=== PATIENT | male | born 1940 | race Caucasian/White ===

== ENCOUNTER 2016-08-07 13:09 | Inpatient (IN) | payer MEDICARE, OTHER ==
[~2016-08-07] VITALS: Ht 182.9 cm; Wt 72.0 kg
[2016-08-07] MEDS ORDERED: SOD CHLORIDE 0.9% 500 ML IV STA (14:53)
[2016-08-07] MEDS ORDERED: morphine 4 MG/ML VIAL IV STA ×2 (14:53→20:18)
[2016-08-07] MEDS ORDERED: ONDANSETRON 4 MG INJ IV STA (14:53)
[2016-08-07 15:10] LABS: ADD SCAN DIFF NO
[2016-08-07 15:28] LABS: INR 1.19; PROTIME 15.2 Sec (12.2-14.2); PT RATIO 1.2
[2016-08-07 15:29] LABS: PARTIAL THROMBOPLASTIN TIME 30.7 Sec (25.0-35.0)
--- NOTE | 2016-08-07 15:32 | RADRPT ---
PROCEDURE: XR Chest. CLINICAL INDICATION: Abdominal pain. TECHNIQUE: Single frontal view. COMPARISON: None. FINDINGS: The lungs are clear. The heart size is normal. There is no pleural effusion. There is no pneumothorax. IMPRESSION: 1. Normal chest radiograph. RPTAT: QQ .Juan Jose Soler MD, Date Time Electronically viewed and signed by .Juan Jose Soler MD, on 08/07/2016 15:32 .R/
[2016-08-07 15:35] LABS: ALANINE AMINOTRANSFERASE 34 IU/L (13-69); ALBUMIN 4.3 g/dl (3.3-4.9); ALBUMIN/GLOBULIN RATIO 1.26; ALKALINE PHOSPHATASE 290 IU/L (42-121); ANION GAP 19 (8-16); ASPARTATE AMINO TRANSFERASE 22 IU/L (15-46); BILIRUBIN,INDIRECT 0.4 mg/dl (0-1.1); BILIRUBIN,TOTAL 0.4 mg/dl (0.2-1.3); BLOOD UREA NITROGEN 28 mg/dl (7-20); CALCIUM 9.7 mg/dl (8.4-10.2); CARBON DIOXIDE 19 mmol/L (21-31); CHLORIDE 105 mmol/L (97-110); CREATININE 0.85 mg/dl (0.61-1.24); GLUCOSE 383 mg/dl (70-220); SODIUM 138 mmol/L (135-144); TOTAL PROTEIN 7.7 g/dl (6.1-8.1)
[2016-08-07 15:38] LABS: POTASSIUM 5.1 mmol/L (3.5-5.1)
[2016-08-07 15:45] LABS: ABNORMAL IP MESSAGE 1; HEMATOCRIT 28.1 % (42.0-52.0); HEMOGLOBIN 9.2 g/dl (14.0-18.0); MEAN CORPUSCULAR HEMOGLOBIN 24.8 pg (29.0-33.0); MEAN CORPUSCULAR HGB CONC 32.7 g/dl (32.0-37.0); MEAN CORPUSCULAR VOLUME 75.7 fl (82.0-101.0); PLATELET COUNT 307 10^3/UL (140-415); RED BLOOD COUNT 3.71 10^6/ul (4.70-6.10); RED CELL DISTRIBUTION WIDTH 25.9 % (11.5-14.5)
[2016-08-07 15:58] LABS: TROPONIN-I < 0.012 ng/ml (0.00-0.12)
[2016-08-07] MEDS ORDERED: OMEP20CA16 PO (16:29)
[2016-08-07] MEDS ORDERED: ONDANSETRON 4 MG INJ IV PRN (16:30)
[2016-08-07] MEDS ORDERED: ACYC400T2 PO (16:30)
[2016-08-07] MEDS ORDERED: ACETAMINOPHEN 325 MG TAB PO PRN (16:30)
[2016-08-07] MEDS ORDERED: GABA300C16 PO (16:31)
[2016-08-07] MEDS ORDERED: REPA1TAB5 PO (16:31)
[2016-08-07] MEDS ORDERED: LOSA50TA6 PO (16:33)
[2016-08-07] MEDS ORDERED: METF500T4 PO (16:33)
[2016-08-07] MEDS ORDERED: CHOL500010 PO (16:34)
[2016-08-07] MEDS ORDERED: CANA300T PO (16:35)
[2016-08-07] MEDS ORDERED: LORA1TAB PO (16:35)
[2016-08-07] MEDS ORDERED: VITA400C15 PO (16:36)
[2016-08-07] MEDS ORDERED: SITA100T8 PO (16:36)
[2016-08-07] MEDS ORDERED: FER325 PO (16:39)
[2016-08-07] MEDS ORDERED: SOD CHLORIDE 0.9% 100 ML ONE (16:42)
[2016-08-07] MEDS ORDERED: IODIXANOL LOCM 100 ML BTL ONE (16:42)
[2016-08-07 17:15] LABS: EOSINOPHILS # 0.1 10^3/ul (0.0-0.5); LYMPHOCYTES # 1.6 10^3/ul (0.8-2.9); MONOCYTE # 1.1 10^3/ul (0.3-0.9); NEUTROPHIL # 6.7 10^3/ul (1.6-7.5)
[2016-08-07 17:17] LABS: ACANTHOCYTES 1+; OVALOCYTES FEW; TEAR DROP CELLS FEW
--- NOTE | 2016-08-07 18:32 | RADRPT ---
PROCEDURE: CT angiogram of the abdomen and pelvis with bilateral lower extremity runoff and with 3 -D reconstructions CLINICAL INDICATION: abd thrombus with leg pain and swelling TECHNIQUE: CT angiogram of the abdomen and pelvis with lower extremity runoff was performed on a Pre[employer]ac[employer]lice CT scanner . The patient was scanned after administration of intravenous contrast. Sagit nick and coronal reformatted images were obtained from the axial source images. 3D MIP reformatted im ages were also created from the axial source images. DLP 832.66 mGycm CTDI vol 32.86, 6.21 mGy One or more of the following dose reduction techniques were used: - Automated exposure control. - Adjustment of the mA and/or kV according to patient size. - Use of iterative reconstruction technique. COMPARISON: None FINDINGS: ANGIOGRAM: There is no acute dissection or aneurysm of the abdominal aorta. The celiac, SMA, and NORMA are widely patent. The right hepatic artery is replaced off the SMA. There are single renal arteries bilaterally which are widely patent. Common, internal and external iliac arteries are patent bilaterally. RIGHT LOWER EXTREMITY: The MARKETING EDITOR, SFA, and profunda arteries are widely patent. There is limited visualization of the mid right popliteal artery due to prominent streak artifact fr om the adjacent right knee prosthesis. The visualized right popliteal artery is widely patent. There is severe short segment narrowing due to atherosclerotic calcifications of the tibioperoneal t runk on series 3, image 505. Infrapopliteal vessels are widely patent and there is good three-vessel runoff to the level of the a nkle. LEFT LOWER EXTREMITY: The MARKETING EDITOR, SFA, and profunda arteries are widely patent. The popliteal artery is widely patent. Infrapopliteal vessels are widely patent and there is good three-vessel runoff to the level of the a nkle. ANCILLARY: Internal fixation hardware is noted at the right iliac and superior pubic ramus. Deformity of bilat eral inferior pubic rami is likely from remote fractures. An infrarenal IVC filter is noted. The appendix is within normal limits. A right knee prosthesis is noted. IMPRESSION: No acute dissection, aneurysm, or significant flow limiting atherosclerosis of the abdominal aorta. The visualized arteries of bilateral lower extremities are widely patent with three-vessel uninterru pted runoff to the ankles. There is limited visualization of the mid right popliteal artery due to streak artifact from the adjacent knee prosthesis. Infrarenal IVC filter. RPTAT: EE Gil Beasley, Physician Date Time Electronically viewed and signed by Gil Beasley Physician on 08/07/2016 18:32 RA/
[2016-08-07 18:43] VITALS: TEMP 98.3
--- NOTE | 2016-08-07 20:41 | ERA ---
ER Documentation Chief Complaint Date/Time DATE: 08/07/16 TIME: 20:32 Chief Complaint sent by pmd for thrombus in inferior vena cava, + dizziness, denies sob HPI This 76-year-old male was sent in for admission and vascular workup for a thrombus in his inferior vena cava. Patient is also experiencing some mild lower abdominal pain as well as bilateral leg pain worse with exertion, pain is worse in the right leg with which the patient also has increasing edema. According to his paperwork he also has a chronic pulmonary embolism. He has no shortness of breath or chest pain. He feels otherwise well. ROS All systems reviewed and are negative except as per history of present illness. Medications Home Meds Reported Medications Ferrous Sulfate* (Ferrous Sulfate*) 325 Mg Tabec, 325 MG PO DAILY, TAB 08/07/16 Vitamin E* (Vitamin E*) 400 Unit Capsule, 400 UNIT PO BID, CAP 08/07/16 Sitagliptin* (Januvia*) 100 Mg Tablet, 100 MG PO DAILY, #30 TAB 08/07/16 Canagliflozin (Invokana) 300 Mg Tablet, 300 MG PO DAILY, TAB 08/07/16 Lorazepam* (Lorazepam*) 1 Mg Tablet, 1 MG PO HS Y for ANXIETY, #30 TAB 08/07/16 Cholecalciferol (Vitamin D3) 5,000 Unit Tablet, 5000 UNIT PO DAILY, TAB 08/07/16 Losartan Potassium* (Losartan Potassium*) 50 Mg Tablet, 50 MG PO DAILY, TAB 08/07/16 Metformin Hcl* (Metformin Hcl*) 500 Mg Tablet, 500 MG PO WITH BREAKFAST DINNE, # 60 TAB 08/07/16 Repaglinide* (Repaglinide*) 1 Mg Tablet, 1 MG PO AC MEALS, TAB 08/07/16 Gabapentin* (Gabapentin*) 300 Mg Capsule, 300 MG PO DAILY, #30 CAP 08/07/16 Acyclovir* (Acyclovir*) 400 Mg Tablet, 200 MG PO 5 TIMES DAILY, TAB 08/07/16 Omeprazole* (Omeprazole*) 20 Mg Capsule.dr, 20 MG PO DAILY, #30 CAP 08/07/16 Allergies Allergies: Coded Allergies: Penicillins (Unverified Allergy, Unknown, 08/07/16) PMhx/Soc History of Surgery: Yes (bilateral hand sx, right knee sx) Anesthesia Reaction: No Hx Neurological Disorder: No Hx Respiratory Disorders: No Hx Cardiac Disorders: No Hx Psychiatric Problems: No Hx Miscellaneous Medical Probl: Yes (htn, DM, and high cholest) Hx Alcohol Use: No Hx Substance Use: No Hx Tobacco Use: No Smoking Status: Never smoker Physical Exam Vitals Vital Signs Date Time Temp Pulse Resp B/P Pulse Ox O2 Delivery O2 Flow Rate FiO2 08/07/16 18:43 98.3 72 16 138/61 100 Room Air 08/07/16 18:09 79 14 138/59 100 Room Air 08/07/16 13:15 100.2 97 20 152/65 98 Physical Exam Const: [] Mild distress Head: Atraumatic Eyes: Normal Conjunctiva ENT: Normal External Ears, Nose and Mouth. Neck: Full range of motion..~ No meningismus. Resp: Clear to auscultation bilaterally Cardio: Regular rate and rhythm, no murmurs Abd: Soft, very mild lower abdominal tenderness without palpable pulsatile mass, no guarding or rebound, non distended. Normal bowel sounds Skin: No petechiae or rashes Back: No midline or flank tenderness Ext: No cyanosis, right lower extremity 1+ pitting edema of the pretibial and ankle area. Distal pulses intact 2+ bilateral lower extremities Neur: Awake and alert and oriented 3, no focal deficits Psych: Normal Mood and Affect Result Diagram: 08/07/16 1500 08/07/16 1500 Results 24 hrs Laboratory Tests Test 08/07/16 15:00 White Blood Count 9.810^3/ul Red Blood Count 3.7110^6/ul Hemoglobin 9.2g/dl Hematocrit 28.1% Mean Corpuscular Volume 75.7fl Mean Corpuscular Hemoglobin 24.8pg Mean Corpuscular Hemoglobin Concent 32.7g/dl Red Cell Distribution Width 25.9% Platelet Count 85173^3/UL Mean Platelet Volume fl Neutrophils % 68.0% Band Neutrophils % 3.0% Lymphocytes % 16.0% Reactive Lymphocytes % 1.0% Monocytes % 11.0% Eosinophils % 1.0% Neutrophils # 6.710^3/ul Lymphocytes # 1.610^3/ul Monocytes # 1.110^3/ul Eosinophils # 0.110^3/ul Tear Drop Cells FEW Ovalocytes FEW Acanthocytes 1+ Prothrombin Time 15.2Sec Prothrombin Time Ratio 1.2 INR International Normalized Ratio 1.19 Activated Partial Thromboplast Time 30.7Sec Sodium Level 138mmol/L Potassium Level 5.1mmol/L Chloride Level 105mmol/L Carbon Dioxide Level 19mmol/L Anion Gap 19 Blood Urea Nitrogen 28mg/dl Creatinine 0.85mg/dl Glucose Level 383mg/dl Lactic Acid Level 2.8mmol/L Calcium Level 9.7mg/dl Total Bilirubin 0.4mg/dl Direct Bilirubin 0.00mg/dl Indirect Bilirubin 0.4mg/dl Aspartate Amino Transf (AST/SGOT) 22IU/L Alanine Aminotransferase (ALT/SGPT) 34IU/L Alkaline Phosphatase 290IU/L Troponin I < 0.012ng/ml Total Protein 7.7g/dl Albumin 4.3g/dl Globulin 3.40g/dl Albumin/Globulin Ratio 1.26 Lipase 86U/L Current Medications Medications (Trade) Dose Ordered Sig/Rishi Route PRN Reason Start Time Stop Time Status Last Admin Dose Admin Sodium Chloride (NS) 500 ml @ 500 mls/hr Q1H STAT IV 08/07/16 14:53 08/07/16 15:52 DC 08/07/16 15:16 Morphine Sulfate (morphine) 4 mg ONCE STAT IV 08/07/16 14:53 08/07/16 14:58 DC 08/07/16 15:23 Ondansetron HCl (Zofran Inj) 4 mg ONCE STAT IV 08/07/16 14:53 08/07/16 14:58 DC 08/07/16 15:16 Ondansetron HCl (Zofran Inj) 4 mg BRIDGE ORDER PRN IV NAUSEA AND/OR VOMITING 08/07/16 16:30 08/08/16 16:29 Acetaminophen (Tylenol Tab) 650 mg ER BRIDGE PRN PO MILD PAIN/FEVER 08/07/16 16:30 08/08/16 16:29 IV Flush 10 ml 10 ml STK-MED ONCE .ROUTE 08/07/16 16:42 08/07/16 16:43 DC 08/07/16 17:23 Sodium Chloride (NS) 100 ml @ ud STK-MED ONCE .ROUTE 08/07/16 16:42 08/07/16 16:43 DC 08/07/16 17:23 Iodixanol (Visipaque Locm) 100 ml STK-MED ONCE .ROUTE 08/07/16 16:42 08/07/16 16:43 DC 08/07/16 17:23 Procedures/MDM Increasing leg claudication with chronic pulmonary embolism and worry for extension into the inferior vena cava. Patient also here for microcytic anemia workup. Patient has a filter in this area. Patient also has diabetic hyperglycemia. He was treated with a liter of normal saline and 4 mg of morphine. Spoke with Dr. Seay agrees with admission for the patient for vascular consultation and workup of his leg claudication. No significant arterial blockages on CTA. Ordering a venous study of his right lower extremity. Patient also has an elevated lactic acid secondary to dehydration plus possibly related to leg claudication. Patient is being admitted to the medical surgical floor as his pulmonary embolism is chronic. He has a microcytic anemia with no history of GI bleeding. CT abdominal angiogram with runoff interpretation: No significant arterial blockages right lower extremity or abdominal aorta. No other acute process or abnormal fat stranding, no fractures per Departure Diagnosis: Primary Impression: Right leg claudication Additional Impressions: Thrombosis Hyperglycemia due to type 2 diabetes mellitus Dehydration Lactic acidosis Microcytic anemia Condition: Stable BUFFY SAMANIEGO DO Aug 07, 2016 20:35
[2016-08-07 21:05] VITALS: BP 141/67; RESP 18
[2016-08-07] MEDS ORDERED: INSULIN ASPART [NOVOLOG] 3 ML PEN SC ONE (21:30)
[2016-08-07] MEDS: SOD CHLORIDE 0.9% 1,000 ML IV SCH (23:38)
[2016-08-07] MEDS: INSULIN ASPART [NOVOLOG] 3 ML PEN SC SCH (23:43)
[2016-08-08] MEDS ORDERED: ACCU-CHEK XX SCH (02:00)
[2016-08-08] MEDS: ACCU-CHEK XX SCH (02:00)
[2016-08-08] MEDS: PANTOPRAZOLE (EC) 40 MG TAB PO SCH (05:38)
[2016-08-08 06:01] LABS: ADD SCAN DIFF NO
[2016-08-08 06:08] LABS: ABNORMAL IP MESSAGE 1; BASOPHILS % 0.4 % (0.0-2.0); EOSINOPHILS % 0.3 % (0.0-7.0); HEMATOCRIT 26.4 % (42.0-52.0); HEMOGLOBIN 8.4 g/dl (14.0-18.0); LYMPHOCYTES # 1.5 10^3/ul (0.8-2.9); LYMPHOCYTES % 19.9 % (15.0-51.0); MEAN CORPUSCULAR HEMOGLOBIN 24.4 pg (29.0-33.0); MEAN CORPUSCULAR HGB CONC 31.8 g/dl (32.0-37.0); MEAN CORPUSCULAR VOLUME 76.7 fl (82.0-101.0); MONOCYTE # 1.1 10^3/ul (0.3-0.9); MONOCYTES % 15.2 % (0.0-11.0); NEUTROPHIL # 4.3 10^3/ul (1.6-7.5); NEUTROPHILS % 56.9 % (39.0-77.0); NUCLEATED RED BLOOD CELLS # 0.1 10^3/ul (0.0-0.0); NUCLEATED RED BLOOD CELLS% 1.2 /100WBC (0.0-0.0); PLATELET COUNT 259 10^3/UL (140-415); RED BLOOD COUNT 3.44 10^6/ul (4.70-6.10); RED CELL DISTRIBUTION WIDTH 25.4 % (11.5-14.5); WHITE BLOOD COUNT 7.5 10^3/ul (4.8-10.8)
[2016-08-08 06:24] LABS: INR 1.2; PROTIME 15.3 Sec (12.2-14.2); PT RATIO 1.2
[2016-08-08 06:25] LABS: PARTIAL THROMBOPLASTIN TIME 36.6 Sec (25.0-35.0)
[2016-08-08 06:32] LABS: IRON 47 ug/dl (35-150)
[2016-08-08 06:42] LABS: TOTAL IRON BINDING CAPACITY 242 ug/dl (241-421)
[2016-08-08 06:43] LABS: ANION GAP 13 (8-16); ASPARTATE AMINO TRANSFERASE 20 IU/L (15-46); BLOOD UREA NITROGEN 24 mg/dl (7-20); CALCIUM 9.5 mg/dl (8.4-10.2); CARBON DIOXIDE 24 mmol/L (21-31); CHLORIDE 109 mmol/L (97-110); CREATININE 0.73 mg/dl (0.61-1.24); GLUCOSE 111 mg/dl (70-220); POTASSIUM 4.6 mmol/L (3.5-5.1); SODIUM 141 mmol/L (135-144)
[2016-08-08 06:44] LABS: ALANINE AMINOTRANSFERASE 35 IU/L (13-69); ALBUMIN 3.7 g/dl (3.3-4.9); ALBUMIN/GLOBULIN RATIO 1.19; ALKALINE PHOSPHATASE 238 IU/L (42-121); BILIRUBIN,INDIRECT 0.4 mg/dl (0-1.1); BILIRUBIN,TOTAL 0.4 mg/dl (0.2-1.3); CHOL/HDL RATIO 4.7 RATIO; CHOLESTEROL 104 mg/dl (100-200); HDL CHOLESTEROL 22 mg/dl (31-75); TOTAL PROTEIN 6.8 g/dl (6.1-8.1)
[2016-08-08 06:46] LABS: TRIGLYCERIDES 117 mg/dl (0-149)
[2016-08-08 07:52] LABS: FOLATE 5.7 ng/ml (2.8-20.0)
[2016-08-08 08:03] VITALS: BP 142/65; RESP 18
[2016-08-08] MEDS: GABAPENTIN 300 MG CAP PO SCH (08:09)
[2016-08-08] MEDS: LINAGLIPTIN 5 MG TABLET PO SCH (08:09)
[2016-08-08] MEDS: CHOLECALCIFEROL 1,000 UNIT TAB PO SCH (08:09)
[2016-08-08] MEDS: VITAMIN E 400 UNITS CAP PO SCH ×2 (08:09→22:29)
[2016-08-08] MEDS: LOSARTAN 50 MG TAB PO SCH (08:10)
[2016-08-08] MEDS: ENOXAPARIN 40 MG/0.4 ML SYG SC SCH (08:18)
[2016-08-08] MEDS: INSULIN ASPART [NOVOLOG] 3 ML PEN SC SCH ×7 (08:19→22:31)
[2016-08-08] MEDS: SOD CHLORIDE 0.9% 1,000 ML IV SCH ×2 (14:10→17:28)
--- NOTE | 2016-08-08 15:42 | PN ---
Date/Time of Note Date/Time of Note DATE: 08/08/16 TIME: 15:30 Assessment/Plan VTE Prophylaxis VTE Prophylaxis Intervention: LMWH Lines/Catheters IV Catheter Type (from Nrsg): Peripheral IV Assessment/Plan Assessment/Plan Thrombosis- On Lovenox Hyperglycemia due to type 2 diabetes mellitus Dehydration Lactic acidosis Microcytic anemia DW Dr eHrnandez Subjective 24 Hr Interval Summary Constitutional: requiring O2 Respiratory: no complaints Cardiovascular: no complaints Gastrointestinal: no complaints Genitourinary: no complaints Exam/Review of Systems Vital Signs Vitals Vital Signs Date Time Temp Pulse Resp B/P Pulse Ox O2 Delivery O2 Flow Rate FiO2 08/08/16 08:03 98.5 79 18 142/65 99 08/07/16 18:43 Room Air Intake and Output 08/07/16 08/07/16 08/08/16 14:59 22:59 06:59 Intake Total 600 ml Output Total 500 ml Balance 100 ml Exam Constitutional: alert, well developed Respiratory: clear to auscultation, normal air movement Cardiovascular: nl pulses, regular rate and rhythm Gastrointestinal: non-tender, soft Musculoskeletal: other Extremities: edema, other (No cyanosis, right lower extremity 1+ pitting edema of the pretibial and ankle area. Distal pulses intact 2+ bilateral lower extremities) Neurological: nl mental status, nl speech Skin: other Results Result Diagram: 08/08/16 0520 08/08/16 0520 Results 24 hrs Laboratory Tests Test 08/07/16 23:35 08/07/16 23:40 08/08/16 02:55 08/08/16 05:20 Stool Occult Blood NEGATIVE Bedside Glucose 269 H 149 White Blood Count 7.5 # Red Blood Count 3.44 L Hemoglobin 8.4 L Hematocrit 26.4 L Mean Corpuscular Volume 76.7 L Mean Corpuscular Hemoglobin 24.4 L Mean Corpuscular Hemoglobin Concent 31.8 L Red Cell Distribution Width 25.4 H Platelet Count 259 Mean Platelet Volume Neutrophils % 56.9 Lymphocytes % 19.9 Monocytes % 15.2 H Eosinophils % 0.3 Basophils % 0.4 Nucleated Red Blood Cells % 1.2 H Neutrophils # 4.3 Lymphocytes # 1.5 Monocytes # 1.1 H Eosinophils # 0.0 Basophils # 0.0 Nucleated Red Blood Cells # 0.1 H Prothrombin Time 15.3 H Prothrombin Time Ratio 1.2 INR International Normalized Ratio 1.20 Activated Partial Thromboplast Time 36.6 H Sodium Level 141 Potassium Level 4.6 Chloride Level 109 Carbon Dioxide Level 24 Anion Gap 13 Blood Urea Nitrogen 24 H Creatinine 0.73 Glucose Level 111 # Hemoglobin A1c 8.2 H Calcium Level 9.5 Ferritin 151.0 Total Bilirubin 0.4 Direct Bilirubin 0.00 Indirect Bilirubin 0.4 Aspartate Amino Transf (AST/SGOT) 20 Alanine Aminotransferase (ALT/SGPT) 35 Alkaline Phosphatase 238 H Total Protein 6.8 Albumin 3.7 Globulin 3.10 Albumin/Globulin Ratio 1.19 Triglycerides Level 117 Cholesterol Level 104 LDL Cholesterol, Calculated 59 HDL Cholesterol 22 L Cholesterol/HDL Ratio 4.7 Vitamin B12 Level > 1000 H Folate 5.7 Test 08/08/16 05:40 08/08/16 08:05 08/08/16 11:59 Iron Level 47 Total Iron Binding Capacity 242 Percent Iron Saturation 19 L Bedside Glucose 165 151 Medications Medications Current Medications Acetaminophen (Tylenol Tab) 650 mg Q6H PRN PO PAIN AND OR ELEVATED TEMP; Start 08/07/16 at 21:30 Enoxaparin Sodium 40 mg 40 mg DAILY SC Last administered on 08/08/16 08:18; Admin Dose 40 MG; Start 08/08/16 at 09:00 Sodium Chloride (NS) 1,000 ml @ 60 mls/hr [id number] IV Last administered on 08/07 23:38; Admin Dose 60 MLS/HR; Start 08/07/16 at 21:30 Morphine Sulfate (morphine) 2 mg Q4H PRN IV severe pain; Start 08/07/16 at 21: 30 Acetaminophen/ Hydrocodone Bitart ([place] (5/325)) 1 tab Q6H PRN PO moderate pain; Start 08/07/16 at 21:30 Diagnostic Test (Pha) (Accu-Chek) 1 ea 02 XX ; Start 08/08/16 at 02:00 Cholecalciferol (Vitamin D) 5,000 unit DAILY PO Last administered on 08/08/16 08:09; Admin Dose 5,000 UNIT; Start 08/08/16 at 09:00 Gabapentin (Neurontin) 300 mg DAILY PO Last administered on 08/08/16 08:09; Admin Dose 300 MG; Start 08/08/16 at 09:00 Lorazepam (Ativan) 1 mg HS PRN PO ANXIETY; Start 08/07/16 at 21:30 Losartan Potassium (Cozaar) 50 mg DAILY PO Last administered on 08/08/16 08:10 ; Admin Dose 50 MG; Start 08/08/16 at 09:00 Vitamin E (Vitamin E) 400 units BID PO Last administered on 08/08/16 08:09; Admin Dose 400 UNITS; Start 08/08/16 at 09:00 Pantoprazole (Protonix Tab) 40 mg DAILY@06 PO Last administered on 08/08/16 05 :38; Admin Dose 40 MG; Start 08/08/16 at 06:00 Linagliptin (Tradjenta) 5 mg DAILY PO Last administered on 08/08/16 08:09; Admin Dose 5 MG; Start 08/08/16 at 09:00 POLA CISNEROS Aug 08, 2016 15:40
[2016-08-08 20:00] VITALS: BP 150/67; RESP 20
[2016-08-09] MEDS: ACCU-CHEK XX SCH (02:00)
[2016-08-09] MEDS: PANTOPRAZOLE (EC) 40 MG TAB PO SCH (06:05)
[2016-08-09 06:24] LABS: ABNORMAL IP MESSAGE 1; BASOPHIL # 0.1 10^3/ul (0.0-0.1); BASOPHILS % 0.7 % (0.0-2.0); EOSINOPHILS # 0.1 10^3/ul (0.0-0.5); EOSINOPHILS % 0.8 % (0.0-7.0); HEMATOCRIT 26.3 % (42.0-52.0); HEMOGLOBIN 8.5 g/dl (14.0-18.0); LYMPHOCYTES # 1.6 10^3/ul (0.8-2.9); LYMPHOCYTES % 21.4 % (15.0-51.0); MEAN CORPUSCULAR HEMOGLOBIN 24.5 pg (29.0-33.0); MEAN CORPUSCULAR HGB CONC 32.3 g/dl (32.0-37.0); MEAN CORPUSCULAR VOLUME 75.8 fl (82.0-101.0); MONOCYTE # 1.1 10^3/ul (0.3-0.9); MONOCYTES % 14.7 % (0.0-11.0); NEUTROPHIL # 4.2 10^3/ul (1.6-7.5); NEUTROPHILS % 55.4 % (39.0-77.0); NUCLEATED RED BLOOD CELLS # 0.1 10^3/ul (0.0-0.0); NUCLEATED RED BLOOD CELLS% 1.2 /100WBC (0.0-0.0); PLATELET COUNT 258 10^3/UL (140-415); RED BLOOD COUNT 3.47 10^6/ul (4.70-6.10); RED CELL DISTRIBUTION WIDTH 24.7 % (11.5-14.5); WHITE BLOOD COUNT 7.5 10^3/ul (4.8-10.8)
[2016-08-09 06:48] LABS: CALCIUM 9.4 mg/dl (8.4-10.2); CREATININE 0.77 mg/dl (0.61-1.24); POTASSIUM 4.2 mmol/L (3.5-5.1)
[2016-08-09 06:58] LABS: ADD SCAN DIFF NO
[2016-08-09 07:17] VITALS: BP 151/68; RESP 18
[2016-08-09] MEDS: INSULIN ASPART [NOVOLOG] 3 ML PEN SC SCH ×7 (08:17→21:39)
[2016-08-09] MEDS: LINAGLIPTIN 5 MG TABLET PO SCH (09:47)
[2016-08-09] MEDS: LOSARTAN 50 MG TAB PO SCH (09:47)
[2016-08-09] MEDS: CHOLECALCIFEROL 1,000 UNIT TAB PO SCH (09:47)
[2016-08-09] MEDS: VITAMIN E 400 UNITS CAP PO SCH (09:47)
[2016-08-09] MEDS: GABAPENTIN 300 MG CAP PO SCH (09:47)
[2016-08-09] MEDS: ENOXAPARIN 40 MG/0.4 ML SYG SC SCH (09:49)
[2016-08-09 12:54] LABS: WHITE BLOOD COUNT 9.8 10^3/ul (4.8-10.8)
[2016-08-09] MEDS: SOD CHLORIDE 0.9% 1,000 ML IV SCH ×2 (13:51→23:30)
--- NOTE | 2016-08-09 19:21 | CONS ---
Date/Time of Note Date/Time of Note DATE: 08/09/16 TIME: 19:16 Assessment/Plan Assessment/Plan Additional Assessment/Plan 1. Anemia microcytic, with few few blast cells 2. Thrombosis of the inferior vena cava 3. Weight loss of 26 pound 4. Abdominal pain right lower quadrant 5. Lower leg pain 6. History of pulmonary embolism 7. Diabetes mellitus 8. Hypertension 9. Hyperlipidemia 10. Status post surgery on his knee and the hand Plan Patient is being evaluated by the associate account manager. He is also on blood thinner for his thrombus in the inferior vena cava. Once she is cleared by the associate account manager then will proceed with EGD and colonoscopyToribio Jenkins for his constipation Consultation Date/Type/Reason Admit Date/Time Aug 07, 2016 at 16:05 Hx of Present Illness This is a 76-year-old male with a history of diabetes mellitus hypertension lipid abnormality admitted to the hospital for thrombosis of the inferior vena cava. Patient complains of right lower quadrant abdominal pain and also significant weight loss. He lost 26 pounds over the. A few months and is chronically constipated. Patient denies of any kind of GI bleeding no nausea no vomiting no heartburn. No chest pain or shortness of breath. He has lost his appetite. Patient has umbrella in the inferior vena cava and also has a history of pulmonary embolism. He has a history of surgery on his knee and also on his hands. Constitutional: poor po Eyes: no complaints ENT: no complaints Respiratory: no complaints Cardiovascular: no complaints Gastrointestinal: constipation Genitourinary: no complaints Musculoskeletal: bone/joint pain Neurologic: no complaints Endocrine: no complaints Psychological: nl mood/affect, no complaints Family History Significant Family History: no pertinent family hx Social History Alcohol Use: none Smoking Status: Never smoker Drug Use: none Exam/Review of Systems Vital Signs Vitals Vital Signs Date Time Temp Pulse Resp B/P Pulse Ox O2 Delivery O2 Flow Rate FiO2 08/09/16 07:17 98.6 75 18 151/68 08/08/16 20:00 98 08/07/16 18:43 Room Air Intake and Output 08/08/16 08/08/16 08/09/16 15:00 23:00 07:00 Intake Total 1780 ml 660 ml Output Total 200 ml Balance 1780 ml 460 ml Exam Constitutional: alert, oriented, well developed Psych: nl mood/affect, no complaints Head: atraumatic, normocephalic Eyes: EOMI, PERRL, nl conjunctiva, nl lids, nl sclera ENMT: nl external ears & nose, nl lips & teeth, nl nasal mucosa & septum Neck: non-tender, supple Respiratory: clear to auscultation, normal air movement Cardiovascular: nl pulses, regular rate and rhythm Gastrointestinal: nl liver, spleen, non-tender, soft Musculoskeletal: nl extremities to inspection, nl gait and stance Extremities: normal pulses Neurological: BACK TENDER PULP DRIER II-XII intact, nl mental status, nl speech, nl strength Skin: nl turgor, No rash or lesions Lymph: nl lymph nodes Results Result Diagram: 08/09/16 0524 08/09/16 0520 Results 24 hrs Laboratory Tests Test 08/08/16 22:27 08/09/16 02:03 08/09/16 05:20 08/09/16 05:24 Bedside Glucose 244 H 170 Sodium Level 136 Potassium Level 4.2 Chloride Level 105 Carbon Dioxide Level 23 Anion Gap 12 Blood Urea Nitrogen 21 H Creatinine 0.77 Glucose Level 149 Uric Acid 5.0 Calcium Level 9.4 Lactate Dehydrogenase 1254 H White Blood Count 7.5 Red Blood Count 3.47 L Hemoglobin 8.5 L Hematocrit 26.3 L Mean Corpuscular Volume 75.8 L Mean Corpuscular Hemoglobin 24.5 L Mean Corpuscular Hemoglobin Concent 32.3 Red Cell Distribution Width 24.7 H Platelet Count 258 Mean Platelet Volume Neutrophils % 55.4 Lymphocytes % 21.4 Monocytes % 14.7 H Eosinophils % 0.8 Basophils % 0.7 Nucleated Red Blood Cells % 1.2 H Neutrophils # 4.2 Lymphocytes # 1.6 Monocytes # 1.1 H Eosinophils # 0.1 Basophils # 0.1 Nucleated Red Blood Cells # 0.1 H Test 08/09/16 08:04 08/09/16 12:04 08/09/16 17:30 Bedside Glucose 169 186 165 Medications Medications Current Medications Acetaminophen 650 mg 650 mg Q6H PRN PO PAIN AND OR ELEVATED TEMP; Start at 21:30 Sodium Chloride (NS) 1,000 ml @ 60 mls/hr [id number] IV Last administered on 08/09t 13:51; Admin Dose 60 MLS/HR; Start 08/07/16 at 21:30 Morphine Sulfate (morphine) 2 mg Q4H PRN IV severe pain; Start 08/07/16 at 21: 30 Acetaminophen/ Hydrocodone Bitart ([place] (5/325)) 1 tab Q6H PRN PO moderate pain; Start 08/07/16 at 21:30 Diagnostic Test (Pha) (Accu-Chek) 1 ea 02 XX ; Start 08/08/16 at 02:00 Cholecalciferol (Vitamin D) 5,000 unit DAILY PO Last administered on 08/09/16 09:47; Admin Dose 5,000 UNIT; Start 08/08/16 at 09:00 Gabapentin (Neurontin) 300 mg DAILY PO Last administered on 08/09/16 09:47; Admin Dose 300 MG; Start 08/08/16 at 09:00 Lorazepam (Ativan) 1 mg HS PRN PO ANXIETY; Start 08/07/16 at 21:30 Losartan Potassium (Cozaar) 50 mg DAILY PO Last administered on 08/09/16 09:47 ; Admin Dose 50 MG; Start 08/08/16 at 09:00 Pantoprazole (Protonix Tab) 40 mg DAILY@06 PO Last administered on 08/09/16 06 :05; Admin Dose 40 MG; Start 08/08/16 at 06:00 Linagliptin (Tradjenta) 5 mg DAILY PO Last administered on 08/09/16 09:47; Admin Dose 5 MG; Start 08/08/16 at 09:00 Apixaban (Eliquis) 5 mg BID PO ; Start 08/09/16 at 21:00 ANA VELASQUEZ MD Aug 09, 2016 19:21
[2016-08-09 19:48] VITALS: BP 119/55; RESP 18
[2016-08-09] MEDS: LUBIPROSTONE 24 MCG CAP PO SCH (21:37)
[2016-08-09] MEDS: APIXABAN 5 MG TABLET PO SCH (21:37)
[2016-08-10] MEDS: ACCU-CHEK XX SCH (02:00)
[2016-08-10] MEDS: PANTOPRAZOLE (EC) 40 MG TAB PO SCH (05:15)
[2016-08-10 07:53] VITALS: BP 133/63; RESP 20
[2016-08-10 08:03] LABS: IMMUNOGLOBULIN A 195 mg/dl (70-400); IMMUNOGLOBULIN G 1774 mg/dl (700-1600); IMMUNOGLOBULIN M 185 mg/dl (40-230)
[2016-08-10] MEDS: INSULIN ASPART [NOVOLOG] 3 ML PEN SC SCH ×7 (08:26→20:49)
[2016-08-10] MEDS: LUBIPROSTONE 24 MCG CAP PO SCH ×2 (09:17→20:36)
[2016-08-10] MEDS: APIXABAN 5 MG TABLET PO SCH ×2 (09:17→20:36)
[2016-08-10] MEDS: CHOLECALCIFEROL 1,000 UNIT TAB PO SCH (09:17)
[2016-08-10] MEDS: LINAGLIPTIN 5 MG TABLET PO SCH (09:17)
[2016-08-10] MEDS: LOSARTAN 50 MG TAB PO SCH (09:18)
[2016-08-10] MEDS: GABAPENTIN 300 MG CAP PO SCH (09:18)
[2016-08-10] MEDS: SOD CHLORIDE 0.9% 1,000 ML IV SCH ×2 (09:24→16:10)
--- NOTE | 2016-08-10 11:07 | CONS ---
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 This thrombosis is chronic and it is unclear if the pt has been on anticoagulation since the initial thromboembolic event. Has recently been started on rivaroxaban but this was discontinued when pt had a drop in anemia. Is iron deficient and is scheduled to have a GI evaluation. Peripheral blood slide has been reviewed and there is moderate aniso and poikilocytoisis of the RBC's. Some teardrop shaped RBC's are present. Circulating metamyelocytes and a few blasts are seen. There are also nucleated RBC's present. P:latelets are nl in number with some unusual forms seen. Have ordered LDH--1254, Uric acid 5.0. Pt has a leukoerythroblastic peripheral blood picture. Suggests an underlying bone marrow process such as a myeloproliferative neoplasm or a marrow infiltrative process, ie metastatic carcinoma. Have requested a SABRINA-2 mutation, BCR/ABL gene rearrangement study, SPEP, IEP, QIG's and B2M. CEA is 1.7. Will request an ultrasound of abd in order to determine the spleen size. Ultimately may require a bone marrow aspiration and bx. Also have sent studies to evaluate for thrombophilia. Pt has been started on maintenance doses of apixaban. Consultation Date/Type/Reason Admit Date/Time Aug 07, 2016 at 16:05 Date of Consultation: Aug 10, 2016 Type of Consultation: Hematology/Oncology Reason for Consultation Anemia and IVC [id number] Referring Provider: TEDDY RUVALCABA MD Hx of Present Illness Pt is a 76 y/o male who actually was to be seen in my office on 08/05/16 but did not make the appt. Pt has recently been found to have an IVC thrombosis in association with an IVC filter which may have been inserted 12 years ago after Rt hip replacement for hip fx. This was done at [facility]. Pt also had Rt total knee replacement 3 years ago without complications. Pt is unaware of any other hx of thromboembolic events, but was actually unaware of the event associated with the hip surgery. Pt had recently been taking rivaroxiban, but not sure when this was started. Pt has also had recent drop in Hgb. Was 10.9, MCV 78 on 05/28 and dripped to 8.9, MCV 73.6 on 07/19/16. Pt denies GI complaints but is said to have lost ~ 20 lbs in past 4 mos. Denies melena or hematochezia. States that been chronically anemic and has chronically been taking iron supplementation. 07/19/16 --Fe: 19, Ferritin: 251.50. Now WBC 7,500, Hgb 8.5, Hct 26.3, MCV 75.8, MCH 245.5, MCHC 32.3, RDW 24.7, Plt 258,000. Fe: 47, TIBC: 242, % Sat: 19, Ferritin: 151. T Bili 0.4, AST 20, ALT 35, Alk Phos 238, Vit B12 >1000, Folate 5.7. Pt denies bone pain. No fevers or night sweats. No unusual bruising or bleeding. No itching after hot bath or shower. Pt other medical problems include hyperlipidemia, HBP and DM. Besides hip and knee surgery pt has had TURP. PSA 0.3--05/28/16. Pt has no known exposures to industrial toxins or ionizing radiation. Never smoked or used tobacco products. No alcohol consumption for >30 years. Family hx is pos for diabetes. No hx of thromboembolism. Constitutional: improved, no complaints, poor po Eyes: no complaints ENT: no complaints Respiratory: no complaints Cardiovascular: no complaints Gastrointestinal: constipation, other (LLQ pain) Genitourinary: no complaints Musculoskeletal: bone/joint pain Skin: no complaints Neurologic: no complaints Endocrine: no complaints Lymphatic: no complaints Psychological: nl mood/affect, no complaints Immunologic: no complaints Past Medical History DM, HBP, Hyperlipidemia, BPH, DVT and PE. Past Surgical History Bilateral knee arthroscopy, Rt total knee replacement, Rt hip replacement, TURP , IVC filter placement. Social History Alcohol Use: none Smoking Status: Never smoker Drug Use: none Exam/Review of Systems Vital Signs Vitals Vital Signs Date Time Temp Pulse Resp B/P Pulse Ox O2 Delivery O2 Flow Rate FiO2 7/1/17 07:53 98.2 75 20 133/63 97 08/07/16 18:43 Room Air Intake and Output 08/09/16 08/09/16 08/10/16 15:00 23:00 07:00 Intake Total 1200 ml 1140 ml 1180 ml Output Total 1700 ml 900 ml Balance -500 ml 1140 ml 280 ml Exam Constitutional: alert, oriented, well developed Psych: nl mood/affect, no complaints Head: atraumatic, normocephalic Eyes: EOMI, nl conjunctiva, nl lids, nl sclera ENMT: nl external ears & nose, nl lips & teeth, nl nasal mucosa & septum Neck: non-tender, supple Respiratory: clear to auscultation, normal air movement Cardiovascular: nl pulses, regular rate and rhythm Gastrointestinal: nl liver, spleen, other (Sl tender in LLQ. No rebound. Bowel sounds a re active.), soft Musculoskeletal: nl extremities to inspection, other (Surgical incision over the Rt knee) Extremities: normal pulses Skin: nl turgor Lymph: nl lymph nodes Results Result Diagram: 08/09/16 0524 08/09/16 0520 Results 24 hrs Laboratory Tests Test 08/09/16 12:04 08/09/16 17:30 08/09/16 21:35 08/10/16 02:28 Bedside Glucose 186 165 214 184 Test 08/10/16 05:12 08/10/16 05:20 08/10/16 08:18 Bedside Glucose 198 224 H Fibrinogen 404.0 Carcinoembryonic Antigen 1.7 Immunoglobulin A 195 Immunoglobulin G 1774 H Immunoglobulin M 185 Medications Medications Current Medications Acetaminophen 650 mg 650 mg Q6H PRN PO PAIN AND OR ELEVATED TEMP; Start at 21:30 Sodium Chloride (NS) 1,000 ml @ 60 mls/hr [id number] IV Last administered on t 09:24; Admin Dose 60 MLS/HR; Start 08/07/16 at 21:30 Morphine Sulfate (morphine) 2 mg Q4H PRN IV severe pain; Start 08/07/16 at 21: 30 Acetaminophen/ Hydrocodone Bitart ([place] (5/325)) 1 tab Q6H PRN PO moderate pain; Start 08/07/16 at 21:30 Diagnostic Test (Pha) (Accu-Chek) 1 ea 02 XX ; Start 08/08/16 at 02:00 Cholecalciferol (Vitamin D) 5,000 unit DAILY PO Last administered on 08/10/16 09:17; Admin Dose 5,000 UNIT; Start 08/08/16 at 09:00 Gabapentin (Neurontin) 300 mg DAILY PO Last administered on 08/10/16 09:18; Admin Dose 300 MG; Start 08/08/16 at 09:00 Lorazepam (Ativan) 1 mg HS PRN PO ANXIETY; Start 08/07/16 at 21:30 Losartan Potassium (Cozaar) 50 mg DAILY PO Last administered on 08/10/16 09:18 ; Admin Dose 50 MG; Start 08/08/16 at 09:00 Pantoprazole (Protonix Tab) 40 mg DAILY@06 PO Last administered on 08/10/16 05: 15; Admin Dose 40 MG; Start 08/08/16 at 06:00 Linagliptin (Tradjenta) 5 mg DAILY PO Last administered on 08/10/16 09:17; Admin Dose 5 MG; Start 08/08/16 at 09:00 Apixaban (Eliquis) 5 mg BID PO Last administered on 08/10/16 09:17; Admin Dose 5 MG; Start 08/09/16 at 21:00 Lubiprostone (Amitiza) 24 mcg BID PO Last administered on 08/10/16 09:17; Admin Dose 24 MCG; Start 08/09/16 at 21:00 TRICIA WOLF MD Aug 10, 2016 10:42
--- NOTE | 2016-08-10 12:19 | RADRPT ---
PROCEDURE: US abdomen CLINICAL INDICATION: Anemia, evaluate spleen size TECHNIQUE: Multiple sonographic images of the left upper abdominal quadrant were obtained utilizin g a linear array transducer with grayscale and color-flow and a Doppler imaging. The images were rev iewed on a high-resolution PACS workstation. COMPARISON: No prior studies are available for comparison. FINDINGS: The spleen measures 13.0 cm in length. No focal splenic lesions are identified. RPTAT: AA IMPRESSION: Mild splenomegaly. Physician Dominik Date Time Electronically viewed and signed by Gil Beasley Physician on 08/10/2016 12:19 /
--- NOTE | 2016-08-10 13:03 | PN ---
Date/Time of Note Date/Time of Note DATE: 08/10/16 TIME: 12:44 Assessment/Plan VTE Prophylaxis VTE Prophylaxis Intervention: other Lines/Catheters IV Catheter Type (from Nrsg): Peripheral IV Assessment/Plan Assessment/Plan -Microcytic anemia with weight loss - GI consult- Dr Hall is notified - Chronic Pulmonary Embolism - Eliquis started - Peripheral smear showed blast cells - Hem/Oncology consult- Dr Philippe is notified --Hyperglycemia due to type 2 Diabetes mellitus - Glycemic control- started on Lantus 10 units SQ daily at 1999 - Hypertension- cont Cozar -Hyperlipidemia- will do CHD vladimir an - BPH - sp TURP - Hx DVT and PE - sp IVC filter placement. - SP Rt total knee replacement - SP Rt hip replacement, DW Dr Hernandez/staff Exam/Review of Systems Vital Signs Vitals Vital Signs Date Time Temp Pulse Resp B/P Pulse Ox O2 Delivery O2 Flow Rate FiO2 08/10/16 07:53 98.2 75 20 133/63 97 08/07/16 18:43 Room Air Intake and Output 08/09/16 08/09/16 08/10/16 15:00 23:00 07:00 Intake Total 1200 ml 1140 ml 1180 ml Output Total 1700 ml 900 ml Balance -500 ml 1140 ml 280 ml Exam Constitutional: alert, oriented Respiratory: clear to auscultation, normal air movement Cardiovascular: nl pulses, regular rate and rhythm Gastrointestinal: non-tender, soft Extremities: normal pulses Results Result Diagram: 08/09/16 0524 08/09/16 0520 Results 24 hrs Laboratory Tests Test 08/09/16 17:30 08/09/16 21:35 08/10/16 02:28 08/10/16 05:12 Bedside Glucose 165 214 184 198 Test 08/10/16 05:20 08/10/16 08:18 08/10/16 12:22 Fibrinogen 404.0 Carcinoembryonic Antigen 1.7 Immunoglobulin A 195 Immunoglobulin G 1774 H Immunoglobulin M 185 Bedside Glucose 224 H 211 Medications Medications Current Medications Acetaminophen 650 mg 650 mg Q6H PRN PO PAIN AND OR ELEVATED TEMP; Start at 21:30 Sodium Chloride (NS) 1,000 ml @ 60 mls/hr [id number] IV Last administered on t 09:24; Admin Dose 60 MLS/HR; Start 08/07/16 at 21:30 Morphine Sulfate (morphine) 2 mg Q4H PRN IV severe pain; Start 08/07/16 at 21: 30 Acetaminophen/ Hydrocodone Bitart ([place] (5/325)) 1 tab Q6H PRN PO moderate pain; Start 08/07/16 at 21:30 Diagnostic Test (Pha) (Accu-Chek) 1 ea 02 XX ; Start 08/08/16 at 02:00 Cholecalciferol (Vitamin D) 5,000 unit DAILY PO Last administered on 08/10/16 09:17; Admin Dose 5,000 UNIT; Start 08/08/16 at 09:00 Gabapentin (Neurontin) 300 mg DAILY PO Last administered on 08/10/16 09:18; Admin Dose 300 MG; Start 08/08/16 at 09:00 Lorazepam (Ativan) 1 mg HS PRN PO ANXIETY; Start 08/07/16 at 21:30 Losartan Potassium (Cozaar) 50 mg DAILY PO Last administered on 08/10/16 09:18 ; Admin Dose 50 MG; Start 08/08/16 at 09:00 Pantoprazole (Protonix Tab) 40 mg DAILY@06 PO Last administered on 08/10/16 05: 15; Admin Dose 40 MG; Start 08/08/16 at 06:00 Linagliptin (Tradjenta) 5 mg DAILY PO Last administered on 08/10/16 09:17; Admin Dose 5 MG; Start 08/08/16 at 09:00 Apixaban (Eliquis) 5 mg BID PO Last administered on 08/10/16 09:17; Admin Dose 5 MG; Start 08/09/16 at 21:00 Lubiprostone (Amitiza) 24 mcg BID PO Last administered on 08/10/16 09:17; Admin Dose 24 MCG; Start 08/09/16 at 21:00 POLA CISNEROS Aug 10, 2016 12:55
[2016-08-10 13:23] LABS: CHOL/HDL RATIO 6.7 RATIO
[2016-08-10 19:39] VITALS: BP 145/65; RESP 20
[2016-08-10] MEDS: ACETAMINOPHEN 325 MG TAB PO PRN (19:48)
[2016-08-10] MEDS: INSULIN GLARGINE [LANtus] 3 ML PEN SC SCH (20:39)
--- NOTE | 2016-08-10 22:09 | CONS ---
Date/Time of Note Date/Time of Note DATE: 08/10/16 TIME: 22:08 Assessment/Plan Assessment/Plan Chief Complaint/Hosp Course Impression: 1. Anemia microcytic, with few few blast cells 2. Thrombosis of the inferior vena cava 3. Weight loss of 26 pound 4. Abdominal pain right lower quadrant 5. Constipation 6. History of pulmonary embolism 7. Diabetes mellitus 8. Hypertension 9. Hyperlipidemia 10. Status post surgery on his knee and the hand Plan 1. stool for occult blood 2. needs hematology w/u first. Once she is cleared by the salesperson [employer] then will proceed with EGD and colonoscopy. 3. continue Amitiza for his constipation Problems: Consultation Date/Type/Reason Admit Date/Time Aug 07, 2016 at 16:05 Initial Consult Date 08/10/16 Type of Consultation: GI Referring Provider: TEDDY RUVALCABA MD 24 HR Interval Summary Free Text/Dictation no melena, brbpr, n/v Exam/Review of Systems Vital Signs Vitals Vital Signs Date Time Temp Pulse Resp B/P Pulse Ox O2 Delivery O2 Flow Rate FiO2 08/10/16 20:46 99.8 08/10/16 19:39 88 20 145/65 98 08/07/16 18:43 Room Air Intake and Output 08/09/16 08/09/16 08/10/16 15:00 23:00 07:00 Intake Total 1200 ml 1140 ml 1180 ml Output Total 1700 ml 900 ml Balance -500 ml 1140 ml 280 ml Exam Constitutional: alert, oriented, well developed Psych: nl mood/affect, no complaints Head: atraumatic, normocephalic Eyes: EOMI, nl lids ENMT: nl external ears & nose, nl lips & teeth, nl nasal mucosa & septum Neck: non-tender, supple Respiratory: clear to auscultation, normal air movement Cardiovascular: nl pulses, regular rate and rhythm Gastrointestinal: bowel sounds, non-tender, soft Results Result Diagram: 08/09/16 0524 08/09/16 0520 Results 24 hrs Laboratory Tests Test 08/10/16 02:28 08/10/16 05:12 08/10/16 05:20 08/10/16 08:18 Bedside Glucose 184 198 224 H Fibrinogen 404.0 Triglycerides Level 127 Cholesterol Level 128 LDL Cholesterol, Calculated 84 HDL Cholesterol 19 L Cholesterol/HDL Ratio 6.7 Carcinoembryonic Antigen 1.7 Immunoglobulin A 195 Immunoglobulin G 1774 H Immunoglobulin M 185 Test 08/10/16 12:22 08/10/16 17:26 08/10/16 20:33 Bedside Glucose 211 202 232 H Medications Medications Current Medications Acetaminophen 650 mg 650 mg Q6H PRN PO PAIN AND OR ELEVATED TEMP Last administered on 08/10/16 19:48; Admin Dose 650 MG; Start 08/07/16 at 21:30 Sodium Chloride (NS) 1,000 ml @ 60 mls/hr [id number] IV Last administered on 09:24; Admin Dose 60 MLS/HR; Start 08/07/16 at 21:30 Morphine Sulfate (morphine) 2 mg Q4H PRN IV severe pain; Start 08/07/16 at 21: 30 Acetaminophen/ Hydrocodone Bitart ([place] (5/325)) 1 tab Q6H PRN PO moderate pain; Start 08/07/16 at 21:30 Diagnostic Test (Pha) (Accu-Chek) 1 ea 02 XX ; Start 08/08/16 at 02:00 Cholecalciferol (Vitamin D) 5,000 unit DAILY PO Last administered on 08/10/16 09:17; Admin Dose 5,000 UNIT; Start 08/08/16 at 09:00 Gabapentin (Neurontin) 300 mg DAILY PO Last administered on 08/10/16 09:18; Admin Dose 300 MG; Start 08/08/16 at 09:00 Lorazepam (Ativan) 1 mg HS PRN PO ANXIETY; Start 08/07/16 at 21:30 Losartan Potassium (Cozaar) 50 mg DAILY PO Last administered on 08/10/16 09:18 ; Admin Dose 50 MG; Start 08/08/16 at 09:00 Pantoprazole (Protonix Tab) 40 mg DAILY@06 PO Last administered on 08/10/16 05: 15; Admin Dose 40 MG; Start 08/08/16 at 06:00 Linagliptin (Tradjenta) 5 mg DAILY PO Last administered on 08/10/16 09:17; Admin Dose 5 MG; Start 08/08/16 at 09:00 Apixaban (Eliquis) 5 mg BID PO Last administered on 08/10/16 20:36; Admin Dose 5 MG; Start 08/09/16 at 21:00 Lubiprostone (Amitiza) 24 mcg BID PO Last administered on 08/10/16 20:36; Admin Dose 24 MCG; Start 08/09/16 at 21:00 Insulin Glargine (Lantus) 10 unit DAILY@20 SC Last administered on 08/10/16 20: 39; Admin Dose 10 UNIT; Start 08/10/16 at 20:00 JOLIE PLASENCIA MD Aug 10, 2016 22:09
[2016-08-11 01:48] LABS: PROTEIN, TOTAL 6.7 g/dL (6.1-8.1)
[2016-08-11] MEDS: ACCU-CHEK XX SCH (01:54)
[2016-08-11] MEDS: ACETAMINOPHEN 325 MG TAB PO PRN (05:44)
[2016-08-11] MEDS: PANTOPRAZOLE (EC) 40 MG TAB PO SCH (05:44)
[2016-08-11] MEDS: SOD CHLORIDE 0.9% 1,000 ML IV SCH ×2 (05:46→22:57)
[2016-08-11 06:59] LABS: CALCIUM 9.5 mg/dl (8.4-10.2); CREATININE 0.74 mg/dl (0.61-1.24); POTASSIUM 4.2 mmol/L (3.5-5.1)
[2016-08-11] MEDS ORDERED: PANTOPRAZOLE (EC) 40 MG TAB PO SCH (08:00)
[2016-08-11 08:08] VITALS: BP 134/63; RESP 16
[2016-08-11] MEDS: INSULIN ASPART [NOVOLOG] 3 ML PEN SC SCH ×7 (08:16→22:03)
[2016-08-11] MEDS: LINAGLIPTIN 5 MG TABLET PO SCH (08:48)
[2016-08-11] MEDS: LOSARTAN 50 MG TAB PO SCH (08:48)
[2016-08-11] MEDS: APIXABAN 5 MG TABLET PO SCH ×2 (08:48→21:50)
[2016-08-11] MEDS: LUBIPROSTONE 24 MCG CAP PO SCH ×2 (08:48→21:52)
[2016-08-11] MEDS: CHOLECALCIFEROL 1,000 UNIT TAB PO SCH (08:48)
[2016-08-11] MEDS: GABAPENTIN 300 MG CAP PO SCH (08:48)
[2016-08-11] MEDS: HYDROCODONE/APAP (5/325) TAB PO PRN ×3 (09:12→22:57)
[2016-08-11 09:17] LABS: ABNORMAL IP MESSAGE 1; HEMATOCRIT 26.2 % (42.0-52.0); HEMOGLOBIN 8.4 g/dl (14.0-18.0); MEAN CORPUSCULAR HEMOGLOBIN 24.5 pg (29.0-33.0); MEAN CORPUSCULAR HGB CONC 32.1 g/dl (32.0-37.0); MEAN CORPUSCULAR VOLUME 76.4 fl (82.0-101.0); PLATELET COUNT 252 10^3/UL (140-415); RED BLOOD COUNT 3.43 10^6/ul (4.70-6.10); RED CELL DISTRIBUTION WIDTH 25.5 % (11.5-14.5); WHITE BLOOD COUNT 8.3 10^3/ul (4.8-10.8)
[2016-08-11 09:18] LABS: ADD SCAN DIFF YES
--- NOTE | 2016-08-11 09:19 | PN ---
Date/Time of Note Date/Time of Note DATE: 08/11/16 TIME: 09:00 Assessment/Plan VTE Prophylaxis VTE Prophylaxis Intervention: other (apixaban) Lines/Catheters IV C[facility] Type (from [facility]): Peripheral IV Assessment/Plan Chief Complaint/Hosp Course Anemia and IVC thrombosis. Problems: (1) Thrombosis Status: Chronic (2) Microcytic anemia Status: Chronic (3) Weight loss Status: Acute Assessment/Plan Pt is still experiencing LLQ discomfort. Pt has leukoerythroblastic peripheral blood picture. LDH is elevated. Evaluation for possible marrow infiltrative process or myeloproliferative neoplasm is under way. Will likely require a bone marrow bx. Will try to arrange for 08/12. Pt is iron deficient and will require a GI evaluation. Will give pt 3 days of parenteral iron replacement which will total 375 mg of elemental iron. Haptoglobin and EPO levels are pending. Thrombosis appears to be chronic with occlusion of previously placed IVC filter. Pt had not been on anticoagulation since placement of IVC filter. Anticoagulation has been started recently and was associated with drop in Hgb. Suggests GI blood loss and possible underlying GI lesion. CEA is nl but does not r/o a GI malignancy. Subjective 24 Hr Interval Summary Free Text/Dictation Pt is still experiencing some LLQ discomfort. No N/V. No diarrhea. No other new complaints. Exam/Review of Systems Vital Signs Vitals Vital Signs Date Time Temp Pulse Resp B/P Pulse Ox O2 Delivery O2 Flow Rate FiO2 08/11/16 08:08 97.8 65 16 134/63 99 08/07/16 18:43 Room Air Intake and Output 08/10/16 08/10/16 08/11/16 15:00 23:00 07:00 Intake Total 120 ml 600 ml 1060 ml Output Total 1300 ml Balance 120 ml 600 ml -240 ml Exam Constitutional: alert, oriented, well developed Head: atraumatic, normocephalic Eyes: EOMI, PERRL, nl conjunctiva, nl sclera ENMT: mucosa pink and moist Neck: non-tender, supple Respiratory: clear to auscultation, normal air movement Cardiovascular: nl pulses, regular rate and rhythm Gastrointestinal: nl liver, spleen, other (Mild LLQ tenderness. No rebounds. Bowel sounds are active.), soft Musculoskeletal: nl extremities to inspection Extremities: normal pulses, other (No palp cords or Maura's sign.) Neurological: CHIEF OPTOMETRY SERVICE II-XII intact, nl mental status, nl speech, nl strength Skin: nl turgor Lymph: nl lymph nodes Results Result Diagram: 08/09/16 0524 08/11/16 0529 Results 24 hrs Laboratory Tests Test 08/10/16 12:22 08/10/16 17:26 08/10/16 20:33 08/11/16 01:50 Bedside Glucose 211 202 232 H 192 Test 08/11/16 05:29 08/11/16 08:12 Sodium Level 138 Potassium Level 4.2 Chloride Level 103 Carbon Dioxide Level 23 Anion Gap 16 Blood Urea Nitrogen 22 H Creatinine 0.74 Glucose Level 167 Calcium Level 9.5 Bedside Glucose 185 Medications Medications Current Medications Acetaminophen 650 mg 650 mg Q6H PRN PO PAIN AND OR ELEVATED TEMP Last administered on 08/11/16 05:44; Admin Dose 650 MG; Start 08/07/16 at 21:30 Sodium Chloride (NS) 1,000 ml @ 60 mls/hr [id number] IV Last administered on 05:46; Admin Dose 60 MLS/HR; Start 08/07/16 at 21:30 Morphine Sulfate (morphine) 2 mg Q4H PRN IV severe pain; Start 08/07/16 at 21: 30 Acetaminophen/ Hydrocodone Bitart ([place] (5/325)) 1 tab Q6H PRN PO moderate pain; Start 08/07/16 at 21:30 Diagnostic Test (Pha) (Accu-Chek) 1 ea 02 XX ; Start 08/08/16 at 02:00 Cholecalciferol (Vitamin D) 5,000 unit DAILY PO Last administered on 08/11/16 08:48; Admin Dose 5,000 UNIT; Start 08/08/16 at 09:00 Gabapentin (Neurontin) 300 mg DAILY PO Last administered on 08/11/16 08:48; Admin Dose 300 MG; Start 08/08/16 at 09:00 Lorazepam (Ativan) 1 mg HS PRN PO ANXIETY; Start 08/07/16 at 21:30 Losartan Potassium (Cozaar) 50 mg DAILY PO Last administered on 08/11/16 08:48 ; Admin Dose 50 MG; Start 08/08/16 at 09:00 Linagliptin (Tradjenta) 5 mg DAILY PO Last administered on 08/11/16 08:48; Admin Dose 5 MG; Start 08/08/16 at 09:00 Apixaban (Eliquis) 5 mg BID PO Last administered on 08/11/16 08:48; Admin Dose 5 MG; Start 08/09/16 at 21:00 Lubiprostone (Amitiza) 24 mcg BID PO Last administered on 08/11/16 08:48; Admin Dose 24 MCG; Start 08/09/16 at 21:00 Insulin Glargine (Lantus) 10 unit DAILY@20 SC Last administered on 08/10/16 20: 39; Admin Dose 10 UNIT; Start 08/10/16 at 20:00 Copies To: CC: ЕЛЕНА CLAROS MD; TEDDY RUVALCABA MD, STANLEY H MD Aug 11, 2016 09:15
--- NOTE | 2016-08-11 10:01 | CONS ---
Date/Time of Note Date/Time of Note DATE: 08/11/16 TIME: 09:58 Assessment/Plan Assessment/Plan Chief Complaint/Hosp Course Impression: 1. Anemia microcytic, with few few blast cells: stool for occult blood negative 2. Thrombosis of the inferior vena cava 3. Weight loss of 26 pound 4. Abdominal pain right lower quadrant 5. Constipation 6. History of pulmonary embolism 7. Diabetes mellitus 8. Hypertension 9. Hyperlipidemia 10. Status post surgery on his knee and the hand Plan 1. as stool for occult blood is negative, will await hematology/onc eval first 2. patient also say the same that Dr. Philippe wants to hold off on EGD and colonoscopy so I will do so. 3. will follow along with you 4. continue Amitiza for his constipation Problems: Consultation Date/Type/Reason Admit Date/Time Aug 07, 2016 at 16:05 Initial Consult Date 08/10/16 Type of Consultation: GI Referring Provider: TEDDY RUVALCABA MD 24 HR Interval Summary Free Text/Dictation no n/v, no melena, no brbpr Constitutional: improved Exam/Review of Systems Vital Signs Vitals Vital Signs Date Time Temp Pulse Resp B/P Pulse Ox O2 Delivery O2 Flow Rate FiO2 08/11/16 08:08 97.8 65 16 134/63 99 08/07/16 18:43 Room Air Intake and Output 08/10/16 08/10/16 08/11/16 15:00 23:00 07:00 Intake Total 120 ml 600 ml 1060 ml Output Total 1300 ml Balance 120 ml 600 ml -240 ml Exam Constitutional: alert, oriented, well developed Psych: nl mood/affect, no complaints Head: atraumatic, normocephalic Eyes: EOMI, nl conjunctiva, nl lids, nl sclera ENMT: mucosa pink and moist, nl external ears & nose, nl lips & teeth, nl nasal mucosa & septum Neck: non-tender, supple Respiratory: clear to auscultation, normal air movement Cardiovascular: nl pulses, regular rate and rhythm Gastrointestinal: bowel sounds, non-tender, soft Results Result Diagram: 08/11/16 0521 08/11/16 0529 Results 24 hrs Laboratory Tests Test 08/10/16 12:22 08/10/16 17:26 08/10/16 20:33 08/11/16 01:50 Bedside Glucose 211 202 232 H 192 Test 08/11/16 05:21 08/11/16 05:29 08/11/16 08:12 White Blood Count 8.3 Red Blood Count 3.43 L Hemoglobin 8.4 L Hematocrit 26.2 L Mean Corpuscular Volume 76.4 L Mean Corpuscular Hemoglobin 24.5 L Mean Corpuscular Hemoglobin Concent 32.1 Red Cell Distribution Width 25.5 H Platelet Count 252 Mean Platelet Volume Sodium Level 138 Potassium Level 4.2 Chloride Level 103 Carbon Dioxide Level 23 Anion Gap 16 Blood Urea Nitrogen 22 H Creatinine 0.74 Glucose Level 167 Calcium Level 9.5 Bedside Glucose 185 Medications Medications Current Medications Acetaminophen 650 mg 650 mg Q6H PRN PO PAIN AND OR ELEVATED TEMP Last administered on 08/11/16 05:44; Admin Dose 650 MG; Start 08/07/16 at 21:30 Sodium Chloride (NS) 1,000 ml @ 60 mls/hr [id number] IV Last administered on 05:46; Admin Dose 60 MLS/HR; Start 08/07/16 at 21:30 Morphine Sulfate (morphine) 2 mg Q4H PRN IV severe pain; Start 08/07/16 at 21: 30 Acetaminophen/ Hydrocodone Bitart ([place] (5/325)) 1 tab Q6H PRN PO moderate pain Last administered on 08/11/16 09:12; Admin Dose 1 TAB; Start 08/07/16 at 21 :30 Diagnostic Test (Pha) (Accu-Chek) 1 ea 02 XX ; Start 08/08/16 at 02:00 Cholecalciferol (Vitamin D) 5,000 unit DAILY PO Last administered on 08/11/16 08:48; Admin Dose 5,000 UNIT; Start 08/08/16 at 09:00 Gabapentin (Neurontin) 300 mg DAILY PO Last administered on 08/11/16 08:48; Admin Dose 300 MG; Start 08/08/16 at 09:00 Lorazepam (Ativan) 1 mg HS PRN PO ANXIETY; Start 08/07/16 at 21:30 Losartan Potassium (Cozaar) 50 mg DAILY PO Last administered on 08/11/16 08:48 ; Admin Dose 50 MG; Start 08/08/16 at 09:00 Linagliptin (Tradjenta) 5 mg DAILY PO Last administered on 08/11/16 08:48; Admin Dose 5 MG; Start 08/08/16 at 09:00 Apixaban (Eliquis) 5 mg BID PO Last administered on 08/11/16 08:48; Admin Dose 5 MG; Start 08/09/16 at 21:00 Lubiprostone (Amitiza) 24 mcg BID PO Last administered on 08/11/16 08:48; Admin Dose 24 MCG; Start 08/09/16 at 21:00 Insulin Glargine 10 unit 10 unit DAILY@20 SC Last administered on 08/10/16 20: 39; Admin Dose 10 UNIT; Start 08/10/16 at 20:00 Ferric Sodium Gluconate Complex/ Sodium Chloride ([place]lecit/NS) 110 ml @ 100 mls/hr Q24H IVPB ; Start 08/11/16 at 09:00; Stop 08/13/16 at 10:05 JOLIE PLASENCIA MD Aug 11, 2016 10:01
[2016-08-11 11:05] LABS: LYMPHOCYTES # 1.3 10^3/ul (0.8-2.9); MONOCYTE # 1.3 10^3/ul (0.3-0.9); NEUTROPHIL # 5.1 10^3/ul (1.6-7.5)
[2016-08-11 11:06] LABS: ACANTHOCYTES FEW; POIKILOCYTOSIS 1+
[2016-08-11 11:07] LABS: BURR CELLS FEW; OVALOCYTES FEW
[2016-08-11 11:08] LABS: SCHISTOCYTES FEW; TEAR DROP CELLS OCCASIONAL
[2016-08-11 11:09] LABS: PLATELET ESTIMATE PLT APPEAR ADEQUATE
[2016-08-11] MEDS: SOD FERRIC GLUC COMPLX 125 MG in SOD CHLORIDE 0.9% 100 ML IVPB SCH (11:35)
--- NOTE | 2016-08-11 13:37 | PN ---
Date/Time of Note Date/Time of Note DATE: 08/11/16 TIME: 13:35 Assessment/Plan VTE Prophylaxis VTE Prophylaxis Intervention: other Lines/Catheters IV Catheter Type (from Nrsg): Peripheral IV Assessment/Plan Assessment/Plan -Microcytic anemia with weight loss - GI consult- Dr Hall is notified - Chronic Pulmonary Embolism - Eliquis started - Peripheral smear showed blast cells - Hem/Oncology consult- Dr Philippe is notified --Hyperglycemia due to type 2 Diabetes mellitus - Glycemic control- started on Lantus 10 units SQ daily at 1999 - Hypertension- cont Cozar -Hyperlipidemia- will do CHD vladimir an - BPH - sp TURP - Hx DVT and PE - sp IVC filter placement. - SP Rt total knee replacement - SP Rt hip replacement, DW Dr Hernandez/staff Exam/Review of Systems Vital Signs Vitals Vital Signs Date Time Temp Pulse Resp B/P Pulse Ox O2 Delivery O2 Flow Rate FiO2 08/11/16 08:08 97.8 65 16 134/63 99 08/07/16 18:43 Room Air Intake and Output 08/10/16 08/10/16 08/11/16 15:00 23:00 07:00 Intake Total 120 ml 600 ml 1060 ml Output Total 1300 ml Balance 120 ml 600 ml -240 ml Exam Constitutional: alert, oriented, well developed ENMT: nl external ears & nose Neck: supple Respiratory: clear to auscultation Cardiovascular: nl pulses, regular rate and rhythm Gastrointestinal: non-tender, soft Musculoskeletal: nl extremities to inspection Neurological: nl speech Results Result Diagram: 08/11/16 0521 08/11/16 0529 Results 24 hrs Laboratory Tests Test 08/10/16 17:26 08/10/16 20:33 08/11/16 01:50 08/11/16 05:21 Bedside Glucose 202 232 H 192 White Blood Count 8.3 Red Blood Count 3.43 L Hemoglobin 8.4 L Hematocrit 26.2 L Mean Corpuscular Volume 76.4 L Mean Corpuscular Hemoglobin 24.5 L Mean Corpuscular Hemoglobin Concent 32.1 Red Cell Distribution Width 25.5 H Platelet Count 252 Mean Platelet Volume Neutrophils % 62.0 Band Neutrophils % 5.0 Lymphocytes % 16.0 Monocytes % 16.0 H Metamyelocytes % 1.0 H Nucleated Red Blood Cells % 2.0 H Neutrophils # 5.1 Lymphocytes # 1.3 Monocytes # 1.3 H Metamyelocytes # 0.1 Platelet Estimate PLT APPEAR ADEQUATE Clumped Platelets Large Platelets FEW Giant Platelets FEW Poikilocytosis 1+ Sickle Cells Tear Drop Cells OCCASIONAL Ovalocytes FEW Acanthocytes FEW Schistocytes FEW Test 08/11/16 05:29 08/11/16 08:12 08/11/16 12:13 Sodium Level 138 Potassium Level 4.2 Chloride Level 103 Carbon Dioxide Level 23 Anion Gap 16 Blood Urea Nitrogen 22 H Creatinine 0.74 Glucose Level 167 Calcium Level 9.5 Bedside Glucose 185 175 Medications Medications Current Medications Acetaminophen 650 mg 650 mg Q6H PRN PO PAIN AND OR ELEVATED TEMP Last administered on 08/11/16 05:44; Admin Dose 650 MG; Start 08/07/16 at 21:30 Sodium Chloride (NS) 1,000 ml @ 60 mls/hr [id number] IV Last administered on 05:46; Admin Dose 60 MLS/HR; Start 08/07/16 at 21:30 Morphine Sulfate (morphine) 2 mg Q4H PRN IV severe pain; Start 08/07/16 at 21: 30 Acetaminophen/ Hydrocodone Bitart ([place] (5/325)) 1 tab Q6H PRN PO moderate pain Last administered on 08/11/16 09:12; Admin Dose 1 TAB; Start 08/07/16 at 21 :30 Diagnostic Test (Pha) (Accu-Chek) 1 ea 02 XX ; Start 08/08/16 at 02:00 Cholecalciferol (Vitamin D) 5,000 unit DAILY PO Last administered on 08/11/16 08:48; Admin Dose 5,000 UNIT; Start 08/08/16 at 09:00 Gabapentin (Neurontin) 300 mg DAILY PO Last administered on 08/11/16 08:48; Admin Dose 300 MG; Start 08/08/16 at 09:00 Lorazepam (Ativan) 1 mg HS PRN PO ANXIETY; Start 08/07/16 at 21:30 Losartan Potassium (Cozaar) 50 mg DAILY PO Last administered on 08/11/16 08:48 ; Admin Dose 50 MG; Start 08/08/16 at 09:00 Linagliptin (Tradjenta) 5 mg DAILY PO Last administered on 08/11/16 08:48; Admin Dose 5 MG; Start 08/08/16 at 09:00 Apixaban (Eliquis) 5 mg BID PO Last administered on 08/11/16 08:48; Admin Dose 5 MG; Start 08/09/16 at 21:00 Lubiprostone (Amitiza) 24 mcg BID PO Last administered on 08/11/16 08:48; Admin Dose 24 MCG; Start 08/09/16 at 21:00 Insulin Glargine 10 unit 10 unit DAILY@20 SC Last administered on 08/10/16 20: 39; Admin Dose 10 UNIT; Start 08/10/16 at 20:00 Ferric Sodium Gluconate Complex/ Sodium Chloride (Ferrlecit/NS) 110 ml @ 100 mls/hr Q24H IVPB Last administered on 08/11/16 11:35; Admin Dose 100 MLS/HR; Start 08/11/16 at 09:00; Stop 08/13/16 at 10:05 POLA CISNEROS Aug 11, 2016 13:36
[2016-08-11 20:21] VITALS: BP 129/68; RESP 18
[2016-08-11] MEDS: morphine 2 MG INJ IV PRN (21:52)
[2016-08-11] MEDS: LORAZEPAM 1 MG TAB PO PRN (21:52)
[2016-08-11] MEDS: INSULIN GLARGINE [LANtus] 3 ML PEN SC SCH (22:03)
[2016-08-12] MEDS: ACCU-CHEK XX SCH (02:00)
[2016-08-12] MEDS: morphine 2 MG INJ IV PRN (02:18)
[2016-08-12 05:44] LABS: ABNORMAL IP MESSAGE 1; BASOPHILS % 0.4 % (0.0-2.0); EOSINOPHILS # 0.1 10^3/ul (0.0-0.5); HEMATOCRIT 25.3 % (42.0-52.0); LYMPHOCYTES # 1.3 10^3/ul (0.8-2.9); MEAN CORPUSCULAR HEMOGLOBIN 24.3 pg (29.0-33.0); MEAN CORPUSCULAR HGB CONC 31.6 g/dl (32.0-37.0); MEAN CORPUSCULAR VOLUME 76.9 fl (82.0-101.0); MONOCYTE # 1.4 10^3/ul (0.3-0.9); MONOCYTES % 17.4 % (0.0-11.0); NEUTROPHIL # 4.6 10^3/ul (1.6-7.5); NUCLEATED RED BLOOD CELLS # 0.1 10^3/ul (0.0-0.0); NUCLEATED RED BLOOD CELLS% 0.9 /100WBC (0.0-0.0); PLATELET COUNT 291 10^3/UL (140-415); RED BLOOD COUNT 3.29 10^6/ul (4.70-6.10); RED CELL DISTRIBUTION WIDTH 24.8 % (11.5-14.5)
[2016-08-12 05:51] LABS: ADD SCAN DIFF NO
[2016-08-12 07:35] VITALS: BP 121/57; RESP 18
[2016-08-12 08:15] LABS: CALCIUM 9.5 mg/dl (8.4-10.2); CREATININE 0.79 mg/dl (0.61-1.24); POTASSIUM 4.1 mmol/L (3.5-5.1)
[2016-08-12] MEDS: GABAPENTIN 300 MG CAP PO SCH (09:27)
[2016-08-12] MEDS: LUBIPROSTONE 24 MCG CAP PO SCH ×2 (09:27→20:56)
[2016-08-12] MEDS: LINAGLIPTIN 5 MG TABLET PO SCH (09:27)
[2016-08-12] MEDS: APIXABAN 5 MG TABLET PO SCH (09:27)
[2016-08-12] MEDS: LOSARTAN 50 MG TAB PO SCH (09:28)
[2016-08-12] MEDS: CHOLECALCIFEROL 1,000 UNIT TAB PO SCH (09:28)
[2016-08-12] MEDS: INSULIN ASPART [NOVOLOG] 3 ML PEN SC SCH ×7 (09:30→21:09)
[2016-08-12] MEDS: SOD FERRIC GLUC COMPLX 125 MG in SOD CHLORIDE 0.9% 100 ML IVPB SCH (10:41)
--- NOTE | 2016-08-12 15:58 | PN ---
Date/Time of Note Date/Time of Note DATE: 08/12/16 TIME: 15:44 Assessment/Plan VTE Prophylaxis VTE Prophylaxis Intervention: other Lines/Catheters IV C[facility] Type (from [facility]): Peripheral IV Assessment/Plan Chief Complaint/Hosp Course Patient remains hemodynamically stable, elevated blood sugar, will increase Lantus and add pre-meal NovoLog. Problems: Assessment/Plan - Microcytic anemia, Dr. Philippe is following in hematology /oncology consultation, pending bone marrow biopsy. 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 Hall is following in gastroenterology consultation. - History of pulmonary embolism, continue Eliquis - Diabetes mellitus, hemoglobin A1c is 8.2. continue, Tradjenta, Lantus and NovoLog. - Hypertension, continue Cozaar. - Hyperlipidemia - BPH, status post TURP - Status post right hip replacement Further recommendations based on clinical course. Plan of care discussed with Dr. Seay. Exam/Review of Systems Vital Signs Vitals Vital Signs Date Time Temp Pulse Resp B/P Pulse Ox O2 Delivery O2 Flow Rate FiO2 08/12/16 07:35 99.2 98 18 121/57 98 Intake and Output 08/11/16 08/11/16 08/12/16 15:00 23:00 07:00 Intake Total 110 ml 2320 ml 780 ml Output Total 1200 ml 800 ml Balance 110 ml 1120 ml -20 ml Exam Constitutional: alert, oriented Head: atraumatic, normocephalic Neck: supple Respiratory: normal air movement Cardiovascular: murmurs/extra sounds, nl pulses Gastrointestinal: other (Tenderness), soft Extremities: normal pulses Neurological: nl mental status Results Result Diagram: 08/12/16 0505 08/12/16 0505 Results 24 hrs Laboratory Tests Test 08/11/16 17:09 08/11/16 21:42 08/12/16 05:05 08/12/16 08:21 Bedside Glucose 230 H 166 180 White Blood Count 8.0 Red Blood Count 3.29 L Hemoglobin 8.0 L Hematocrit 25.3 L Mean Corpuscular Volume 76.9 L Mean Corpuscular Hemoglobin 24.3 L Mean Corpuscular Hemoglobin Concent 31.6 L Red Cell Distribution Width 24.8 H Platelet Count 291 Mean Platelet Volume Neutrophils % 57.0 Lymphocytes % 16.0 Monocytes % 17.4 H Eosinophils % 1.0 Basophils % 0.4 Nucleated Red Blood Cells % 0.9 H Neutrophils # 4.6 Lymphocytes # 1.3 Monocytes # 1.4 H Eosinophils # 0.1 Basophils # 0.0 Nucleated Red Blood Cells # 0.1 H Sodium Level 137 Potassium Level 4.1 Chloride Level 102 Carbon Dioxide Level 22 Anion Gap 17 H Blood Urea Nitrogen 21 H Creatinine 0.79 Glucose Level 187 Calcium Level 9.5 Test 08/12/16 09:26 08/12/16 12:11 Bedside Glucose 317 H 243 H Medications Medications Current Medications Acetaminophen 650 mg 650 mg Q6H PRN PO PAIN AND OR ELEVATED TEMP Last administered on 08/11/16 05:44; Admin Dose 650 MG; Start 08/07/16 at 21:30 Sodium Chloride (NS) 1,000 ml @ 60 mls/hr [id number] IV Last administered on 22:57; Admin Dose 60 MLS/HR; Start 08/07/16 at 21:30 Morphine Sulfate (morphine) 2 mg Q4H PRN IV severe pain Last administered on 02:18; Admin Dose 2 MG; Start 08/07/16 at 21:30 Acetaminophen/ Hydrocodone Bitart ([place] (5/325)) 1 tab Q6H PRN PO moderate pain Last administered on 08/11/16 22:57; Admin Dose 1 TAB; Start 08/07/16 at 21 :30 Diagnostic Test (Pha) (Accu-Chek) 1 ea 02 XX ; Start 08/08/16 at 02:00 Cholecalciferol (Vitamin D) 5,000 unit DAILY PO Last administered on 08/12/16 09:28; Admin Dose 5,000 UNIT; Start 08/08/16 at 09:00 Gabapentin (Neurontin) 300 mg DAILY PO Last administered on 08/12/16 09:27; Admin Dose 300 MG; Start 08/08/16 at 09:00 Lorazepam (Ativan) 1 mg HS PRN PO ANXIETY Last administered on 08/11/16 21:52; Admin Dose 1 MG; Start 08/07/16 at 21:30 Losartan Potassium (Cozaar) 50 mg DAILY PO Last administered on 08/12/16 09:28 ; Admin Dose 50 MG; Start 08/08/16 at 09:00 Linagliptin (Tradjenta) 5 mg DAILY PO Last administered on 08/12/16 09:27; Admin Dose 5 MG; Start 08/08/16 at 09:00 Apixaban (Eliquis) 5 mg BID PO Last administered on 08/12/16 09:27; Admin Dose 5 MG; Start 08/09/16 at 21:00 Lubiprostone (Amitiza) 24 mcg BID PO Last administered on 08/12/16 09:27; Admin Dose 24 MCG; Start 08/09/16 at 21:00 Insulin Glargine 10 unit 10 unit DAILY@20 SC Last administered on 08/11/16 22: 03; Admin Dose 10 UNIT; Start 08/10/16 at 20:00 Ferric Sodium Gluconate Complex/ Sodium Chloride (Ferrlecit/NS) 110 ml @ 100 mls/hr Q24H IVPB Last administered on 08/12/16 10:41; Admin Dose 100 MLS/HR; Start 08/11/16 at 09:00; Stop 08/13/16 at 10:05 IVONNE KEARNS Aug 12, 2016 15:55
--- NOTE | 2016-08-12 16:02 | HP ---
Date/Time of Note Date/Time of Note DATE: 08/12/16 TIME: 15:36 Assessment/Plan VTE Prophylaxis VTE Prophylaxis Intervention: other Lines/Catheters IV [facility]ter Type (from [facility]): Peripheral IV Assessment/Plan Assessment/Plan 1. Anemia 2. Chronic pulmonary embolism and IVC thrombosis. 3 hypertension 4 diabetes 5 benign prostatic hypertrophy Patient will be started on Eliquis. Patient's antihypertensive medication will be adjusted as necessary. Patient will be started on premeal insulin as well as long-acting insulin. We will continue to optimize diabetic management. Will obtain GI consult from Dr. Hall and oncology consult from Dr. Philippe. Will obtain stool for occult blood. Further workup would depend upon patient's hospital course and recommendations from consultants. I did receive a call from pathologist that peripheral smear shows some blast cells. Patient may also require bone marrow biopsy. HPI/ROS Admit Date/Time Admit Date/Time Aug 07, 2016 at 16:05 Hx of Present Illness Is Dr. Ruvalcaba the dictating history and physical on patient Wilfred Leal date of [id number]. Date of admission 07/30/2016 Chief complaint and history of present illness: Patient is is a 76-year-old gentleman with history of hypertension diabetes history of DVT during postoperative. Following right hip surgery status post IVC filter placement. Patient had been following up with Dr. Sanchez as an outpatient. Patient was noted to have anemia and approximately 20 pound pounds weight loss in last 4 months. Patient was sent to Dr. Gavin for GI evaluation. However during workup of anemia he underwent CT of the abdomen and chest which revealed IVC study which revealed thrombosis proximal to IVC and extending into the lungs. Patient however did not have any chest pain, shortness of breath or hemoptysis. Patient was subsequently referred to Dr. Moody Philippe for further evaluation. Patient did not show up for appointment. Dr. Sanchez call me to proceed with further evaluation and management. I spoke with Dr. Philippe and decision has been made to start him on Eliquis 5 mg twice daily. Patient is being admitted for further evaluation and management ROS Review of system: Patient denies any history of headache dizziness or syncope. No reported history of nausea vomiting or diarrhea. Patient did have trace leg edema. Patient did not have any claudication or any history of bleeding bleeding from any site. No history of acute skin rash.No history of any acute vision change. No history of any focal weakness although patient has been wheelchair bound for last 15 years. No recent fall or any seizure disorder. Total of 12 systems were reviewed and all pertinent positive and negative findings have been described in HPI as well as in review of systems. Eyes: no complaints ENT: no complaints Respiratory: no complaints Cardiovascular: no complaints Gastrointestinal: no complaints Genitourinary: no complaints Musculoskeletal: bone/joint pain Skin: no complaints Neurologic: no complaints Lymphatic: no complaints Psychological: nl mood/affect, no complaints Immunologic: no complaints PMH/Family/Social Past Medical History Past medical and surgical history as stated above in addition patient has history of benign prostatic hypertrophy bilaterally knee arthroscopy right total knee replacement right hip replacement status post TURP status post IVC filter placement. Social history: No smoking or alcohol Family history: Negative for patient's condition. Allergy: Penicillin. Medication list reviewed and reconciled. Social History Alcohol Use: none Smoking Status: Never smoker Drug Use: none Exam/Review of Systems Vital Signs Vitals Physical patient to be conscious awake alert vital signs blood pressure 133/63 pulse 74 respiration 20 temperature 98.2 O2 sat 97% room air. HEENT: Atraumatic normocephalic head. Pupils round reactive to light and accommodation. Conjunctivae and lids are normal. Oropharynx clear. No eye or ear discharge. Neck: Supple, no JVD, no mass, no carotid bruit or lymphadenopathy. Chest: Clear to auscultation, no use of accessory muscles. CVS regular rate and rhythm, no murmur gallop or rub. Abdomen: Soft nondistended nontender and no palpable mass. No pulsatile mass. Extremities: Bilateral trace edema noted distally in both legs. No clubbing or cyanosis. Skin: No acute rash or ulcer. Neuro: No focal neurological deficit. Lymphatics: No lymphadenopathy in cervical and axillary region. Psychiatry: No agitation or anxiety. Genitourinary: No obvious abnormality Rectal examination: Deferred Vital Signs Date Time Temp Pulse Resp B/P Pulse Ox O2 Delivery O2 Flow Rate FiO2 08/12/16 07:35 99.2 98 18 121/57 98 Intake and Output 08/11/16 08/11/16 08/12/16 15:00 23:00 07:00 Intake Total 110 ml 2320 ml 780 ml Output Total 1200 ml 800 ml Balance 110 ml 1120 ml -20 ml Labs Result Diagram: 08/12/16 0505 08/12/16 0505 Medications Medications Current Medications Acetaminophen 650 mg 650 mg Q6H PRN PO PAIN AND OR ELEVATED TEMP Last administered on 08/11/16 05:44; Admin Dose 650 MG; Start 08/07/16 at 21:30 Sodium Chloride (NS) 1,000 ml @ 60 mls/hr [id number] IV Last administered on 22:57; Admin Dose 60 MLS/HR; Start 08/07/16 at 21:30 Morphine Sulfate (morphine) 2 mg Q4H PRN IV severe pain Last administered on 02:18; Admin Dose 2 MG; Start 08/07/16 at 21:30 Acetaminophen/ Hydrocodone Bitart ([place] (5/325)) 1 tab Q6H PRN PO moderate pain Last administered on 08/11/16 22:57; Admin Dose 1 TAB; Start 08/07/16 at 21 :30 Diagnostic Test (Pha) (Accu-Chek) 1 ea 02 XX ; Start 08/08/16 at 02:00 Cholecalciferol (Vitamin D) 5,000 unit DAILY PO Last administered on 08/12/16 09:28; Admin Dose 5,000 UNIT; Start 08/08/16 at 09:00 Gabapentin (Neurontin) 300 mg DAILY PO Last administered on 08/12/16 09:27; Admin Dose 300 MG; Start 08/08/16 at 09:00 Lorazepam (Ativan) 1 mg HS PRN PO ANXIETY Last administered on 08/11/16 21:52; Admin Dose 1 MG; Start 08/07/16 at 21:30 Losartan Potassium (Cozaar) 50 mg DAILY PO Last administered on 08/12/16 09:28 ; Admin Dose 50 MG; Start 08/08/16 at 09:00 Linagliptin (Tradjenta) 5 mg DAILY PO Last administered on 08/12/16 09:27; Admin Dose 5 MG; Start 08/08/16 at 09:00 Apixaban (Eliquis) 5 mg BID PO Last administered on 08/12/16 09:27; Admin Dose 5 MG; Start 08/09/16 at 21:00 Lubiprostone (Amitiza) 24 mcg BID PO Last administered on 08/12/16 09:27; Admin Dose 24 MCG; Start 08/09/16 at 21:00 Insulin Glargine 10 unit 10 unit DAILY@20 SC Last administered on 08/11/16 22: 03; Admin Dose 10 UNIT; Start 08/10/16 at 20:00 Ferric Sodium Gluconate Complex/ Sodium Chloride (Ferrlecit/NS) 110 ml @ 100 mls/hr Q24H IVPB Last administered on 08/12/16 10:41; Admin Dose 100 MLS/HR; Start 08/11/16 at 09:00; Stop 08/13/16 at 10:05 TEDDY RUVALCABA MD Aug 12, 2016 15:46
[2016-08-12 17:00] VITALS: BP 131/63; PULSE 93; RESP 18
[2016-08-12] MEDS: ACETAMINOPHEN 325 MG TAB PO PRN (17:01)
[2016-08-12] MEDS: SOD CHLORIDE 0.9% 1,000 ML IV SCH (17:02)
--- NOTE | 2016-08-12 17:57 | PN ---
Date/Time of Note Date/Time of Note DATE: 08/12/16 TIME: 17:43 Assessment/Plan VTE Prophylaxis VTE Prophylaxis Intervention: other Lines/Catheters IV [facility] Type ([facility]): Peripheral IV Assessment/Plan Chief Complaint/Hosp Course Anemia and IVC thrombosis. Problems: (1) Fever Status: Acute Qualifiers: Fever type: unspecified Qualified Code: R50.9 - Fever, unspecified fever cause (2) Microcytic anemia Status: Chronic (3) Thrombosis Status: Chronic (4) Weight loss Status: Acute Assessment/Plan Abd ultrasound detects borderline splenomegaly (13 cm). This is further evidence of a possible myeloproliferative neoplasm,. Pt has now spiked temp of 102 orally. Pt has no localizing signs or symptoms. Will obtain U/A, urine C&S, blood cultures and CXR. Pt has evidence of iron deficiency and has had weight loss. Feel that GI w/u can proceed at this time. Will also require a bone marrow but this will not be done until 08/14. Should not wait until SABRINA-2 and BCR/ABL are available. Anticoagulation will be held in anticipation of EGD, colonoscopy and bone marrow. Subjective 24 Hr Interval Summary Free Text/Dictation Pt has devloped fever. Denies chills. No c/o chest pain, cough. No dysuria or frequency. No c/o flnmak pain Exam/Review of Systems Vital Signs Vitals Vital Signs Date Time Temp Pulse Resp B/P Pulse Ox O2 Delivery O2 Flow Rate FiO2 08/12/16 07:35 99.2 98 18 121/57 98 Intake and Output 08/11/16 08/11/16 08/12/16 15:00 23:00 07:00 Intake Total 110 ml 2320 ml 780 ml Output Total 1200 ml 800 ml Balance 110 ml 1120 ml -20 ml Exam Constitutional: alert, oriented, well developed Head: atraumatic, normocephalic Eyes: EOMI, PERRL, nl conjunctiva, nl sclera ENMT: mucosa pink and moist Neck: non-tender, supple Respiratory: clear to auscultation, normal air movement Cardiovascular: nl pulses, regular rate and rhythm Gastrointestinal: nl liver, spleen, other (Sl tenderness in LLQ. No rebound.) , soft Genitourinary - Male: other (No CVA tenderness. No suprapubic tenderness.) Musculoskeletal: nl extremities to inspection, nl gait and stance Extremities: normal pulses Neurological: PRECISION GRINDER II-XII intact, nl mental status, nl strength Skin: nl turgor Lymph: nl lymph nodes Results Result Diagram: 08/12/16 0505 08/12/16 0505 Results 24 hrs Laboratory Tests Test 08/11/16 21:42 08/12/16 05:05 08/12/16 08:21 08/12/16 09:26 Bedside Glucose 166 180 317 H White Blood Count 8.0 Red Blood Count 3.29 L Hemoglobin 8.0 L Hematocrit 25.3 L Mean Corpuscular Volume 76.9 L Mean Corpuscular Hemoglobin 24.3 L Mean Corpuscular Hemoglobin Concent 31.6 L Red Cell Distribution Width 24.8 H Platelet Count 291 Mean Platelet Volume Neutrophils % 57.0 Lymphocytes % 16.0 Monocytes % 17.4 H Eosinophils % 1.0 Basophils % 0.4 Nucleated Red Blood Cells % 0.9 H Neutrophils # 4.6 Lymphocytes # 1.3 Monocytes # 1.4 H Eosinophils # 0.1 Basophils # 0.0 Nucleated Red Blood Cells # 0.1 H Sodium Level 137 Potassium Level 4.1 Chloride Level 102 Carbon Dioxide Level 22 Anion Gap 17 H Blood Urea Nitrogen 21 H Creatinine 0.79 Glucose Level 187 Calcium Level 9.5 Test 08/12/16 12:11 08/12/16 17:26 Bedside Glucose 243 H 236 H Medications Medications Current Medications Acetaminophen 650 mg 650 mg Q6H PRN PO PAIN AND OR ELEVATED TEMP Last administered on 08/12/16 17:01; Admin Dose 650 MG; Start 08/07/16 at 21:30 Sodium Chloride (NS) 1,000 ml @ 60 mls/hr [id number] IV Last administered on 17:02; Admin Dose 60 MLS/HR; Start 08/07/16 at 21:30 Morphine Sulfate (morphine) 2 mg Q4H PRN IV severe pain Last administered on 02:18; Admin Dose 2 MG; Start 08/07/16 at 21:30 Acetaminophen/ Hydrocodone Bitart ([place] (5/325)) 1 tab Q6H PRN PO moderate pain Last administered on 08/11/16 22:57; Admin Dose 1 TAB; Start 08/07/16 at 21 :30 Diagnostic Test (Pha) (Accu-Chek) 1 ea 02 XX ; Start 08/08/16 at 02:00 Cholecalciferol (Vitamin D) 5,000 unit DAILY PO Last administered on 08/12/16 09:28; Admin Dose 5,000 UNIT; Start 08/08/16 at 09:00 Gabapentin (Neurontin) 300 mg DAILY PO Last administered on 08/12/16 09:27; Admin Dose 300 MG; Start 08/08/16 at 09:00 Lorazepam (Ativan) 1 mg HS PRN PO ANXIETY Last administered on 08/11/16 21:52; Admin Dose 1 MG; Start 08/07/16 at 21:30 Losartan Potassium (Cozaar) 50 mg DAILY PO Last administered on 08/12/16 09:28 ; Admin Dose 50 MG; Start 08/08/16 at 09:00 Linagliptin (Tradjenta) 5 mg DAILY PO Last administered on 08/12/16 09:27; Admin Dose 5 MG; Start 08/08/16 at 09:00 Apixaban (Eliquis) 5 mg BID PO Last administered on 08/12/16 09:27; Admin Dose 5 MG; Start 08/09/16 at 21:00 Lubiprostone 24 mcg 24 mcg BID PO Last administered on 08/12/16 09:27; Admin Dose 24 MCG; Start 08/09/16 at 21:00 Ferric Sodium Gluconate Complex/ Sodium Chloride (Ferrlecit/NS) 110 ml @ 100 mls/hr Q24H IVPB Last administered on 08/12/16 10:41; Admin Dose 100 MLS/HR; Start 08/11/16 at 09:00; Stop 08/13/16 at 10:05 Insulin Glargine (Lantus) 16 unit DAILY@20 SC ; Start 08/12/16 at 20:00 Copies To: CC: ЕЛЕНА CLAROS MD, STANLEY H MD Aug 12, 2016 17:56
[2016-08-12] MEDS ORDERED: INSULIN GLARGINE [LANtus] 3 ML PEN SC SCH (20:00)
[2016-08-12] MEDS: CEFTRIAXONE 1 GM/50 ML (PMX) 50 ML IVPB SCH (22:58)
[2016-08-13 01:32] LABS: UR BILIRUBIN (Dip) NEGATIVE (NEGATIVE); UR BLOOD (Dip) NEGATIVE (NEGATIVE); UR CLARITY CLEAR (CLEAR); UR COLOR YELLOW (YELLOW); UR GLUCOSE (Dip) 3+ mg/dL (NEGATIVE); UR KETONES (Dip) NEGATIVE (NEGATIVE); UR LEUKOCYTE ESTERASE (Dip) NEGATIVE Leu/ul (NEGATIVE); UR NITRITE (Dip) NEGATIVE (NEGATIVE); UR SPECIFIC GRAVITY (Dip) 1.021 (1.003-1.030); UR TOTAL PROTEIN (Dip) NEGATIVE (NEGATIVE); UR UROBILINOGEN (Dip) NEGATIVE (NEGATIVE)
[2016-08-13 01:33] LABS: ADD UMIC NO; UR ASCORBIC ACID NEGATIVE (NEGATIVE)
[2016-08-13] MEDS: ACCU-CHEK XX SCH (02:00)
[2016-08-13 02:51] VITALS: BP 125/60; RESP 18
[2016-08-13 05:41] LABS: ADD SCAN DIFF NO
[2016-08-13 05:53] LABS: ABNORMAL IP MESSAGE 1; HEMATOCRIT 24.6 % (42.0-52.0); HEMOGLOBIN 7.8 g/dl (14.0-18.0); MEAN CORPUSCULAR HEMOGLOBIN 24.3 pg (29.0-33.0); MEAN CORPUSCULAR HGB CONC 31.7 g/dl (32.0-37.0); MEAN CORPUSCULAR VOLUME 76.6 fl (82.0-101.0); PLATELET COUNT 246 10^3/UL (140-415); RED BLOOD COUNT 3.21 10^6/ul (4.70-6.10); RED CELL DISTRIBUTION WIDTH 24.7 % (11.5-14.5); WHITE BLOOD COUNT 9.5 10^3/ul (4.8-10.8)
[2016-08-13 06:29] LABS: CALCIUM 9.1 mg/dl (8.4-10.2); CREATININE 0.86 mg/dl (0.61-1.24); POTASSIUM 4.2 mmol/L (3.5-5.1)
[2016-08-13 08:00] VITALS: BP 135/61; RESP 22
[2016-08-13] MEDS: INSULIN ASPART [NOVOLOG] 3 ML PEN SC SCH ×7 (08:01→20:37)
[2016-08-13] MEDS: LUBIPROSTONE 24 MCG CAP PO SCH ×2 (08:07→20:40)
[2016-08-13] MEDS: ACETAMINOPHEN 325 MG TAB PO PRN ×2 (08:07→20:46)
[2016-08-13] MEDS: LOSARTAN 50 MG TAB PO SCH (08:07)
[2016-08-13] MEDS: GABAPENTIN 300 MG CAP PO SCH (08:07)
[2016-08-13] MEDS: LINAGLIPTIN 5 MG TABLET PO SCH (08:08)
[2016-08-13] MEDS: CHOLECALCIFEROL 1,000 UNIT TAB PO SCH (08:08)
[2016-08-13] MEDS: SOD FERRIC GLUC COMPLX 125 MG in SOD CHLORIDE 0.9% 100 ML IVPB SCH (09:17)
[2016-08-13 09:38] LABS: ANISOCYTOSIS 3+; HYPOCHROMASIA 1+; LYMPHOCYTES # 2.2 10^3/ul (0.8-2.9); MICROCYTOSIS 3+; MYELOCYTES # 0.3; NEUTROPHIL # 5.4 10^3/ul (1.6-7.5); PLATELET ESTIMATE PLT APPEAR ADEQUATE; POIKILOCYTOSIS 3+
[2016-08-13] MEDS: SOD CHLORIDE 0.9% 1,000 ML IV SCH (10:58)
[2016-08-13] MEDS ORDERED: DIPHENHYDRAMINE 50 MG INJ IV ONE (12:30)
--- NOTE | 2016-08-13 12:42 | PN ---
Date/Time of Note Date/Time of Note DATE: 08/13/16 TIME: 12:40 Assessment/Plan VTE Prophylaxis VTE Prophylaxis Intervention: other Lines/Catheters IV Catheter Type (from [facility]): Peripheral IV Assessment/Plan Assessment/Plan - Microcytic anemia, Dr. Philippe is following in hematology /oncology consultation, pending bone marrow biopsy. 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 Hall is following in gastroenterology consultation. - History of pulmonary embolism, continue Eliquis - Diabetes mellitus, hemoglobin A1c is 8.2. continue, Tradjenta, Lantus and NovoLog. - Hypertension, continue Cozaar. - Hyperlipidemia - BPH, status post TURP - Status post right hip replacement Further recommendations based on clinical course. Plan of care discussed with Dr. Seay. Subjective 24 Hr Interval Summary Cardiovascular: no complaints Gastrointestinal: no complaints Genitourinary: no complaints Exam/Review of Systems Vital Signs Vitals Vital Signs Date Time Temp Pulse Resp B/P Pulse Ox O2 Delivery O2 Flow Rate FiO2 08/13/16 08:00 99.5 89 22 135/61 98 Intake and Output 08/12/16 08/12/16 08/13/16 15:00 23:00 07:00 Intake Total 110 ml 1280 ml 1160 ml Output Total 1600 ml 600 ml Balance 110 ml -320 ml 560 ml Exam Constitutional: alert, oriented, well developed Respiratory: clear to auscultation Cardiovascular: nl pulses, regular rate and rhythm Gastrointestinal: non-tender, soft Musculoskeletal: nl extremities to inspection Results Result Diagram: 08/13/16 0520 08/13/16 0520 Results 24 hrs Laboratory Tests Test 08/12/16 17:26 08/12/16 20:50 08/12/16 20:57 08/13/16 02:26 Bedside Glucose 236 H 246 H 261 H Urine Color YELLOW Urine Clarity CLEAR Urine pH 5.0 Urine Specific [place] 1.021 Urine Ketones NEGATIVE Urine Nitrite NEGATIVE Urine Bilirubin NEGATIVE Urine Urobilinogen NEGATIVE Urine Leukocyte Esterase NEGATIVE Urine Hemoglobin NEGATIVE Urine Glucose 3+ H Urine Total Protein NEGATIVE Test 08/13/16 05:20 08/13/16 07:42 08/13/16 09:00 08/13/16 12:07 White Blood Count 9.5 Red Blood Count 3.21 L Hemoglobin 7.8 L Hematocrit 24.6 L Mean Corpuscular Volume 76.6 L Mean Corpuscular Hemoglobin 24.3 L Mean Corpuscular Hemoglobin Concent 31.7 L Red Cell Distribution Width 24.7 H Platelet Count 246 Mean Platelet Volume Neutrophils % 57.0 Band Neutrophils % 5.0 Lymphocytes % 23.0 Monocytes % 11.0 Eosinophils % Basophils % Myelocytes % 3.0 H Promyelocytes % 1.0 H Nucleated Red Blood Cells % 1.0 H Neutrophils # 5.4 Lymphocytes # 2.2 Monocytes # 1.0 H Eosinophils # Basophils # Myelocytes # 0.3 Promyelocytes # 0.1 Nucleated Red Blood Cells # Platelet Estimate PLT APPEAR ADEQUATE Hypochromasia 1+ Poikilocytosis 3+ Anisocytosis 3+ Microcytosis 3+ Sodium Level 140 Potassium Level 4.2 Chloride Level 104 Carbon Dioxide Level 23 Anion Gap 17 H Blood Urea Nitrogen 25 H Creatinine 0.86 Glucose Level 216 Calcium Level 9.1 Bedside Glucose 196 235 H Lab Scanned Report REFERENCE LAB Medications Medications Current Medications Acetaminophen 650 mg 650 mg Q6H PRN PO PAIN AND OR ELEVATED TEMP Last administered on 08/13/16 08:07; Admin Dose 650 MG; Start 08/07/16 at 21:30 Sodium Chloride (NS) 1,000 ml @ 60 mls/hr [id number] IV Last administered on 10:58; Admin Dose 60 MLS/HR; Start 08/07/16 at 21:30 Morphine Sulfate (morphine) 2 mg Q4H PRN IV severe pain Last administered on 02:18; Admin Dose 2 MG; Start 08/07/16 at 21:30 Acetaminophen/ Hydrocodone Bitart ([place] (5/325)) 1 tab Q6H PRN PO moderate pain Last administered on 08/11/16 22:57; Admin Dose 1 TAB; Start 08/07/16 at 21 :30 Diagnostic Test (Pha) (Accu-Chek) 1 ea 02 XX ; Start 08/08/16 at 02:00 Cholecalciferol (Vitamin D) 5,000 unit DAILY PO Last administered on 08/13/16 08:08; Admin Dose 5,000 UNIT; Start 08/08/16 at 09:00 Gabapentin (Neurontin) 300 mg DAILY PO Last administered on 08/13/16 08:07; Admin Dose 300 MG; Start 08/08/16 at 09:00 Lorazepam (Ativan) 1 mg HS PRN PO ANXIETY Last administered on 08/11/16 21:52; Admin Dose 1 MG; Start 08/07/16 at 21:30 Losartan Potassium (Cozaar) 50 mg DAILY PO Last administered on 08/13/16 08:07 ; Admin Dose 50 MG; Start 08/08/16 at 09:00 Linagliptin (Tradjenta) 5 mg DAILY PO Last administered on 08/13/16 08:08; Admin Dose 5 MG; Start 08/08/16 at 09:00 Lubiprostone (Amitiza) 24 mcg BID PO Last administered on 08/13/16 08:07; Admin Dose 24 MCG; Start 08/09/16 at 21:00 Insulin Glargine 16 unit 16 unit DAILY@20 SC Last administered on 08/12/16 21: 09; Admin Dose 16 UNIT; Start 08/12/16 at 20:00 Ceftriaxone Sodium (Rocephin) 50 ml @ 100 mls/hr Q24H IVPB Last administered on 08/12/16 22:58; Admin Dose 100 MLS/HR; Start 08/12/16 at 21:30 POLA CISNEROS Aug 13, 2016 12:42
--- NOTE | 2016-08-13 12:51 | RADRPT ---
PROCEDURE: XR Chest. CLINICAL INDICATION: Fever TECHNIQUE: Single frontal chest x-ray. COMPARISON: 08/07/2016 FINDINGS: Since the prior study, there has been development of linear and patchy opacities within the right lo wer lobe. There is mild left basilar atelectasis. There is no pleural effusion or pneumothorax. Th e heart and mediastinal contours are unremarkable. Bones are unchanged. There are no acute fracture s. RPTAT: QQ IMPRESSION: Development of new opacities within the right lower lobe suggestive of pneumonia with bibasilar atel ectasis. .Taylor Gordon MD, MD Date Time Electronically viewed and signed by .Taylor Gordon MD, on 08/13/2016 12:51 .T/
[2016-08-13] MEDS ORDERED: VANCOMYCIN IV PER PHARMACY XX SCH (15:00)
[2016-08-13] MEDS ORDERED: GLUCOSE GEL 15 GRAM TUBE BUCCAL PRN (15:30)
[2016-08-13] MEDS ORDERED: GLUCAGON 1 MG INJ IM PRN (15:30)
[2016-08-13] MEDS ORDERED: DEXTROSE 50% 50 ML SYRINGE IV PRN ×2 (15:30)
[2016-08-13] MEDS ORDERED: GLUCOSE GEL 15 GRAM TUBE PO PRN ×2 (15:30)
--- NOTE | 2016-08-13 16:28 | PN ---
Date/Time of Note Date/Time of Note DATE: 08/13/16 TIME: 16:22 Assessment/Plan VTE Prophylaxis VTE Prophylaxis Intervention: SCD's Lines/Catheters IV Catheter Type (from Nrs): Peripheral IV Assessment/Plan Chief Complaint/Hosp Course Anemia and IVC thrombosis. Problems: (1) Fever Status: Acute Qualifiers: Fever type: unspecified Qualified Code: R50.9 - Fever, unspecified fever cause (2) Microcytic anemia Status: Chronic (3) Right leg claudication Status: Acute Assessment/Plan No further temp spikes. CXR demonstrates RLL changes. Leukoerythroblastic peripheral blood picture continues. Pt is off anticoagulants and will schedule bone marrow asp and biopsy for 08/14. To ne performed by IR. Subjective 24 Hr Interval Summary Free Text/Dictation No change in symptoms. No shaking chills. Exam/Review of Systems Vital Signs Vitals Vital Signs Date Time Temp Pulse Resp B/P Pulse Ox O2 Delivery O2 Flow Rate FiO2 08/13/16 08:00 99.5 89 22 135/61 98 Intake and Output 08/12/16 08/12/16 08/13/16 15:00 23:00 07:00 Intake Total 110 ml 1280 ml 1160 ml Output Total 1600 ml 600 ml Balance 110 ml -320 ml 560 ml Exam Head: atraumatic, normocephalic Eyes: EOMI, nl conjunctiva, nl sclera ENMT: mucosa pink and moist Neck: non-tender, supple Respiratory: clear to auscultation, normal air movement Cardiovascular: nl pulses, regular rate and rhythm Gastrointestinal: nl liver, spleen, non-tender, soft Musculoskeletal: nl extremities to inspection Extremities: normal pulses Neurological: FLOOR PERSON II-XII intact, nl mental status Skin: nl turgor Lymph: nl lymph nodes Results Result Diagram: 08/13/16 0520 08/13/16 0520 Results 24 hrs Laboratory Tests Test 08/12/16 17:26 08/12/16 20:50 08/12/16 20:57 08/13/16 02:26 Bedside Glucose 236 H 246 H 261 H Urine Color YELLOW Urine Clarity CLEAR Urine pH 5.0 Urine Specific [place] 1.021 Urine Ketones NEGATIVE Urine Nitrite NEGATIVE Urine Bilirubin NEGATIVE Urine Urobilinogen NEGATIVE Urine Leukocyte Esterase NEGATIVE Urine Hemoglobin NEGATIVE Urine Glucose 3+ H Urine Total Protein NEGATIVE Test 08/13/16 05:20 08/13/16 07:42 08/13/16 09:00 08/13/16 12:07 White Blood Count 9.5 Red Blood Count 3.21 L Hemoglobin 7.8 L Hematocrit 24.6 L Mean Corpuscular Volume 76.6 L Mean Corpuscular Hemoglobin 24.3 L Mean Corpuscular Hemoglobin Concent 31.7 L Red Cell Distribution Width 24.7 H Platelet Count 246 Mean Platelet Volume Neutrophils % 57.0 Band Neutrophils % 5.0 Lymphocytes % 23.0 Monocytes % 11.0 Eosinophils % Basophils % Myelocytes % 3.0 H Promyelocytes % 1.0 H Nucleated Red Blood Cells % 1.0 H Neutrophils # 5.4 Lymphocytes # 2.2 Monocytes # 1.0 H Eosinophils # Basophils # Myelocytes # 0.3 Promyelocytes # 0.1 Nucleated Red Blood Cells # Platelet Estimate PLT APPEAR ADEQUATE Hypochromasia 1+ Poikilocytosis 3+ Anisocytosis 3+ Microcytosis 3+ Sodium Level 140 Potassium Level 4.2 Chloride Level 104 Carbon Dioxide Level 23 Anion Gap 17 H Blood Urea Nitrogen 25 H Creatinine 0.86 Glucose Level 216 Calcium Level 9.1 Bedside Glucose 196 235 H Lab Scanned Report REFERENCE LAB Medications Medications Current Medications Acetaminophen 650 mg 650 mg Q6H PRN PO PAIN AND OR ELEVATED TEMP Last administered on 08/13/16 08:07; Admin Dose 650 MG; Start 08/07/16 at 21:30 Sodium Chloride (NS) 1,000 ml @ 60 mls/hr [id number] IV Last administered on 10:58; Admin Dose 60 MLS/HR; Start 08/07/16 at 21:30 Morphine Sulfate (morphine) 2 mg Q4H PRN IV severe pain Last administered on 02:18; Admin Dose 2 MG; Start 08/07/16 at 21:30 Acetaminophen/ Hydrocodone Bitart ([place] (5/325)) 1 tab Q6H PRN PO moderate pain Last administered on 08/11/16 22:57; Admin Dose 1 TAB; Start 08/07/16 at 21 :30 Diagnostic Test (Pha) (Accu-Chek) 1 ea 02 XX ; Start 08/08/16 at 02:00 Cholecalciferol (Vitamin D) 5,000 unit DAILY PO Last administered on 08/13/16 08:08; Admin Dose 5,000 UNIT; Start 08/08/16 at 09:00 Gabapentin (Neurontin) 300 mg DAILY PO Last administered on 08/13/16 08:07; Admin Dose 300 MG; Start 08/08/16 at 09:00 Lorazepam (Ativan) 1 mg HS PRN PO ANXIETY Last administered on 08/11/16 21:52; Admin Dose 1 MG; Start 08/07/16 at 21:30 Losartan Potassium (Cozaar) 50 mg DAILY PO Last administered on 08/13/16 08:07 ; Admin Dose 50 MG; Start 08/08/16 at 09:00 Linagliptin (Tradjenta) 5 mg DAILY PO Last administered on 08/13/16 08:08; Admin Dose 5 MG; Start 08/08/16 at 09:00 Lubiprostone 24 mcg 24 mcg BID PO Last administered on 08/13/16 08:07; Admin Dose 24 MCG; Start 08/09/16 at 21:00 Ceftriaxone Sodium (Rocephin) 50 ml @ 100 mls/hr Q24H IVPB Last administered on 08/12/16 22:58; Admin Dose 100 MLS/HR; Start 08/12/16 at 21:30 Insulin Glargine (Lantus) 18 unit DAILY@20 SC ; Start 08/13/16 at 20:00 Miscellaneous Information 1 ea NOTE XX ; Start 08/13/16 at 15:30 Glucose (Glutose) 15 gm Q15M PRN PO DECREASED GLUCOSE; Start 08/13/16 at 15:30 Glucose (Glutose) 22.5 gm Q15M PRN PO DECREASED GLUCOSE; Start 08/13/16 at 15:30 Dextrose (D50w Syringe) 25 ml Q15M PRN IV DECREASED GLUCOSE; Start 08/13/16 at 15:30 Dextrose (D50w Syringe) 50 ml Q15M PRN IV DECREASED GLUCOSE; Start 08/13/16 at 15:30 Glucagon (Glucagen) 1 mg Q15M PRN IM DECREASED GLUCOSE; Start 08/13/16 at 15:30 Glucose 15 gm 15 gm Q15M PRN BUCCAL DECREASED GLUCOSE; Start 08/13/16 at 15:30 Vancomycin HCl 1.5 gm/Sodium Chloride 250 ml @ 83.333 mls/ hr ONCE ONCE IVPB ; Start 08/13/16 at 17:00; Stop 08/13/16 at 19:59 Vancomycin HCl/ Sodium Chloride (Vancocin/NS) 150 ml @ 75 mls/hr Q12H IVPB ; Start 08/14/16 at 05:00 Copies To: CC: ЕЛЕНА CLAROS MD, STANLEY H MD Aug 13, 2016 16:28
[2016-08-13] MEDS ORDERED: VANCOMYCIN 1.5 GM in SOD CHLORIDE 0.9% 250 ML IVPB ONE (17:00)
--- NOTE | 2016-08-13 17:06 | RADRPT ---
PROCEDURE: US DVT upper extremity. CLINICAL INDICATION: Right upper extremity pain and swelling TECHNIQUE: Multiple longitudinal and transverse images of the right upper extremity veins were obt ained with reid scale and color Doppler imaging. 2D grayscale measurements with compression, color Doppler flow, and augmentation was performed to include the internal jugular vein, subclavian vein, axillary vein, basilic vein, and brachial veins. COMPARISON: No prior studies are available for comparison. FINDINGS: There is an compressibility and no blood flow seen in the right basilic vein at the antecubital chante a. There is normal compressibility and normal blood flow in the basilic vein in the upper arm. The right jugular vein, axillary vein, brachial and cephalic veins are all normally compressible thr oughout. The subclavian vein is not compressible due to its location behind the clavicle. Color flow demonstrates normal filling of the vessel. Normal venous waveforms are visualized and there is normal response to augmentation. IMPRESSION: 1. Occlusive venous thromboembolism in the right basilic vein at the antecubital fossa. RPTAT: AA .Pool Neumann MD, Date Time Electronically viewed and signed by .Pool Neumann MD, on 08/13/2016 17:05 .M/
--- NOTE | 2016-08-13 19:19 | CONS ---
Date/Time of Note Date/Time of Note DATE: 08/13/16 TIME: 19:18 Assessment/Plan Assessment/Plan Chief Complaint/Hosp Course Impression: 1. Anemia microcytic, with few few blast cells: stool for occult blood negative 2. Thrombosis of the inferior vena cava 3. Weight loss of 26 pound 4. Abdominal pain right lower quadrant 5. Constipation 6. History of pulmonary embolism 7. Diabetes mellitus 8. Hypertension 9. Hyperlipidemia 10. Status post surgery on his knee and the hand Plan 1. as stool for occult blood is negative, will await hematology/onc eval first 2. patient also say the same that Dr. Philippe wants to hold off on EGD and colonoscopy so I will do so. 3. will follow along with you 4. continue Amitiza for his constipation 5. Dr. Hall to resume ccare tomorrow Problems: Consultation Date/Type/Reason Admit Date/Time Aug 07, 2016 at 16:05 Initial Consult Date 08/10/16 Type of Consultation: GI Referring Provider: TEDDY RUVALCABA MD 24 HR Interval Summary Free Text/Dictation no n/v, still with lower abdominal pain Exam/Review of Systems Vital Signs Vitals Vital Signs Date Time Temp Pulse Resp B/P Pulse Ox O2 Delivery O2 Flow Rate FiO2 08/13/16 08:00 99.5 89 22 135/61 98 Intake and Output 08/12/16 08/12/16 08/13/16 15:00 23:00 07:00 Intake Total 110 ml 1280 ml 1160 ml Output Total 1600 ml 600 ml Balance 110 ml -320 ml 560 ml Exam Head: atraumatic, normocephalic Eyes: EOMI, nl conjunctiva, nl lids ENMT: nl external ears & nose, nl lips & teeth, nl nasal mucosa & septum Neck: non-tender, supple Respiratory: clear to auscultation, normal air movement Cardiovascular: nl pulses, regular rate and rhythm Gastrointestinal: bowel sounds, nl liver, spleen, non-tender, soft Results Result Diagram: 08/13/16 0520 08/13/16 0520 Results 24 hrs Laboratory Tests Test 08/12/16 20:50 08/12/16 20:57 08/13/16 02:26 08/13/16 05:20 Urine Color YELLOW Urine Clarity CLEAR Urine pH 5.0 Urine Specific [place] 1.021 Urine Ketones NEGATIVE Urine Nitrite NEGATIVE Urine Bilirubin NEGATIVE Urine Urobilinogen NEGATIVE Urine Leukocyte Esterase NEGATIVE Urine Hemoglobin NEGATIVE Urine Glucose 3+ H Urine Total Protein NEGATIVE Bedside Glucose 246 H 261 H White Blood Count 9.5 Red Blood Count 3.21 L Hemoglobin 7.8 L Hematocrit 24.6 L Mean Corpuscular Volume 76.6 L Mean Corpuscular Hemoglobin 24.3 L Mean Corpuscular Hemoglobin Concent 31.7 L Red Cell Distribution Width 24.7 H Platelet Count 246 Mean Platelet Volume Neutrophils % 57.0 Band Neutrophils % 5.0 Lymphocytes % 23.0 Monocytes % 11.0 Eosinophils % Basophils % Myelocytes % 3.0 H Promyelocytes % 1.0 H Nucleated Red Blood Cells % 1.0 H Neutrophils # 5.4 Lymphocytes # 2.2 Monocytes # 1.0 H Eosinophils # Basophils # Myelocytes # 0.3 Promyelocytes # 0.1 Nucleated Red Blood Cells # Platelet Estimate PLT APPEAR ADEQUATE Hypochromasia 1+ Poikilocytosis 3+ Anisocytosis 3+ Microcytosis 3+ Sodium Level 140 Potassium Level 4.2 Chloride Level 104 Carbon Dioxide Level 23 Anion Gap 17 H Blood Urea Nitrogen 25 H Creatinine 0.86 Glucose Level 216 Calcium Level 9.1 Test 08/13/16 07:42 08/13/16 09:00 08/13/16 12:07 08/13/16 17:04 Bedside Glucose 196 235 H 227 H Lab Scanned Report REFERENCE LAB Medications Medications Current Medications Acetaminophen 650 mg 650 mg Q6H PRN PO PAIN AND OR ELEVATED TEMP Last administered on 08/13/16 08:07; Admin Dose 650 MG; Start 08/07/16 at 21:30 Sodium Chloride (NS) 1,000 ml @ 60 mls/hr [id number] IV Last administered on 10:58; Admin Dose 60 MLS/HR; Start 08/07/16 at 21:30 Morphine Sulfate (morphine) 2 mg Q4H PRN IV severe pain Last administered on 02:18; Admin Dose 2 MG; Start 08/07/16 at 21:30 Acetaminophen/ Hydrocodone Bitart ([place] (5/325)) 1 tab Q6H PRN PO moderate pain Last administered on 08/11/16 22:57; Admin Dose 1 TAB; Start 08/07/16 at 21 :30 Diagnostic Test (Pha) (Accu-Chek) 1 ea 02 XX ; Start 08/08/16 at 02:00 Cholecalciferol (Vitamin D) 5,000 unit DAILY PO Last administered on 08/13/16 08:08; Admin Dose 5,000 UNIT; Start 08/08/16 at 09:00 Gabapentin (Neurontin) 300 mg DAILY PO Last administered on 08/13/16 08:07; Admin Dose 300 MG; Start 08/08/16 at 09:00 Lorazepam (Ativan) 1 mg HS PRN PO ANXIETY Last administered on 08/11/16 21:52; Admin Dose 1 MG; Start 08/07/16 at 21:30 Losartan Potassium (Cozaar) 50 mg DAILY PO Last administered on 08/13/16 08:07 ; Admin Dose 50 MG; Start 08/08/16 at 09:00 Linagliptin (Tradjenta) 5 mg DAILY PO Last administered on 08/13/16 08:08; Admin Dose 5 MG; Start 08/08/16 at 09:00 Lubiprostone 24 mcg 24 mcg BID PO Last administered on 08/13/16 08:07; Admin Dose 24 MCG; Start 08/09/16 at 21:00 Ceftriaxone Sodium (Rocephin) 50 ml @ 100 mls/hr Q24H IVPB Last administered on 08/12/16 22:58; Admin Dose 100 MLS/HR; Start 08/12/16 at 21:30 Insulin Glargine (Lantus) 18 unit DAILY@20 SC ; Start 08/13/16 at 20:00 Miscellaneous Information 1 ea NOTE XX ; Start 08/13/16 at 15:30 Glucose (Glutose) 15 gm Q15M PRN PO DECREASED GLUCOSE; Start 08/13/16 at 15:30 Glucose (Glutose) 22.5 gm Q15M PRN PO DECREASED GLUCOSE; Start 08/13/16 at 15:30 Dextrose (D50w Syringe) 25 ml Q15M PRN IV DECREASED GLUCOSE; Start 08/13/16 at 15:30 Dextrose (D50w Syringe) 50 ml Q15M PRN IV DECREASED GLUCOSE; Start 08/13/16 at 15:30 Glucagon (Glucagen) 1 mg Q15M PRN IM DECREASED GLUCOSE; Start 08/13/16 at 15:30 Glucose 15 gm 15 gm Q15M PRN BUCCAL DECREASED GLUCOSE; Start 08/13/16 at 15:30 Vancomycin HCl 1.5 gm/Sodium Chloride 250 ml @ 83.333 mls/ hr ONCE ONCE IVPB Last administered on 08/13/16t 18:44; Admin Dose 83.333 MLS/HR; Start 08/13/16 at 17:00; Stop 08/13/16 at 19:59 Vancomycin HCl/ Sodium Chloride (Vancocin/NS) 150 ml @ 75 mls/hr Q12H IVPB ; Start 08/14/16 at 05:00 JOLIE PLASENCIA MD Aug 13, 2016 19:19
[2016-08-13 19:27] VITALS: BP 143/64; RESP 18
[2016-08-13] MEDS: INSULIN GLARGINE [LANtus] 3 ML PEN SC SCH (20:34)
[2016-08-13] MEDS: CEFTRIAXONE 1 GM/50 ML (PMX) 50 ML IVPB SCH (21:47)
[2016-08-13] MEDS: HYDROCODONE/APAP (5/325) TAB PO PRN (21:50)
[2016-08-14] VITALS (10 sets, daily range): BP systolic 120–138; BP diastolic 56–63; PULSE 80–90; RESP 18–20
[2016-08-14] MEDS: ACCU-CHEK XX SCH (02:00)
[2016-08-14] MEDS: SOD CHLORIDE 0.9% 1,000 ML IV SCH ×2 (02:45→11:33)
[2016-08-14] MEDS: VANCOMYCIN 750 MG in SOD CHLORIDE 0.9% 150 ML IVPB SCH ×2 (05:18→17:09)
[2016-08-14 05:30] LABS: ADD SCAN DIFF NO
[2016-08-14 05:35] LABS: ABNORMAL IP MESSAGE 1; BASOPHIL # 0.1 10^3/ul (0.0-0.1); BASOPHILS % 0.9 % (0.0-2.0); EOSINOPHILS % 0.2 % (0.0-7.0); HEMATOCRIT 29.1 % (42.0-52.0); HEMOGLOBIN 9.2 g/dl (14.0-18.0); LYMPHOCYTES # 1.5 10^3/ul (0.8-2.9); LYMPHOCYTES % 17.4 % (15.0-51.0); MEAN CORPUSCULAR HEMOGLOBIN 24.3 pg (29.0-33.0); MEAN CORPUSCULAR HGB CONC 31.6 g/dl (32.0-37.0); MEAN CORPUSCULAR VOLUME 76.8 fl (82.0-101.0); MONOCYTES % 11.7 % (0.0-11.0); NEUTROPHIL # 5.1 10^3/ul (1.6-7.5); NEUTROPHILS % 59.8 % (39.0-77.0); NUCLEATED RED BLOOD CELLS # 0.1 10^3/ul (0.0-0.0); NUCLEATED RED BLOOD CELLS% 1.1 /100WBC (0.0-0.0); PLATELET COUNT 235 10^3/UL (140-415); RED BLOOD COUNT 3.79 10^6/ul (4.70-6.10); RED CELL DISTRIBUTION WIDTH 24.9 % (11.5-14.5); WHITE BLOOD COUNT 8.6 10^3/ul (4.8-10.8)
[2016-08-14 06:04] LABS: CALCIUM 9.4 mg/dl (8.4-10.2); CREATININE 0.86 mg/dl (0.61-1.24)
[2016-08-14] MEDS: INSULIN ASPART [NOVOLOG] 3 ML PEN SC SCH ×7 (07:43→20:57)
--- NOTE | 2016-08-14 08:16 | RADRPT ---
PROCEDURE: XR Chest 1 View. CLINICAL INDICATION: Shortness of breath and fever. TECHNIQUE: AP view of the chest was obtained. COMPARISON: August 13, 2016 FINDINGS: The cardiomediastinal silhouette is within normal limits. Elevation of the right hemidiaphragm is id entified. Atelectasis is noted at the lung bases. Mild interstitial prominence in both lungs is st able. No consolidations are identified. No pneumothorax is seen. The osseous structures are unchan ged. IMPRESSION: Elevation of the right hemidiaphragm. Atelectasis at the lung bases. Stable mild interstitial prominence in both lungs. Interstitial prominence could be chronic. RPTAT: AA .Han Trevizo MD, Date Time Electronically viewed and signed by .Han Trevizo MD, MD on 08/14/2016 08:16 .P/
--- NOTE | 2016-08-14 08:31 | PN ---
Date/Time of Note Date/Time of Note DATE: 08/14/16 TIME: 08:26 Assessment/Plan VTE Prophylaxis VTE Prophylaxis Intervention: SCD's Lines/Catheters IV Catheter Type (from Nrs): Peripheral IV Assessment/Plan Chief Complaint/Hosp Course Anemia and IVC thrombosis. Problems: (1) Fever Status: Acute Qualifiers: Fever type: unspecified Qualified Code: R50.9 - Fever, unspecified fever cause (2) Microcytic anemia Status: Chronic (3) Weight loss Status: Acute (4) Thrombosis Status: Chronic Assessment/Plan Pt has fever again this AM. Will repeat bld cultures with [facility]. CXR is laso pending. 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 Will hold anticoagulation until marrow has been done today. Subjective 24 Hr Interval Summary Free Text/Dictation C/O fever with headache. Also experiencing pain and swelling in RUE. Exam/Review of Systems Vital Signs Vitals Vital Signs Date Time Temp Pulse Resp B/P Pulse Ox O2 Delivery O2 Flow Rate FiO2 08/14/16 07:33 101.1 93 18 123/56 92 Intake and Output 08/13/16 08/13/16 08/14/16 15:00 23:00 07:00 Intake Total 310 ml 1708 ml 520 ml Output Total 850 ml 600 ml Balance 310 ml 858 ml -80 ml Exam Constitutional: alert, oriented, well developed Head: atraumatic, normocephalic Eyes: EOMI, nl conjunctiva, nl sclera ENMT: mucosa pink and moist, nl external ears & nose Neck: non-tender, supple Respiratory: clear to auscultation, normal air movement Cardiovascular: nl pulses, regular rate and rhythm Gastrointestinal: nl liver, spleen, non-tender, soft Extremities: normal pulses, other (Swelling, erythema and tenderness of RUE) Neurological: PRESCRIPTION CLERK II-XII intact, nl mental status, nl speech, nl strength Skin: nl turgor, other (warm to touch), rash or lesions Lymph: nl lymph nodes Results Result Diagram: 08/14/16 0505 08/14/16 0505 Results 24 hrs Laboratory Tests Test 08/13/16 09:00 08/13/16 12:07 08/13/16 17:04 08/13/16 20:27 Lab Scanned Report REFERENCE LAB Bedside Glucose 235 H 227 H 250 H Test 08/14/16 02:39 08/14/16 05:05 08/14/16 07:42 Bedside Glucose 251 H 241 H White Blood Count 8.6 Red Blood Count 3.79 L Hemoglobin 9.2 L Hematocrit 29.1 L Mean Corpuscular Volume 76.8 L Mean Corpuscular Hemoglobin 24.3 L Mean Corpuscular Hemoglobin Concent 31.6 L Red Cell Distribution Width 24.9 H Platelet Count 235 Mean Platelet Volume Neutrophils % 59.8 Lymphocytes % 17.4 Monocytes % 11.7 H Eosinophils % 0.2 Basophils % 0.9 Nucleated Red Blood Cells % 1.1 H Neutrophils # 5.1 Lymphocytes # 1.5 Monocytes # 1.0 H Eosinophils # 0.0 Basophils # 0.1 Nucleated Red Blood Cells # 0.1 H Sodium Level 140 Potassium Level 4.0 Chloride Level 104 Carbon Dioxide Level 23 Anion Gap 17 H Blood Urea Nitrogen 25 H Creatinine 0.86 Glucose Level 237 H Calcium Level 9.4 Medications Medications Current Medications Acetaminophen 650 mg 650 mg Q6H PRN PO PAIN AND OR ELEVATED TEMP Last administered on 08/13/16 20:46; Admin Dose 650 MG; Start 08/07/16 at 21:30 Sodium Chloride (NS) 1,000 ml @ 60 mls/hr [id number] IV Last administered on 10:58; Admin Dose 60 MLS/HR; Start 08/07/16 at 21:30 Morphine Sulfate (morphine) 2 mg Q4H PRN IV severe pain Last administered on 02:18; Admin Dose 2 MG; Start 08/07/16 at 21:30 Acetaminophen/ Hydrocodone Bitart ([place] (5/325)) 1 tab Q6H PRN PO moderate pain Last administered on 08/13/16 21:50; Admin Dose 1 TAB; Start 08/07/16 at 21 :30 Diagnostic Test (Pha) (Accu-Chek) 1 ea 02 XX ; Start 08/08/16 at 02:00 Cholecalciferol (Vitamin D) 5,000 unit DAILY PO Last administered on 08/13/16 08:08; Admin Dose 5,000 UNIT; Start 08/08/16 at 09:00 Gabapentin (Neurontin) 300 mg DAILY PO Last administered on 08/13/16 08:07; Admin Dose 300 MG; Start 08/08/16 at 09:00 Lorazepam (Ativan) 1 mg HS PRN PO ANXIETY Last administered on 08/11/16 21:52; Admin Dose 1 MG; Start 08/07/16 at 21:30 Losartan Potassium (Cozaar) 50 mg DAILY PO Last administered on 08/13/16 08:07 ; Admin Dose 50 MG; Start 08/08/16 at 09:00 Linagliptin (Tradjenta) 5 mg DAILY PO Last administered on 08/13/16 08:08; Admin Dose 5 MG; Start 08/08/16 at 09:00 Lubiprostone 24 mcg 24 mcg BID PO Last administered on 08/13/16 20:40; Admin Dose 24 MCG; Start 08/09/16 at 21:00 Ceftriaxone Sodium (Rocephin) 50 ml @ 100 mls/hr Q24H IVPB Last administered on 08/13/16 21:47; Admin Dose 100 MLS/HR; Start 08/12/16 at 21:30 Insulin Glargine (Lantus) 18 unit DAILY@20 SC Last administered on 08/13/16 20: 34; Admin Dose 9 UNIT; Start 08/13/16 at 20:00 Miscellaneous Information 1 ea NOTE XX ; Start 08/13/16 at 15:30 Glucose (Glutose) 15 gm Q15M PRN PO DECREASED GLUCOSE; Start 08/13/16 at 15:30 Glucose (Glutose) 22.5 gm Q15M PRN PO DECREASED GLUCOSE; Start 08/13/16 at 15:30 Dextrose (D50w Syringe) 25 ml Q15M PRN IV DECREASED GLUCOSE; Start 08/13/16 at 15:30 Dextrose (D50w Syringe) 50 ml Q15M PRN IV DECREASED GLUCOSE; Start 08/13/16 at 15:30 Glucagon (Glucagen) 1 mg Q15M PRN IM DECREASED GLUCOSE; Start 08/13/16 at 15:30 Glucose 15 gm 15 gm Q15M PRN BUCCAL DECREASED GLUCOSE; Start 08/13/16 at 15:30 Vancomycin HCl/ Sodium Chloride (Vancocin/NS) 150 ml @ 75 mls/hr Q12H IVPB Last administered on 08/14/16 05:18; Admin Dose 75 MLS/HR; Start 08/14/16 at 05: 00 Copies To: CC: ЕЛЕНА CLAROS MD, STANLEY H MD Aug 14, 2016 08:31
[2016-08-14] MEDS: LINAGLIPTIN 5 MG TABLET PO SCH (09:00)
[2016-08-14] MEDS: LOSARTAN 50 MG TAB PO SCH (09:00)
[2016-08-14] MEDS: GABAPENTIN 300 MG CAP PO SCH (09:00)
[2016-08-14] MEDS: LUBIPROSTONE 24 MCG CAP PO SCH ×2 (09:00→20:51)
[2016-08-14] MEDS: CHOLECALCIFEROL 1,000 UNIT TAB PO SCH (09:00)
--- NOTE | 2016-08-14 12:48 | CONS ---
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 Patient complains of right lower quadrant abdominal pain and also significant weight loss. He lost 26 pounds over the. A few months and is chronically constipated. Patient denies of any kind of GI bleeding no nausea no vomiting no heartburn. No chest pain or shortness of breath. He has lost his appetite. Patient has umbrella in the inferior vena cava and also has a history of pulmonary embolism. He has a history of surgery on his knee and also on his hands. Problems: Additional Assessment/Plan Impression: 1. Anemia microcytic, with few few blast cells: stool for occult blood negative 2. Thrombosis of the inferior vena cava 3. Weight loss of 26 pound 4. Abdominal pain right lower quadrant 5. Constipation 6. History of pulmonary embolism 7. Diabetes mellitus 8. Hypertension 9. Hyperlipidemia 10. Status post surgery on his knee and the hand Plan 1. as stool for occult blood is negative, will await hematology/onc eval first 2. patient also say the same that Dr. Philippe wants to hold off on EGD and colonoscopy so I will do so. 3. will follow along with you 4. continue Amitiza for his constipation 5. Patient is scheduled for a bone marrow aspiration and biopsy to day Consultation Date/Type/Reason Admit Date/Time Aug 07, 2016 at 16:05 Initial Consult Date 08/10/16 Type of Consultation: GI Referring Provider: TEDDY RUVALCABA MD 24 HR Interval Summary Free Text/Dictation Good bowel movement Feels nauseous Constitutional: improved Exam/Review of Systems Vital Signs Vitals Vital Signs Date Time Temp Pulse Resp B/P Pulse Ox O2 Delivery O2 Flow Rate FiO2 08/14/16 07:33 101.1 93 18 123/56 92 Intake and Output 08/13/16 08/13/16 08/14/16 15:00 23:00 07:00 Intake Total 310 ml 1708 ml 520 ml Output Total 850 ml 600 ml Balance 310 ml 858 ml -80 ml Exam Constitutional: alert, oriented, well developed Psych: nl mood/affect, no complaints Head: atraumatic, normocephalic Eyes: EOMI, PERRL, nl conjunctiva, nl lids, nl sclera ENMT: nl external ears & nose, nl lips & teeth, nl nasal mucosa & septum Neck: non-tender, supple Respiratory: clear to auscultation, normal air movement Cardiovascular: nl pulses, regular rate and rhythm Gastrointestinal: nl liver, spleen, non-tender, soft Musculoskeletal: nl extremities to inspection, nl gait and stance Extremities: normal pulses Neurological: ASSOCIATE EDITOR II-XII intact, nl mental status, nl speech, nl strength Skin: nl turgor, No rash or lesions Lymph: nl lymph nodes Results Result Diagram: 08/14/16 0505 08/14/16 0505 Results 24 hrs Laboratory Tests Test 08/13/16 17:04 08/13/16 20:27 08/14/16 02:39 08/14/16 05:05 Bedside Glucose 227 H 250 H 251 H White Blood Count 8.6 Red Blood Count 3.79 L Hemoglobin 9.2 L Hematocrit 29.1 L Mean Corpuscular Volume 76.8 L Mean Corpuscular Hemoglobin 24.3 L Mean Corpuscular Hemoglobin Concent 31.6 L Red Cell Distribution Width 24.9 H Platelet Count 235 Mean Platelet Volume Neutrophils % 59.8 Lymphocytes % 17.4 Monocytes % 11.7 H Eosinophils % 0.2 Basophils % 0.9 Nucleated Red Blood Cells % 1.1 H Neutrophils # 5.1 Lymphocytes # 1.5 Monocytes # 1.0 H Eosinophils # 0.0 Basophils # 0.1 Nucleated Red Blood Cells # 0.1 H Sodium Level 140 Potassium Level 4.0 Chloride Level 104 Carbon Dioxide Level 23 Anion Gap 17 H Blood Urea Nitrogen 25 H Creatinine 0.86 Glucose Level 237 H Calcium Level 9.4 Test 08/14/16 07:42 08/14/16 10:24 08/14/16 11:30 Bedside Glucose 241 H 227 H Lab Scanned Report REFERENCE LAB Medications Medications Current Medications Acetaminophen 650 mg 650 mg Q6H PRN PO PAIN AND OR ELEVATED TEMP Last administered on 08/13/16 20:46; Admin Dose 650 MG; Start 08/07/16 at 21:30 Sodium Chloride (NS) 1,000 ml @ 60 mls/hr [id number] IV Last administered on 11:33; Admin Dose 60 MLS/HR; Start 08/07/16 at 21:30 Morphine Sulfate (morphine) 2 mg Q4H PRN IV severe pain Last administered on 02:18; Admin Dose 2 MG; Start 08/07/16 at 21:30 Acetaminophen/ Hydrocodone Bitart ([place] (5/325)) 1 tab Q6H PRN PO moderate pain Last administered on 08/13/16 21:50; Admin Dose 1 TAB; Start 08/07/16 at 21 :30 Diagnostic Test (Pha) (Accu-Chek) 1 ea 02 XX ; Start 08/08/16 at 02:00 Cholecalciferol (Vitamin D) 5,000 unit DAILY PO Last administered on 08/13/16 08:08; Admin Dose 5,000 UNIT; Start 08/08/16 at 09:00 Gabapentin (Neurontin) 300 mg DAILY PO Last administered on 08/13/16 08:07; Admin Dose 300 MG; Start 08/08/16 at 09:00 Lorazepam (Ativan) 1 mg HS PRN PO ANXIETY Last administered on 08/11/16 21:52; Admin Dose 1 MG; Start 08/07/16 at 21:30 Losartan Potassium (Cozaar) 50 mg DAILY PO Last administered on 08/13/16 08:07 ; Admin Dose 50 MG; Start 08/08/16 at 09:00 Linagliptin (Tradjenta) 5 mg DAILY PO Last administered on 08/13/16 08:08; Admin Dose 5 MG; Start 08/08/16 at 09:00 Lubiprostone 24 mcg 24 mcg BID PO Last administered on 08/13/16 20:40; Admin Dose 24 MCG; Start 08/09/16 at 21:00 Ceftriaxone Sodium (Rocephin) 50 ml @ 100 mls/hr Q24H IVPB Last administered on 08/13/16 21:47; Admin Dose 100 MLS/HR; Start 08/12/16 at 21:30 Insulin Glargine (Lantus) 18 unit DAILY@20 SC Last administered on 08/13/16 20: 34; Admin Dose 9 UNIT; Start 08/13/16 at 20:00 Miscellaneous Information 1 ea NOTE XX ; Start 08/13/16 at 15:30 Glucose (Glutose) 15 gm Q15M PRN PO DECREASED GLUCOSE; Start 08/13/16 at 15:30 Glucose (Glutose) 22.5 gm Q15M PRN PO DECREASED GLUCOSE; Start 08/13/16 at 15:30 Dextrose (D50w Syringe) 25 ml Q15M PRN IV DECREASED GLUCOSE; Start 08/13/16 at 15:30 Dextrose (D50w Syringe) 50 ml Q15M PRN IV DECREASED GLUCOSE; Start 08/13/16 at 15:30 Glucagon (Glucagen) 1 mg Q15M PRN IM DECREASED GLUCOSE; Start 08/13/16 at 15:30 Glucose 15 gm 15 gm Q15M PRN BUCCAL DECREASED GLUCOSE; Start 08/13/16 at 15:30 Vancomycin HCl/ Sodium Chloride (Vancocin/NS) 150 ml @ 75 mls/hr Q12H IVPB Last administered on 08/14/16t 05:18; Admin Dose 75 MLS/HR; Start 08/14/16 at 05: 00 ANA VELASQUEZ MD Aug 14, 2016 12:48
[2016-08-14] MEDS ORDERED: MIDAZOLAM 1 MG/ML 2 ML INJ ONE (14:19)
[2016-08-14] MEDS ORDERED: FENTAnyl 50 MCG/ML VIAL ONE (14:19)
[2016-08-14] MEDS ORDERED: LIDOCAINE 1% (MDV) 20 ML INJ ONE (14:19)
[2016-08-14] MEDS ORDERED: DIPHENHYDRAMINE 50 MG INJ ONE (14:19)
--- NOTE | 2016-08-14 15:25 | PN ---
Date/Time of Note Date/Time of Note DATE: 08/14/16 TIME: 15:21 Assessment/Plan VTE Prophylaxis VTE Prophylaxis Intervention: LMWH Lines/Catheters IV [facility] Peripheral IV Assessment/Plan Chief Complaint/Hosp Course Patient is taking to radiology for bone marrow biopsy, continues to spike fever. Continues to have elevated blood sugar Lantus and pre-meal NovoLog adjusted last night, continue to monitor. Assessment/Plan - Gram-negative rods UTI, continue vancomycin and ceftriaxone, follow-up on final culture. - Microcytic anemia, Dr. Philippe is following in hematology /oncology consultation, pending bone marrow biopsy. 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 Hall is following in gastroenterology consultation. - History of pulmonary embolism, continue Eliquis - Diabetes mellitus, hemoglobin A1c is 8.2. continue, Tradjenta, Lantus and NovoLog. - Hypertension, continue Cozaar. - Hyperlipidemia - BPH, status post TURP - Status post right hip replacement Further recommendations based on clinical course. Plan of care discussed with Dr. Seay. Problems: Exam/Review of Systems Vital Signs Vitals Vital Signs Date Time Temp Pulse Resp B/P Pulse Ox O2 Delivery O2 Flow Rate FiO2 08/14/16 07:33 101.1 93 18 123/56 92 Intake and Output 08/13/16 08/13/16 08/14/16 15:00 23:00 07:00 Intake Total 310 ml 1708 ml 520 ml Output Total 850 ml 600 ml Balance 310 ml 858 ml -80 ml Results Result Diagram: 08/14/16 0505 08/14/16 0505 Results 24 hrs Laboratory Tests Test 08/13/16 17:04 08/13/16 20:27 08/14/16 02:39 08/14/16 05:05 Bedside Glucose 227 H 250 H 251 H White Blood Count 8.6 Red Blood Count 3.79 L Hemoglobin 9.2 L Hematocrit 29.1 L Mean Corpuscular Volume 76.8 L Mean Corpuscular Hemoglobin 24.3 L Mean Corpuscular Hemoglobin Concent 31.6 L Red Cell Distribution Width 24.9 H Platelet Count 235 Mean Platelet Volume Neutrophils % 59.8 Lymphocytes % 17.4 Monocytes % 11.7 H Eosinophils % 0.2 Basophils % 0.9 Nucleated Red Blood Cells % 1.1 H Neutrophils # 5.1 Lymphocytes # 1.5 Monocytes # 1.0 H Eosinophils # 0.0 Basophils # 0.1 Nucleated Red Blood Cells # 0.1 H Sodium Level 140 Potassium Level 4.0 Chloride Level 104 Carbon Dioxide Level 23 Anion Gap 17 H Blood Urea Nitrogen 25 H Creatinine 0.86 Glucose Level 237 H Calcium Level 9.4 Test 08/14/16 07:42 08/14/16 10:24 08/14/16 11:30 Bedside Glucose 241 H 227 H Lab Scanned Report REFERENCE LAB Medications Medications Current Medications Acetaminophen 650 mg 650 mg Q6H PRN PO PAIN AND OR ELEVATED TEMP Last administered on 08/13/16 20:46; Admin Dose 650 MG; Start 08/07/16 at 21:30 Sodium Chloride (NS) 1,000 ml @ 60 mls/hr [id number] IV Last administered on 11:33; Admin Dose 60 MLS/HR; Start 08/07/16 at 21:30 Morphine Sulfate (morphine) 2 mg Q4H PRN IV severe pain Last administered on 02:18; Admin Dose 2 MG; Start 08/07/16 at 21:30 Acetaminophen/ Hydrocodone Bitart ([place] (5/325)) 1 tab Q6H PRN PO moderate pain Last administered on 08/13/16 21:50; Admin Dose 1 TAB; Start 08/07/16 at 21 :30 Diagnostic Test (Pha) (Accu-Chek) 1 ea 02 XX ; Start 08/08/16 at 02:00 Cholecalciferol (Vitamin D) 5,000 unit DAILY PO Last administered on 08/13/16 08:08; Admin Dose 5,000 UNIT; Start 08/08/16 at 09:00 Gabapentin (Neurontin) 300 mg DAILY PO Last administered on 08/13/16 08:07; Admin Dose 300 MG; Start 08/08/16 at 09:00 Lorazepam (Ativan) 1 mg HS PRN PO ANXIETY Last administered on 08/11/16 21:52; Admin Dose 1 MG; Start 08/07/16 at 21:30 Losartan Potassium (Cozaar) 50 mg DAILY PO Last administered on 08/13/16 08:07 ; Admin Dose 50 MG; Start 08/08/16 at 09:00 Linagliptin (Tradjenta) 5 mg DAILY PO Last administered on 08/13/16 08:08; Admin Dose 5 MG; Start 08/08/16 at 09:00 Lubiprostone 24 mcg 24 mcg BID PO Last administered on 08/13/16 20:40; Admin Dose 24 MCG; Start 08/09/16 at 21:00 Ceftriaxone Sodium (Rocephin) 50 ml @ 100 mls/hr Q24H IVPB Last administered on 08/13/16 21:47; Admin Dose 100 MLS/HR; Start 08/12/16 at 21:30 Insulin Glargine (Lantus) 18 unit DAILY@20 SC Last administered on 08/13/16 20: 34; Admin Dose 9 UNIT; Start 08/13/16 at 20:00 Miscellaneous Information 1 ea NOTE XX ; Start 08/13/16 at 15:30 Glucose (Glutose) 15 gm Q15M PRN PO DECREASED GLUCOSE; Start 08/13/16 at 15:30 Glucose (Glutose) 22.5 gm Q15M PRN PO DECREASED GLUCOSE; Start 08/13/16 at 15:30 Dextrose (D50w Syringe) 25 ml Q15M PRN IV DECREASED GLUCOSE; Start 08/13/16 at 15:30 Dextrose (D50w Syringe) 50 ml Q15M PRN IV DECREASED GLUCOSE; Start 08/13/16 at 15:30 Glucagon (Glucagen) 1 mg Q15M PRN IM DECREASED GLUCOSE; Start 08/13/16 at 15:30 Glucose 15 gm 15 gm Q15M PRN BUCCAL DECREASED GLUCOSE; Start 08/13/16 at 15:30 Vancomycin HCl/ Sodium Chloride (Vancocin/NS) 150 ml @ 75 mls/hr Q12H IVPB Last administered on 08/14/16 05:18; Admin Dose 75 MLS/HR; Start 08/14/16 at 05: 00 Miscellaneous Information (*Rx Drug Level Order Reminder*) VANCO TROUGH @ 0, 400 ON... ONCE ONCE XX ; Start 08/15/16 at 04:00; Stop 08/15/16 at 04:01 IVONNE KEARNS Aug 14, 2016 15:24
--- NOTE | 2016-08-14 15:26 | RADRPT ---
PROCEDURE: CT guided bone marrow aspiration and left iliac bone biopsy. CLINICAL INDICATION: History of pancytopenia. TECHNIQUE: Informed consent was obtained. The procedure, risks, benefits, complications and alternatives were e xplained to the patient. Risks including bleeding and infection were explained. The patient understo od and was willing to proceed. A procedural pause was performed. The patient's name, date of , and procedure to be performed were verified. One or more of the following dose reduction techni ques were used: Automated exposure control, adjustment of the mA and/or kV according to patient size , use of iterative reconstruction technique. Using local anesthetic, sterile technique and CT guidance, an 11-gauge On Control bone biopsy needle was advanced into the left iliac bone via a posterior approach. Bone marrow aspiration was perform ed yielding approximately 5 ml. The bone biopsy needle was then advanced an additional 4 cm using t [employer] power drill device and tissue was obtained. Adequate tissue was obtained according to the pathol ogist present during the procedure. The needle was removed. A postprocedural scan was performed. A dressing was applied. The patient tolerated procedure well. COMPARISON: None. FINDINGS: Initial images demonstrate the tip of the needle at the posterior margin of the left iliac bone. Mccurdy bsequent images demonstrate the needle within the bone. Post biopsy images demonstrate no immediate complication. IMPRESSION: 1. Successful CT guided bone marrow aspiration and biopsy. RPTAT: QQ .Juan Jose Soler MD, Date Time Electronically viewed and signed by .Juan Jose Soler MD, MD on 08/14/2016 15:25 .R/
[2016-08-14] MEDS ORDERED: VANCOMYCIN 1.25 GM in SOD CHLORIDE 0.9% 250 ML IVPB SCH (17:00)
[2016-08-14] MEDS: INSULIN GLARGINE [LANtus] 3 ML PEN SC SCH (20:54)
[2016-08-14] MEDS: CEFTRIAXONE 1 GM/50 ML (PMX) 50 ML IVPB SCH (21:50)
[2016-08-15] MEDS: ACCU-CHEK XX SCH (01:33)
[2016-08-15 04:32] LABS: ADD SCAN DIFF NO
[2016-08-15 04:52] LABS: ABNORMAL IP MESSAGE 1; HEMATOCRIT 25.2 % (42.0-52.0); HEMOGLOBIN 8.1 g/dl (14.0-18.0); MEAN CORPUSCULAR HEMOGLOBIN 24.5 pg (29.0-33.0); MEAN CORPUSCULAR HGB CONC 32.1 g/dl (32.0-37.0); MEAN CORPUSCULAR VOLUME 76.4 fl (82.0-101.0); PLATELET COUNT 240 10^3/UL (140-415); RED CELL DISTRIBUTION WIDTH 24.6 % (11.5-14.5); WHITE BLOOD COUNT 8.6 10^3/ul (4.8-10.8)
[2016-08-15 04:57] LABS: CALCIUM 8.9 mg/dl (8.4-10.2); CREATININE 0.86 mg/dl (0.61-1.24); POTASSIUM 3.8 mmol/L (3.5-5.1)
[2016-08-15] MEDS ORDERED: VANCOMYCIN 1 GM in NS 250 ML IVPB SCH (05:00)
[2016-08-15 07:29] VITALS: BP 116/56; RESP 18
[2016-08-15] MEDS: INSULIN ASPART [NOVOLOG] 3 ML PEN SC SCH ×7 (08:06→20:29)
[2016-08-15] MEDS: LUBIPROSTONE 24 MCG CAP PO SCH ×2 (08:27→20:22)
[2016-08-15] MEDS: CHOLECALCIFEROL 1,000 UNIT TAB PO SCH (08:27)
[2016-08-15] MEDS: GABAPENTIN 300 MG CAP PO SCH (08:27)
[2016-08-15] MEDS: LOSARTAN 50 MG TAB PO SCH (08:28)
[2016-08-15] MEDS: LINAGLIPTIN 5 MG TABLET PO SCH (08:28)
[2016-08-15 09:52] LABS: LYMPHOCYTES # 0.9 10^3/ul (0.8-2.9); MONOCYTE # 0.8 10^3/ul (0.3-0.9); NEUTROPHIL # 5.6 10^3/ul (1.6-7.5)
[2016-08-15 09:53] LABS: POLYCHROMASIA 1+
[2016-08-15 09:59] LABS: BURR CELLS 1+
[2016-08-15 10:00] LABS: OVALOCYTES 1+
[2016-08-15] MEDS: SOD CHLORIDE 0.9% 1,000 ML IV SCH ×2 (12:06→23:25)
--- NOTE | 2016-08-15 12:32 | PN ---
Date/Time of Note Date/Time of Note DATE: 08/15/16 TIME: 12:30 Assessment/Plan VTE Prophylaxis VTE Prophylaxis Intervention: other Lines/Catheters IV Catheter Type (from Nrsg): Peripheral IV Assessment/Plan Assessment/Plan - Gram-negative rods UTI, continue vancomycin and ceftriaxone, follow-up on final culture. - Microcytic anemia, Dr. Philippe is following in hematology /oncology consultation, pending bone marrow biopsy. 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 Hall is following in gastroenterology consultation. - History of pulmonary embolism, continue Eliquis - Diabetes mellitus, hemoglobin A1c is 8.2. continue, Tradjenta, Lantus and NovoLog. - Hypertension, continue Cozaar. - Hyperlipidemia - BPH, status post TURP - Status post right hip replacement Further recommendations based on clinical course. Plan of care discussed with Dr. Seay. Exam/Review of Systems Vital Signs Vitals Vital Signs Date Time Temp Pulse Resp B/P Pulse Ox O2 Delivery O2 Flow Rate FiO2 08/15/16 07:29 98.8 82 18 116/56 97 08/14/16 16:00 Room Air Intake and Output 08/14/16 08/14/16 08/15/16 15:00 23:00 07:00 Intake Total 402 ml 500 ml 750 ml Output Total 600 ml 500 ml Balance 402 ml -100 ml 250 ml Exam Constitutional: alert, well developed Respiratory: clear to auscultation, normal air movement Cardiovascular: nl pulses, regular rate and rhythm Gastrointestinal: non-tender, soft Musculoskeletal: nl extremities to inspection Neurological: nl mental status, nl speech Results Result Diagram: 08/15/16 0415 08/15/16 0415 Results 24 hrs Laboratory Tests Test 08/14/16 17:04 08/14/16 20:52 08/15/16 01:25 08/15/16 04:15 Bedside Glucose 192 288 H 225 H White Blood Count 8.6 Red Blood Count 3.30 L Hemoglobin 8.1 L Hematocrit 25.2 L Mean Corpuscular Volume 76.4 L Mean Corpuscular Hemoglobin 24.5 L Mean Corpuscular Hemoglobin Concent 32.1 Red Cell Distribution Width 24.6 H Platelet Count 240 Mean Platelet Volume Neutrophils % 65.0 Band Neutrophils % 7.0 H Lymphocytes % 11.0 L Reactive Lymphocytes % 6.0 Monocytes % 9.0 Metamyelocytes % 2.0 H Neutrophils # 5.6 Lymphocytes # 0.9 Monocytes # 0.8 Metamyelocytes # 0.2 Polychromasia 1+ Macrocytosis 1+ Ovalocytes 1+ Sodium Level 136 Potassium Level 3.8 Chloride Level 108 Carbon Dioxide Level 21 Anion Gap 11 Blood Urea Nitrogen 22 H Creatinine 0.86 Glucose Level 200 Calcium Level 8.9 Vancomycin Level Trough 9.2 L Test 08/15/16 07:58 08/15/16 08:08 08/15/16 11:36 08/15/16 11:49 Bedside Glucose 203 230 H Lab Scanned Report REFERENCE LAB REFERENCE LAB Medications Medications Current Medications Acetaminophen 650 mg 650 mg Q6H PRN PO PAIN AND OR ELEVATED TEMP Last administered on 08/13/16 20:46; Admin Dose 650 MG; Start 08/07/16 at 21:30 Sodium Chloride (NS) 1,000 ml @ 60 mls/hr [id number] IV Last administered on 12:06; Admin Dose 60 MLS/HR; Start 08/07/16 at 21:30 Morphine Sulfate (morphine) 2 mg Q4H PRN IV severe pain Last administered on 02:18; Admin Dose 2 MG; Start 08/07/16 at 21:30 Acetaminophen/ Hydrocodone Bitart ([place] (5/325)) 1 tab Q6H PRN PO moderate pain Last administered on 08/13/16 21:50; Admin Dose 1 TAB; Start 08/07/16 at 21 :30 Diagnostic Test (Pha) (Accu-Chek) 1 ea 02 XX Last administered on 08/15/16 01: 33; Admin Dose 1 EA; Start 08/08/16 at 02:00 Cholecalciferol (Vitamin D) 5,000 unit DAILY PO Last administered on 08/15/16 08:27; Admin Dose 5,000 UNIT; Start 08/08/16 at 09:00 Gabapentin (Neurontin) 300 mg DAILY PO Last administered on 08/15/16 08:27; Admin Dose 300 MG; Start 08/08/16 at 09:00 Lorazepam (Ativan) 1 mg HS PRN PO ANXIETY Last administered on 08/11/16 21:52; Admin Dose 1 MG; Start 08/07/16 at 21:30 Losartan Potassium (Cozaar) 50 mg DAILY PO Last administered on 08/15/16 08:28 ; Admin Dose 50 MG; Start 08/08/16 at 09:00 Linagliptin (Tradjenta) 5 mg DAILY PO Last administered on 08/15/16 08:28; Admin Dose 5 MG; Start 08/08/16 at 09:00 Lubiprostone 24 mcg 24 mcg BID PO Last administered on 08/15/16 08:27; Admin Dose 24 MCG; Start 08/09/16 at 21:00 Ceftriaxone Sodium (Rocephin) 50 ml @ 100 mls/hr Q24H IVPB Last administered on 08/14/16 21:50; Admin Dose 100 MLS/HR; Start 08/12/16 at 21:30 Insulin Glargine (Lantus) 18 unit DAILY@20 SC Last administered on 08/14/16 20: 54; Admin Dose 18 UNIT; Start 08/13/16 at 20:00 Miscellaneous Information 1 ea NOTE XX ; Start 08/13/16 at 15:30 Glucose (Glutose) 15 gm Q15M PRN PO DECREASED GLUCOSE; Start 08/13/16 at 15:30 Glucose (Glutose) 22.5 gm Q15M PRN PO DECREASED GLUCOSE; Start 08/13/16 at 15:30 Dextrose (D50w Syringe) 25 ml Q15M PRN IV DECREASED GLUCOSE; Start 08/13/16 at 15:30 Dextrose (D50w Syringe) 50 ml Q15M PRN IV DECREASED GLUCOSE; Start 08/13/16 at 15:30 Glucagon (Glucagen) 1 mg Q15M PRN IM DECREASED GLUCOSE; Start 08/13/16 at 15:30 Glucose 15 gm 15 gm Q15M PRN BUCCAL DECREASED GLUCOSE; Start 08/13/16 at 15:30 Vancomycin HCl/ Sodium Chloride (Vancocin/NS) 250 ml @ 83.333 mls/ hr Q12H IVPB ; Start 08/15/16 at 18:00 POLA CISNEROS Aug 15, 2016 12:32
--- NOTE | 2016-08-15 13:40 | PN ---
Date/Time of Note Date/Time of Note DATE: 08/15/16 TIME: 13:38 Assessment/Plan VTE Prophylaxis VTE Prophylaxis Intervention: other (per primary MD) Lines/Catheters IV Catheter Type (from Nrsg): Peripheral IV Assessment/Plan Assessment/Plan Pt is comfortable. Bone marrow done yesterday without problem but path is not yet available. We will check tomorrow for the results. Subjective 24 Hr Interval Summary Free Text/Dictation Pt is comfortably lying in bed. Exam/Review of Systems Vital Signs Vitals Vital Signs Date Time Temp Pulse Resp B/P Pulse Ox O2 Delivery O2 Flow Rate FiO2 08/15/16 07:29 98.8 82 18 116/56 97 08/14/16 16:00 Room Air Intake and Output 08/14/16 08/14/16 08/15/16 15:00 23:00 07:00 Intake Total 402 ml 500 ml 750 ml Output Total 600 ml 500 ml Balance 402 ml -100 ml 250 ml Exam Constitutional: alert, oriented Head: normocephalic Eyes: nl conjunctiva, other (pallor) ENMT: nl lips & teeth Neck: supple Respiratory: clear to auscultation Cardiovascular: regular rate and rhythm Gastrointestinal: soft Results Result Diagram: 08/15/16 0415 08/15/16 0415 Results 24 hrs Laboratory Tests Test 08/14/16 17:04 08/14/16 20:52 08/15/16 01:25 08/15/16 04:15 Bedside Glucose 192 288 H 225 H White Blood Count 8.6 Red Blood Count 3.30 L Hemoglobin 8.1 L Hematocrit 25.2 L Mean Corpuscular Volume 76.4 L Mean Corpuscular Hemoglobin 24.5 L Mean Corpuscular Hemoglobin Concent 32.1 Red Cell Distribution Width 24.6 H Platelet Count 240 Mean Platelet Volume Neutrophils % 65.0 Band Neutrophils % 7.0 H Lymphocytes % 11.0 L Reactive Lymphocytes % 6.0 Monocytes % 9.0 Metamyelocytes % 2.0 H Neutrophils # 5.6 Lymphocytes # 0.9 Monocytes # 0.8 Metamyelocytes # 0.2 Polychromasia 1+ Macrocytosis 1+ Ovalocytes 1+ Sodium Level 136 Potassium Level 3.8 Chloride Level 108 Carbon Dioxide Level 21 Anion Gap 11 Blood Urea Nitrogen 22 H Creatinine 0.86 Glucose Level 200 Calcium Level 8.9 Vancomycin Level Trough 9.2 L Test 08/15/16 07:58 08/15/16 08:08 08/15/16 11:36 08/15/16 11:49 Bedside Glucose 203 230 H Lab Scanned Report REFERENCE LAB REFERENCE LAB Medications Medications Current Medications Acetaminophen 650 mg 650 mg Q6H PRN PO PAIN AND OR ELEVATED TEMP Last administered on 08/13/16 20:46; Admin Dose 650 MG; Start 08/07/16 at 21:30 Sodium Chloride (NS) 1,000 ml @ 60 mls/hr [id number] IV Last administered on 12:06; Admin Dose 60 MLS/HR; Start 08/07/16 at 21:30 Morphine Sulfate (morphine) 2 mg Q4H PRN IV severe pain Last administered on 02:18; Admin Dose 2 MG; Start 08/07/16 at 21:30 Acetaminophen/ Hydrocodone Bitart ([place] (5/325)) 1 tab Q6H PRN PO moderate pain Last administered on 08/13/16 21:50; Admin Dose 1 TAB; Start 08/07/16 at 21 :30 Diagnostic Test (Pha) (Accu-Chek) 1 ea 02 XX Last administered on 08/15/16 01: 33; Admin Dose 1 EA; Start 08/08/16 at 02:00 Cholecalciferol (Vitamin D) 5,000 unit DAILY PO Last administered on 08/15/16 08:27; Admin Dose 5,000 UNIT; Start 08/08/16 at 09:00 Gabapentin (Neurontin) 300 mg DAILY PO Last administered on 08/15/16 08:27; Admin Dose 300 MG; Start 08/08/16 at 09:00 Lorazepam (Ativan) 1 mg HS PRN PO ANXIETY Last administered on 08/11/16 21:52; Admin Dose 1 MG; Start 08/07/16 at 21:30 Losartan Potassium (Cozaar) 50 mg DAILY PO Last administered on 08/15/16 08:28 ; Admin Dose 50 MG; Start 08/08/16 at 09:00 Linagliptin (Tradjenta) 5 mg DAILY PO Last administered on 08/15/16 08:28; Admin Dose 5 MG; Start 08/08/16 at 09:00 Lubiprostone 24 mcg 24 mcg BID PO Last administered on 08/15/16 08:27; Admin Dose 24 MCG; Start 08/09/16 at 21:00 Ceftriaxone Sodium (Rocephin) 50 ml @ 100 mls/hr Q24H IVPB Last administered on 08/14/16 21:50; Admin Dose 100 MLS/HR; Start 08/12/16 at 21:30 Miscellaneous Information 1 ea NOTE XX ; Start 08/13/16 at 15:30 Glucose (Glutose) 15 gm Q15M PRN PO DECREASED GLUCOSE; Start 08/13/16 at 15:30 Glucose (Glutose) 22.5 gm Q15M PRN PO DECREASED GLUCOSE; Start 08/13/16 at 15:30 Dextrose (D50w Syringe) 25 ml Q15M PRN IV DECREASED GLUCOSE; Start 08/13/16 at 15:30 Dextrose (D50w Syringe) 50 ml Q15M PRN IV DECREASED GLUCOSE; Start 08/13/16 at 15:30 Glucagon (Glucagen) 1 mg Q15M PRN IM DECREASED GLUCOSE; Start 08/13/16 at 15:30 Glucose 15 gm 15 gm Q15M PRN BUCCAL DECREASED GLUCOSE; Start 08/13/16 at 15:30 Vancomycin HCl/ Sodium Chloride (Vancocin/NS) 250 ml @ 83.333 mls/ hr Q12H IVPB ; Start 08/15/16 at 18:00 Insulin Glargine (Lantus) 21 unit DAILY@20 SC ; Start 08/15/16 at 20:00 HENRY FLAHERTY MD Aug 15, 2016 13:40
[2016-08-15] MEDS: VANCOMYCIN 1.25 GM in SOD CHLORIDE 0.9% 250 ML IVPB SCH (17:57)
[2016-08-15] MEDS ORDERED: INSULIN GLARGINE [LANtus] 3 ML PEN SC SCH (20:00)
[2016-08-15 20:28] VITALS: BP 138/61; RESP 18
--- NOTE | 2016-08-15 20:50 | CONS ---
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 Patient complains of right lower quadrant abdominal pain and also significant weight loss. He lost 26 pounds over the. A few months and is chronically constipated. Patient denies of any kind of GI bleeding no nausea no vomiting no heartburn. No chest pain or shortness of breath. He has lost his appetite. Patient has umbrella in the inferior vena cava and also has a history of pulmonary embolism. He has a history of surgery on his knee and also on his hands. Problems: Additional Assessment/Plan Additional Assessment/Plan Impression 1. Coronary artery disease s/p cath 08-12-16 2. Non-STEMI MS s/p cath 08-12-16 3. GI bleeding stable 4. Anemia, significant drop in hematocrit 5. Bipolar disorder 6. Diabetes mellitus 7. Hypertension Plan Continue with Protonix bid We will monitor H&H and transfuse PRN hgb less than 8 awaiting occult blood results will need cardiac clearance for any endoscopic procedures Consultation Date/Type/Reason Admit Date/Time Aug 07, 2016 at 16:05 Initial Consult Date 08/10/16 Type of Consultation: GI Referring Provider: TEDDY RUVALCABA MD 24 HR Interval Summary Constitutional: improved, no complaints Exam/Review of Systems Vital Signs Vitals Vital Signs Date Time Temp Pulse Resp B/P Pulse Ox O2 Delivery O2 Flow Rate FiO2 08/15/16 20:28 98.2 89 18 138/61 96 08/14/16 16:00 Room Air 08/14/16 15:00 2.0 Intake and Output 08/14/16 08/14/16 08/15/16 15:00 23:00 07:00 Intake Total 402 ml 500 ml 750 ml Output Total 600 ml 500 ml Balance 402 ml -100 ml 250 ml Exam Constitutional: alert, oriented, well developed Psych: nl mood/affect, no complaints Head: atraumatic, normocephalic Eyes: EOMI, PERRL, nl conjunctiva, nl lids, nl sclera ENMT: nl external ears & nose, nl lips & teeth, nl nasal mucosa & septum Neck: non-tender, supple Respiratory: clear to auscultation, normal air movement Cardiovascular: nl pulses, regular rate and rhythm Gastrointestinal: nl liver, spleen, non-tender, soft Musculoskeletal: nl extremities to inspection, nl gait and stance Extremities: normal pulses Neurological: EMAIL MARKETING COORDINATOR II-XII intact, nl mental status, nl speech, nl strength Skin: nl turgor, No rash or lesions Lymph: nl lymph nodes Results Result Diagram: 08/15/16 0415 08/15/16 0415 Results 24 hrs Laboratory Tests Test 08/14/16 20:52 08/15/16 01:25 08/15/16 04:15 08/15/16 07:58 Bedside Glucose 288 H 225 H 203 White Blood Count 8.6 Red Blood Count 3.30 L Hemoglobin 8.1 L Hematocrit 25.2 L Mean Corpuscular Volume 76.4 L Mean Corpuscular Hemoglobin 24.5 L Mean Corpuscular Hemoglobin Concent 32.1 Red Cell Distribution Width 24.6 H Platelet Count 240 Mean Platelet Volume Neutrophils % 65.0 Band Neutrophils % 7.0 H Lymphocytes % 11.0 L Reactive Lymphocytes % 6.0 Monocytes % 9.0 Metamyelocytes % 2.0 H Neutrophils # 5.6 Lymphocytes # 0.9 Monocytes # 0.8 Metamyelocytes # 0.2 Polychromasia 1+ Macrocytosis 1+ Ovalocytes 1+ Sodium Level 136 Potassium Level 3.8 Chloride Level 108 Carbon Dioxide Level 21 Anion Gap 11 Blood Urea Nitrogen 22 H Creatinine 0.86 Glucose Level 200 Calcium Level 8.9 Vancomycin Level Trough 9.2 L Test 08/15/16 08:08 08/15/16 11:36 08/15/16 11:49 08/15/16 17:11 Lab Scanned Report REFERENCE LAB REFERENCE LAB Bedside Glucose 230 H 221 H Test 08/15/16 20:01 Bedside Glucose 215 Medications Medications Current Medications Acetaminophen 650 mg 650 mg Q6H PRN PO PAIN AND OR ELEVATED TEMP Last administered on 08/13/16 20:46; Admin Dose 650 MG; Start 08/07/16 at 21:30 Sodium Chloride (NS) 1,000 ml @ 60 mls/hr [id number] IV Last administered on 12:06; Admin Dose 60 MLS/HR; Start 08/07/16 at 21:30 Morphine Sulfate (morphine) 2 mg Q4H PRN IV severe pain Last administered on 02:18; Admin Dose 2 MG; Start 08/07/16 at 21:30 Acetaminophen/ Hydrocodone Bitart ([place] (5/325)) 1 tab Q6H PRN PO moderate pain Last administered on 08/13/16 21:50; Admin Dose 1 TAB; Start 08/07/16 at 21 :30 Diagnostic Test (Pha) (Accu-Chek) 1 ea 02 XX Last administered on 08/15/16 01: 33; Admin Dose 1 EA; Start 08/08/16 at 02:00 Cholecalciferol (Vitamin D) 5,000 unit DAILY PO Last administered on 08/15/16 08:27; Admin Dose 5,000 UNIT; Start 08/08/16 at 09:00 Gabapentin (Neurontin) 300 mg DAILY PO Last administered on 08/15/16 08:27; Admin Dose 300 MG; Start 08/08/16 at 09:00 Lorazepam (Ativan) 1 mg HS PRN PO ANXIETY Last administered on 08/11/16 21:52; Admin Dose 1 MG; Start 08/07/16 at 21:30 Losartan Potassium (Cozaar) 50 mg DAILY PO Last administered on 08/15/16 08:28 ; Admin Dose 50 MG; Start 08/08/16 at 09:00 Linagliptin (Tradjenta) 5 mg DAILY PO Last administered on 08/15/16 08:28; Admin Dose 5 MG; Start 08/08/16 at 09:00 Lubiprostone 24 mcg 24 mcg BID PO Last administered on 08/15/16 20:22; Admin Dose 24 MCG; Start 08/09/16 at 21:00 Ceftriaxone Sodium (Rocephin) 50 ml @ 100 mls/hr Q24H IVPB Last administered on 08/14/16 21:50; Admin Dose 100 MLS/HR; Start 08/12/16 at 21:30 Miscellaneous Information 1 ea NOTE XX ; Start 08/13/16 at 15:30 Glucose (Glutose) 15 gm Q15M PRN PO DECREASED GLUCOSE; Start 08/13/16 at 15:30 Glucose (Glutose) 22.5 gm Q15M PRN PO DECREASED GLUCOSE; Start 08/13/16 at 15:30 Dextrose (D50w Syringe) 25 ml Q15M PRN IV DECREASED GLUCOSE; Start 08/13/16 at 15:30 Dextrose (D50w Syringe) 50 ml Q15M PRN IV DECREASED GLUCOSE; Start 08/13/16 at 15:30 Glucagon (Glucagen) 1 mg Q15M PRN IM DECREASED GLUCOSE; Start 08/13/16 at 15:30 Glucose 15 gm 15 gm Q15M PRN BUCCAL DECREASED GLUCOSE; Start 08/13/16 at 15:30 Vancomycin HCl/ Sodium Chloride (Vancocin/NS) 250 ml @ 83.333 mls/ hr Q12H IVPB Last administered on 08/15/16 17:57; Admin Dose 83.333 MLS/HR; Start at 18:00 Insulin Glargine (Lantus) 21 unit DAILY@20 SC Last administered on 08/15/16 20: 24; Admin Dose 21 UNIT; Start 08/15/16 at 20:00 ANA VELASQUEZ MD Aug 15, 2016 20:50
[2016-08-15] MEDS: CEFTRIAXONE 1 GM/50 ML (PMX) 50 ML IVPB SCH (21:37)
[2016-08-16] MEDS: ACCU-CHEK XX SCH (01:49)
[2016-08-16 02:09] VITALS: BP 122/54; RESP 20
[2016-08-16] MEDS: LORAZEPAM 1 MG TAB PO PRN (02:36)
[2016-08-16] MEDS: SOD CHLORIDE 0.9% 1,000 ML IV SCH ×2 (05:30→21:02)
[2016-08-16 06:09] LABS: ADD SCAN DIFF NO
[2016-08-16] MEDS: VANCOMYCIN 1.25 GM in SOD CHLORIDE 0.9% 250 ML IVPB SCH (06:16)
[2016-08-16 06:37] LABS: ABNORMAL IP MESSAGE 1; HEMATOCRIT 21.4 % (42.0-52.0); HEMOGLOBIN 7.1 g/dl (14.0-18.0); MEAN CORPUSCULAR HEMOGLOBIN 24.9 pg (29.0-33.0); MEAN CORPUSCULAR HGB CONC 33.2 g/dl (32.0-37.0); MEAN CORPUSCULAR VOLUME 75.1 fl (82.0-101.0); PLATELET COUNT 206 10^3/UL (140-415); RED BLOOD COUNT 2.85 10^6/ul (4.70-6.10); RED CELL DISTRIBUTION WIDTH 25.2 % (11.5-14.5); WHITE BLOOD COUNT 7.2 10^3/ul (4.8-10.8)
[2016-08-16 06:59] LABS: CALCIUM 8.4 mg/dl (8.4-10.2); CREATININE 0.72 mg/dl (0.61-1.24); POTASSIUM 3.9 mmol/L (3.5-5.1)
[2016-08-16 07:57] VITALS: BP 129/59; RESP 20
[2016-08-16] MEDS: INSULIN ASPART [NOVOLOG] 3 ML PEN SC SCH ×7 (08:11→20:31)
[2016-08-16] MEDS: GABAPENTIN 300 MG CAP PO SCH (08:17)
[2016-08-16] MEDS: LOSARTAN 50 MG TAB PO SCH (08:17)
[2016-08-16] MEDS: CHOLECALCIFEROL 1,000 UNIT TAB PO SCH (08:17)
[2016-08-16] MEDS: LUBIPROSTONE 24 MCG CAP PO SCH ×2 (08:17→21:01)
[2016-08-16] MEDS: LINAGLIPTIN 5 MG TABLET PO SCH (08:17)
--- NOTE | 2016-08-16 08:54 | PN ---
Date/Time of Note Date/Time of Note DATE: 08/16/16 TIME: 08:45 Assessment/Plan VTE Prophylaxis VTE Prophylaxis Intervention: contraindicated VTE Contraindication Reason: bleeding Lines/Catheters [facility] Peripheral IV Assessment/Plan Chief Complaint/Hosp Course Anemia and IVC thrombosis. 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 SABRINA-2 mutation is pending. If positive, pt will be a a candidate for Rx with JAKAFI. Urine for C&S is positive for >100,000 colonies of pseudomonas. Pt is not presently receiving antibiotics to which the organism is sensitive. 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 Will require termination clerk anticoagulation but still needs GI w/u to explain the iron deficiency. Subjective 24 Hr Interval Summary Free Text/Dictation No new symptoms or complaints. Exam/Review of Systems Vital Signs Vitals Vital Signs Date Time Temp Pulse Resp B/P Pulse Ox O2 Delivery O2 Flow Rate FiO2 08/16/16 07:57 98.9 85 20 129/59 94 08/14/16 16:00 Room Air 08/14/16 15:00 2.0 Intake and Output 08/15/16 08/15/16 08/16/16 15:00 23:00 07:00 Intake Total 2220 ml 1360 ml Output Total 300 ml 600 ml Balance 1920 ml 760 ml Exam Constitutional: alert, oriented, well developed Head: atraumatic, normocephalic Eyes: EOMI, PERRL, nl lids, nl sclera ENMT: mucosa pink and moist, nl external ears & nose, nl lips & teeth Neck: non-tender, supple Respiratory: clear to auscultation, normal air movement Cardiovascular: nl pulses, regular rate and rhythm Gastrointestinal: nl liver, spleen, non-tender, soft Musculoskeletal: nl extremities to inspection Extremities: normal pulses, other (RT arm edema) Neurological: LUSTERER II-XII intact, nl mental status Skin: nl turgor Lymph: nl lymph nodes Results Result Diagram: 08/16/16 0535 08/16/16 0535 Results 24 hrs Laboratory Tests Test 08/15/16 11:36 08/15/16 11:49 08/15/16 17:11 08/15/16 20:01 Lab Scanned Report REFERENCE LAB Bedside Glucose 230 H 221 H 215 Test 08/16/16 01:45 08/16/16 05:35 08/16/16 08:05 Bedside Glucose 214 222 H White Blood Count 7.2 Red Blood Count 2.85 L Hemoglobin 7.1 L Hematocrit 21.4 L Mean Corpuscular Volume 75.1 L Mean Corpuscular Hemoglobin 24.9 L Mean Corpuscular Hemoglobin Concent 33.2 Red Cell Distribution Width 25.2 H Platelet Count 206 Mean Platelet Volume Neutrophils % Lymphocytes % Monocytes % Neutrophils # Lymphocytes # Monocytes # Sodium Level 132 L Potassium Level 3.9 Chloride Level 103 Carbon Dioxide Level 20 L Anion Gap 13 Blood Urea Nitrogen 18 Creatinine 0.72 Glucose Level 209 Calcium Level 8.4 Medications Medications Current Medications Acetaminophen 650 mg 650 mg Q6H PRN PO PAIN AND OR ELEVATED TEMP Last administered on 08/13/16 20:46; Admin Dose 650 MG; Start 08/07/16 at 21:30 Sodium Chloride (NS) 1,000 ml @ 60 mls/hr [id number] IV Last administered on 23:25; Admin Dose 60 MLS/HR; Start 08/07/16 at 21:30 Morphine Sulfate (morphine) 2 mg Q4H PRN IV severe pain Last administered on 02:18; Admin Dose 2 MG; Start 08/07/16 at 21:30 Acetaminophen/ Hydrocodone Bitart ([place] (5/325)) 1 tab Q6H PRN PO moderate pain Last administered on 08/13/16 21:50; Admin Dose 1 TAB; Start 08/07/16 at 21 :30 Diagnostic Test (Pha) (Accu-Chek) 1 ea 02 XX Last administered on 08/16/16 01: 49; Admin Dose 1 EA; Start 08/08/16 at 02:00 Cholecalciferol (Vitamin D) 5,000 unit DAILY PO Last administered on 08/16/16 08:17; Admin Dose 5,000 UNIT; Start 08/08/16 at 09:00 Gabapentin (Neurontin) 300 mg DAILY PO Last administered on 08/16/16 08:17; Admin Dose 300 MG; Start 08/08/16 at 09:00 Lorazepam (Ativan) 1 mg HS PRN PO ANXIETY Last administered on 08/16/16 02:36; Admin Dose 1 MG; Start 08/07/16 at 21:30 Losartan Potassium (Cozaar) 50 mg DAILY PO Last administered on 08/16/16 08:17 ; Admin Dose 50 MG; Start 08/08/16 at 09:00 Linagliptin (Tradjenta) 5 mg DAILY PO Last administered on 08/16/16 08:17; Admin Dose 5 MG; Start 08/08/16 at 09:00 Lubiprostone 24 mcg 24 mcg BID PO Last administered on 08/16/16 08:17; Admin Dose 24 MCG; Start 08/09/16 at 21:00 Ceftriaxone Sodium (Rocephin) 50 ml @ 100 mls/hr Q24H IVPB Last administered on 08/15/16 21:37; Admin Dose 100 MLS/HR; Start 08/12/16 at 21:30 Miscellaneous Information 1 ea NOTE XX ; Start 08/13/16 at 15:30 Glucose (Glutose) 15 gm Q15M PRN PO DECREASED GLUCOSE; Start 08/13/16 at 15:30 Glucose (Glutose) 22.5 gm Q15M PRN PO DECREASED GLUCOSE; Start 08/13/16 at 15:30 Dextrose (D50w Syringe) 25 ml Q15M PRN IV DECREASED GLUCOSE; Start 08/13/16 at 15:30 Dextrose (D50w Syringe) 50 ml Q15M PRN IV DECREASED GLUCOSE; Start 08/13/16 at 15:30 Glucagon (Glucagen) 1 mg Q15M PRN IM DECREASED GLUCOSE; Start 08/13/16 at 15:30 Glucose 15 gm 15 gm Q15M PRN BUCCAL DECREASED GLUCOSE; Start 08/13/16 at 15:30 Vancomycin HCl/ Sodium Chloride (Vancocin/NS) 250 ml @ 83.333 mls/ hr Q12H IVPB Last administered on 08/16/16 06:16; Admin Dose 83.333 MLS/HR; Start at 18:00 Insulin Glargine (Lantus) 21 unit DAILY@20 SC Last administered on 08/15/16 20: 24; Admin Dose 21 UNIT; Start 08/15/16 at 20:00 Copies To: CC: ЕЛЕНА CLAROS MD, STANLEY H MD Aug 16, 2016 08:54
[2016-08-16 12:14] LABS: ANISOCYTOSIS 2+; LYMPHOCYTES # 0.8 10^3/ul (0.8-2.9); MONOCYTE # 0.8 10^3/ul (0.3-0.9)
[2016-08-16 12:15] LABS: HYPOCHROMASIA 1+
--- NOTE | 2016-08-16 16:45 | PN ---
Date/Time of Note Date/Time of Note DATE: 08/16/16 TIME: 16:36 Assessment/Plan VTE Prophylaxis VTE Prophylaxis Intervention: LMWH Lines/Catheters IV Catheter Type (from [facility]): Peripheral IV Assessment/Plan Chief Complaint/Hosp Course Patient remains hemodynamically stable, afebrile. Blood sugar remains above 200 in spite of adjustment of insulin will increase Lantus and pre-meal NovoLog NovoLog. Assessment/Plan - Pseudomonas UTI, antibiotics changed to ceftazidime. - Microcytic anemia, Dr. 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 Hall is following in gastroenterology consultation. - History of pulmonary embolism, continue Eliquis - Diabetes mellitus, hemoglobin A1c is 8.2. continue, Tradjenta, Lantus and NovoLog. - Hypertension, continue Cozaar. - Hyperlipidemia - BPH, status post TURP - Status post right hip replacement Further recommendations based on clinical course. Plan of care discussed with Dr. Seay. Problems: Exam/Review of Systems Vital Signs Vitals Vital Signs Date Time Temp Pulse Resp B/P Pulse Ox O2 Delivery O2 Flow Rate FiO2 08/16/16 07:57 98.9 85 20 129/59 94 08/14/16 16:00 Room Air 08/14/16 15:00 2.0 Intake and Output 08/15/16 08/15/16 08/16/16 15:00 23:00 07:00 Intake Total 2220 ml 1360 ml Output Total 300 ml 600 ml Balance 1920 ml 760 ml Exam Constitutional: alert, oriented Head: atraumatic, normocephalic Neck: supple Respiratory: normal air movement Cardiovascular: murmurs/extra sounds, nl pulses Gastrointestinal: other (Tenderness), soft Extremities: normal pulses Neurological: nl mental status Results Result Diagram: 08/16/16 0535 08/16/16 0535 Results 24 hrs Laboratory Tests Test 08/15/16 17:11 08/15/16 20:01 08/16/16 01:45 08/16/16 05:35 Bedside Glucose 221 H 215 214 White Blood Count 7.2 Red Blood Count 2.85 L Hemoglobin 7.1 L Hematocrit 21.4 L Mean Corpuscular Volume 75.1 L Mean Corpuscular Hemoglobin 24.9 L Mean Corpuscular Hemoglobin Concent 33.2 Red Cell Distribution Width 25.2 H Platelet Count 206 Mean Platelet Volume Neutrophils % 70.0 Band Neutrophils % 8.0 H Lymphocytes % 11.0 L Monocytes % 11.0 Nucleated Red Blood Cells % 1.0 H Neutrophils # 5.0 Lymphocytes # 0.8 Monocytes # 0.8 Hypochromasia 1+ Anisocytosis 2+ Sodium Level 132 L Potassium Level 3.9 Chloride Level 103 Carbon Dioxide Level 20 L Anion Gap 13 Blood Urea Nitrogen 18 Creatinine 0.72 Glucose Level 209 Calcium Level 8.4 Test 08/16/16 08:05 08/16/16 11:32 08/16/16 13:52 Bedside Glucose 222 H 253 H Lab Scanned Report REFERENCE LAB Medications Medications Current Medications Acetaminophen 650 mg 650 mg Q6H PRN PO PAIN AND OR ELEVATED TEMP Last administered on 08/13/16 20:46; Admin Dose 650 MG; Start 08/07/16 at 21:30 Sodium Chloride (NS) 1,000 ml @ 60 mls/hr [id number] IV Last administered on 23:25; Admin Dose 60 MLS/HR; Start 08/07/16 at 21:30 Morphine Sulfate (morphine) 2 mg Q4H PRN IV severe pain Last administered on 02:18; Admin Dose 2 MG; Start 08/07/16 at 21:30 Acetaminophen/ Hydrocodone Bitart ([place] (5/325)) 1 tab Q6H PRN PO moderate pain Last administered on 08/13/16 21:50; Admin Dose 1 TAB; Start 08/07/16 at 21 :30 Diagnostic Test (Pha) (Accu-Chek) 1 ea 02 XX Last administered on 08/16/16 01: 49; Admin Dose 1 EA; Start 08/08/16 at 02:00 Cholecalciferol (Vitamin D) 5,000 unit DAILY PO Last administered on 08/16/16 08:17; Admin Dose 5,000 UNIT; Start 08/08/16 at 09:00 Gabapentin (Neurontin) 300 mg DAILY PO Last administered on 08/16/16 08:17; Admin Dose 300 MG; Start 08/08/16 at 09:00 Lorazepam (Ativan) 1 mg HS PRN PO ANXIETY Last administered on 08/16/16 02:36; Admin Dose 1 MG; Start 08/07/16 at 21:30 Losartan Potassium (Cozaar) 50 mg DAILY PO Last administered on 08/16/16 08:17 ; Admin Dose 50 MG; Start 08/08/16 at 09:00 Linagliptin (Tradjenta) 5 mg DAILY PO Last administered on 08/16/16 08:17; Admin Dose 5 MG; Start 08/08/16 at 09:00 Lubiprostone (Amitiza) 24 mcg BID PO Last administered on 08/16/16 08:17; Admin Dose 24 MCG; Start 08/09/16 at 21:00 Miscellaneous Information 1 ea NOTE XX ; Start 08/13/16 at 15:30 Glucose (Glutose) 15 gm Q15M PRN PO DECREASED GLUCOSE; Start 08/13/16 at 15:30 Glucose (Glutose) 22.5 gm Q15M PRN PO DECREASED GLUCOSE; Start 08/13/16 at 15:30 Dextrose (D50w Syringe) 25 ml Q15M PRN IV DECREASED GLUCOSE; Start 08/13/16 at 15:30 Dextrose (D50w Syringe) 50 ml Q15M PRN IV DECREASED GLUCOSE; Start 08/13/16 at 15:30 Glucagon (Glucagen) 1 mg Q15M PRN IM DECREASED GLUCOSE; Start 08/13/16 at 15:30 Glucose 15 gm 15 gm Q15M PRN BUCCAL DECREASED GLUCOSE; Start 08/13/16 at 15:30 Vancomycin HCl/ Sodium Chloride (Vancocin/NS) 250 ml @ 83.333 mls/ hr Q12H IVPB Last administered on 08/16/16 06:16; Admin Dose 83.333 MLS/HR; Start at 18:00 Insulin Glargine 21 unit 21 unit DAILY@20 SC Last administered on 08/15/16 20: 24; Admin Dose 21 UNIT; Start 08/15/16 at 20:00 Ceftazidime (Fortaz 1gm/50 ml (Pmx)) 50 ml @ 100 mls/hr BID IVPB ; Start at 21:00 Miscellaneous Information (*Rx Drug Level Order Reminder*) 1 ONCE ONCE XX ; Start 08/17/16 at 05:00; Stop 08/17/16 at 05:01 IVONNE KEARNS Aug 16, 2016 16:45
[2016-08-16 19:42] VITALS: BP 135/60; RESP 20
[2016-08-16] MEDS: INSULIN GLARGINE [LANtus] 3 ML PEN SC SCH (20:27)
[2016-08-16] MEDS: ACETAMINOPHEN 325 MG TAB PO PRN (21:01)
[2016-08-16] MEDS: CEFTAZIDIME 1GM/50 ML (PMX) 50 ML IVPB SCH (21:02)
--- NOTE | 2016-08-16 22:54 | CONS ---
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 Patient complains of right lower quadrant abdominal pain and also significant weight loss. He lost 26 pounds over the. A few months and is chronically constipated. Patient denies of any kind of GI bleeding no nausea no vomiting no heartburn. No chest pain or shortness of breath. He has lost his appetite. Patient has umbrella in the inferior vena cava and also has a history of pulmonary embolism. He has a history of surgery on his knee and also on his hands. Problems: Additional Assessment/Plan Impression: 1. Anemia microcytic, with few few blast cells: stool for occult blood negative 2. Thrombosis of the inferior vena cava 3. Weight loss of 26 pound 4. Abdominal pain right lower quadrant 5. Constipation 6. History of pulmonary embolism 7. Diabetes mellitus 8. Hypertension 9. Hyperlipidemia 10. Status post surgery on his knee and the hand Plan 1. discussed with Jose Martin Galindo ,pt,has myelofibrosis and also iron deficiency anemia 2. patient also say the same that Dr. Philippe wants to hold off on EGD and colonoscopy so I will do so. 3. will follow along with you 4. continue Amitiza for his constipation 5. Patient is scheduled for EGD and COLONOSCOPY on Friday Consultation Date/Type/Reason Admit Date/Time Aug 07, 2016 at 16:05 Initial Consult Date 08/10/16 Type of Consultation: GI Referring Provider: TEDDY RUVALCABA MD 24 HR Interval Summary Free Text/Dictation constipation,lower abdominal pain Exam/Review of Systems Vital Signs Vitals Vital Signs Date Time Temp Pulse Resp B/P Pulse Ox O2 Delivery O2 Flow Rate FiO2 08/16/16 19:42 101.8 102 20 135/60 94 08/14/16 16:00 Room Air 08/14/16 15:00 2.0 Intake and Output 08/15/16 08/15/16 08/16/16 15:00 23:00 07:00 Intake Total 2220 ml 1360 ml Output Total 300 ml 600 ml Balance 1920 ml 760 ml Exam Constitutional: alert, oriented, well developed Psych: nl mood/affect, no complaints Head: atraumatic, normocephalic Eyes: EOMI, PERRL, nl conjunctiva, nl lids, nl sclera ENMT: nl external ears & nose, nl lips & teeth, nl nasal mucosa & septum Neck: non-tender, supple Respiratory: clear to auscultation, normal air movement Cardiovascular: nl pulses, regular rate and rhythm Gastrointestinal: nl liver, spleen, non-tender, soft Musculoskeletal: nl extremities to inspection, nl gait and stance Extremities: normal pulses Neurological: HOISTMAN II-XII intact, nl mental status, nl speech, nl strength Skin: nl turgor, No rash or lesions Lymph: nl lymph nodes Results Result Diagram: 08/16/1635 08/16/16 0535 Results 24 hrs Laboratory Tests Test 08/16/16 01:45 08/16/16 05:35 08/16/16 08:05 08/16/16 11:32 Bedside Glucose 214 222 H White Blood Count 7.2 Red Blood Count 2.85 L Hemoglobin 7.1 L Hematocrit 21.4 L Mean Corpuscular Volume 75.1 L Mean Corpuscular Hemoglobin 24.9 L Mean Corpuscular Hemoglobin Concent 33.2 Red Cell Distribution Width 25.2 H Platelet Count 206 Mean Platelet Volume Neutrophils % 70.0 Band Neutrophils % 8.0 H Lymphocytes % 11.0 L Monocytes % 11.0 Nucleated Red Blood Cells % 1.0 H Neutrophils # 5.0 Lymphocytes # 0.8 Monocytes # 0.8 Hypochromasia 1+ Anisocytosis 2+ Sodium Level 132 L Potassium Level 3.9 Chloride Level 103 Carbon Dioxide Level 20 L Anion Gap 13 Blood Urea Nitrogen 18 Creatinine 0.72 Glucose Level 209 Calcium Level 8.4 Lab Scanned Report REFERENCE LAB Test 08/16/16 13:52 08/16/16 19:03 08/16/16 20:23 Bedside Glucose 253 H 258 H 203 Medications Medications Current Medications Acetaminophen 650 mg 650 mg Q6H PRN PO PAIN AND OR ELEVATED TEMP Last administered on 08/16/16 21:01; Admin Dose 650 MG; Start 08/07/16 at 21:30 Sodium Chloride (NS) 1,000 ml @ 60 mls/hr [id number] IV Last administered on 21:02; Admin Dose 60 MLS/HR; Start 08/07/16 at 21:30 Morphine Sulfate (morphine) 2 mg Q4H PRN IV severe pain Last administered on 02:18; Admin Dose 2 MG; Start 08/07/16 at 21:30 Acetaminophen/ Hydrocodone Bitart ([place] (5/325)) 1 tab Q6H PRN PO moderate pain Last administered on 08/13/16 21:50; Admin Dose 1 TAB; Start 08/07/16 at 21 :30 Diagnostic Test (Pha) (Accu-Chek) 1 ea 02 XX Last administered on 08/16/16 01: 49; Admin Dose 1 EA; Start 08/08/16 at 02:00 Cholecalciferol (Vitamin D) 5,000 unit DAILY PO Last administered on 08/16/16 08:17; Admin Dose 5,000 UNIT; Start 08/08/16 at 09:00 Gabapentin (Neurontin) 300 mg DAILY PO Last administered on 08/16/16 08:17; Admin Dose 300 MG; Start 08/08/16 at 09:00 Lorazepam (Ativan) 1 mg HS PRN PO ANXIETY Last administered on 08/16/16 02:36; Admin Dose 1 MG; Start 08/07/16 at 21:30 Losartan Potassium (Cozaar) 50 mg DAILY PO Last administered on 08/16/16 08:17 ; Admin Dose 50 MG; Start 08/08/16 at 09:00 Linagliptin (Tradjenta) 5 mg DAILY PO Last administered on 08/16/16 08:17; Admin Dose 5 MG; Start 08/08/16 at 09:00 Lubiprostone (Amitiza) 24 mcg BID PO Last administered on 08/16/16 21:01; Admin Dose 24 MCG; Start 08/09/16 at 21:00 Miscellaneous Information 1 ea NOTE XX ; Start 08/13/16 at 15:30 Glucose (Glutose) 15 gm Q15M PRN PO DECREASED GLUCOSE; Start 08/13/16 at 15:30 Glucose (Glutose) 22.5 gm Q15M PRN PO DECREASED GLUCOSE; Start 08/13/16 at 15:30 Dextrose (D50w Syringe) 25 ml Q15M PRN IV DECREASED GLUCOSE; Start 08/13/16 at 15:30 Dextrose (D50w Syringe) 50 ml Q15M PRN IV DECREASED GLUCOSE; Start 08/13/16 at 15:30 Glucagon (Glucagen) 1 mg Q15M PRN IM DECREASED GLUCOSE; Start 08/13/16 at 15:30 Glucose 15 gm 15 gm Q15M PRN BUCCAL DECREASED GLUCOSE; Start 08/13/16 at 15:30 Ceftazidime (Fortaz 1gm/50 ml (Pmx)) 50 ml @ 100 mls/hr BID IVPB Last administered on 08/16/16 21:02; Admin Dose 100 MLS/HR; Start 08/16/16 at 21:00 Insulin Glargine (Lantus) 30 unit DAILY@20 SC Last administered on 08/16/16 20: 27; Admin Dose 30 UNIT; Start 08/16/16 at 20:00 ANA VELASQUEZ MD Aug 16, 2016 22:54
[2016-08-17] MEDS: ACCU-CHEK XX SCH (01:38)
[2016-08-17 02:06] VITALS: BP 120/57; RESP 20
[2016-08-17] MEDS: ACETAMINOPHEN 325 MG TAB PO PRN ×3 (05:05→21:35)
[2016-08-17 06:22] LABS: ADD SCAN DIFF NO
[2016-08-17 06:44] LABS: ABNORMAL IP MESSAGE 1; HEMATOCRIT 21.3 % (42.0-52.0); MEAN CORPUSCULAR HGB CONC 32.4 g/dl (32.0-37.0); MEAN CORPUSCULAR VOLUME 74.2 fl (82.0-101.0); PLATELET COUNT 232 10^3/UL (140-415); RED BLOOD COUNT 2.87 10^6/ul (4.70-6.10); RED CELL DISTRIBUTION WIDTH 25.6 % (11.5-14.5); WHITE BLOOD COUNT 9.1 10^3/ul (4.8-10.8)
[2016-08-17 06:57] LABS: HEMOGLOBIN 6.9 g/dl (14.0-18.0)
[2016-08-17 07:04] LABS: CALCIUM 8.4 mg/dl (8.4-10.2); CREATININE 0.77 mg/dl (0.61-1.24); POTASSIUM 3.8 mmol/L (3.5-5.1)
[2016-08-17 07:37] VITALS: BP 138/59; RESP 18
[2016-08-17 07:45] VITALS: BP 118/56; RESP 20
[2016-08-17] MEDS: INSULIN ASPART [NOVOLOG] 3 ML PEN SC SCH ×7 (07:57→21:08)
[2016-08-17] MEDS: CHOLECALCIFEROL 1,000 UNIT TAB PO SCH (08:51)
[2016-08-17] MEDS: LINAGLIPTIN 5 MG TABLET PO SCH (08:51)
[2016-08-17] MEDS: LOSARTAN 50 MG TAB PO SCH (08:51)
[2016-08-17] MEDS: LUBIPROSTONE 24 MCG CAP PO SCH ×2 (08:51→21:00)
[2016-08-17] MEDS: GABAPENTIN 300 MG CAP PO SCH (08:51)
[2016-08-17 10:06] LABS: EOSINOPHILS # 0.2 10^3/ul (0.0-0.5); LYMPHOCYTES # 1.5 10^3/ul (0.8-2.9); MONOCYTE # 0.2 10^3/ul (0.3-0.9)
--- NOTE | 2016-08-17 10:57 | PN ---
Date/Time of Note Date/Time of Note DATE: 08/17/16 TIME: 10:56 Assessment/Plan VTE Prophylaxis VTE Prophylaxis Intervention: other Lines/Catheters IV C[facility]ter Type [facility]from [facility] Peripheral IV Assessment/Plan Chief Complaint/Hosp Course - Pseudomonas UTI, antibiotics changed to ceftazidime. - Microcytic anemia, Dr. 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 Hall is following in gastroenterology consultation. - History of pulmonary embolism, continue Eliquis - Diabetes mellitus, hemoglobin A1c is 8.2. continue, Tradjenta, Lantus and NovoLog. - Hypertension, continue Cozaar. - Hyperlipidemia - BPH, status post TURP - Status post right hip replacement Problems: Subjective 24 Hr Interval Summary Free Text/Dictation Patient has no complaints Exam/Review of Systems Vital Signs Vitals Vital Signs Date Time Temp Pulse Resp B/P Pulse Ox O2 Delivery O2 Flow Rate FiO2 08/17/16 07:45 98.3 85 20 118/56 95 08/14/16 16:00 Room Air 08/14/16 15:00 2.0 Intake and Output 08/16/16 08/16/16 08/17/16 15:00 23:00 07:00 Intake Total 250 ml 1890 ml 970 ml Output Total 1100 ml 900 ml Balance 250 ml 790 ml 70 ml Exam Constitutional: well developed Head: atraumatic, normocephalic Neck: supple Respiratory: clear to auscultation Cardiovascular: regular rate and rhythm Gastrointestinal: non-tender, soft Extremities: normal pulses Results Result Diagram: 08/17/16 0515 08/17/16 0515 Results 24 hrs Laboratory Tests Test 08/16/16 11:32 08/16/16 13:52 08/16/16 19:03 08/16/16 20:23 Lab Scanned Report REFERENCE LAB Bedside Glucose 253 H 258 H 203 Test 08/17/16 01:26 08/17/16 05:15 08/17/16 07:57 Bedside Glucose 144 129 White Blood Count 9.1 # Red Blood Count 2.87 L Hemoglobin 6.9 *L Hematocrit 21.3 L Mean Corpuscular Volume 74.2 L Mean Corpuscular Hemoglobin 24.0 L Mean Corpuscular Hemoglobin Concent 32.4 Red Cell Distribution Width 25.6 H Platelet Count 232 Mean Platelet Volume Neutrophils % 66.0 Band Neutrophils % 13.0 H Lymphocytes % 17.0 Monocytes % 2.0 Eosinophils % 2.0 Neutrophils # 6.0 Lymphocytes # 1.5 Monocytes # 0.2 L Eosinophils # 0.2 Sodium Level 134 L Potassium Level 3.8 Chloride Level 105 Carbon Dioxide Level 21 Anion Gap 12 Blood Urea Nitrogen 18 Creatinine 0.77 Glucose Level 140 # Calcium Level 8.4 Medications Medications Current Medications Acetaminophen 650 mg 650 mg Q6H PRN PO PAIN AND OR ELEVATED TEMP Last administered on 08/17/16 05:05; Admin Dose 650 MG; Start 08/07/16 at 21:30 Sodium Chloride (NS) 1,000 ml @ 60 mls/hr [id number] IV Last administered on 21:02; Admin Dose 60 MLS/HR; Start 08/07/16 at 21:30 Morphine Sulfate (morphine) 2 mg Q4H PRN IV severe pain Last administered on 02:18; Admin Dose 2 MG; Start 08/07/16 at 21:30 Acetaminophen/ Hydrocodone Bitart ([place] (5/325)) 1 tab Q6H PRN PO moderate pain Last administered on 08/13/16 21:50; Admin Dose 1 TAB; Start 08/07/16 at 21 :30 Diagnostic Test (Pha) (Accu-Chek) 1 ea 02 XX Last administered on 08/17/16 01: 38; Admin Dose 1 EA; Start 08/08/16 at 02:00 Cholecalciferol (Vitamin D) 5,000 unit DAILY PO Last administered on 08/17/16 08:51; Admin Dose 5,000 UNIT; Start 08/08/16 at 09:00 Gabapentin (Neurontin) 300 mg DAILY PO Last administered on 08/17/16 08:51; Admin Dose 300 MG; Start 08/08/16 at 09:00 Lorazepam (Ativan) 1 mg HS PRN PO ANXIETY Last administered on 08/16/16 02:36; Admin Dose 1 MG; Start 08/07/16 at 21:30 Losartan Potassium (Cozaar) 50 mg DAILY PO Last administered on 08/17/16 08:51 ; Admin Dose 50 MG; Start 08/08/16 at 09:00 Linagliptin (Tradjenta) 5 mg DAILY PO Last administered on 08/17/16 08:51; Admin Dose 5 MG; Start 08/08/16 at 09:00 Lubiprostone (Amitiza) 24 mcg BID PO Last administered on 08/17/16 08:51; Admin Dose 24 MCG; Start 08/09/16 at 21:00 Miscellaneous Information 1 ea NOTE XX ; Start 08/13/16 at 15:30 Glucose (Glutose) 15 gm Q15M PRN PO DECREASED GLUCOSE; Start 08/13/16 at 15:30 Glucose (Glutose) 22.5 gm Q15M PRN PO DECREASED GLUCOSE; Start 08/13/16 at 15:30 Dextrose (D50w Syringe) 25 ml Q15M PRN IV DECREASED GLUCOSE; Start 08/13/16 at 15:30 Dextrose (D50w Syringe) 50 ml Q15M PRN IV DECREASED GLUCOSE; Start 08/13/16 at 15:30 Glucagon (Glucagen) 1 mg Q15M PRN IM DECREASED GLUCOSE; Start 08/13/16 at 15:30 Glucose 15 gm 15 gm Q15M PRN BUCCAL DECREASED GLUCOSE; Start 08/13/16 at 15:30 Ceftazidime (Fortaz 1gm/50 ml (Pmx)) 50 ml @ 100 mls/hr BID IVPB Last administered on 08/16/16 21:02; Admin Dose 100 MLS/HR; Start 08/16/16 at 21:00 Insulin Glargine (Lantus) 30 unit DAILY@20 SC Last administered on 08/16/16 20: 27; Admin Dose 30 UNIT; Start 08/16/16 at 20:00 GORDY CARMONA Aug 17, 2016 10:57
--- NOTE | 2016-08-17 10:58 | PN ---
Date/Time of Note Date/Time of Note DATE: 08/17/16 TIME: 10:55 Assessment/Plan VTE Prophylaxis VTE Prophylaxis Intervention: other (per primary MD) Lines/Catheters IV Catheter Type (from Nrs): Peripheral IV Assessment/Plan Assessment/Plan Hgb down to 6.9. RBC's ordered. Discussed with pt through thin film technician and pt accepts this. Marrow is consistent with myelofibrosis; SABRINA-2 is pending. He continues on antibiotics, although the drug was changed based on culture results. continue plans otherwise. Subjective 24 Hr Interval Summary Free Text/Dictation Pt is alert and comfortable Exam/Review of Systems Vital Signs Vitals Vital Signs Date Time Temp Pulse Resp B/P Pulse Ox O2 Delivery O2 Flow Rate FiO2 08/17/16 07:45 98.3 85 20 118/56 95 08/14/16 16:00 Room Air 08/14/16 15:00 2.0 Intake and Output 08/16/16 08/16/16 08/17/16 15:00 23:00 07:00 Intake Total 250 ml 1890 ml 970 ml Output Total 1100 ml 900 ml Balance 250 ml 790 ml 70 ml Exam Constitutional: alert, oriented Head: normocephalic Eyes: other (pallor) Respiratory: clear to auscultation Cardiovascular: regular rate and rhythm Gastrointestinal: non-tender, soft Lymph: nl lymph nodes Results Result Diagram: 08/17/1615 08/17/16 0515 Results 24 hrs Laboratory Tests Test 08/16/16 11:32 08/16/16 13:52 08/16/16 19:03 08/16/16 20:23 Lab Scanned Report REFERENCE LAB Bedside Glucose 253 H 258 H 203 Test 08/17/16 01:26 08/17/16 05:15 08/17/16 07:57 Bedside Glucose 144 129 White Blood Count 9.1 # Red Blood Count 2.87 L Hemoglobin 6.9 *L Hematocrit 21.3 L Mean Corpuscular Volume 74.2 L Mean Corpuscular Hemoglobin 24.0 L Mean Corpuscular Hemoglobin Concent 32.4 Red Cell Distribution Width 25.6 H Platelet Count 232 Mean Platelet Volume Neutrophils % 66.0 Band Neutrophils % 13.0 H Lymphocytes % 17.0 Monocytes % 2.0 Eosinophils % 2.0 Neutrophils # 6.0 Lymphocytes # 1.5 Monocytes # 0.2 L Eosinophils # 0.2 Sodium Level 134 L Potassium Level 3.8 Chloride Level 105 Carbon Dioxide Level 21 Anion Gap 12 Blood Urea Nitrogen 18 Creatinine 0.77 Glucose Level 140 # Calcium Level 8.4 Medications Medications Current Medications Acetaminophen 650 mg 650 mg Q6H PRN PO PAIN AND OR ELEVATED TEMP Last administered on 08/17/16 05:05; Admin Dose 650 MG; Start 08/07/16 at 21:30 Sodium Chloride (NS) 1,000 ml @ 60 mls/hr [id number] IV Last administered on 21:02; Admin Dose 60 MLS/HR; Start 08/07/16 at 21:30 Morphine Sulfate (morphine) 2 mg Q4H PRN IV severe pain Last administered on 02:18; Admin Dose 2 MG; Start 08/07/16 at 21:30 Acetaminophen/ Hydrocodone Bitart ([place] (5/325)) 1 tab Q6H PRN PO moderate pain Last administered on 08/13/16 21:50; Admin Dose 1 TAB; Start 08/07/16 at 21 :30 Diagnostic Test (Pha) (Accu-Chek) 1 ea 02 XX Last administered on 08/17/16 01: 38; Admin Dose 1 EA; Start 08/08/16 at 02:00 Cholecalciferol (Vitamin D) 5,000 unit DAILY PO Last administered on 08/17/16 08:51; Admin Dose 5,000 UNIT; Start 08/08/16 at 09:00 Gabapentin (Neurontin) 300 mg DAILY PO Last administered on 08/17/16 08:51; Admin Dose 300 MG; Start 08/08/16 at 09:00 Lorazepam (Ativan) 1 mg HS PRN PO ANXIETY Last administered on 08/16/16 02:36; Admin Dose 1 MG; Start 08/07/16 at 21:30 Losartan Potassium (Cozaar) 50 mg DAILY PO Last administered on 08/17/16 08:51 ; Admin Dose 50 MG; Start 08/08/16 at 09:00 Linagliptin (Tradjenta) 5 mg DAILY PO Last administered on 08/17/16 08:51; Admin Dose 5 MG; Start 08/08/16 at 09:00 Lubiprostone (Amitiza) 24 mcg BID PO Last administered on 08/17/16 08:51; Admin Dose 24 MCG; Start 08/09/16 at 21:00 Miscellaneous Information 1 ea NOTE XX ; Start 08/13/16 at 15:30 Glucose (Glutose) 15 gm Q15M PRN PO DECREASED GLUCOSE; Start 08/13/16 at 15:30 Glucose (Glutose) 22.5 gm Q15M PRN PO DECREASED GLUCOSE; Start 08/13/16 at 15:30 Dextrose (D50w Syringe) 25 ml Q15M PRN IV DECREASED GLUCOSE; Start 08/13/16 at 15:30 Dextrose (D50w Syringe) 50 ml Q15M PRN IV DECREASED GLUCOSE; Start 08/13/16 at 15:30 Glucagon (Glucagen) 1 mg Q15M PRN IM DECREASED GLUCOSE; Start 08/13/16 at 15:30 Glucose 15 gm 15 gm Q15M PRN BUCCAL DECREASED GLUCOSE; Start 08/13/16 at 15:30 Ceftazidime (Fortaz 1gm/50 ml (Pmx)) 50 ml @ 100 mls/hr BID IVPB Last administered on 08/16/16 21:02; Admin Dose 100 MLS/HR; Start 08/16/16 at 21:00 Insulin Glargine (Lantus) 30 unit DAILY@20 SC Last administered on 08/16/16 20: 27; Admin Dose 30 UNIT; Start 08/16/16 at 20:00 HENRY FLAHERTY MD Aug 17, 2016 10:58
[2016-08-17] MEDS: CEFTAZIDIME 1GM/50 ML (PMX) 50 ML IVPB SCH ×2 (11:31→21:04)
--- NOTE | 2016-08-17 12:39 | CONS ---
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 Patient complains of right lower quadrant abdominal pain and also significant weight loss. He lost 26 pounds over the. A few months and is chronically constipated. Patient denies of any kind of GI bleeding no nausea no vomiting no heartburn. No chest pain or shortness of breath. He has lost his appetite. Patient has umbrella in the inferior vena cava and also has a history of pulmonary embolism. He has a history of surgery on his knee and also on his hands. Problems: Additional Assessment/Plan Impression: 1. Anemia microcytic, with few few blast cells: stool for occult blood negative 2. Thrombosis of the inferior vena cava 3. Weight loss of 26 pound 4. Abdominal pain right lower quadrant 5. Constipation 6. History of pulmonary embolism 7. Diabetes mellitus 8. Hypertension 9. Hyperlipidemia 10. Status post surgery on his knee and the hand Plan 1. discussed with Jose Martin Galindo ,pt,has myelofibrosis and also iron deficiency anemia 2. patient also say the same that Dr. Philippe wants to hold off on EGD and colonoscopy so I will do so. 3. will follow along with you 4. continue Amitiza for his constipation 5. Patient is scheduled for EGD and COLONOSCOPY on Friday Discussed the patient with the help of soft work cigar machine operator [id number] for 15 minutes explaining him and educated him regarding the procedure. All questions are answered. Patient definitely understood and has agreed for the procedure. Consultation Date/Type/Reason Admit Date/Time Aug 07, 2016 at 16:05 Initial Consult Date 08/10/16 Type of Consultation: GI Referring Provider: TEDDY RUVALCABA MD 24 HR Interval Summary Constitutional: improved, no complaints Exam/Review of Systems Vital Signs Vitals Vital Signs Date Time Temp Pulse Resp B/P Pulse Ox O2 Delivery O2 Flow Rate FiO2 08/17/16 07:45 98.3 85 20 118/56 95 08/14/16 16:00 Room Air 08/14/16 15:00 2.0 Intake and Output 08/16/16 08/16/16 08/17/16 15:00 23:00 07:00 Intake Total 250 ml 1890 ml 970 ml Output Total 1100 ml 900 ml Balance 250 ml 790 ml 70 ml Exam Constitutional: alert, oriented, well developed Psych: nl mood/affect, no complaints Head: atraumatic, normocephalic Eyes: EOMI, PERRL, nl conjunctiva, nl lids, nl sclera ENMT: nl external ears & nose, nl lips & teeth, nl nasal mucosa & septum Neck: non-tender, supple Respiratory: clear to auscultation, normal air movement Cardiovascular: nl pulses, regular rate and rhythm Gastrointestinal: nl liver, spleen, non-tender, soft Musculoskeletal: nl extremities to inspection, nl gait and stance Extremities: normal pulses Neurological: OYSTER PREPARER II-XII intact, nl mental status, nl speech, nl strength Skin: nl turgor, No rash or lesions Lymph: nl lymph nodes Results Result Diagram: 08/17/16 0515 08/17/16 0515 Results 24 hrs Laboratory Tests Test 08/16/16 13:52 08/16/16 19:03 08/16/16 20:23 08/17/16 01:26 Bedside Glucose 253 H 258 H 203 144 Test 08/17/16 05:15 08/17/16 07:57 08/17/16 11:47 White Blood Count 9.1 # Red Blood Count 2.87 L Hemoglobin 6.9 *L Hematocrit 21.3 L Mean Corpuscular Volume 74.2 L Mean Corpuscular Hemoglobin 24.0 L Mean Corpuscular Hemoglobin Concent 32.4 Red Cell Distribution Width 25.6 H Platelet Count 232 Mean Platelet Volume Neutrophils % 66.0 Band Neutrophils % 13.0 H Lymphocytes % 17.0 Monocytes % 2.0 Eosinophils % 2.0 Neutrophils # 6.0 Lymphocytes # 1.5 Monocytes # 0.2 L Eosinophils # 0.2 Sodium Level 134 L Potassium Level 3.8 Chloride Level 105 Carbon Dioxide Level 21 Anion Gap 12 Blood Urea Nitrogen 18 Creatinine 0.77 Glucose Level 140 # Calcium Level 8.4 Bedside Glucose 129 122 Medications Medications Current Medications Acetaminophen 650 mg 650 mg Q6H PRN PO PAIN AND OR ELEVATED TEMP Last administered on 08/17/16t 05:05; Admin Dose 650 MG; Start 08/07/16 at 21:30 Sodium Chloride (NS) 1,000 ml @ 60 mls/hr [id number] IV Last administered on 21:02; Admin Dose 60 MLS/HR; Start 08/07/16 at 21:30 Morphine Sulfate (morphine) 2 mg Q4H PRN IV severe pain Last administered on 02:18; Admin Dose 2 MG; Start 08/07/16 at 21:30 Acetaminophen/ Hydrocodone Bitart ([place] (5/325)) 1 tab Q6H PRN PO moderate pain Last administered on 08/13/16 21:50; Admin Dose 1 TAB; Start 08/07/16 at 21 :30 Diagnostic Test (Pha) (Accu-Chek) 1 ea 02 XX Last administered on 08/17/16 01: 38; Admin Dose 1 EA; Start 08/08/16 at 02:00 Cholecalciferol (Vitamin D) 5,000 unit DAILY PO Last administered on 08/17/16 08:51; Admin Dose 5,000 UNIT; Start 08/08/16 at 09:00 Gabapentin (Neurontin) 300 mg DAILY PO Last administered on 08/17/16 08:51; Admin Dose 300 MG; Start 08/08/16 at 09:00 Lorazepam (Ativan) 1 mg HS PRN PO ANXIETY Last administered on 08/16/16 02:36; Admin Dose 1 MG; Start 08/07/16 at 21:30 Losartan Potassium (Cozaar) 50 mg DAILY PO Last administered on 08/17/16 08:51 ; Admin Dose 50 MG; Start 08/08/16 at 09:00 Linagliptin (Tradjenta) 5 mg DAILY PO Last administered on 08/17/16 08:51; Admin Dose 5 MG; Start 08/08/16 at 09:00 Lubiprostone (Amitiza) 24 mcg BID PO Last administered on 08/17/16 08:51; Admin Dose 24 MCG; Start 08/09/16 at 21:00 Miscellaneous Information 1 ea NOTE XX ; Start 08/13/16 at 15:30 Glucose (Glutose) 15 gm Q15M PRN PO DECREASED GLUCOSE; Start 08/13/16 at 15:30 Glucose (Glutose) 22.5 gm Q15M PRN PO DECREASED GLUCOSE; Start 08/13/16 at 15:30 Dextrose (D50w Syringe) 25 ml Q15M PRN IV DECREASED GLUCOSE; Start 08/13/16 at 15:30 Dextrose (D50w Syringe) 50 ml Q15M PRN IV DECREASED GLUCOSE; Start 08/13/16 at 15:30 Glucagon (Glucagen) 1 mg Q15M PRN IM DECREASED GLUCOSE; Start 08/13/16 at 15:30 Glucose 15 gm 15 gm Q15M PRN BUCCAL DECREASED GLUCOSE; Start 08/13/16 at 15:30 Ceftazidime (Fortaz 1gm/50 ml (Pmx)) 50 ml @ 100 mls/hr BID IVPB Last administered on 08/17/16 11:31; Admin Dose 100 MLS/HR; Start 08/16/16 at 21:00 Insulin Glargine (Lantus) 30 unit DAILY@20 SC Last administered on 08/16/16 20: 27; Admin Dose 30 UNIT; Start 08/16/16 at 20:00 ANA VELASQUEZ MD Aug 17, 2016 12:39
[2016-08-17] MEDS: SOD CHLORIDE 0.9% 1,000 ML IV SCH ×2 (14:50→21:29)
[2016-08-17 19:57] VITALS: BP 96/46; RESP 18
[2016-08-17] MEDS ORDERED: DIPHENHYDRAMINE 25 MG CAP PO PRN (20:30)
[2016-08-17] MEDS: INSULIN GLARGINE [LANtus] 3 ML PEN SC SCH (21:07)
[2016-08-17] MEDS ORDERED: DIPHENHYDRAMINE 50 MG CAP PO ONE (22:00)
[2016-08-18 02:00] VITALS: BP 114/51; RESP 18
[2016-08-18] MEDS: ACCU-CHEK XX SCH (02:41)
[2016-08-18 04:45] LABS: PRETRANSFUSION BILIRUBIN 0.4 mg/dl
[2016-08-18 04:46] LABS: POST-TRANSFUSION BILIRUBIN 0.3 mg/dl
[2016-08-18 06:23] LABS: ADD SCAN DIFF NO
[2016-08-18 06:28] LABS: ABNORMAL IP MESSAGE 1; HEMATOCRIT 24.7 % (42.0-52.0); MEAN CORPUSCULAR HEMOGLOBIN 24.7 pg (29.0-33.0); MEAN CORPUSCULAR HGB CONC 32.4 g/dl (32.0-37.0); MEAN CORPUSCULAR VOLUME 76.2 fl (82.0-101.0); RED BLOOD COUNT 3.24 10^6/ul (4.70-6.10); RED CELL DISTRIBUTION WIDTH 24.4 % (11.5-14.5); WHITE BLOOD COUNT 6.9 10^3/ul (4.8-10.8)
[2016-08-18 06:44] LABS: PLATELET COUNT 171 10^3/UL (140-415)
[2016-08-18 07:06] LABS: CALCIUM 8.4 mg/dl (8.4-10.2); CREATININE 0.75 mg/dl (0.61-1.24); POTASSIUM 3.5 mmol/L (3.5-5.1)
[2016-08-18 08:09] VITALS: BP 128/63; RESP 18
[2016-08-18] MEDS: GABAPENTIN 300 MG CAP PO SCH (09:33)
[2016-08-18] MEDS: CHOLECALCIFEROL 1,000 UNIT TAB PO SCH (09:33)
[2016-08-18] MEDS: LINAGLIPTIN 5 MG TABLET PO SCH (09:33)
[2016-08-18] MEDS: LOSARTAN 50 MG TAB PO SCH (09:33)
[2016-08-18] MEDS: LUBIPROSTONE 24 MCG CAP PO SCH ×2 (09:33→20:27)
[2016-08-18 09:41] LABS: ANISOCYTOSIS 1+; HYPOCHROMASIA 1+; LYMPHOCYTES # 1.3 10^3/ul (0.8-2.9); MONOCYTE # 0.4 10^3/ul (0.3-0.9); NEUTROPHIL # 4.6 10^3/ul (1.6-7.5)
[2016-08-18] MEDS: INSULIN ASPART [NOVOLOG] 3 ML PEN SC SCH ×7 (09:41→20:44)
[2016-08-18] MEDS: CEFTAZIDIME 1GM/50 ML (PMX) 50 ML IVPB SCH ×2 (09:58→20:28)
--- NOTE | 2016-08-18 10:16 | PN ---
Date/Time of Note Date/Time of Note DATE: 08/18/16 TIME: 10:11 Assessment/Plan VTE Prophylaxis VTE Prophylaxis Intervention: other (jorje AGUILAR) Lines/Catheters IV C[facility]ter [facility] (from [facility]): Peripheral IV Assessment/Plan Assessment/Plan Pt had fever with RBC transfusion yesterday. Hgb up to 8.0. Endoscopy scheduled for tomorrow. Pt feels well. He had likely WBC reaction to the transfusion yesterday. He is reluctant to get more blood now. Can re-discuss tomorrow but he is clinically stable. Subjective 24 Hr Interval Summary Free Text/Dictation Stable. Awaiting endoscopy tomorrow. Exam/Review of Systems Vital Signs Vitals Vital Signs Date Time Temp Pulse Resp B/P Pulse Ox O2 Delivery O2 Flow Rate FiO2 08/18/16 08:09 97.6 69 18 128/63 99 08/14/16 16:00 Room Air 08/14/16 15:00 2.0 Intake and Output 08/17/16 08/17/16 08/18/16 15:00 23:00 07:00 Intake Total 2520 ml 420 ml Output Total 1800 ml Balance 720 ml 420 ml Exam Constitutional: alert, oriented Eyes: other (pallor) Neck: supple Respiratory: clear to auscultation Cardiovascular: regular rate and rhythm Gastrointestinal: non-tender, soft Extremities: normal pulses Neurological: nl speech Lymph: nl lymph nodes Results Result Diagram: 08/18/16 0515 08/18/16 0515 Results 24 hrs Laboratory Tests Test 08/17/16 11:47 08/17/16 17:38 08/17/16 21:03 08/18/16 02:40 Bedside Glucose 122 131 209 219 Test 08/18/16 05:15 08/18/16 05:30 08/18/16 07:53 08/18/16 09:31 White Blood Count 6.9 # Red Blood Count 3.24 L Hemoglobin 8.0 L Hematocrit 24.7 L Mean Corpuscular Volume 76.2 L Mean Corpuscular Hemoglobin 24.7 L Mean Corpuscular Hemoglobin Concent 32.4 Red Cell Distribution Width 24.4 H Platelet Count 171 # Mean Platelet Volume Neutrophils % 66.0 Band Neutrophils % 9.0 H Lymphocytes % 19.0 Monocytes % 6.0 Eosinophils % Nucleated Red Blood Cells % 1.0 H Neutrophils # 4.6 Lymphocytes # 1.3 Monocytes # 0.4 Eosinophils # Hypochromasia 1+ Anisocytosis 1+ Sodium Level 137 Potassium Level 3.5 Chloride Level 105 Carbon Dioxide Level 22 Anion Gap 14 Blood Urea Nitrogen 21 H Creatinine 0.75 Glucose Level 158 Calcium Level 8.4 Lab Scanned Report BLOOD TRANSFUSION Bedside Glucose 132 161 Medications Medications Current Medications Acetaminophen 650 mg 650 mg Q6H PRN PO PAIN AND OR ELEVATED TEMP Last administered on 08/17/16 21:35; Admin Dose 650 MG; Start 08/07/16 at 21:30 Sodium Chloride (NS) 1,000 ml @ 60 mls/hr [id number] IV Last administered on 21:29; Admin Dose 60 MLS/HR; Start 08/07/16 at 21:30 Morphine Sulfate (morphine) 2 mg Q4H PRN IV severe pain Last administered on 02:18; Admin Dose 2 MG; Start 08/07/16 at 21:30 Acetaminophen/ Hydrocodone Bitart ([place] (5/325)) 1 tab Q6H PRN PO moderate pain Last administered on 08/13/16 21:50; Admin Dose 1 TAB; Start 08/07/16 at 21 :30 Diagnostic Test (Pha) (Accu-Chek) 1 ea 02 XX Last administered on 08/18/16 02: 41; Admin Dose 1 EA; Start 08/08/16 at 02:00 Cholecalciferol (Vitamin D) 5,000 unit DAILY PO Last administered on 08/18/16 09:33; Admin Dose 5,000 UNIT; Start 08/08/16 at 09:00 Gabapentin (Neurontin) 300 mg DAILY PO Last administered on 08/18/16 09:33; Admin Dose 300 MG; Start 08/08/16 at 09:00 Lorazepam (Ativan) 1 mg HS PRN PO ANXIETY Last administered on 08/16/16 02:36; Admin Dose 1 MG; Start 08/07/16 at 21:30 Losartan Potassium (Cozaar) 50 mg DAILY PO Last administered on 08/18/16 09:33 ; Admin Dose 50 MG; Start 08/08/16 at 09:00 Linagliptin (Tradjenta) 5 mg DAILY PO Last administered on 08/18/16 09:33; Admin Dose 5 MG; Start 08/08/16 at 09:00 Lubiprostone (Amitiza) 24 mcg BID PO Last administered on 08/18/16 09:33; Admin Dose 24 MCG; Start 08/09/16 at 21:00 Miscellaneous Information 1 ea NOTE XX ; Start 08/13/16 at 15:30 Glucose (Glutose) 15 gm Q15M PRN PO DECREASED GLUCOSE; Start 08/13/16 at 15:30 Glucose (Glutose) 22.5 gm Q15M PRN PO DECREASED GLUCOSE; Start 08/13/16 at 15:30 Dextrose (D50w Syringe) 25 ml Q15M PRN IV DECREASED GLUCOSE; Start 08/13/16 at 15:30 Dextrose (D50w Syringe) 50 ml Q15M PRN IV DECREASED GLUCOSE; Start 08/13/16 at 15:30 Glucagon (Glucagen) 1 mg Q15M PRN IM DECREASED GLUCOSE; Start 08/13/16 at 15:30 Glucose 15 gm 15 gm Q15M PRN BUCCAL DECREASED GLUCOSE; Start 08/13/16 at 15:30 Ceftazidime (Fortaz 1gm/50 ml (Pmx)) 50 ml @ 100 mls/hr BID IVPB Last administered on 08/18/16 09:58; Admin Dose 100 MLS/HR; Start 08/16/16 at 21:00 Insulin Glargine (Lantus) 30 unit DAILY@20 SC Last administered on 08/17/16 21: 07; Admin Dose 30 UNIT; Start 08/16/16 at 20:00 Bisacodyl (Dulcolax) 10 mg ONCE ONCE PO ; Start 08/18/16 at 12:00; Stop 08/18/16 at 12:01 Polyethylene Glycol/ Electrolytes (Golytely) 2,000 ml ONCE ONCE PO ; Start 08/18 at 14:00; Stop 08/18/16 at 14:01 Diphenhydramine HCl (Benadryl) 25 mg Q6H PRN PO ITCHING Last administered on 21:35; Admin Dose 25 MG; Start 08/17/16 at 20:30 HENRY FLAHERTY MD Aug 18, 2016 10:16
--- NOTE | 2016-08-18 11:17 | PN ---
Date/Time of Note Date/Time of Note DATE: 08/18/16 TIME: 11:17 Assessment/Plan VTE Prophylaxis VTE Prophylaxis Intervention: other Lines/Catheters IV [facility] Peripheral IV Assessment/Plan Chief Complaint/Hosp Course - Pseudomonas UTI, antibiotics changed to ceftazidime. - Microcytic anemia, Dr. 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 Hall is following in gastroenterology consultation. - History of pulmonary embolism, continue Eliquis - Diabetes mellitus, hemoglobin A1c is 8.2. continue, Tradjenta, Lantus and NovoLog. - Hypertension, continue Cozaar. - Hyperlipidemia - BPH, status post TURP - Status post right hip replacement Problems: Subjective 24 Hr Interval Summary Free Text/Dictation Patient denies any complaints Exam/Review of Systems Vital Signs Vitals Vital Signs Date Time Temp Pulse Resp B/P Pulse Ox O2 Delivery O2 Flow Rate FiO2 08/18/16 08:09 97.6 69 18 128/63 99 08/14/16 16:00 Room Air 08/14/16 15:00 2.0 Intake and Output 08/17/16 08/17/16 08/18/16 15:00 23:00 07:00 Intake Total 2520 ml 420 ml Output Total 1800 ml Balance 720 ml 420 ml Exam Constitutional: well developed Head: atraumatic, normocephalic Neck: supple Respiratory: clear to auscultation Cardiovascular: regular rate and rhythm Gastrointestinal: non-tender, soft Extremities: normal pulses Results Result Diagram: 08/18/16 0515 08/18/16 0515 Results 24 hrs Laboratory Tests Test 08/17/16 11:47 08/17/16 17:38 08/17/16 21:03 08/18/16 02:40 Bedside Glucose 122 131 209 219 Test 08/18/16 05:15 08/18/16 05:30 08/18/16 07:53 08/18/16 09:31 White Blood Count 6.9 # Red Blood Count 3.24 L Hemoglobin 8.0 L Hematocrit 24.7 L Mean Corpuscular Volume 76.2 L Mean Corpuscular Hemoglobin 24.7 L Mean Corpuscular Hemoglobin Concent 32.4 Red Cell Distribution Width 24.4 H Platelet Count 171 # Mean Platelet Volume Neutrophils % 66.0 Band Neutrophils % 9.0 H Lymphocytes % 19.0 Monocytes % 6.0 Eosinophils % Nucleated Red Blood Cells % 1.0 H Neutrophils # 4.6 Lymphocytes # 1.3 Monocytes # 0.4 Eosinophils # Hypochromasia 1+ Anisocytosis 1+ Sodium Level 137 Potassium Level 3.5 Chloride Level 105 Carbon Dioxide Level 22 Anion Gap 14 Blood Urea Nitrogen 21 H Creatinine 0.75 Glucose Level 158 Calcium Level 8.4 Lab Scanned Report BLOOD TRANSFUSION Bedside Glucose 132 161 Medications Medications Current Medications Acetaminophen 650 mg 650 mg Q6H PRN PO PAIN AND OR ELEVATED TEMP Last administered on 08/17/16 21:35; Admin Dose 650 MG; Start 08/07/16 at 21:30 Sodium Chloride (NS) 1,000 ml @ 60 mls/hr [id number] IV Last administered on 21:29; Admin Dose 60 MLS/HR; Start 08/07/16 at 21:30 Morphine Sulfate (morphine) 2 mg Q4H PRN IV severe pain Last administered on 02:18; Admin Dose 2 MG; Start 08/07/16 at 21:30 Acetaminophen/ Hydrocodone Bitart ([place] (5/325)) 1 tab Q6H PRN PO moderate pain Last administered on 08/13/16 21:50; Admin Dose 1 TAB; Start 08/07/16 at 21 :30 Diagnostic Test (Pha) (Accu-Chek) 1 ea 02 XX Last administered on 08/18/16 02: 41; Admin Dose 1 EA; Start 08/08/16 at 02:00 Cholecalciferol (Vitamin D) 5,000 unit DAILY PO Last administered on 08/18/16 09:33; Admin Dose 5,000 UNIT; Start 08/08/16 at 09:00 Gabapentin (Neurontin) 300 mg DAILY PO Last administered on 08/18/16 09:33; Admin Dose 300 MG; Start 08/08/16 at 09:00 Lorazepam (Ativan) 1 mg HS PRN PO ANXIETY Last administered on 08/16/16 02:36; Admin Dose 1 MG; Start 08/07/16 at 21:30 Losartan Potassium (Cozaar) 50 mg DAILY PO Last administered on 08/18/16 09:33 ; Admin Dose 50 MG; Start 08/08/16 at 09:00 Linagliptin (Tradjenta) 5 mg DAILY PO Last administered on 08/18/16 09:33; Admin Dose 5 MG; Start 08/08/16 at 09:00 Lubiprostone (Amitiza) 24 mcg BID PO Last administered on 08/18/16 09:33; Admin Dose 24 MCG; Start 08/09/16 at 21:00 Miscellaneous Information 1 ea NOTE XX ; Start 08/13/16 at 15:30 Glucose (Glutose) 15 gm Q15M PRN PO DECREASED GLUCOSE; Start 08/13/16 at 15:30 Glucose (Glutose) 22.5 gm Q15M PRN PO DECREASED GLUCOSE; Start 08/13/16 at 15:30 Dextrose (D50w Syringe) 25 ml Q15M PRN IV DECREASED GLUCOSE; Start 08/13/16 at 15:30 Dextrose (D50w Syringe) 50 ml Q15M PRN IV DECREASED GLUCOSE; Start 08/13/16 at 15:30 Glucagon (Glucagen) 1 mg Q15M PRN IM DECREASED GLUCOSE; Start 08/13/16 at 15:30 Glucose 15 gm 15 gm Q15M PRN BUCCAL DECREASED GLUCOSE; Start 08/13/16 at 15:30 Ceftazidime (Fortaz 1gm/50 ml (Pmx)) 50 ml @ 100 mls/hr BID IVPB Last administered on 08/18/16 09:58; Admin Dose 100 MLS/HR; Start 08/16/16 at 21:00 Insulin Glargine (Lantus) 30 unit DAILY@20 SC Last administered on 08/17/16 21: 07; Admin Dose 30 UNIT; Start 08/16/16 at 20:00 Bisacodyl (Dulcolax) 10 mg ONCE ONCE PO ; Start 08/18/16 at 12:00; Stop 08/18/16 at 12:01 Polyethylene Glycol/ Electrolytes (Golytely) 2,000 ml ONCE ONCE PO ; Start 08/18 at 14:00; Stop 08/18/16 at 14:01 Diphenhydramine HCl (Benadryl) 25 mg Q6H PRN PO ITCHING Last administered on 21:35; Admin Dose 25 MG; Start 08/17/16 at 20:30 GORDY CARMONA Aug 18, 2016 11:17
[2016-08-18 11:19] LABS: ADD UMIC YES; UR ASCORBIC ACID NEGATIVE (NEGATIVE); UR BILIRUBIN (Dip) NEGATIVE (NEGATIVE); UR BLOOD (Dip) 2+ mg/dL (NEGATIVE); UR CLARITY CLEAR (CLEAR); UR COLOR YELLOW (YELLOW); UR GLUCOSE (Dip) 3+ mg/dL (NEGATIVE); UR KETONES (Dip) NEGATIVE (NEGATIVE); UR LEUKOCYTE ESTERASE (Dip) NEGATIVE Leu/ul (NEGATIVE); UR NITRITE (Dip) NEGATIVE (NEGATIVE); UR RBC 0 /HPF (0-5); UR TOTAL PROTEIN (Dip) NEGATIVE (NEGATIVE); UR UROBILINOGEN (Dip) NEGATIVE (NEGATIVE)
[2016-08-18] MEDS ORDERED: BISACODYL (EC) 5 MG TAB PO ONE ×2 (12:00→20:00)
[2016-08-18] MEDS ORDERED: PEG/ELECTROLYTES 4L BTL PO ONE ×2 (14:00→20:00)
[2016-08-18] MEDS: LORAZEPAM 1 MG TAB PO PRN (14:25)
[2016-08-18] MEDS: SOD CHLORIDE 0.9% 1,000 ML IV SCH (14:29)
--- NOTE | 2016-08-18 17:21 | CONS ---
Date/Time of Note Date/Time of Note DATE: 08/18/16 TIME: 17:21 Assessment/Plan Assessment/Plan Chief Complaint/Hosp Course This is a 76-year-old male with a history of diabetes mellitus hypertension lipid abnormality admitted to the hospital for thrombosis of the inferior vena cava. Patient complains of right lower quadrant abdominal pain and also significant weight loss. He lost 26 pounds over the. A few months and is chronically constipated. Patient denies of any kind of GI bleeding no nausea no vomiting no heartburn. No chest pain or shortness of breath. He has lost his appetite. Patient has umbrella in the inferior vena cava and also has a history of pulmonary embolism. He has a history of surgery on his knee and also on his hands. Problems: Additional Assessment/Plan Additional Assessment/Plan Impression: 1. Anemia microcytic, with few few blast cells: stool for occult blood negative 2. Thrombosis of the inferior vena cava 3. Weight loss of 26 pound 4. Abdominal pain right lower quadrant 5. Constipation 6. History of pulmonary embolism 7. Diabetes mellitus 8. Hypertension 9. Hyperlipidemia 10. Status post surgery on his knee and the hand Plan 1. discussed with Jose Martin Galindo ,pt,has myelofibrosis and also iron deficiency anemia 2. patient also say the same that Dr. Philippe wants to hold off on EGD and colonoscopy so I will do so. 3. will follow along with you 4. continue Amitiza for his constipation 5. Patient is scheduled for EGD and COLONOSCOPY on Friday Discussed the patient with the help of buttonhole tacker [id number] for 15 minutes explaining him and educated him regarding the procedure. All questions are answered. Patient definitely understood and has agreed for the procedure Consultation Date/Type/Reason Admit Date/Time Aug 07, 2016 at 16:05 Initial Consult Date 08/10/16 Type of Consultation: GI Referring Provider: TEDDY RUVALCABA MD 24 HR Interval Summary Constitutional: improved, no complaints Exam/Review of Systems Vital Signs Vitals Vital Signs Date Time Temp Pulse Resp B/P Pulse Ox O2 Delivery O2 Flow Rate FiO2 08/18/16 08:09 97.6 69 18 128/63 99 08/14/16 16:00 Room Air 08/14/16 15:00 2.0 Intake and Output 08/17/16 08/17/16 08/18/16 15:00 23:00 07:00 Intake Total 2520 ml 420 ml Output Total 1800 ml Balance 720 ml 420 ml Exam Constitutional: alert, oriented, well developed Psych: nl mood/affect, no complaints Head: atraumatic, normocephalic Eyes: EOMI, PERRL, nl conjunctiva, nl lids, nl sclera ENMT: nl external ears & nose, nl lips & teeth, nl nasal mucosa & septum Neck: non-tender, supple Respiratory: clear to auscultation, normal air movement Cardiovascular: nl pulses, regular rate and rhythm Gastrointestinal: nl liver, spleen, non-tender, soft Musculoskeletal: nl extremities to inspection, nl gait and stance Extremities: normal pulses Neurological: BEATER LEAD II-XII intact, nl mental status, nl speech, nl strength Skin: nl turgor, No rash or lesions Lymph: nl lymph nodes Results Result Diagram: 08/18/1615 08/18/1615 Results 24 hrs Laboratory Tests Test 08/17/16 17:38 08/17/16 21:03 08/18/16 02:40 08/18/16 05:15 Bedside Glucose 131 209 219 White Blood Count 6.9 # Red Blood Count 3.24 L Hemoglobin 8.0 L Hematocrit 24.7 L Mean Corpuscular Volume 76.2 L Mean Corpuscular Hemoglobin 24.7 L Mean Corpuscular Hemoglobin Concent 32.4 Red Cell Distribution Width 24.4 H Platelet Count 171 # Mean Platelet Volume Neutrophils % 66.0 Band Neutrophils % 9.0 H Lymphocytes % 19.0 Monocytes % 6.0 Eosinophils % Nucleated Red Blood Cells % 1.0 H Neutrophils # 4.6 Lymphocytes # 1.3 Monocytes # 0.4 Eosinophils # Hypochromasia 1+ Anisocytosis 1+ Sodium Level 137 Potassium Level 3.5 Chloride Level 105 Carbon Dioxide Level 22 Anion Gap 14 Blood Urea Nitrogen 21 H Creatinine 0.75 Glucose Level 158 Calcium Level 8.4 Test 08/18/16 05:30 08/18/16 06:00 08/18/16 07:53 08/18/16 09:31 Lab Scanned Report BLOOD TRANSFUSION Urine Color YELLOW Urine Clarity CLEAR Urine pH 6.0 Urine Specific [place] 1.010 Urine Ketones NEGATIVE Urine Nitrite NEGATIVE Urine Bilirubin NEGATIVE Urine Urobilinogen NEGATIVE Urine Leukocyte Esterase NEGATIVE Urine Microscopic RBC 0 Urine Microscopic WBC 1 Urine Hemoglobin 2+ H Urine Glucose 3+ H Urine Total Protein NEGATIVE Bedside Glucose 132 161 Test 08/18/16 12:04 Bedside Glucose 155 Medications Medications Current Medications Acetaminophen 650 mg 650 mg Q6H PRN PO PAIN AND OR ELEVATED TEMP Last administered on 08/17/16 21:35; Admin Dose 650 MG; Start 08/07/16 at 21:30 Sodium Chloride (NS) 1,000 ml @ 60 mls/hr [id number] IV Last administered on 14:29; Admin Dose 60 MLS/HR; Start 08/07/16 at 21:30 Morphine Sulfate (morphine) 2 mg Q4H PRN IV severe pain Last administered on 02:18; Admin Dose 2 MG; Start 08/07/16 at 21:30 Acetaminophen/ Hydrocodone Bitart ([place] (5/325)) 1 tab Q6H PRN PO moderate pain Last administered on 08/13/16 21:50; Admin Dose 1 TAB; Start 08/07/16 at 21 :30 Diagnostic Test (Pha) (Accu-Chek) 1 ea 02 XX Last administered on 08/18/16 02: 41; Admin Dose 1 EA; Start 08/08/16 at 02:00 Cholecalciferol (Vitamin D) 5,000 unit DAILY PO Last administered on 08/18/16 09:33; Admin Dose 5,000 UNIT; Start 08/08/16 at 09:00 Gabapentin (Neurontin) 300 mg DAILY PO Last administered on 08/18/16 09:33; Admin Dose 300 MG; Start 08/08/16 at 09:00 Lorazepam (Ativan) 1 mg HS PRN PO ANXIETY Last administered on 08/18/16 14:25; Admin Dose 1 MG; Start 08/07/16 at 21:30 Losartan Potassium (Cozaar) 50 mg DAILY PO Last administered on 08/18/16 09:33 ; Admin Dose 50 MG; Start 08/08/16 at 09:00 Linagliptin (Tradjenta) 5 mg DAILY PO Last administered on 08/18/16 09:33; Admin Dose 5 MG; Start 08/08/16 at 09:00 Lubiprostone (Amitiza) 24 mcg BID PO Last administered on 08/18/16 09:33; Admin Dose 24 MCG; Start 08/09/16 at 21:00 Miscellaneous Information 1 ea NOTE XX ; Start 08/13/16 at 15:30 Glucose (Glutose) 15 gm Q15M PRN PO DECREASED GLUCOSE; Start 08/13/16 at 15:30 Glucose (Glutose) 22.5 gm Q15M PRN PO DECREASED GLUCOSE; Start 08/13/16 at 15:30 Dextrose (D50w Syringe) 25 ml Q15M PRN IV DECREASED GLUCOSE; Start 08/13/16 at 15:30 Dextrose (D50w Syringe) 50 ml Q15M PRN IV DECREASED GLUCOSE; Start 08/13/16 at 15:30 Glucagon (Glucagen) 1 mg Q15M PRN IM DECREASED GLUCOSE; Start 08/13/16 at 15:30 Glucose 15 gm 15 gm Q15M PRN BUCCAL DECREASED GLUCOSE; Start 08/13/16 at 15:30 Ceftazidime (Fortaz 1gm/50 ml (Pmx)) 50 ml @ 100 mls/hr BID IVPB Last administered on 08/18/16 09:58; Admin Dose 100 MLS/HR; Start 08/16/16 at 21:00 Insulin Glargine (Lantus) 30 unit DAILY@20 SC Last administered on 08/17/16 21: 07; Admin Dose 30 UNIT; Start 08/16/16 at 20:00 Diphenhydramine HCl (Benadryl) 25 mg Q6H PRN PO ITCHING Last administered on 21:35; Admin Dose 25 MG; Start 08/17/16 at 20:30 ANA VELASQUEZ MD Aug 18, 2016 17:21
[2016-08-18 20:00] VITALS: BP 134/63; RESP 20
[2016-08-18] MEDS: HYDROCODONE/APAP (5/325) TAB PO PRN (20:27)
[2016-08-18] MEDS: INSULIN GLARGINE [LANtus] 3 ML PEN SC SCH (20:44)
[2016-08-19] VITALS (16 sets, daily range): BP systolic 104–144; BP diastolic 53–77; PULSE 59–76; RESP 18–24
[2016-08-19] MEDS: ACCU-CHEK XX SCH (02:00)
--- NOTE | 2016-08-19 08:05 | PN ---
Date/Time of Note Date/Time of Note DATE: 08/19/16 TIME: 07:56 Assessment/Plan VTE Prophylaxis VTE Prophylaxis Intervention: contraindicated VTE Contraindication Reason: bleeding Lines/Catheters IV Catheter Type (from Nrs): Peripheral IV Assessment/Plan Chief Complaint/Hosp Course Anemia and IVC thrombosis. Problems: (1) Microcytic anemia Status: Chronic (2) Thrombosis Status: Chronic (3) Fever Status: Acute Qualifiers: Fever type: unspecified Qualified Code: R50.9 - Fever, unspecified fever cause (4) Lupus anticoagulant positive Status: Chronic (5) Myelofibrosis Status: Chronic Assessment/Plan Pt is to have EGD and colonoscopy today in an attempt to determine cause of iron deficiency and wt loss. The latter may be explained by the dx of myelofibrosis which was confirmed on bone marrow. SABRINA-2 is still pending. If pt does have this mutation will start on Jakafi. Subjective 24 Hr Interval Summary Free Text/Dictation Pt has no new complaints. Did have fever after RBVC transfusion but none since. Exam/Review of Systems Vital Signs Vitals Vital Signs Date Time Temp Pulse Resp B/P Pulse Ox O2 Delivery O2 Flow Rate FiO2 08/19/16 02:00 97.5 73 18 133/65 97 Intake and Output 08/18/16 08/18/16 08/19/16 15:00 23:00 07:00 Intake Total 1380 ml 760 ml 420 ml Output Total 551 ml 900 ml 6 ml Balance 829 ml -140 ml 414 ml Exam Constitutional: alert, oriented, well developed Psych: no complaints Head: atraumatic, normocephalic Eyes: EOMI, PERRL, nl conjunctiva, nl sclera ENMT: nl external ears & nose, other (mucosa pale) Neck: non-tender, supple Respiratory: clear to auscultation, normal air movement Cardiovascular: nl pulses, regular rate and rhythm, systolic murmur (3/6 short systolic murmur ar LLSB) Gastrointestinal: nl liver, spleen, non-tender, soft Musculoskeletal: nl extremities to inspection Extremities: edema (1+ edema of RUE), normal pulses Neurological: FORMULA TECHNICIAN II-XII intact, nl mental status, nl speech, nl strength Skin: nl turgor, rash or lesions Lymph: nl lymph nodes Results Result Diagram: 08/18/1651408/18/16514 Results 24 hrs Laboratory Tests Test 08/18/16 09:31 08/18/16 12:04 08/18/16 17:39 08/18/16 20:26 Bedside Glucose 161 155 123 87 Medications Medications Current Medications Acetaminophen 650 mg 650 mg Q6H PRN PO PAIN AND OR ELEVATED TEMP Last administered on 08/17/16 21:35; Admin Dose 650 MG; Start 08/07/16 at 21:30 Sodium Chloride (NS) 1,000 ml @ 60 mls/hr [id number] IV Last administered on 14:29; Admin Dose 60 MLS/HR; Start 08/07/16 at 21:30 Morphine Sulfate (morphine) 2 mg Q4H PRN IV severe pain Last administered on 02:18; Admin Dose 2 MG; Start 08/07/16 at 21:30 Acetaminophen/ Hydrocodone Bitart ([place] (5/325)) 1 tab Q6H PRN PO moderate pain Last administered on 08/18/16 20:27; Admin Dose 1 TAB; Start 08/07/16 at 21 :30 Diagnostic Test (Pha) (Accu-Chek) 1 ea 02 XX Last administered on 08/18/16 02: 41; Admin Dose 1 EA; Start 08/08/16 at 02:00 Cholecalciferol (Vitamin D) 5,000 unit DAILY PO Last administered on 08/18/16 09:33; Admin Dose 5,000 UNIT; Start 08/08/16 at 09:00 Gabapentin (Neurontin) 300 mg DAILY PO Last administered on 08/18/16 09:33; Admin Dose 300 MG; Start 08/08/16 at 09:00 Lorazepam (Ativan) 1 mg HS PRN PO ANXIETY Last administered on 08/18/16 14:25; Admin Dose 1 MG; Start 08/07/16 at 21:30 Losartan Potassium (Cozaar) 50 mg DAILY PO Last administered on 08/18/16 09:33 ; Admin Dose 50 MG; Start 08/08/16 at 09:00 Linagliptin (Tradjenta) 5 mg DAILY PO Last administered on 08/18/16 09:33; Admin Dose 5 MG; Start 08/08/16 at 09:00 Lubiprostone (Amitiza) 24 mcg BID PO Last administered on 08/18/16 20:27; Admin Dose 24 MCG; Start 08/09/16 at 21:00 Miscellaneous Information 1 ea NOTE XX ; Start 08/13/16 at 15:30 Glucose (Glutose) 15 gm Q15M PRN PO DECREASED GLUCOSE; Start 08/13/16 at 15:30 Glucose (Glutose) 22.5 gm Q15M PRN PO DECREASED GLUCOSE; Start 08/13/16 at 15:30 Dextrose (D50w Syringe) 25 ml Q15M PRN IV DECREASED GLUCOSE; Start 08/13/16 at 15:30 Dextrose (D50w Syringe) 50 ml Q15M PRN IV DECREASED GLUCOSE; Start 08/13/16 at 15:30 Glucagon (Glucagen) 1 mg Q15M PRN IM DECREASED GLUCOSE; Start 08/13/16 at 15:30 Glucose 15 gm 15 gm Q15M PRN BUCCAL DECREASED GLUCOSE; Start 08/13/16 at 15:30 Ceftazidime (Fortaz 1gm/50 ml (Pmx)) 50 ml @ 100 mls/hr BID IVPB Last administered on 08/18/16 20:28; Admin Dose 100 MLS/HR; Start 08/16/16 at 21:00 Insulin Glargine (Lantus) 30 unit DAILY@20 SC Last administered on 08/18/16 20: 44; Admin Dose 30 UNIT; Start 08/16/16 at 20:00 Diphenhydramine HCl (Benadryl) 25 mg Q6H PRN PO ITCHING Last administered on 21:35; Admin Dose 25 MG; Start 08/17/16 at 20:30 Copies To: CC: ЕЛЕНА CLAROS MD, STANLEY H MD Aug 19, 2016 08:05
[2016-08-19] MEDS: INSULIN ASPART [NOVOLOG] 3 ML PEN SC SCH ×7 (08:15→20:40)
[2016-08-19] MEDS: LUBIPROSTONE 24 MCG CAP PO SCH ×2 (08:35→21:22)
[2016-08-19] MEDS: GABAPENTIN 300 MG CAP PO SCH (08:35)
[2016-08-19] MEDS: LOSARTAN 50 MG TAB PO SCH (08:35)
[2016-08-19] MEDS: LINAGLIPTIN 5 MG TABLET PO SCH (08:36)
[2016-08-19] MEDS: CHOLECALCIFEROL 1,000 UNIT TAB PO SCH (08:36)
[2016-08-19] MEDS: CEFTAZIDIME 1GM/50 ML (PMX) 50 ML IVPB SCH ×2 (08:40→21:22)
[2016-08-19] MEDS: SOD CHLORIDE 0.9% 1,000 ML IV SCH (16:50)
[2016-08-19] MEDS ORDERED: LIDOCAINE 2% (SDV) 5 ML INJ ONE (18:05)
[2016-08-19] MEDS ORDERED: PROPOFOL 40 ML ONE ×2 (18:05→18:17)
--- NOTE | 2016-08-19 18:35 | PN ---
Date/Time of Note Date/Time of Note DATE: 08/19/16 TIME: 18:32 Assessment/Plan VTE Prophylaxis VTE Prophylaxis Intervention: SCD's Lines/Catheters [facility] (from [facility]): Peripheral IV Assessment/Plan Chief Complaint/Hosp Course Blood sugar is well controlled, patient remains hemodynamically stable, pending colonoscopy today. Assessment/Plan - Pseudomonas UTI, continue ceftazidime. - Microcytic anemia, Dr. 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 Hall is following in gastroenterology consultation. - History of pulmonary embolism, continue Eliquis - Diabetes mellitus, hemoglobin A1c is 8.2. continue, Tradjenta, Lantus and NovoLog. - Hypertension, continue Cozaar. - Hyperlipidemia - BPH, status post TURP - Status post right hip replacement Further recommendations based on clinical course. Plan of care discussed with Dr. Seay. Problems: Exam/Review of Systems Vital Signs Vitals Vital Signs Date Time Temp Pulse Resp B/P Pulse Ox O2 Delivery O2 Flow Rate FiO2 08/19/16 18:20 Nasal Cannula 5 08/19/16 17:58 98.9 76 22 135/63 98 Intake and Output 08/18/16 08/18/16 08/19/16 15:00 23:00 07:00 Intake Total 1380 ml 760 ml 420 ml Output Total 551 ml 900 ml 6 ml Balance 829 ml -140 ml 414 ml Exam Constitutional: alert, oriented Head: atraumatic, normocephalic Neck: supple Respiratory: normal air movement Cardiovascular: murmurs/extra sounds, nl pulses Gastrointestinal: other (Tenderness), soft Extremities: normal pulses Neurological: nl mental status Results Result Diagram: 08/18/16 0515 08/18/16 0515 Results 24 hrs Laboratory Tests Test 08/18/16 20:26 08/19/16 07:59 08/19/16 08:33 08/19/16 12:21 Bedside Glucose 87 78 115 Lab Scanned Report REFERENCE LAB Test 08/19/16 16:49 Bedside Glucose 200 Medications Medications Current Medications Acetaminophen 650 mg 650 mg Q6H PRN PO PAIN AND OR ELEVATED TEMP Last administered on 08/17/16t 21:35; Admin Dose 650 MG; Start 08/07/16 at 21:30 Sodium Chloride (NS) 1,000 ml @ 60 mls/hr [id number] IV Last administered on 14:29; Admin Dose 60 MLS/HR; Start 08/07/16 at 21:30 Morphine Sulfate (morphine) 2 mg Q4H PRN IV severe pain Last administered on 02:18; Admin Dose 2 MG; Start 08/07/16 at 21:30 Acetaminophen/ Hydrocodone Bitart ([place] (5/325)) 1 tab Q6H PRN PO moderate pain Last administered on 08/18/16 20:27; Admin Dose 1 TAB; Start 08/07/16 at 21 :30 Diagnostic Test (Pha) (Accu-Chek) 1 ea 02 XX Last administered on 08/18/16 02: 41; Admin Dose 1 EA; Start 08/08/16 at 02:00 Cholecalciferol (Vitamin D) 5,000 unit DAILY PO Last administered on 08/18/16 09:33; Admin Dose 5,000 UNIT; Start 08/08/16 at 09:00 Gabapentin (Neurontin) 300 mg DAILY PO Last administered on 08/18/16 09:33; Admin Dose 300 MG; Start 08/08/16 at 09:00 Lorazepam (Ativan) 1 mg HS PRN PO ANXIETY Last administered on 08/18/16 14:25; Admin Dose 1 MG; Start 08/07/16 at 21:30 Losartan Potassium (Cozaar) 50 mg DAILY PO Last administered on 08/18/16 09:33 ; Admin Dose 50 MG; Start 08/08/16 at 09:00 Linagliptin (Tradjenta) 5 mg DAILY PO Last administered on 08/18/16 09:33; Admin Dose 5 MG; Start 08/08/16 at 09:00 Lubiprostone (Amitiza) 24 mcg BID PO Last administered on 08/18/16 20:27; Admin Dose 24 MCG; Start 08/09/16 at 21:00 Miscellaneous Information 1 ea NOTE XX ; Start 08/13/16 at 15:30 Glucose (Glutose) 15 gm Q15M PRN PO DECREASED GLUCOSE; Start 08/13/16 at 15:30 Glucose (Glutose) 22.5 gm Q15M PRN PO DECREASED GLUCOSE; Start 08/13/16 at 15:30 Dextrose (D50w Syringe) 25 ml Q15M PRN IV DECREASED GLUCOSE; Start 08/13/16 at 15:30 Dextrose (D50w Syringe) 50 ml Q15M PRN IV DECREASED GLUCOSE; Start 08/13/16 at 15:30 Glucagon (Glucagen) 1 mg Q15M PRN IM DECREASED GLUCOSE; Start 08/13/16 at 15:30 Glucose 15 gm 15 gm Q15M PRN BUCCAL DECREASED GLUCOSE; Start 08/13/16 at 15:30 Ceftazidime (Fortaz 1gm/50 ml (Pmx)) 50 ml @ 100 mls/hr BID IVPB Last administered on 08/19/16 08:40; Admin Dose 100 MLS/HR; Start 08/16/16 at 21:00 Insulin Glargine (Lantus) 30 unit DAILY@20 SC Last administered on 08/18/16 20: 44; Admin Dose 30 UNIT; Start 08/16/16 at 20:00 Diphenhydramine HCl (Benadryl) 25 mg Q6H PRN PO ITCHING Last administered on 21:35; Admin Dose 25 MG; Start 08/17/16 at 20:30 IVONNE KEARNS Aug 19, 2016 18:35
[2016-08-19] MEDS: INSULIN GLARGINE [LANtus] 3 ML PEN SC SCH (20:40)
[2016-08-19] MEDS: CLOTRIMAZOLE 1% 30 GM CR TOP SCH (21:22)
[2016-08-20] MEDS: SOD CHLORIDE 0.9% 1,000 ML IV SCH ×3 (00:26→21:37)
[2016-08-20] MEDS: HYDROCODONE/APAP (5/325) TAB PO PRN ×2 (00:29→08:29)
[2016-08-20] MEDS: LORAZEPAM 1 MG TAB PO PRN (00:49)
[2016-08-20] MEDS: ACCU-CHEK XX SCH (02:00)
[2016-08-20 02:31] VITALS: BP 136/64; RESP 20
[2016-08-20] MEDS: ACETAMINOPHEN 325 MG TAB PO PRN ×2 (02:58→21:36)
[2016-08-20 05:46] LABS: ADD SCAN DIFF NO
[2016-08-20 05:48] LABS: ABNORMAL IP MESSAGE 1; HEMATOCRIT 22.5 % (42.0-52.0); HEMOGLOBIN 7.2 g/dl (14.0-18.0); MEAN CORPUSCULAR HEMOGLOBIN 24.5 pg (29.0-33.0); MEAN CORPUSCULAR VOLUME 76.5 fl (82.0-101.0); RED BLOOD COUNT 2.94 10^6/ul (4.70-6.10); RED CELL DISTRIBUTION WIDTH 24.4 % (11.5-14.5); WHITE BLOOD COUNT 5.7 10^3/ul (4.8-10.8)
[2016-08-20 05:50] LABS: NEUTROPHIL # 3.6 10^3/ul (1.6-7.5); NUCLEATED RED BLOOD CELLS% 0.5 /100WBC (0.0-0.0)
[2016-08-20 06:00] LABS: PLATELET COUNT 207 10^3/UL (140-415)
[2016-08-20 07:39] VITALS: BP 117/59; RESP 20
[2016-08-20] MEDS: INSULIN ASPART [NOVOLOG] 3 ML PEN SC SCH ×7 (07:58→21:00)
[2016-08-20 08:07] LABS: CALCIUM 8.4 mg/dl (8.4-10.2); CREATININE 0.7 mg/dl (0.61-1.24); POTASSIUM 3.5 mmol/L (3.5-5.1)
[2016-08-20] MEDS: CHOLECALCIFEROL 1,000 UNIT TAB PO SCH (08:29)
[2016-08-20] MEDS: LUBIPROSTONE 24 MCG CAP PO SCH ×2 (08:29→21:06)
[2016-08-20] MEDS: GABAPENTIN 300 MG CAP PO SCH (08:30)
[2016-08-20] MEDS: LOSARTAN 50 MG TAB PO SCH (08:30)
[2016-08-20] MEDS: LINAGLIPTIN 5 MG TABLET PO SCH (08:30)
[2016-08-20] MEDS: GUAIFENESIN/DM 5ML CUP PO PRN ×2 (08:32→21:05)
[2016-08-20] MEDS: CEFTAZIDIME 1GM/50 ML (PMX) 50 ML IVPB SCH ×2 (08:33→21:07)
[2016-08-20] MEDS: CLOTRIMAZOLE 1% 30 GM CR TOP SCH ×2 (09:00→21:08)
[2016-08-20 09:47] LABS: LYMPHOCYTES # 0.6 10^3/ul (0.8-2.9); MYELOCYTES # 0.1
[2016-08-20 09:48] LABS: ANISOCYTOSIS 2+; PLATELET ESTIMATE PLT APPEAR ADEQUATE
--- NOTE | 2016-08-20 12:19 | CONS ---
Date/Time of Note Date/Time of Note DATE: 08/20/16 TIME: 12:17 Assessment/Plan Assessment/Plan Chief Complaint/Hosp Course This is a 76-year-old male with a history of diabetes mellitus hypertension lipid abnormality admitted to the hospital for thrombosis of the inferior vena cava. Patient complains of right lower quadrant abdominal pain and also significant weight loss. He lost 26 pounds over the. A few months and is chronically constipated. Patient denies of any kind of GI bleeding no nausea no vomiting no heartburn. No chest pain or shortness of breath. He has lost his appetite. Patient has umbrella in the inferior vena cava and also has a history of pulmonary embolism. He has a history of surgery on his knee and also on his hands. Problems: Additional Assessment/Plan 1. Anemia microcytic, with few few blast cells: stool for occult blood negative 2. Thrombosis of the inferior vena cava 3. Weight loss of 26 pound 4. Abdominal pain right lower quadrant 5. Constipation 6. History of pulmonary embolism 7. Diabetes mellitus 8. Hypertension 9. Hyperlipidemia 10. Status post surgery on his knee and the hand Plan 1. discussed with Jose Martin Galindo ,pt,has myelofibrosis and also iron deficiency anemia 2. patient also say the same that Dr. Philippe wants to hold off on EGD and colonoscopy so I will do so. 3. will follow along with you 4. continue Amitiza for his constipation 5. EGD showed gastritis and also superficial duodenal ulcer and a colonoscopy showed multiple polyps in the cecum all were adjacent to each other and each polyp was 6-7 mm in diameter all were sessile in nature. Biopsies 3 biopsies obtained. Awaiting for the final path report Consultation Date/Type/Reason Admit Date/Time Aug 07, 2016 at 16:05 Initial Consult Date 08/10/16 Type of Consultation: GI Referring Provider: TEDDY RUVALCABA MD 24 HR Interval Summary Constitutional: improved, no complaints Exam/Review of Systems Vital Signs Vitals Vital Signs Date Time Temp Pulse Resp B/P Pulse Ox O2 Delivery O2 Flow Rate FiO2 08/20/16 07:39 98.5 82 20 117/59 98 08/19/16 19:35 Room Air 08/19/16 19:05 2.0 Intake and Output 08/19/16 08/19/16 08/20/16 15:00 23:00 07:00 Intake Total 400 ml 1150 ml Output Total 400 ml Balance 400 ml 750 ml Exam Constitutional: alert, oriented, well developed Psych: nl mood/affect, no complaints Head: atraumatic, normocephalic Eyes: EOMI, PERRL, nl conjunctiva, nl lids, nl sclera ENMT: nl external ears & nose, nl lips & teeth, nl nasal mucosa & septum Neck: non-tender, supple Respiratory: clear to auscultation, normal air movement Cardiovascular: nl pulses, regular rate and rhythm Gastrointestinal: nl liver, spleen, non-tender, soft Musculoskeletal: nl extremities to inspection, nl gait and stance Extremities: normal pulses Neurological: AWNING FINISHER II-XII intact, nl mental status, nl speech, nl strength Skin: nl turgor, No rash or lesions Lymph: nl lymph nodes Results Result Diagram: 08/20/16 0505 08/20/16 0505 Results 24 hrs Laboratory Tests Test 08/19/16 12:21 08/19/16 16:49 08/19/16 20:35 08/20/16 05:05 Bedside Glucose 115 200 147 White Blood Count 5.7 Red Blood Count 2.94 L Hemoglobin 7.2 L Hematocrit 22.5 L Mean Corpuscular Volume 76.5 L Mean Corpuscular Hemoglobin 24.5 L Mean Corpuscular Hemoglobin Concent 32.0 Red Cell Distribution Width 24.4 H Platelet Count 207 # Mean Platelet Volume Neutrophils % 63.0 Band Neutrophils % 7.0 H Lymphocytes % 11.0 L Monocytes % 17.0 H Eosinophils % Basophils % Metamyelocytes % 1.0 H Myelocytes % 1.0 H Nucleated Red Blood Cells % 0.5 H Neutrophils # 3.6 Lymphocytes # 0.6 L Monocytes # 1.0 H Eosinophils # Basophils # Metamyelocytes # 0.1 Myelocytes # 0.1 Nucleated Red Blood Cells # 0.0 Platelet Estimate PLT APPEAR ADEQUATE Anisocytosis 2+ Sodium Level 132 L Potassium Level 3.5 Chloride Level 110 Carbon Dioxide Level 21 Anion Gap 5 #L Blood Urea Nitrogen 16 Creatinine 0.70 Glucose Level 91 # Calcium Level 8.4 Test 08/20/16 07:57 08/20/16 08:28 08/20/16 11:55 Bedside Glucose 61 L 138 159 Medications Medications Current Medications Acetaminophen 650 mg 650 mg Q6H PRN PO PAIN AND OR ELEVATED TEMP Last administered on 08/20/16 02:58; Admin Dose 650 MG; Start 08/07/16 at 21:30 Sodium Chloride (NS) 1,000 ml @ 60 mls/hr [id number] IV Last administered on 08/20 00:26; Admin Dose 60 MLS/HR; Start 08/07/16 at 21:30 Morphine Sulfate (morphine) 2 mg Q4H PRN IV severe pain Last administered on 02:18; Admin Dose 2 MG; Start 08/07/16 at 21:30 Acetaminophen/ Hydrocodone Bitart ([place] (5/325)) 1 tab Q6H PRN PO moderate pain Last administered on 08/20/16 08:29; Admin Dose 1 TAB; Start 08/07/16 at 21:30 Diagnostic Test (Pha) (Accu-Chek) 1 ea 02 XX Last administered on 08/18/16 02: 41; Admin Dose 1 EA; Start 08/08/16 at 02:00 Cholecalciferol (Vitamin D) 5,000 unit DAILY PO Last administered on 08/20/16 08:29; Admin Dose 5,000 UNIT; Start 08/08/16 at 09:00 Gabapentin (Neurontin) 300 mg DAILY PO Last administered on 08/20/16 08:30; Admin Dose 300 MG; Start 08/08/16 at 09:00 Lorazepam (Ativan) 1 mg HS PRN PO ANXIETY Last administered on 08/20/16 00:49 ; Admin Dose 1 MG; Start 08/07/16 at 21:30 Losartan Potassium (Cozaar) 50 mg DAILY PO Last administered on 08/20/16 08:30 ; Admin Dose 50 MG; Start 08/08/16 at 09:00 Linagliptin (Tradjenta) 5 mg DAILY PO Last administered on 08/20/16 08:30; Admin Dose 5 MG; Start 08/08/16 at 09:00 Lubiprostone (Amitiza) 24 mcg BID PO Last administered on 08/20/16 08:29; Admin Dose 24 MCG; Start 08/09/16 at 21:00 Miscellaneous Information 1 ea NOTE XX ; Start 08/13/16 at 15:30 Glucose (Glutose) 15 gm Q15M PRN PO DECREASED GLUCOSE; Start 08/13/16 at 15:30 Glucose (Glutose) 22.5 gm Q15M PRN PO DECREASED GLUCOSE; Start 08/13/16 at 15:30 Dextrose (D50w Syringe) 25 ml Q15M PRN IV DECREASED GLUCOSE; Start 08/13/16 at 15:30 Dextrose (D50w Syringe) 50 ml Q15M PRN IV DECREASED GLUCOSE; Start 08/13/16 at 15:30 Glucagon (Glucagen) 1 mg Q15M PRN IM DECREASED GLUCOSE; Start 08/13/16 at 15:30 Glucose 15 gm 15 gm Q15M PRN BUCCAL DECREASED GLUCOSE; Start 08/13/16 at 15:30 Ceftazidime (Fortaz 1gm/50 ml (Pmx)) 50 ml @ 100 mls/hr BID IVPB Last administered on 08/20/16 08:33; Admin Dose 100 MLS/HR; Start 08/16/16 at 21:00 Insulin Glargine (Lantus) 30 unit DAILY@20 SC Last administered on 08/19/16 20 :40; Admin Dose 30 UNIT; Start 08/16/16 at 20:00 Diphenhydramine HCl (Benadryl) 25 mg Q6H PRN PO ITCHING Last administered on 21:35; Admin Dose 25 MG; Start 08/17/16 at 20:30 Clotrimazole (Lotrimin Cr) 1 applic BID TOP Last administered on 08/19/16 21: 22; Admin Dose 1 APPLIC; Start 08/19/16 at 21:00 Guaifenesin/ Dextromethorphan (Robitussin Dm Liquid Cup) 10 ml Q6 PRN PO COUGH Last administered on 08/20/16 08:32; Admin Dose 10 ML; Start 08/20/16 at 07:00 Phenol (Cepastat Lozenge) 1 lozenge Q4H PRN MT COUGH; Start 08/20/16 at 07:00 ANA VELASQUEZ MD Aug 20, 2016 12:18
--- NOTE | 2016-08-20 15:00 | PN ---
Date/Time of Note Date/Time of Note DATE: 08/20/16 TIME: 14:53 Assessment/Plan VTE Prophylaxis VTE Prophylaxis Intervention: SCD's Lines/Catheters IV [facility] Type ([facility]): Peripheral IV Assessment/Plan Chief Complaint/Hosp Course Patient denies any nausea vomiting remains hemodynamically stable, hemoglobin 7.2, blood transfusion per hematology. Assessment/Plan - Pseudomonas UTI, continue ceftazidime. - Microcytic anemia, Dr. 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 Iron deficiency anemia. - Status post EGD and colonoscopy, with notion of gastritis gastritis and superficial duodenal ulcer per EGD and multiple polyps per colonoscopy, awaiting for the final path report. 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 Hall is following in gastroenterology consultation. - History of pulmonary embolism, continue Eliquis - Diabetes mellitus, hemoglobin A1c is 8.2. continue, Tradjenta, Lantus and NovoLog. - Hypertension, continue Cozaar. - Hyperlipidemia - BPH, status post TURP - Status post right hip replacement Further recommendations based on clinical course. Plan of care discussed with Dr. Seay. Problems: Exam/Review of Systems Vital Signs Vitals Vital Signs Date Time Temp Pulse Resp B/P Pulse Ox O2 Delivery O2 Flow Rate FiO2 08/20/16 07:39 98.5 82 20 117/59 98 08/19/16 19:35 Room Air 08/19/16 19:05 2.0 Intake and Output 08/19/16 08/19/16 08/20/16 15:00 23:00 07:00 Intake Total 400 ml 1150 ml Output Total 400 ml Balance 400 ml 750 ml Exam Constitutional: alert, oriented Head: atraumatic, normocephalic Neck: supple Respiratory: normal air movement Cardiovascular: murmurs/extra sounds, nl pulses Gastrointestinal: other (Tenderness), soft Extremities: normal pulses Neurological: nl mental status Results Result Diagram: 08/20/16 0505 08/20/16 0505 Results 24 hrs Laboratory Tests Test 08/19/16 16:49 08/19/16 20:35 08/20/16 05:05 08/20/16 07:57 Bedside Glucose 200 147 61 L White Blood Count 5.7 Red Blood Count 2.94 L Hemoglobin 7.2 L Hematocrit 22.5 L Mean Corpuscular Volume 76.5 L Mean Corpuscular Hemoglobin 24.5 L Mean Corpuscular Hemoglobin Concent 32.0 Red Cell Distribution Width 24.4 H Platelet Count 207 # Mean Platelet Volume Neutrophils % 63.0 Band Neutrophils % 7.0 H Lymphocytes % 11.0 L Monocytes % 17.0 H Eosinophils % Basophils % Metamyelocytes % 1.0 H Myelocytes % 1.0 H Nucleated Red Blood Cells % 0.5 H Neutrophils # 3.6 Lymphocytes # 0.6 L Monocytes # 1.0 H Eosinophils # Basophils # Metamyelocytes # 0.1 Myelocytes # 0.1 Nucleated Red Blood Cells # 0.0 Platelet Estimate PLT APPEAR ADEQUATE Anisocytosis 2+ Sodium Level 132 L Potassium Level 3.5 Chloride Level 110 Carbon Dioxide Level 21 Anion Gap 5 #L Blood Urea Nitrogen 16 Creatinine 0.70 Glucose Level 91 # Calcium Level 8.4 Test 08/20/16 08:28 08/20/16 11:55 Bedside Glucose 138 159 Medications Medications Current Medications Acetaminophen 650 mg 650 mg Q6H PRN PO PAIN AND OR ELEVATED TEMP Last administered on 08/20/16 02:58; Admin Dose 650 MG; Start 08/07/16 at 21:30 Sodium Chloride (NS) 1,000 ml @ 60 mls/hr [id number] IV Last administered on 08/20 00:26; Admin Dose 60 MLS/HR; Start 08/07/16 at 21:30 Morphine Sulfate (morphine) 2 mg Q4H PRN IV severe pain Last administered on 02:18; Admin Dose 2 MG; Start 08/07/16 at 21:30 Acetaminophen/ Hydrocodone Bitart ([place] (5/325)) 1 tab Q6H PRN PO moderate pain Last administered on 08/20/16 08:29; Admin Dose 1 TAB; Start 08/07/16 at 21:30 Diagnostic Test (Pha) (Accu-Chek) 1 ea 02 XX Last administered on 08/18/16 02: 41; Admin Dose 1 EA; Start 08/08/16 at 02:00 Cholecalciferol (Vitamin D) 5,000 unit DAILY PO Last administered on 08/20/16 08:29; Admin Dose 5,000 UNIT; Start 08/08/16 at 09:00 Gabapentin (Neurontin) 300 mg DAILY PO Last administered on 08/20/16 08:30; Admin Dose 300 MG; Start 08/08/16 at 09:00 Lorazepam (Ativan) 1 mg HS PRN PO ANXIETY Last administered on 08/20/16 00:49 ; Admin Dose 1 MG; Start 08/07/16 at 21:30 Losartan Potassium (Cozaar) 50 mg DAILY PO Last administered on 08/20/16 08:30 ; Admin Dose 50 MG; Start 08/08/16 at 09:00 Linagliptin (Tradjenta) 5 mg DAILY PO Last administered on 08/20/16 08:30; Admin Dose 5 MG; Start 08/08/16 at 09:00 Lubiprostone (Amitiza) 24 mcg BID PO Last administered on 08/20/16 08:29; Admin Dose 24 MCG; Start 08/09/16 at 21:00 Miscellaneous Information 1 ea NOTE XX ; Start 08/13/16 at 15:30 Glucose (Glutose) 15 gm Q15M PRN PO DECREASED GLUCOSE; Start 08/13/16 at 15:30 Glucose (Glutose) 22.5 gm Q15M PRN PO DECREASED GLUCOSE; Start 08/13/16 at 15:30 Dextrose (D50w Syringe) 25 ml Q15M PRN IV DECREASED GLUCOSE; Start 08/13/16 at 15:30 Dextrose (D50w Syringe) 50 ml Q15M PRN IV DECREASED GLUCOSE; Start 08/13/16 at 15:30 Glucagon (Glucagen) 1 mg Q15M PRN IM DECREASED GLUCOSE; Start 08/13/16 at 15:30 Glucose 15 gm 15 gm Q15M PRN BUCCAL DECREASED GLUCOSE; Start 08/13/16 at 15:30 Ceftazidime (Fortaz 1gm/50 ml (Pmx)) 50 ml @ 100 mls/hr BID IVPB Last administered on 08/20/16 08:33; Admin Dose 100 MLS/HR; Start 08/16/16 at 21:00 Insulin Glargine (Lantus) 30 unit DAILY@20 SC Last administered on 08/19/16 20 :40; Admin Dose 30 UNIT; Start 08/16/16 at 20:00 Diphenhydramine HCl (Benadryl) 25 mg Q6H PRN PO ITCHING Last administered on 21:35; Admin Dose 25 MG; Start 08/17/16 at 20:30 Clotrimazole (Lotrimin Cr) 1 applic BID TOP Last administered on 08/19/16 21: 22; Admin Dose 1 APPLIC; Start 08/19/16 at 21:00 Guaifenesin/ Dextromethorphan (Robitussin Dm Liquid Cup) 10 ml Q6 PRN PO COUGH Last administered on 08/20/16 08:32; Admin Dose 10 ML; Start 08/20/16 at 07:00 Phenol (Cepastat Lozenge) 1 lozenge Q4H PRN MT COUGH; Start 08/20/16 at 07:00 IVONNE KEARNS Aug 20, 2016 15:00
[2016-08-20 19:26] VITALS: BP 143/65; RESP 18
[2016-08-20] MEDS: INSULIN GLARGINE [LANtus] 3 ML PEN SC SCH (20:00)
--- NOTE | 2016-08-20 20:14 | PN ---
Date/Time of Note Date/Time of Note DATE: 08/20/16 TIME: 20:04 Assessment/Plan VTE Prophylaxis VTE Prophylaxis Intervention: SCD's Lines/Catheters [facility] (from [facility]): Peripheral IV Assessment/Plan Chief Complaint/Hosp Course Anemia and IVC thrombosis. Problems: (1) Duodenal ulcer (2) Lupus anticoagulant positive Status: Chronic (3) Myelofibrosis Status: Chronic (4) Microcytic anemia Status: Chronic (5) Weight loss Status: Acute Assessment/Plan EGD reveals shallow duodenal ulcerations. No active bleeding? Colonoscopy revealed multiple polyps. Bx taken. Flow cytometry of marrow demonstrates 9 % blasts. May not be a true estimate, would not be unusual for blasts to be present in the peripheral blood in patients with myelofibrosis. Hgb has dropped to 7.2. Will recheck CBC in AM. Will also check retic ct, iron studies, ferritin and EPO level. Subjective 24 Hr Interval Summary Free Text/Dictation Pt has undergone colonoscopy and EGD. No new complaints. Exam/Review of Systems Vital Signs Vitals Vital Signs Date Time Temp Pulse Resp B/P Pulse Ox O2 Delivery O2 Flow Rate FiO2 08/20/16 19:26 98.8 89 18 143/65 96 08/19/16 19:35 Room Air 08/19/16 19:05 2.0 Intake and Output 08/19/16 08/19/16 08/20/16 15:00 23:00 07:00 Intake Total 400 ml 1150 ml Output Total 400 ml Balance 400 ml 750 ml Exam Constitutional: alert, oriented, well developed Head: atraumatic, normocephalic Eyes: EOMI, PERRL, nl conjunctiva, nl sclera ENMT: nl lips & teeth, other (pale mucosa) Neck: non-tender, supple Respiratory: clear to auscultation, normal air movement Cardiovascular: nl pulses, regular rate and rhythm Gastrointestinal: nl liver, spleen, soft, tender (LLQ. No rebound) Musculoskeletal: nl extremities to inspection Extremities: edema (RUE), normal pulses Neurological: SENIOR SYSTEMS SOFTWARE ENGINEER II-XII intact, nl mental status, nl speech, nl strength Skin: nl turgor, other (plae) Lymph: nl lymph nodes Results Result Diagram: 08/20/16 0505 08/20/16 0505 Results 24 hrs Laboratory Tests Test 08/19/16 20:35 08/20/16 05:05 08/20/16 07:57 08/20/16 08:28 Bedside Glucose 147 61 L 138 White Blood Count 5.7 Red Blood Count 2.94 L Hemoglobin 7.2 L Hematocrit 22.5 L Mean Corpuscular Volume 76.5 L Mean Corpuscular Hemoglobin 24.5 L Mean Corpuscular Hemoglobin Concent 32.0 Red Cell Distribution Width 24.4 H Platelet Count 207 # Mean Platelet Volume Neutrophils % 63.0 Band Neutrophils % 7.0 H Lymphocytes % 11.0 L Monocytes % 17.0 H Eosinophils % Basophils % Metamyelocytes % 1.0 H Myelocytes % 1.0 H Nucleated Red Blood Cells % 0.5 H Neutrophils # 3.6 Lymphocytes # 0.6 L Monocytes # 1.0 H Eosinophils # Basophils # Metamyelocytes # 0.1 Myelocytes # 0.1 Nucleated Red Blood Cells # 0.0 Platelet Estimate PLT APPEAR ADEQUATE Anisocytosis 2+ Sodium Level 132 L Potassium Level 3.5 Chloride Level 110 Carbon Dioxide Level 21 Anion Gap 5 #L Blood Urea Nitrogen 16 Creatinine 0.70 Glucose Level 91 # Calcium Level 8.4 Test 08/20/16 11:55 08/20/16 16:58 Bedside Glucose 159 213 Medications Medications Current Medications Acetaminophen 650 mg 650 mg Q6H PRN PO PAIN AND OR ELEVATED TEMP Last administered on 08/20/16 02:58; Admin Dose 650 MG; Start 08/07/16 at 21:30 Sodium Chloride (NS) 1,000 ml @ 60 mls/hr [id number] IV Last administered on 08/20 00:26; Admin Dose 60 MLS/HR; Start 08/07/16 at 21:30 Morphine Sulfate (morphine) 2 mg Q4H PRN IV severe pain Last administered on 02:18; Admin Dose 2 MG; Start 08/07/16 at 21:30 Acetaminophen/ Hydrocodone Bitart ([place] (5/325)) 1 tab Q6H PRN PO moderate pain Last administered on 08/20/16 08:29; Admin Dose 1 TAB; Start 08/07/16 at 21:30 Diagnostic Test (Pha) (Accu-Chek) 1 ea 02 XX Last administered on 08/18/16 02: 41; Admin Dose 1 EA; Start 08/08/16 at 02:00 Cholecalciferol (Vitamin D) 5,000 unit DAILY PO Last administered on 08/20/16 08:29; Admin Dose 5,000 UNIT; Start 08/08/16 at 09:00 Gabapentin (Neurontin) 300 mg DAILY PO Last administered on 08/20/16 08:30; Admin Dose 300 MG; Start 08/08/16 at 09:00 Lorazepam (Ativan) 1 mg HS PRN PO ANXIETY Last administered on 08/20/16 00:49 ; Admin Dose 1 MG; Start 08/07/16 at 21:30 Losartan Potassium (Cozaar) 50 mg DAILY PO Last administered on 08/20/16 08:30 ; Admin Dose 50 MG; Start 08/08/16 at 09:00 Linagliptin (Tradjenta) 5 mg DAILY PO Last administered on 08/20/16 08:30; Admin Dose 5 MG; Start 08/08/16 at 09:00 Lubiprostone (Amitiza) 24 mcg BID PO Last administered on 08/20/16 08:29; Admin Dose 24 MCG; Start 08/09/16 at 21:00 Miscellaneous Information 1 ea NOTE XX ; Start 08/13/16 at 15:30 Glucose (Glutose) 15 gm Q15M PRN PO DECREASED GLUCOSE; Start 08/13/16 at 15:30 Glucose (Glutose) 22.5 gm Q15M PRN PO DECREASED GLUCOSE; Start 08/13/16 at 15:30 Dextrose (D50w Syringe) 25 ml Q15M PRN IV DECREASED GLUCOSE; Start 08/13/16 at 15:30 Dextrose (D50w Syringe) 50 ml Q15M PRN IV DECREASED GLUCOSE; Start 08/13/16 at 15:30 Glucagon (Glucagen) 1 mg Q15M PRN IM DECREASED GLUCOSE; Start 08/13/16 at 15:30 Glucose 15 gm 15 gm Q15M PRN BUCCAL DECREASED GLUCOSE; Start 08/13/16 at 15:30 Ceftazidime (Fortaz 1gm/50 ml (Pmx)) 50 ml @ 100 mls/hr BID IVPB Last administered on 08/20/16 08:33; Admin Dose 100 MLS/HR; Start 08/16/16 at 21:00 Insulin Glargine (Lantus) 30 unit DAILY@20 SC Last administered on 08/19/16 20 :40; Admin Dose 30 UNIT; Start 08/16/16 at 20:00 Diphenhydramine HCl (Benadryl) 25 mg Q6H PRN PO ITCHING Last administered on 21:35; Admin Dose 25 MG; Start 08/17/16 at 20:30 Clotrimazole (Lotrimin Cr) 1 applic BID TOP Last administered on 08/19/16 21: 22; Admin Dose 1 APPLIC; Start 08/19/16 at 21:00 Guaifenesin/ Dextromethorphan (Robitussin Dm Liquid Cup) 10 ml Q6 PRN PO COUGH Last administered on 08/20/16 08:32; Admin Dose 10 ML; Start 08/20/16 at 07:00 Phenol (Cepastat Lozenge) 1 lozenge Q4H PRN MT COUGH; Start 08/20/16 at 07:00 TRICIA WOLF MD Aug 20, 2016 20:14
[2016-08-20] MEDS: CEPASTAT LOZENGE MT PRN (21:06)
[2016-08-20] MEDS ORDERED: INSULIN GLARGINE [LANtus] 3 ML PEN SC ONE (22:30)
[2016-08-20] MEDS: ZOLPIDEM 5 MG TAB PO PRN (22:34)
[2016-08-21] MEDS: ACCU-CHEK XX SCH (02:00)
[2016-08-21] MEDS: CEPASTAT LOZENGE MT PRN ×4 (02:10→21:54)
[2016-08-21] MEDS: SOD CHLORIDE 0.9% 1,000 ML IV SCH ×3 (02:10→20:50)
[2016-08-21] MEDS: HYDROCODONE/APAP (5/325) TAB PO PRN ×2 (02:10→18:18)
[2016-08-21] MEDS: GUAIFENESIN/DM 5ML CUP PO PRN ×4 (02:34→23:06)
[2016-08-21 07:28] LABS: ADD SCAN DIFF NO
[2016-08-21 07:33] LABS: ABNORMAL IP MESSAGE 1; BASOPHIL # 0.1 10^3/ul (0.0-0.1); BASOPHILS % 0.8 % (0.0-2.0); EOSINOPHILS % 0.5 % (0.0-7.0); HEMATOCRIT 22.3 % (42.0-52.0); HEMOGLOBIN 7.4 g/dl (14.0-18.0); LYMPHOCYTES % 15.9 % (15.0-51.0); MEAN CORPUSCULAR HEMOGLOBIN 25.3 pg (29.0-33.0); MEAN CORPUSCULAR HGB CONC 33.2 g/dl (32.0-37.0); MEAN CORPUSCULAR VOLUME 76.4 fl (82.0-101.0); MONOCYTE # 1.1 10^3/ul (0.3-0.9); MONOCYTES % 17.8 % (0.0-11.0); NEUTROPHIL # 3.7 10^3/ul (1.6-7.5); NEUTROPHILS % 59.4 % (39.0-77.0); NUCLEATED RED BLOOD CELLS% 0.6 /100WBC (0.0-0.0); PLATELET COUNT 259 10^3/UL (140-415); RED BLOOD COUNT 2.92 10^6/ul (4.70-6.10); RETICULOCYTE COUNT % 0.7 % (0.5-1.5); WHITE BLOOD COUNT 6.2 10^3/ul (4.8-10.8)
--- NOTE | 2016-08-21 07:34 | PN ---
Date/Time of Note Date/Time of Note DATE: 08/21/16 TIME: 07:29 Assessment/Plan VTE Prophylaxis VTE Prophylaxis Intervention: SCD's Lines/Catheters IV Catheter Type (from Nrs): Peripheral IV Assessment/Plan Chief Complaint/Hosp Course Anemia and IVC thrombosis. Problems: (1) Duodenal ulcer (2) Lupus anticoagulant positive Status: Chronic (3) Microcytic anemia Status: Chronic (4) Weight loss Status: Acute Assessment/Plan CBC and iron studies are pending. Would transfuse with RBC's if Hgb drops below 7.0 Subjective 24 Hr Interval Summary Free Text/Dictation P has no new complaints Exam/Review of Systems Vital Signs Vitals Vital Signs Date Time Temp Pulse Resp B/P Pulse Ox O2 Delivery O2 Flow Rate FiO2 08/20/16 19:26 98.8 89 18 143/65 96 08/19/16 19:35 Room Air 08/19/16 19:05 2.0 Intake and Output 08/20/16 08/20/16 08/21/16 15:00 23:00 07:00 Intake Total 1840 ml 1000 ml Output Total 1350 ml 600 ml Balance 490 ml 400 ml Exam Constitutional: alert, oriented, well developed Head: atraumatic, normocephalic Eyes: EOMI, PERRL, nl conjunctiva, nl sclera ENMT: nl lips & teeth Neck: non-tender, supple Respiratory: clear to auscultation, normal air movement Cardiovascular: nl pulses, regular rate and rhythm Gastrointestinal: nl liver, spleen, non-tender, soft Musculoskeletal: nl extremities to inspection Extremities: edema (RUE edema has almost completely resolved.), normal pulses Neurological: 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, nl mental status, nl strength Skin: nl turgor, other (pale) Lymph: nl lymph nodes Results Result Diagram: 08/20/16 0505 08/20/16 0505 Results 24 hrs Laboratory Tests Test 08/20/16 07:57 08/20/16 08:28 08/20/16 11:55 08/20/16 16:58 Bedside Glucose 61 L 138 159 213 Test 08/20/16 21:24 08/20/16 22:35 Bedside Glucose 97 113 Medications Medications Current Medications Acetaminophen 650 mg 650 mg Q6H PRN PO PAIN AND OR ELEVATED TEMP Last administered on 08/20/16t 21:36; Admin Dose 650 MG; Start 08/07/16 at 21:30 Sodium Chloride (NS) 1,000 ml @ 60 mls/hr [id number] IV Last administered on 08/20 21:37; Admin Dose 60 MLS/HR; Start 08/07/16 at 21:30 Morphine Sulfate (morphine) 2 mg Q4H PRN IV severe pain Last administered on 02:18; Admin Dose 2 MG; Start 08/07/16 at 21:30 Acetaminophen/ Hydrocodone Bitart ([place] (5/325)) 1 tab Q6H PRN PO moderate pain Last administered on 08/21/16 02:10; Admin Dose 1 TAB; Start 08/07/16 at 21:30 Diagnostic Test (Pha) (Accu-Chek) 1 ea 02 XX Last administered on 08/18/16 02: 41; Admin Dose 1 EA; Start 08/08/16 at 02:00 Cholecalciferol (Vitamin D) 5,000 unit DAILY PO Last administered on 08/20/16 08:29; Admin Dose 5,000 UNIT; Start 08/08/16 at 09:00 Gabapentin (Neurontin) 300 mg DAILY PO Last administered on 08/20/16 08:30; Admin Dose 300 MG; Start 08/08/16 at 09:00 Lorazepam (Ativan) 1 mg HS PRN PO ANXIETY Last administered on 08/20/16 00:49 ; Admin Dose 1 MG; Start 08/07/16 at 21:30 Losartan Potassium (Cozaar) 50 mg DAILY PO Last administered on 08/20/16 08:30 ; Admin Dose 50 MG; Start 08/08/16 at 09:00 Linagliptin (Tradjenta) 5 mg DAILY PO Last administered on 08/20/16 08:30; Admin Dose 5 MG; Start 08/08/16 at 09:00 Lubiprostone (Amitiza) 24 mcg BID PO Last administered on 08/20/16 21:06; Admin Dose 24 MCG; Start 08/09/16 at 21:00 Miscellaneous Information 1 ea NOTE XX ; Start 08/13/16 at 15:30 Glucose (Glutose) 15 gm Q15M PRN PO DECREASED GLUCOSE; Start 08/13/16 at 15:30 Glucose (Glutose) 22.5 gm Q15M PRN PO DECREASED GLUCOSE; Start 08/13/16 at 15:30 Dextrose (D50w Syringe) 25 ml Q15M PRN IV DECREASED GLUCOSE; Start 08/13/16 at 15:30 Dextrose (D50w Syringe) 50 ml Q15M PRN IV DECREASED GLUCOSE; Start 08/13/16 at 15:30 Glucagon (Glucagen) 1 mg Q15M PRN IM DECREASED GLUCOSE; Start 08/13/16 at 15:30 Glucose 15 gm 15 gm Q15M PRN BUCCAL DECREASED GLUCOSE; Start 08/13/16 at 15:30 Ceftazidime (Fortaz 1gm/50 ml (Pmx)) 50 ml @ 100 mls/hr BID IVPB Last administered on 08/20/16 21:07; Admin Dose 100 MLS/HR; Start 08/16/16 at 21:00 Diphenhydramine HCl (Benadryl) 25 mg Q6H PRN PO ITCHING Last administered on 21:35; Admin Dose 25 MG; Start 08/17/16 at 20:30 Clotrimazole (Lotrimin Cr) 1 applic BID TOP Last administered on 08/20/16 21: 08; Admin Dose 1 APPLIC; Start 08/19/16 at 21:00 Guaifenesin/ Dextromethorphan (Robitussin Dm Liquid Cup) 10 ml Q6 PRN PO COUGH Last administered on 08/21/16 02:34; Admin Dose 10 ML; Start 08/20/16 at 07:00 Phenol (Cepastat Lozenge) 1 lozenge Q4H PRN MT COUGH Last administered on 02:10; Admin Dose 1 LOZENGE; Start 08/20/16 at 07:00 Insulin Glargine (Lantus) 20 unit DAILY@20 SC ; Start 08/21/16 at 20:00 Copies To: CC: ЕЛЕНА CLAROS MD, STANLEY H MD Aug 21, 2016 07:34
[2016-08-21 07:46] VITALS: BP 160/77; RESP 18
[2016-08-21 07:50] LABS: CALCIUM 8.6 mg/dl (8.4-10.2); CREATININE 0.67 mg/dl (0.61-1.24); IRON 22 ug/dl (35-150); POTASSIUM 3.5 mmol/L (3.5-5.1)
[2016-08-21 07:59] LABS: TOTAL IRON BINDING CAPACITY 192 ug/dl (241-421)
--- NOTE | 2016-08-21 08:04 | EN ---
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
[2016-08-21] MEDS: INSULIN ASPART [NOVOLOG] 3 ML PEN SC SCH ×7 (08:07→20:49)
[2016-08-21] MEDS: LUBIPROSTONE 24 MCG CAP PO SCH ×2 (08:14→20:28)
[2016-08-21] MEDS: GABAPENTIN 300 MG CAP PO SCH (08:14)
[2016-08-21] MEDS: CHOLECALCIFEROL 1,000 UNIT TAB PO SCH (08:14)
[2016-08-21] MEDS: LOSARTAN 50 MG TAB PO SCH (08:14)
[2016-08-21] MEDS: LINAGLIPTIN 5 MG TABLET PO SCH (08:14)
[2016-08-21] MEDS: CLOTRIMAZOLE 1% 30 GM CR TOP SCH ×2 (08:15→20:49)
[2016-08-21] MEDS: CEFTAZIDIME 1GM/50 ML (PMX) 50 ML IVPB SCH (10:13)
--- NOTE | 2016-08-21 14:57 | PN ---
Date/Time of Note Date/Time of Note DATE: 08/21/16 TIME: 14:54 Assessment/Plan VTE Prophylaxis VTE Prophylaxis Intervention: SCD's Lines/Catheters IV Catheter Type (from Nrs): Peripheral IV Assessment/Plan Chief Complaint/Hosp Course Patient complains of chest pain, and productive cough, denies fever, denies SOB. Assessment/Plan - Chest pain, will obtain troponin and twelve-lead EKG, chest x-ray. - Pseudomonas UTI, continue ceftazidime. - Myelofibrosis. Dr. 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 - Status post EGD and colonoscopy, with notion of gastritis gastritis and superficial duodenal ulcer per EGD and multiple polyps per colonoscopy, awaiting for the final path report. 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 Hall is following in gastroenterology consultation. - History of pulmonary embolism, continue Eliquis - Diabetes mellitus, hemoglobin A1c is 8.2. continue, Tradjenta, Lantus and NovoLog. - Hypertension, continue Cozaar. - Hyperlipidemia - BPH, status post TURP - Status post right hip replacement Further recommendations based on clinical course. Plan of care discussed with Dr. Seay. Problems: Exam/Review of Systems Vital Signs Vitals Vital Signs Date Time Temp Pulse Resp B/P Pulse Ox O2 Delivery O2 Flow Rate FiO2 08/21/16 07:46 98.0 87 18 160/77 96 08/19/16 19:35 Room Air 08/19/16 19:05 2.0 Intake and Output 08/20/16 08/20/16 08/21/16 15:00 23:00 07:00 Intake Total 1840 ml 1000 ml Output Total 1350 ml 600 ml Balance 490 ml 400 ml Exam Constitutional: alert, oriented Head: atraumatic, normocephalic Neck: supple Respiratory: clear Cardiovascular: nl pulses Gastrointestinal: non-tender, soft Extremities: edema, other Neurological: nl mental status Skin: nl turgor Results Result Diagram: 08/21/16 0640 08/21/16 0640 Results 24 hrs Laboratory Tests Test 08/20/16 16:58 08/20/16 21:24 08/20/16 22:35 08/21/16 06:40 Bedside Glucose 213 97 113 White Blood Count 6.2 Red Blood Count 2.92 L Hemoglobin 7.4 L Hematocrit 22.3 L Mean Corpuscular Volume 76.4 L Mean Corpuscular Hemoglobin 25.3 L Mean Corpuscular Hemoglobin Concent 33.2 Red Cell Distribution Width 25.0 H Platelet Count 259 # Mean Platelet Volume Neutrophils % 59.4 Lymphocytes % 15.9 Monocytes % 17.8 H Eosinophils % 0.5 Basophils % 0.8 Nucleated Red Blood Cells % 0.6 H Neutrophils # 3.7 Lymphocytes # 1.0 Monocytes # 1.1 H Eosinophils # 0.0 Basophils # 0.1 Nucleated Red Blood Cells # 0.0 Absolute Reticulocyte Count 0.020 Percent Reticulocyte Count 0.7 Sodium Level 133 L Potassium Level 3.5 Chloride Level 109 Carbon Dioxide Level 22 Anion Gap 6 L Blood Urea Nitrogen 16 Creatinine 0.67 Glucose Level 70 Calcium Level 8.6 Iron Level 22 L Total Iron Binding Capacity 192 L Percent Iron Saturation 11 L Ferritin 369.0 H Test 08/21/16 07:47 08/21/16 12:44 Bedside Glucose 84 207 Medications Medications Current Medications Acetaminophen 650 mg 650 mg Q6H PRN PO PAIN AND OR ELEVATED TEMP Last administered on 08/20/16 21:36; Admin Dose 650 MG; Start 08/07/16 at 21:30 Sodium Chloride (NS) 1,000 ml @ 60 mls/hr [id number] IV Last administered on 08/20 21:37; Admin Dose 60 MLS/HR; Start 08/07/16 at 21:30 Morphine Sulfate (morphine) 2 mg Q4H PRN IV severe pain Last administered on 02:18; Admin Dose 2 MG; Start 08/07/16 at 21:30 Acetaminophen/ Hydrocodone Bitart ([place] (5/325)) 1 tab Q6H PRN PO moderate pain Last administered on 08/21/16 02:10; Admin Dose 1 TAB; Start 08/07/16 at 21:30 Diagnostic Test (Pha) (Accu-Chek) 1 ea 02 XX Last administered on 08/18/16 02: 41; Admin Dose 1 EA; Start 08/08/16 at 02:00 Cholecalciferol (Vitamin D) 5,000 unit DAILY PO Last administered on 08/21/16 08:14; Admin Dose 5,000 UNIT; Start 08/08/16 at 09:00 Gabapentin (Neurontin) 300 mg DAILY PO Last administered on 08/21/16 08:14; Admin Dose 300 MG; Start 08/08/16 at 09:00 Lorazepam (Ativan) 1 mg HS PRN PO ANXIETY Last administered on 08/20/16 00:49 ; Admin Dose 1 MG; Start 08/07/16 at 21:30 Losartan Potassium (Cozaar) 50 mg DAILY PO Last administered on 08/21/16 08:14 ; Admin Dose 50 MG; Start 08/08/16 at 09:00 Linagliptin (Tradjenta) 5 mg DAILY PO Last administered on 08/21/16 08:14; Admin Dose 5 MG; Start 08/08/16 at 09:00 Lubiprostone (Amitiza) 24 mcg BID PO Last administered on 08/21/16 08:14; Admin Dose 24 MCG; Start 08/09/16 at 21:00 Miscellaneous Information 1 ea NOTE XX ; Start 08/13/16 at 15:30 Glucose (Glutose) 15 gm Q15M PRN PO DECREASED GLUCOSE; Start 08/13/16 at 15:30 Glucose (Glutose) 22.5 gm Q15M PRN PO DECREASED GLUCOSE; Start 08/13/16 at 15:30 Dextrose (D50w Syringe) 25 ml Q15M PRN IV DECREASED GLUCOSE; Start 08/13/16 at 15:30 Dextrose (D50w Syringe) 50 ml Q15M PRN IV DECREASED GLUCOSE; Start 08/13/16 at 15:30 Glucagon (Glucagen) 1 mg Q15M PRN IM DECREASED GLUCOSE; Start 08/13/16 at 15:30 Glucose 15 gm 15 gm Q15M PRN BUCCAL DECREASED GLUCOSE; Start 08/13/16 at 15:30 Ceftazidime (Fortaz 1gm/50 ml (Pmx)) 50 ml @ 100 mls/hr BID IVPB Last administered on 08/21/16 10:13; Admin Dose 100 MLS/HR; Start 08/16/16 at 21:00 Diphenhydramine HCl (Benadryl) 25 mg Q6H PRN PO ITCHING Last administered on 21:35; Admin Dose 25 MG; Start 08/17/16 at 20:30 Clotrimazole (Lotrimin Cr) 1 applic BID TOP Last administered on 08/21/16 08: 15; Admin Dose 1 APPLIC; Start 08/19/16 at 21:00 Guaifenesin/ Dextromethorphan (Robitussin Dm Liquid Cup) 10 ml Q6 PRN PO COUGH Last administered on 08/21/16 08:13; Admin Dose 10 ML; Start 08/20/16 at 07:00 Phenol (Cepastat Lozenge) 1 lozenge Q4H PRN MT COUGH Last administered on 12:51; Admin Dose 1 LOZENGE; Start 08/20/16 at 07:00 Insulin Glargine (Lantus) 20 unit DAILY@20 SC ; Start 08/21/16 at 20:00 IVONNE KEARNS Aug 21, 2016 14:57
--- NOTE | 2016-08-21 17:52 | CONS ---
Date/Time of Note Date/Time of Note DATE: 08/21/16 TIME: 17:51 Assessment/Plan Assessment/Plan Chief Complaint/Hosp Course This is a 76-year-old male with a history of diabetes mellitus hypertension lipid abnormality admitted to the hospital for thrombosis of the inferior vena cava. Patient complains of right lower quadrant abdominal pain and also significant weight loss. He lost 26 pounds over the. A few months and is chronically constipated. Patient denies of any kind of GI bleeding no nausea no vomiting no heartburn. No chest pain or shortness of breath. He has lost his appetite. Patient has umbrella in the inferior vena cava and also has a history of pulmonary embolism. He has a history of surgery on his knee and also on his hands. Problems: Additional Assessment/Plan Additional Assessment/Plan 1. Anemia microcytic, with few few blast cells: stool for occult blood negative 2. Thrombosis of the inferior vena cava 3. Weight loss of 26 pound 4. Abdominal pain right lower quadrant 5. Constipation 6. History of pulmonary embolism 7. Diabetes mellitus 8. Hypertension 9. Hyperlipidemia 10. Status post surgery on his knee and the hand Plan 1. discussed with Jose Martin Galindo ,pt,has myelofibrosis and also iron deficiency anemia 2. patient also say the same that Dr. Philippe wants to hold off on EGD and colonoscopy so I will do so. 3. will follow along with you 4. continue Amitiza for his constipation 5. EGD showed gastritis and also superficial duodenal ulcer and a colonoscopy showed multiple polyps in the cecum all were adjacent to each other and each polyp was 6-7 mm in diameter all were sessile in nature. Biopsies 3 biopsies obtained. Awaiting for the final path report Consultation Date/Type/Reason Admit Date/Time Aug 07, 2016 at 16:05 Initial Consult Date 08/10/16 Type of Consultation: GI Referring Provider: TEDDY RUVALCABA MD 24 HR Interval Summary Free Text/Dictation Complaints of left lower quadrant abdominal pain Constitutional: improved Exam/Review of Systems Vital Signs Vitals Vital Signs Date Time Temp Pulse Resp B/P Pulse Ox O2 Delivery O2 Flow Rate FiO2 08/21/16 07:46 98.0 87 18 160/77 96 08/19/16 19:35 Room Air 08/19/16 19:05 2.0 Intake and Output 08/20/16 08/20/16 08/21/16 15:00 23:00 07:00 Intake Total 1840 ml 1000 ml Output Total 1350 ml 600 ml Balance 490 ml 400 ml Exam Constitutional: alert, oriented, well developed Psych: nl mood/affect, no complaints Head: atraumatic, normocephalic Eyes: EOMI, PERRL, nl conjunctiva, nl lids, nl sclera ENMT: nl external ears & nose, nl lips & teeth, nl nasal mucosa & septum Neck: non-tender, supple Respiratory: clear to auscultation, normal air movement Cardiovascular: nl pulses, regular rate and rhythm Gastrointestinal: nl liver, spleen, non-tender, soft Musculoskeletal: nl extremities to inspection, nl gait and stance Extremities: normal pulses 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, nl mental status, nl speech, nl strength Skin: nl turgor, No rash or lesions Lymph: nl lymph nodes Results Result Diagram: 08/21/16 0640 08/21/16 0640 Results 24 hrs Laboratory Tests Test 08/20/16 21:24 08/20/16 22:35 08/21/16 06:40 08/21/16 07:47 Bedside Glucose 97 113 84 White Blood Count 6.2 Red Blood Count 2.92 L Hemoglobin 7.4 L Hematocrit 22.3 L Mean Corpuscular Volume 76.4 L Mean Corpuscular Hemoglobin 25.3 L Mean Corpuscular Hemoglobin Concent 33.2 Red Cell Distribution Width 25.0 H Platelet Count 259 # Mean Platelet Volume Neutrophils % 59.4 Lymphocytes % 15.9 Monocytes % 17.8 H Eosinophils % 0.5 Basophils % 0.8 Nucleated Red Blood Cells % 0.6 H Neutrophils # 3.7 Lymphocytes # 1.0 Monocytes # 1.1 H Eosinophils # 0.0 Basophils # 0.1 Nucleated Red Blood Cells # 0.0 Absolute Reticulocyte Count 0.020 Percent Reticulocyte Count 0.7 Sodium Level 133 L Potassium Level 3.5 Chloride Level 109 Carbon Dioxide Level 22 Anion Gap 6 L Blood Urea Nitrogen 16 Creatinine 0.67 Glucose Level 70 Calcium Level 8.6 Iron Level 22 L Total Iron Binding Capacity 192 L Percent Iron Saturation 11 L Ferritin 369.0 H Test 08/21/16 12:44 08/21/16 16:25 08/21/16 17:05 Bedside Glucose 207 202 Troponin I < 0.012 Medications Medications Current Medications Acetaminophen 650 mg 650 mg Q6H PRN PO PAIN AND OR ELEVATED TEMP Last administered on 08/20/16 21:36; Admin Dose 650 MG; Start 08/07/16 at 21:30 Sodium Chloride (NS) 1,000 ml @ 60 mls/hr [id number] IV Last administered on 08/20 21:37; Admin Dose 60 MLS/HR; Start 08/07/16 at 21:30 Morphine Sulfate (morphine) 2 mg Q4H PRN IV severe pain Last administered on 02:18; Admin Dose 2 MG; Start 08/07/16 at 21:30 Acetaminophen/ Hydrocodone Bitart ([place] (5/325)) 1 tab Q6H PRN PO moderate pain Last administered on 08/21/16 02:10; Admin Dose 1 TAB; Start 08/07/16 at 21:30 Diagnostic Test (Pha) (Accu-Chek) 1 ea 02 XX Last administered on 08/18/16 02: 41; Admin Dose 1 EA; Start 08/08/16 at 02:00 Cholecalciferol (Vitamin D) 5,000 unit DAILY PO Last administered on 08/21/16 08:14; Admin Dose 5,000 UNIT; Start 08/08/16 at 09:00 Gabapentin (Neurontin) 300 mg DAILY PO Last administered on 08/21/16 08:14; Admin Dose 300 MG; Start 08/08/16 at 09:00 Lorazepam (Ativan) 1 mg HS PRN PO ANXIETY Last administered on 08/20/16 00:49 ; Admin Dose 1 MG; Start 08/07/16 at 21:30 Losartan Potassium (Cozaar) 50 mg DAILY PO Last administered on 08/21/16 08:14 ; Admin Dose 50 MG; Start 08/08/16 at 09:00 Linagliptin (Tradjenta) 5 mg DAILY PO Last administered on 08/21/16 08:14; Admin Dose 5 MG; Start 08/08/16 at 09:00 Lubiprostone (Amitiza) 24 mcg BID PO Last administered on 08/21/16 08:14; Admin Dose 24 MCG; Start 08/09/16 at 21:00 Miscellaneous Information 1 ea NOTE XX ; Start 08/13/16 at 15:30 Glucose (Glutose) 15 gm Q15M PRN PO DECREASED GLUCOSE; Start 08/13/16 at 15:30 Glucose (Glutose) 22.5 gm Q15M PRN PO DECREASED GLUCOSE; Start 08/13/16 at 15:30 Dextrose (D50w Syringe) 25 ml Q15M PRN IV DECREASED GLUCOSE; Start 08/13/16 at 15:30 Dextrose (D50w Syringe) 50 ml Q15M PRN IV DECREASED GLUCOSE; Start 08/13/16 at 15:30 Glucagon (Glucagen) 1 mg Q15M PRN IM DECREASED GLUCOSE; Start 08/13/16 at 15:30 Glucose 15 gm 15 gm Q15M PRN BUCCAL DECREASED GLUCOSE; Start 08/13/16 at 15:30 Ceftazidime (Fortaz 1gm/50 ml (Pmx)) 50 ml @ 100 mls/hr BID IVPB Last administered on 08/21/16 10:13; Admin Dose 100 MLS/HR; Start 08/16/16 at 21:00 Diphenhydramine HCl (Benadryl) 25 mg Q6H PRN PO ITCHING Last administered on 21:35; Admin Dose 25 MG; Start 08/17/16 at 20:30 Clotrimazole (Lotrimin Cr) 1 applic BID TOP Last administered on 08/21/16 08: 15; Admin Dose 1 APPLIC; Start 08/19/16 at 21:00 Guaifenesin/ Dextromethorphan (Robitussin Dm Liquid Cup) 10 ml Q6 PRN PO COUGH Last administered on 08/21/16 17:03; Admin Dose 10 ML; Start 08/20/16 at 07:00 Phenol (Cepastat Lozenge) 1 lozenge Q4H PRN MT COUGH Last administered on 12:51; Admin Dose 1 LOZENGE; Start 08/20/16 at 07:00 Insulin Glargine (Lantus) 20 unit DAILY@20 SC ; Start 08/21/16 at 20:00 ANA VELASQUEZ MD Aug 21, 2016 17:52
--- NOTE | 2016-08-21 18:20 | RADRPT ---
PROCEDURE: XR Chest. CLINICAL INDICATION: Shortness of breath. TECHNIQUE: Single frontal view. COMPARISON: 08/14/2016. FINDINGS: There is bilateral interstitial disease with mid and lower lung zone predominance consistent with pu lmonary edema or bilateral pneumonia with right worse than left. The heart size is normal. There is no pleural effusion. There is no pneumothorax. IMPRESSION: 1. Bilateral pneumonia or pulmonary edema with right worse than left. 2. Otherwise unremarkable study. RPTAT: QQ .Juan Jose Soler MD, MD Date Time Electronically viewed and signed by .Juan Jose Soler MD, MD on 08/21/2016 18:19 .R/
[2016-08-21] MEDS ORDERED: VANCOMYCIN IV PER PHARMACY XX SCH (19:00)
[2016-08-21 19:56] VITALS: BP 147/66; RESP 18
[2016-08-21] MEDS: ACETAMINOPHEN 325 MG TAB PO PRN (20:28)
[2016-08-21] MEDS: INSULIN GLARGINE [LANtus] 3 ML PEN SC SCH (20:53)
[2016-08-21] MEDS ORDERED: VANCOMYCIN 1.5 GM in SOD CHLORIDE 0.9% 250 ML IVPB SCH (21:00)
[2016-08-21] MEDS: ZOLPIDEM 5 MG TAB PO PRN (23:12)
[2016-08-22] MEDS: ACCU-CHEK XX SCH (02:03)
[2016-08-22 03:28] VITALS: BP 130/64; RESP 20
[2016-08-22] MEDS: CEPASTAT LOZENGE MT PRN ×2 (06:28→18:57)
[2016-08-22 06:33] LABS: ADD SCAN DIFF NO
[2016-08-22 06:35] LABS: ABNORMAL IP MESSAGE 1; BASOPHILS % 0.6 % (0.0-2.0); HEMATOCRIT 22.7 % (42.0-52.0); HEMOGLOBIN 7.3 g/dl (14.0-18.0); LYMPHOCYTES # 1.1 10^3/ul (0.8-2.9); LYMPHOCYTES % 17.3 % (15.0-51.0); MEAN CORPUSCULAR HEMOGLOBIN 24.8 pg (29.0-33.0); MEAN CORPUSCULAR HGB CONC 32.2 g/dl (32.0-37.0); MEAN CORPUSCULAR VOLUME 77.2 fl (82.0-101.0); MONOCYTES % 15.7 % (0.0-11.0); NEUTROPHIL # 3.8 10^3/ul (1.6-7.5); NEUTROPHILS % 61.4 % (39.0-77.0); NUCLEATED RED BLOOD CELLS # 0.1 10^3/ul (0.0-0.0); NUCLEATED RED BLOOD CELLS% 0.8 /100WBC (0.0-0.0); PLATELET COUNT 240 10^3/UL (140-415); RED BLOOD COUNT 2.94 10^6/ul (4.70-6.10); RED CELL DISTRIBUTION WIDTH 25.2 % (11.5-14.5); WHITE BLOOD COUNT 6.2 10^3/ul (4.8-10.8)
[2016-08-22 07:04] LABS: CALCIUM 8.4 mg/dl (8.4-10.2); CREATININE 0.64 mg/dl (0.61-1.24); POTASSIUM 3.5 mmol/L (3.5-5.1)
[2016-08-22 07:44] VITALS: BP 138/65; RESP 18
[2016-08-22] MEDS: INSULIN ASPART [NOVOLOG] 3 ML PEN SC SCH ×7 (08:15→20:39)
[2016-08-22] MEDS: LUBIPROSTONE 24 MCG CAP PO SCH ×2 (08:20→20:25)
[2016-08-22] MEDS: LINAGLIPTIN 5 MG TABLET PO SCH (08:20)
[2016-08-22] MEDS: LOSARTAN 50 MG TAB PO SCH (08:20)
[2016-08-22] MEDS: GABAPENTIN 300 MG CAP PO SCH (08:20)
[2016-08-22] MEDS: CHOLECALCIFEROL 1,000 UNIT TAB PO SCH (08:21)
[2016-08-22] MEDS: CLOTRIMAZOLE 1% 30 GM CR TOP SCH ×3 (09:00→22:02)
[2016-08-22] MEDS ORDERED: VANCOMYCIN 1 GM in NS 250 ML IVPB SCH (10:00)
[2016-08-22] MEDS: VANCOMYCIN 1.25 GM in SOD CHLORIDE 0.9% 250 ML IVPB SCH ×2 (10:12→22:22)
[2016-08-22] MEDS: SOD CHLORIDE 0.9% 1,000 ML IV SCH (11:30)
--- NOTE | 2016-08-22 12:03 | CONS ---
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 Patient complains of right lower quadrant abdominal pain and also significant weight loss. He lost 26 pounds over the. A few months and is chronically constipated. Patient denies of any kind of GI bleeding no nausea no vomiting no heartburn. No chest pain or shortness of breath. He has lost his appetite. Patient has umbrella in the inferior vena cava and also has a history of pulmonary embolism. He has a history of surgery on his knee and also on his hands. Problems: Additional Assessment/Plan Additional Assessment/Plan 1. Anemia microcytic, with few few blast cells: stool for occult blood negative 2. Thrombosis of the inferior vena cava 3. Weight loss of 26 pound 4. Abdominal pain right lower quadrant 5. Constipation 6. History of pulmonary embolism 7. Diabetes mellitus 8. Hypertension 9. Hyperlipidemia 10. Status post surgery on his knee and the hand Plan 1. discussed with Jose Martin Galindo ,pt,has myelofibrosis and also iron deficiency anemia 2. patient also say the same that Dr. Philippe wants to hold off on EGD and colonoscopy so I will do so. 3. will follow along with you 4. continue Amitiza for his constipation 5. EGD showed gastritis and also superficial duodenal ulcer and a colonoscopy showed multiple polyps in the cecum all were adjacent to each other and each polyp was 6-7 mm in diameter all were sessile in nature. Biopsies 3 biopsies obtained. final path report, cecal biopsies showed adenomatous polyp no dysplasia. EGD biopsy showed gastritis no Helicobacter pylori Consultation Date/Type/Reason Admit Date/Time Aug 07, 2016 at 16:05 Initial Consult Date 08/10/16 Type of Consultation: GI Referring Provider: TEDDY RUVALCABA MD 24 HR Interval Summary Free Text/Dictation Upper back pain Constitutional: improved Exam/Review of Systems Vital Signs Vitals Vital Signs Date Time Temp Pulse Resp B/P Pulse Ox O2 Delivery O2 Flow Rate FiO2 08/22/16 07:44 98.3 85 18 138/65 95 08/19/16 19:35 Room Air 08/19/16 19:05 2.0 Intake and Output 08/21/16 08/21/16 08/22/16 15:00 23:00 07:00 Intake Total 1230 ml 1260 ml Output Total 700 ml 650 ml Balance 530 ml 610 ml Exam Constitutional: alert, oriented, well developed Psych: nl mood/affect, no complaints Head: atraumatic, normocephalic Eyes: EOMI, PERRL, nl conjunctiva, nl lids, nl sclera ENMT: nl external ears & nose, nl lips & teeth, nl nasal mucosa & septum Neck: non-tender, supple Respiratory: clear to auscultation, normal air movement Cardiovascular: nl pulses, regular rate and rhythm Gastrointestinal: nl liver, spleen, non-tender, soft Musculoskeletal: nl extremities to inspection, nl gait and stance Extremities: normal pulses Neurological: HAND BUTTON SPLITTER II-XII intact, nl mental status, nl speech, nl strength Skin: nl turgor, No rash or lesions Lymph: nl lymph nodes Results Result Diagram: 08/22/16 0544 08/22/16 0544 Results 24 hrs Laboratory Tests Test 08/21/16 12:44 08/21/16 16:25 08/21/16 17:05 08/21/16 20:48 Bedside Glucose 207 202 102 Troponin I < 0.012 Test 08/22/16 05:44 08/22/16 07:49 White Blood Count 6.2 Red Blood Count 2.94 L Hemoglobin 7.3 L Hematocrit 22.7 L Mean Corpuscular Volume 77.2 L Mean Corpuscular Hemoglobin 24.8 L Mean Corpuscular Hemoglobin Concent 32.2 Red Cell Distribution Width 25.2 H Platelet Count 240 Mean Platelet Volume Neutrophils % 61.4 Lymphocytes % 17.3 Monocytes % 15.7 H Eosinophils % 0.0 Basophils % 0.6 Nucleated Red Blood Cells % 0.8 H Neutrophils # 3.8 Lymphocytes # 1.1 Monocytes # 1.0 H Eosinophils # 0.0 Basophils # 0.0 Nucleated Red Blood Cells # 0.1 H Sodium Level 131 L Potassium Level 3.5 Chloride Level 108 Carbon Dioxide Level 22 Anion Gap 5 L Blood Urea Nitrogen 15 Creatinine 0.64 Glucose Level 115 # Calcium Level 8.4 Bedside Glucose 129 Medications Medications Current Medications Acetaminophen 650 mg 650 mg Q6H PRN PO PAIN AND OR ELEVATED TEMP Last administered on 08/21/16t 20:28; Admin Dose 650 MG; Start 08/07/16 at 21:30 Sodium Chloride (NS) 1,000 ml @ 60 mls/hr [id number] IV Last administered on 08/21 20:50; Admin Dose 60 MLS/HR; Start 08/07/16 at 21:30 Morphine Sulfate (morphine) 2 mg Q4H PRN IV severe pain Last administered on 02:18; Admin Dose 2 MG; Start 08/07/16 at 21:30 Acetaminophen/ Hydrocodone Bitart ([place] (5/325)) 1 tab Q6H PRN PO moderate pain Last administered on 08/21/16 18:18; Admin Dose 1 TAB; Start 08/07/16 at 21:30 Diagnostic Test (Pha) (Accu-Chek) 1 ea 02 XX Last administered on 08/22/16 02: 03; Admin Dose 1 EA; Start 08/08/16 at 02:00 Cholecalciferol (Vitamin D) 5,000 unit DAILY PO Last administered on 08/22/16 08:21; Admin Dose 5,000 UNIT; Start 08/08/16 at 09:00 Gabapentin (Neurontin) 300 mg DAILY PO Last administered on 08/22/16 08:20; Admin Dose 300 MG; Start 08/08/16 at 09:00 Lorazepam (Ativan) 1 mg HS PRN PO ANXIETY Last administered on 08/20/16 00:49 ; Admin Dose 1 MG; Start 08/07/16 at 21:30 Losartan Potassium (Cozaar) 50 mg DAILY PO Last administered on 08/22/16 08:20 ; Admin Dose 50 MG; Start 08/08/16 at 09:00 Linagliptin (Tradjenta) 5 mg DAILY PO Last administered on 08/22/16 08:20; Admin Dose 5 MG; Start 08/08/16 at 09:00 Lubiprostone (Amitiza) 24 mcg BID PO Last administered on 08/22/16 08:20; Admin Dose 24 MCG; Start 08/09/16 at 21:00 Miscellaneous Information 1 ea NOTE XX ; Start 08/13/16 at 15:30 Glucose (Glutose) 15 gm Q15M PRN PO DECREASED GLUCOSE; Start 08/13/16 at 15:30 Glucose (Glutose) 22.5 gm Q15M PRN PO DECREASED GLUCOSE; Start 08/13/16 at 15:30 Dextrose (D50w Syringe) 25 ml Q15M PRN IV DECREASED GLUCOSE; Start 08/13/16 at 15:30 Dextrose (D50w Syringe) 50 ml Q15M PRN IV DECREASED GLUCOSE; Start 08/13/16 at 15:30 Glucagon (Glucagen) 1 mg Q15M PRN IM DECREASED GLUCOSE; Start 08/13/16 at 15:30 Glucose (Glutose) 15 gm Q15M PRN BUCCAL DECREASED GLUCOSE; Start 08/13/16 at 15: 30 Diphenhydramine HCl (Benadryl) 25 mg Q6H PRN PO ITCHING Last administered on 21:35; Admin Dose 25 MG; Start 08/17/16 at 20:30 Clotrimazole (Lotrimin Cr) 1 applic BID TOP Last administered on 08/22/16 09: 00; Admin Dose 1 APPLIC; Start 08/19/16 at 21:00 Guaifenesin/ Dextromethorphan (Robitussin Dm Liquid Cup) 10 ml Q6 PRN PO COUGH Last administered on 08/21/16 23:06; Admin Dose 10 ML; Start 08/20/16 at 07:00 Phenol (Cepastat Lozenge) 1 lozenge Q4H PRN MT COUGH Last administered on 06:28; Admin Dose 1 LOZENGE; Start 08/20/16 at 07:00 Insulin Glargine 20 unit 20 unit DAILY@20 SC Last administered on 08/21/16 20: 53; Admin Dose 20 UNIT; Start 08/21/16 at 20:00 Vancomycin HCl/ Sodium Chloride (Vancocin/NS) 250 ml @ 83.333 mls/ hr Q12H IVPB Last administered on 08/22/16 10:12; Admin Dose 83.333 MLS/HR; Start at 10:00 Miscellaneous Information (*Rx Drug Level Order Reminder*) VANCO TROUGH @ 0, 900 ON... ONCE ONCE XX ; Start 08/23/16 at 09:00; Stop 08/23/16 at 09:01 ANA VELASQUEZ MD Aug 22, 2016 12:02
[2016-08-22] MEDS: GUAIFENESIN/DM 5ML CUP PO PRN ×2 (12:52→18:57)
--- NOTE | 2016-08-22 13:03 | PN ---
Date/Time of Note Date/Time of Note DATE: 08/22/16 TIME: 12:59 Assessment/Plan Lines/Catheters IV Catheter Type (from Nrsg): Peripheral IV Assessment/Plan Assessment/Plan - Chest pain, will obtain troponin and twelve-lead EKG, chest x-ray. - Pseudomonas UTI, continue ceftazidime. - Myelofibrosis. Dr. 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 - Status post EGD and colonoscopy, with notion of gastritis gastritis and superficial duodenal ulcer per EGD and multiple polyps per colonoscopy, awaiting for the final path report. 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 Hall is following in gastroenterology consultation. - History of pulmonary embolism, continue Eliquis - Diabetes mellitus, hemoglobin A1c is 8.2. continue, Tradjenta, Lantus and NovoLog. - Hypertension, continue Cozaar. - Hyperlipidemia - BPH, status post TURP - Status post right hip replacement Further recommendations based on clinical course. Plan of care discussed with Dr. Seay. Subjective 24 Hr Interval Summary Respiratory: no complaints Cardiovascular: no complaints Gastrointestinal: no complaints Genitourinary: other Exam/Review of Systems Vital Signs Vitals Vital Signs Date Time Temp Pulse Resp B/P Pulse Ox O2 Delivery O2 Flow Rate FiO2 08/22/16 07:44 98.3 85 18 138/65 95 08/19/16 19:35 Room Air 08/19/16 19:05 2.0 Intake and Output 08/21/16 08/21/16 08/22/16 15:00 23:00 07:00 Intake Total 1230 ml 1260 ml Output Total 700 ml 650 ml Balance 530 ml 610 ml Exam Constitutional: alert, oriented Respiratory: clear to auscultation, normal air movement Cardiovascular: nl pulses, regular rate and rhythm Gastrointestinal: non-tender, soft Genitourinary - Male: other Neurological: nl mental status, nl speech Results Result Diagram: 08/22/16 0544 08/22/16 0544 Results 24 hrs Laboratory Tests Test 08/21/16 16:25 08/21/16 17:05 08/21/16 20:48 08/22/16 05:44 Troponin I < 0.012 Bedside Glucose 202 102 White Blood Count 6.2 Red Blood Count 2.94 L Hemoglobin 7.3 L Hematocrit 22.7 L Mean Corpuscular Volume 77.2 L Mean Corpuscular Hemoglobin 24.8 L Mean Corpuscular Hemoglobin Concent 32.2 Red Cell Distribution Width 25.2 H Platelet Count 240 Mean Platelet Volume Neutrophils % 61.4 Lymphocytes % 17.3 Monocytes % 15.7 H Eosinophils % 0.0 Basophils % 0.6 Nucleated Red Blood Cells % 0.8 H Neutrophils # 3.8 Lymphocytes # 1.1 Monocytes # 1.0 H Eosinophils # 0.0 Basophils # 0.0 Nucleated Red Blood Cells # 0.1 H Sodium Level 131 L Potassium Level 3.5 Chloride Level 108 Carbon Dioxide Level 22 Anion Gap 5 L Blood Urea Nitrogen 15 Creatinine 0.64 Glucose Level 115 # Calcium Level 8.4 Test 08/22/16 07:49 08/22/16 12:16 Bedside Glucose 129 129 Medications Medications Current Medications Acetaminophen 650 mg 650 mg Q6H PRN PO PAIN AND OR ELEVATED TEMP Last administered on 08/21/16 20:28; Admin Dose 650 MG; Start 08/07/16 at 21:30 Sodium Chloride (NS) 1,000 ml @ 60 mls/hr [id number] IV Last administered on 08/21 20:50; Admin Dose 60 MLS/HR; Start 08/07/16 at 21:30 Morphine Sulfate (morphine) 2 mg Q4H PRN IV severe pain Last administered on 02:18; Admin Dose 2 MG; Start 08/07/16 at 21:30 Acetaminophen/ Hydrocodone Bitart ([place] (5/325)) 1 tab Q6H PRN PO moderate pain Last administered on 08/21/16 18:18; Admin Dose 1 TAB; Start 08/07/16 at 21:30 Diagnostic Test (Pha) (Accu-Chek) 1 ea 02 XX Last administered on 08/22/16 02: 03; Admin Dose 1 EA; Start 08/08/16 at 02:00 Cholecalciferol (Vitamin D) 5,000 unit DAILY PO Last administered on 08/22/16 08:21; Admin Dose 5,000 UNIT; Start 08/08/16 at 09:00 Gabapentin (Neurontin) 300 mg DAILY PO Last administered on 08/22/16 08:20; Admin Dose 300 MG; Start 08/08/16 at 09:00 Lorazepam (Ativan) 1 mg HS PRN PO ANXIETY Last administered on 08/20/16 00:49 ; Admin Dose 1 MG; Start 08/07/16 at 21:30 Losartan Potassium (Cozaar) 50 mg DAILY PO Last administered on 08/22/16 08:20 ; Admin Dose 50 MG; Start 08/08/16 at 09:00 Linagliptin (Tradjenta) 5 mg DAILY PO Last administered on 08/22/16 08:20; Admin Dose 5 MG; Start 08/08/16 at 09:00 Lubiprostone (Amitiza) 24 mcg BID PO Last administered on 08/22/16 08:20; Admin Dose 24 MCG; Start 08/09/16 at 21:00 Miscellaneous Information 1 ea NOTE XX ; Start 08/13/16 at 15:30 Glucose (Glutose) 15 gm Q15M PRN PO DECREASED GLUCOSE; Start 08/13/16 at 15:30 Glucose (Glutose) 22.5 gm Q15M PRN PO DECREASED GLUCOSE; Start 08/13/16 at 15:30 Dextrose (D50w Syringe) 25 ml Q15M PRN IV DECREASED GLUCOSE; Start 08/13/16 at 15:30 Dextrose (D50w Syringe) 50 ml Q15M PRN IV DECREASED GLUCOSE; Start 08/13/16 at 15:30 Glucagon (Glucagen) 1 mg Q15M PRN IM DECREASED GLUCOSE; Start 08/13/16 at 15:30 Glucose (Glutose) 15 gm Q15M PRN BUCCAL DECREASED GLUCOSE; Start 08/13/16 at 15: 30 Diphenhydramine HCl (Benadryl) 25 mg Q6H PRN PO ITCHING Last administered on 21:35; Admin Dose 25 MG; Start 08/17/16 at 20:30 Clotrimazole (Lotrimin Cr) 1 applic BID TOP Last administered on 08/22/16 09: 00; Admin Dose 1 APPLIC; Start 08/19/16 at 21:00 Guaifenesin/ Dextromethorphan (Robitussin Dm Liquid Cup) 10 ml Q6 PRN PO COUGH Last administered on 08/22/16 12:52; Admin Dose 10 ML; Start 08/20/16 at 07:00 Phenol (Cepastat Lozenge) 1 lozenge Q4H PRN MT COUGH Last administered on 06:28; Admin Dose 1 LOZENGE; Start 08/20/16 at 07:00 Insulin Glargine 20 unit 20 unit DAILY@20 SC Last administered on 08/21/16 20: 53; Admin Dose 20 UNIT; Start 08/21/16 at 20:00 Vancomycin HCl/ Sodium Chloride (Vancocin/NS) 250 ml @ 83.333 mls/ hr Q12H IVPB Last administered on 08/22/16 10:12; Admin Dose 83.333 MLS/HR; Start at 10:00 Miscellaneous Information (*Rx Drug Level Order Reminder*) VANCO TROUGH @ 0, 900 ON... ONCE ONCE XX ; Start 08/23/16 at 09:00; Stop 08/23/16 at 09:01 POLA CISNEROS Aug 22, 2016 13:03
--- NOTE | 2016-08-22 13:09 | RADRPT ---
PROCEDURE: CT Chest without contrast. CLINICAL INDICATION: Chest pain. Cough and pneumonia.. TECHNIQUE: Multiple contiguous helical CT images of the chest were obtained without the administra tion of intravenous contrast. Coronal and sagittal reformatted images were obtained from the source images. CTDIvol (mGy): 11.86; Total Exam DLP (mGy-cm): 452.40. One or more of the following dose reduction techniques were utilized: - Automated exposure control. - Adjustment of the mA and/or kV according to patient size. - Use of iterative reconstruction technique. COMPARISON: Chest x-ray 08/21/2016. FINDINGS: Limited imaging of the lower neck is unremarkable. The heart is not enlarged. Trace pericardial fluid is observed. There is no bulky mediastinal, hil ar or axillary lymphadenopathy. However, multiple small and prominent lymph nodes are seen throughou t the mediastinum and may be reactive in nature. The thoracic aorta is normal in caliber. Mild aorti c arch atherosclerotic calcification is present. Coronary artery calcifications are observed. The p ulmonary arteries are not enlarged. Moderate large layering bilateral pleural effusions are present. Consolidation is seen within the d ependent portions of the bilateral lower lobes. Mild smooth interstitial thickening is seen within the upper and lower lungs. Mild patchy ground-glass opacification is seen within the aerated portio ns of the lungs. Diffuse bronchial wall thickening is observed. Limited imaging of the upper abdomen is unremarkable. Skeletal structures are unremarkable. Chest wall soft tissues are unremarkable. IMPRESSION: Moderate large layering bilateral pleural effusions. Dependent consolidation is seen within the luis g bases and may be partially due to atelectasis. Mild smooth interstitial thickening within the upper and lower lungs suggesting sequelae of mild int erstitial edema. RPTAT: HLST .Ami Amos MD, MD Date Time Electronically viewed and signed by .Ami Amos MD, MD on 08/22/2016 13:08 .T/
--- NOTE | 2016-08-22 13:25 | PN ---
Date/Time of Note Date/Time of Note DATE: 08/22/16 TIME: 13:21 Assessment/Plan VTE Prophylaxis VTE Prophylaxis Intervention: ambulation Lines/Catheters IV Catheter Type (from Nrsg): Peripheral IV Assessment/Plan Assessment/Plan Pt found to have myelofibrosis and SABRINA-2 positivity. He may be a candidate for Jakafi once discharged. In the short run he may need transfusion if Hgb <7. Doubt UTI now but will request UA and urine culture. Subjective 24 Hr Interval Summary Free Text/Dictation Pt isw stable but c/o penile swelling. No real dysuria Exam/Review of Systems Vital Signs Vitals Vital Signs Date Time Temp Pulse Resp B/P Pulse Ox O2 Delivery O2 Flow Rate FiO2 08/22/16 07:44 98.3 85 18 138/65 95 08/19/16 19:35 Room Air 08/19/16 19:05 2.0 Intake and Output 08/21/16 08/21/16 08/22/16 15:00 23:00 07:00 Intake Total 1230 ml 1260 ml Output Total 700 ml 650 ml Balance 530 ml 610 ml Exam Constitutional: alert, oriented Eyes: other (pallor) Neck: supple Respiratory: clear to auscultation Cardiovascular: regular rate and rhythm Gastrointestinal: soft Genitourinary - Male: other (slight penile swelling but no pus or redness) Results Result Diagram: 08/22/16 0544 08/22/16 0544 Results 24 hrs Laboratory Tests Test 08/21/16 16:25 08/21/16 17:05 08/21/16 20:48 08/22/16 05:44 Troponin I < 0.012 Bedside Glucose 202 102 White Blood Count 6.2 Red Blood Count 2.94 L Hemoglobin 7.3 L Hematocrit 22.7 L Mean Corpuscular Volume 77.2 L Mean Corpuscular Hemoglobin 24.8 L Mean Corpuscular Hemoglobin Concent 32.2 Red Cell Distribution Width 25.2 H Platelet Count 240 Mean Platelet Volume Neutrophils % 61.4 Lymphocytes % 17.3 Monocytes % 15.7 H Eosinophils % 0.0 Basophils % 0.6 Nucleated Red Blood Cells % 0.8 H Neutrophils # 3.8 Lymphocytes # 1.1 Monocytes # 1.0 H Eosinophils # 0.0 Basophils # 0.0 Nucleated Red Blood Cells # 0.1 H Sodium Level 131 L Potassium Level 3.5 Chloride Level 108 Carbon Dioxide Level 22 Anion Gap 5 L Blood Urea Nitrogen 15 Creatinine 0.64 Glucose Level 115 # Calcium Level 8.4 Test 08/22/16 07:49 08/22/16 12:16 Bedside Glucose 129 129 Medications Medications Current Medications Acetaminophen 650 mg 650 mg Q6H PRN PO PAIN AND OR ELEVATED TEMP Last administered on 08/21/16 20:28; Admin Dose 650 MG; Start 08/07/16 at 21:30 Sodium Chloride (NS) 1,000 ml @ 60 mls/hr [id number] IV Last administered on 08/21 20:50; Admin Dose 60 MLS/HR; Start 08/07/16 at 21:30 Morphine Sulfate (morphine) 2 mg Q4H PRN IV severe pain Last administered on 02:18; Admin Dose 2 MG; Start 08/07/16 at 21:30 Acetaminophen/ Hydrocodone Bitart ([place] (5/325)) 1 tab Q6H PRN PO moderate pain Last administered on 08/21/16 18:18; Admin Dose 1 TAB; Start 08/07/16 at 21:30 Diagnostic Test (Pha) (Accu-Chek) 1 ea 02 XX Last administered on 08/22/16 02: 03; Admin Dose 1 EA; Start 08/08/16 at 02:00 Cholecalciferol (Vitamin D) 5,000 unit DAILY PO Last administered on 08/22/16 08:21; Admin Dose 5,000 UNIT; Start 08/08/16 at 09:00 Gabapentin (Neurontin) 300 mg DAILY PO Last administered on 08/22/16 08:20; Admin Dose 300 MG; Start 08/08/16 at 09:00 Lorazepam (Ativan) 1 mg HS PRN PO ANXIETY Last administered on 08/20/16 00:49 ; Admin Dose 1 MG; Start 08/07/16 at 21:30 Losartan Potassium (Cozaar) 50 mg DAILY PO Last administered on 08/22/16 08:20 ; Admin Dose 50 MG; Start 08/08/16 at 09:00 Linagliptin (Tradjenta) 5 mg DAILY PO Last administered on 08/22/16 08:20; Admin Dose 5 MG; Start 08/08/16 at 09:00 Lubiprostone (Amitiza) 24 mcg BID PO Last administered on 08/22/16 08:20; Admin Dose 24 MCG; Start 08/09/16 at 21:00 Miscellaneous Information 1 ea NOTE XX ; Start 08/13/16 at 15:30 Glucose (Glutose) 15 gm Q15M PRN PO DECREASED GLUCOSE; Start 08/13/16 at 15:30 Glucose (Glutose) 22.5 gm Q15M PRN PO DECREASED GLUCOSE; Start 08/13/16 at 15:30 Dextrose (D50w Syringe) 25 ml Q15M PRN IV DECREASED GLUCOSE; Start 08/13/16 at 15:30 Dextrose (D50w Syringe) 50 ml Q15M PRN IV DECREASED GLUCOSE; Start 08/13/16 at 15:30 Glucagon (Glucagen) 1 mg Q15M PRN IM DECREASED GLUCOSE; Start 08/13/16 at 15:30 Glucose (Glutose) 15 gm Q15M PRN BUCCAL DECREASED GLUCOSE; Start 08/13/16 at 15: 30 Diphenhydramine HCl (Benadryl) 25 mg Q6H PRN PO ITCHING Last administered on 21:35; Admin Dose 25 MG; Start 08/17/16 at 20:30 Clotrimazole (Lotrimin Cr) 1 applic BID TOP Last administered on 08/22/16 09: 00; Admin Dose 1 APPLIC; Start 08/19/16 at 21:00 Guaifenesin/ Dextromethorphan (Robitussin Dm Liquid Cup) 10 ml Q6 PRN PO COUGH Last administered on 08/22/16 12:52; Admin Dose 10 ML; Start 08/20/16 at 07:00 Phenol (Cepastat Lozenge) 1 lozenge Q4H PRN MT COUGH Last administered on 06:28; Admin Dose 1 LOZENGE; Start 08/20/16 at 07:00 Insulin Glargine 20 unit 20 unit DAILY@20 SC Last administered on 08/21/16 20: 53; Admin Dose 20 UNIT; Start 08/21/16 at 20:00 Vancomycin HCl/ Sodium Chloride (Vancocin/NS) 250 ml @ 83.333 mls/ hr Q12H IVPB Last administered on 08/22/16 10:12; Admin Dose 83.333 MLS/HR; Start at 10:00 Miscellaneous Information (*Rx Drug Level Order Reminder*) VANCO TROUGH @ 0, 900 ON... ONCE ONCE XX ; Start 08/23/16 at 09:00; Stop 08/23/16 at 09:01 HENRY FLAHERTY MD Aug 22, 2016 13:25
[2016-08-22 14:38] VITALS: BP 148/68; RESP 18
--- NOTE | 2016-08-22 16:33 | RADRPT ---
Vent Rate: 98 bpm RR Interval: 0 msec RI Interval: 144 msec QRS Duration: 76 msec QT Interval: 346 msec QTC Interval: 441 msec P-R-T [place]: 73 - 89 - 80 degrees Normal sinus rhythm Normal ECG Electronically Signed By: Felix Head [id number]
[2016-08-22] MEDS: ZOLPIDEM 5 MG TAB PO PRN (20:24)
[2016-08-22] MEDS: LORAZEPAM 1 MG TAB PO PRN (20:25)
[2016-08-22] MEDS: HYDROCODONE/APAP (5/325) TAB PO PRN (20:25)
[2016-08-22] MEDS: ACETAMINOPHEN 325 MG TAB PO PRN (20:27)
[2016-08-22] MEDS: INSULIN GLARGINE [LANtus] 3 ML PEN SC SCH (20:39)
[2016-08-22 20:49] VITALS: BP 156/70; RESP 18
[2016-08-23] MEDS: ACCU-CHEK XX SCH (02:00)
[2016-08-23] MEDS: SOD CHLORIDE 0.9% 1,000 ML IV SCH ×2 (02:38→20:50)
[2016-08-23 02:59] VITALS: BP 143/67; RESP 18
[2016-08-23 06:08] LABS: ADD SCAN DIFF NO
[2016-08-23 06:56] LABS: CALCIUM 8.1 mg/dl (8.4-10.2); CREATININE 0.66 mg/dl (0.61-1.24); POTASSIUM 3.4 mmol/L (3.5-5.1)
[2016-08-23 07:36] VITALS: BP 140/63; RESP 18
[2016-08-23] MEDS: INSULIN ASPART [NOVOLOG] 3 ML PEN SC SCH ×7 (08:01→21:00)
[2016-08-23 09:04] LABS: ABNORMAL IP MESSAGE 1; BASOPHILS % 0.6 % (0.0-2.0); HEMATOCRIT 22.5 % (42.0-52.0); HEMOGLOBIN 7.1 g/dl (14.0-18.0); LYMPHOCYTES % 18.5 % (15.0-51.0); MEAN CORPUSCULAR HEMOGLOBIN 24.7 pg (29.0-33.0); MEAN CORPUSCULAR HGB CONC 31.6 g/dl (32.0-37.0); MEAN CORPUSCULAR VOLUME 78.1 fl (82.0-101.0); MONOCYTE # 0.9 10^3/ul (0.3-0.9); MONOCYTES % 16.4 % (0.0-11.0); NEUTROPHIL # 3.2 10^3/ul (1.6-7.5); NUCLEATED RED BLOOD CELLS% 0.7 /100WBC (0.0-0.0); PLATELET COUNT 263 10^3/UL (140-415); RED BLOOD COUNT 2.88 10^6/ul (4.70-6.10); RED CELL DISTRIBUTION WIDTH 25.5 % (11.5-14.5); WHITE BLOOD COUNT 5.4 10^3/ul (4.8-10.8)
[2016-08-23] MEDS: LINAGLIPTIN 5 MG TABLET PO SCH (09:15)
[2016-08-23] MEDS: LOSARTAN 50 MG TAB PO SCH ×2 (09:15→21:58)
[2016-08-23] MEDS: LUBIPROSTONE 24 MCG CAP PO SCH ×2 (09:15→21:57)
[2016-08-23] MEDS: CEPASTAT LOZENGE MT PRN ×3 (09:15→18:53)
[2016-08-23] MEDS: GABAPENTIN 300 MG CAP PO SCH (09:15)
[2016-08-23] MEDS: CHOLECALCIFEROL 1,000 UNIT TAB PO SCH (09:15)
[2016-08-23] MEDS: CLOTRIMAZOLE 1% 30 GM CR TOP SCH ×2 (09:16→21:56)
--- NOTE | 2016-08-23 11:14 | PN ---
Date/Time of Note Date/Time of Note DATE: 08/23/16 TIME: 11:09 Assessment/Plan VTE Prophylaxis VTE Prophylaxis Intervention: other (per primary MD) Lines/Catheters IV Catheter Type (from Nrs): Peripheral IV Assessment/Plan Assessment/Plan Pt is ambivalent about blood transfusion since he is not symptomatic. Hgb is 7.1, however. I would monitor and transfuse if he will accept it. Note that there was no evidence of malignancy from the EGD but he did have gastritis and an ulcer in the duodenum. 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 Subjective 24 Hr Interval Summary Free Text/Dictation Pt is clinically stable. No bleeding. Exam/Review of Systems Vital Signs Vitals Vital Signs Date Time Temp Pulse Resp B/P Pulse Ox O2 Delivery O2 Flow Rate FiO2 08/23/16 07:36 98.0 83 18 140/63 93 08/19/16 19:35 Room Air 08/19/16 19:05 2.0 Intake and Output 08/22/16 08/22/16 08/23/16 15:00 23:00 07:00 Intake Total 450 ml 1100 ml 1030 ml Output Total 900 ml 640 ml Balance 450 ml 200 ml 390 ml Exam Constitutional: alert, oriented Head: normocephalic Eyes: other (pallor) Neck: supple Respiratory: clear to auscultation Cardiovascular: regular rate and rhythm Gastrointestinal: non-tender, soft Results Result Diagram: 08/23/16 0548 08/23/16 0548 Results 24 hrs Laboratory Tests Test 08/22/16 12:16 08/22/16 17:25 08/22/16 20:22 08/23/16 02:36 Bedside Glucose 129 165 196 150 Test 08/23/16 05:48 08/23/16 07:59 08/23/16 09:45 White Blood Count 5.4 Red Blood Count 2.88 L Hemoglobin 7.1 L Hematocrit 22.5 L Mean Corpuscular Volume 78.1 L Mean Corpuscular Hemoglobin 24.7 L Mean Corpuscular Hemoglobin Concent 31.6 L Red Cell Distribution Width 25.5 H Platelet Count 263 Mean Platelet Volume Neutrophils % 58.0 Lymphocytes % 18.5 Monocytes % 16.4 H Eosinophils % 0.0 Basophils % 0.6 Nucleated Red Blood Cells % 0.7 H Neutrophils # 3.2 Lymphocytes # 1.0 Monocytes # 0.9 Eosinophils # 0.0 Basophils # 0.0 Nucleated Red Blood Cells # 0.0 Sodium Level 136 Potassium Level 3.4 L Chloride Level 111 H Carbon Dioxide Level 21 Anion Gap 7 L Blood Urea Nitrogen 14 Creatinine 0.66 Glucose Level 115 Calcium Level 8.1 L Bedside Glucose 111 Vancomycin Level Trough 10.3 Medications Medications Current Medications Acetaminophen 650 mg 650 mg Q6H PRN PO PAIN AND OR ELEVATED TEMP Last administered on 08/22/16 20:27; Admin Dose 650 MG; Start 08/07/16 at 21:30 Sodium Chloride (NS) 1,000 ml @ 60 mls/hr [id number] IV Last administered on 08/23 02:38; Admin Dose 60 MLS/HR; Start 08/07/16 at 21:30 Morphine Sulfate (morphine) 2 mg Q4H PRN IV severe pain Last administered on 02:18; Admin Dose 2 MG; Start 08/07/16 at 21:30 Acetaminophen/ Hydrocodone Bitart ([place] (5/325)) 1 tab Q6H PRN PO moderate pain Last administered on 08/22/16 20:25; Admin Dose 1 TAB; Start 08/07/16 at 21:30 Diagnostic Test (Pha) (Accu-Chek) 1 ea 02 XX Last administered on 08/22/16 02: 03; Admin Dose 1 EA; Start 08/08/16 at 02:00 Cholecalciferol (Vitamin D) 5,000 unit DAILY PO Last administered on 08/23/16 09:15; Admin Dose 5,000 UNIT; Start 08/08/16 at 09:00 Gabapentin (Neurontin) 300 mg DAILY PO Last administered on 08/23/16 09:15; Admin Dose 300 MG; Start 08/08/16 at 09:00 Lorazepam (Ativan) 1 mg HS PRN PO ANXIETY Last administered on 08/22/16 20:25 ; Admin Dose 1 MG; Start 08/07/16 at 21:30 Losartan Potassium (Cozaar) 50 mg DAILY PO Last administered on 08/23/16 09:15 ; Admin Dose 50 MG; Start 08/08/16 at 09:00 Linagliptin (Tradjenta) 5 mg DAILY PO Last administered on 08/23/16 09:15; Admin Dose 5 MG; Start 08/08/16 at 09:00 Lubiprostone (Amitiza) 24 mcg BID PO Last administered on 08/23/16 09:15; Admin Dose 24 MCG; Start 08/09/16 at 21:00 Miscellaneous Information 1 ea NOTE XX ; Start 08/13/16 at 15:30 Glucose (Glutose) 15 gm Q15M PRN PO DECREASED GLUCOSE; Start 08/13/16 at 15:30 Glucose (Glutose) 22.5 gm Q15M PRN PO DECREASED GLUCOSE; Start 08/13/16 at 15:30 Dextrose (D50w Syringe) 25 ml Q15M PRN IV DECREASED GLUCOSE; Start 08/13/16 at 15:30 Dextrose (D50w Syringe) 50 ml Q15M PRN IV DECREASED GLUCOSE; Start 08/13/16 at 15:30 Glucagon (Glucagen) 1 mg Q15M PRN IM DECREASED GLUCOSE; Start 08/13/16 at 15:30 Glucose (Glutose) 15 gm Q15M PRN BUCCAL DECREASED GLUCOSE; Start 08/13/16 at 15: 30 Diphenhydramine HCl (Benadryl) 25 mg Q6H PRN PO ITCHING Last administered on 21:35; Admin Dose 25 MG; Start 08/17/16 at 20:30 Clotrimazole (Lotrimin Cr) 1 applic BID TOP Last administered on 08/23/16 09: 16; Admin Dose 1 APPLIC; Start 08/19/16 at 21:00 Guaifenesin/ Dextromethorphan (Robitussin Dm Liquid Cup) 10 ml Q6 PRN PO COUGH Last administered on 08/22/16 18:57; Admin Dose 10 ML; Start 08/20/16 at 07:00 Phenol (Cepastat Lozenge) 1 lozenge Q4H PRN MT COUGH Last administered on 09:15; Admin Dose 1 LOZENGE; Start 08/20/16 at 07:00 Insulin Glargine 20 unit 20 unit DAILY@20 SC Last administered on 08/22/16 20: 39; Admin Dose 20 UNIT; Start 08/21/16 at 20:00 Vancomycin HCl/ Sodium Chloride (Vancocin/NS) 250 ml @ 83.333 mls/ hr Q12H IVPB Last administered on 08/22/16t 22:22; Admin Dose 83.333 MLS/HR; Start at 10:00 HENRY FLAHERTY MD Aug 23, 2016 11:14
[2016-08-23 11:28] LABS: ADD UMIC YES; UR ASCORBIC ACID NEGATIVE (NEGATIVE); UR BACTERIA FEW /HPF (NONE SEEN); UR BILIRUBIN (Dip) NEGATIVE (NEGATIVE); UR BLOOD (Dip) NEGATIVE (NEGATIVE); UR CLARITY SLIGHTLY CLOUDY (CLEAR); UR COLOR YELLOW (YELLOW); UR GLUCOSE (Dip) 1+ mg/dL (NEGATIVE); UR KETONES (Dip) NEGATIVE (NEGATIVE); UR LEUKOCYTE ESTERASE (Dip) NEGATIVE Leu/ul (NEGATIVE); UR MUCUS FEW /HPF (NONE SEEN); UR NITRITE (Dip) NEGATIVE (NEGATIVE); UR RBC 1 /HPF (0-5); UR SPECIFIC GRAVITY (Dip) 1.021 (1.003-1.030); UR TOTAL PROTEIN (Dip) 2+ mg/dl (NEGATIVE); UR UROBILINOGEN (Dip) NEGATIVE (NEGATIVE)
[2016-08-23] MEDS: GUAIFENESIN/DM 5ML CUP PO PRN ×2 (11:34→18:53)
[2016-08-23] MEDS: VANCOMYCIN 1.25 GM in SOD CHLORIDE 0.9% 250 ML IVPB SCH (11:43)
[2016-08-23] MEDS ORDERED: POTASSIUM CHLORIDE (SR) 20 MEQ TAB PO STA (12:08)
[2016-08-23] MEDS: ALBUTEROL/IPRATROPIUM (NEB) 3 ML AMP HHN PRN (13:48)
[2016-08-23 14:27] VITALS: BP 132/64; RESP 18
--- NOTE | 2016-08-23 14:44 | PN ---
Date/Time of Note Date/Time of Note DATE: 08/23/16 TIME: 14:31 Assessment/Plan VTE Prophylaxis VTE Prophylaxis Intervention: SCD's Lines/Catheters [facility] Per[facility] IV Assessment/Plan Chief Complaint/Hosp Course Patient remains hemodynamically stable, refused blood transfusion for hemoglobin 7.1, blood sugar is well controlled. Assessment/Plan - Healthcare acquired pneumonia, continue broad-spectrum antibiotics - Bilateral pleural effusions, continue incentive spirometer, 2 D Echo. - Myelofibrosis. Dr. 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 - Status post EGD and colonoscopy, with notion of gastritis gastritis and superficial duodenal ulcer per EGD and multiple polyps per colonoscopy, awaiting for the final path report. 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 Hall is following in gastroenterology consultation. - History of pulmonary embolism, continue Eliquis - Diabetes mellitus, hemoglobin A1c is 8.2. continue, Tradjenta, Lantus and NovoLog. - Hypertension, continue Cozaar. - Hyperlipidemia - BPH, status post TURP - Pseudomonas UTI, status post treatment - Status post right hip replacement Further recommendations based on clinical course. Plan of care discussed with Dr. Seay. Problems: Exam/Review of Systems Vital Signs Vitals Vital Signs Date Time Temp Pulse Resp B/P Pulse Ox O2 Delivery O2 Flow Rate FiO2 08/23/16 14:27 98.5 70 18 132/64 95 08/23/16 13:50 21 08/19/16 19:35 Room Air 08/19/16 19:05 2.0 Intake and Output 08/22/16 08/22/16 08/23/16 15:00 23:00 07:00 Intake Total 450 ml 1100 ml 1030 ml Output Total 900 ml 640 ml Balance 450 ml 200 ml 390 ml Exam Constitutional: alert, oriented Head: atraumatic, normocephalic Neck: supple Respiratory: clear Cardiovascular: nl pulses Gastrointestinal: non-tender, soft Extremities: edema, other Neurological: nl mental status Skin: nl turgor Results Result Diagram: 08/23/16 0548 08/23/16 0548 Results 24 hrs Laboratory Tests Test 08/22/16 17:25 08/22/16 20:22 08/22/16 21:15 08/23/16 02:36 Bedside Glucose 165 196 150 Urine Color YELLOW Urine Clarity SLIGHTLY CLOUDY A Urine pH 5.0 Urine Specific [place] 1.021 Urine Ketones NEGATIVE Urine Nitrite NEGATIVE Urine Bilirubin NEGATIVE Urine Urobilinogen NEGATIVE Urine Leukocyte Esterase NEGATIVE Urine Microscopic RBC 1 Urine Microscopic WBC 1 Urine Bacteria FEW A Urine Mucus FEW A Urine Hemoglobin NEGATIVE Urine Glucose 1+ H Urine Total Protein 2+ H Test 08/23/16 05:48 08/23/16 07:59 08/23/16 09:45 08/23/16 12:00 White Blood Count 5.4 Red Blood Count 2.88 L Hemoglobin 7.1 L Hematocrit 22.5 L Mean Corpuscular Volume 78.1 L Mean Corpuscular Hemoglobin 24.7 L Mean Corpuscular Hemoglobin Concent 31.6 L Red Cell Distribution Width 25.5 H Platelet Count 263 Mean Platelet Volume Neutrophils % 58.0 Lymphocytes % 18.5 Monocytes % 16.4 H Eosinophils % 0.0 Basophils % 0.6 Nucleated Red Blood Cells % 0.7 H Neutrophils # 3.2 Lymphocytes # 1.0 Monocytes # 0.9 Eosinophils # 0.0 Basophils # 0.0 Nucleated Red Blood Cells # 0.0 Sodium Level 136 Potassium Level 3.4 L Chloride Level 111 H Carbon Dioxide Level 21 Anion Gap 7 L Blood Urea Nitrogen 14 Creatinine 0.66 Glucose Level 115 Calcium Level 8.1 L Bedside Glucose 111 103 Vancomycin Level Trough 10.3 Medications Medications Current Medications Acetaminophen 650 mg 650 mg Q6H PRN PO PAIN AND OR ELEVATED TEMP Last administered on 08/22/16 20:27; Admin Dose 650 MG; Start 08/07/16 at 21:30 Sodium Chloride (NS) 1,000 ml @ 60 mls/hr [id number] IV Last administered on 08/23 02:38; Admin Dose 60 MLS/HR; Start 08/07/16 at 21:30 Morphine Sulfate (morphine) 2 mg Q4H PRN IV severe pain Last administered on 02:18; Admin Dose 2 MG; Start 08/07/16 at 21:30 Acetaminophen/ Hydrocodone Bitart ([place] (5/325)) 1 tab Q6H PRN PO moderate pain Last administered on 08/22/16 20:25; Admin Dose 1 TAB; Start 08/07/16 at 21:30 Diagnostic Test (Pha) (Accu-Chek) 1 ea 02 XX Last administered on 08/22/16 02: 03; Admin Dose 1 EA; Start 08/08/16 at 02:00 Cholecalciferol (Vitamin D) 5,000 unit DAILY PO Last administered on 08/23/16 09:15; Admin Dose 5,000 UNIT; Start 08/08/16 at 09:00 Gabapentin (Neurontin) 300 mg DAILY PO Last administered on 08/23/16 09:15; Admin Dose 300 MG; Start 08/08/16 at 09:00 Lorazepam (Ativan) 1 mg HS PRN PO ANXIETY Last administered on 08/22/16 20:25 ; Admin Dose 1 MG; Start 08/07/16 at 21:30 Losartan Potassium (Cozaar) 50 mg DAILY PO Last administered on 08/23/16 09:15 ; Admin Dose 50 MG; Start 08/08/16 at 09:00 Linagliptin (Tradjenta) 5 mg DAILY PO Last administered on 08/23/16 09:15; Admin Dose 5 MG; Start 08/08/16 at 09:00 Lubiprostone (Amitiza) 24 mcg BID PO Last administered on 08/23/16 09:15; Admin Dose 24 MCG; Start 08/09/16 at 21:00 Miscellaneous Information 1 ea NOTE XX ; Start 08/13/16 at 15:30 Glucose (Glutose) 15 gm Q15M PRN PO DECREASED GLUCOSE; Start 08/13/16 at 15:30 Glucose (Glutose) 22.5 gm Q15M PRN PO DECREASED GLUCOSE; Start 08/13/16 at 15:30 Dextrose (D50w Syringe) 25 ml Q15M PRN IV DECREASED GLUCOSE; Start 08/13/16 at 15:30 Dextrose (D50w Syringe) 50 ml Q15M PRN IV DECREASED GLUCOSE; Start 08/13/16 at 15:30 Glucagon (Glucagen) 1 mg Q15M PRN IM DECREASED GLUCOSE; Start 08/13/16 at 15:30 Glucose (Glutose) 15 gm Q15M PRN BUCCAL DECREASED GLUCOSE; Start 08/13/16 at 15: 30 Diphenhydramine HCl (Benadryl) 25 mg Q6H PRN PO ITCHING Last administered on 21:35; Admin Dose 25 MG; Start 08/17/16 at 20:30 Clotrimazole (Lotrimin Cr) 1 applic BID TOP Last administered on 08/23/16 09: 16; Admin Dose 1 APPLIC; Start 08/19/16 at 21:00 Guaifenesin/ Dextromethorphan (Robitussin Dm Liquid Cup) 10 ml Q6 PRN PO COUGH Last administered on 08/23/16 11:34; Admin Dose 10 ML; Start 08/20/16 at 07:00 Phenol (Cepastat Lozenge) 1 lozenge Q4H PRN MT COUGH Last administered on 11:34; Admin Dose 1 LOZENGE; Start 08/20/16 at 07:00 Insulin Glargine 20 unit 20 unit DAILY@20 SC Last administered on 08/22/16 20: 39; Admin Dose 20 UNIT; Start 08/21/16 at 20:00 Vancomycin HCl/ Sodium Chloride (Vancocin/NS) 250 ml @ 83.333 mls/ hr Q12H IVPB Last administered on 08/23/16 11:43; Admin Dose 83.333 MLS/HR; Start at 10:00 IVONNE KEARNS Aug 23, 2016 14:43 IVONNE KEARNS Aug 23, 2016 14:43
--- NOTE | 2016-08-23 18:22 | CONS ---
Date/Time of Note Date/Time of Note DATE: 08/23/16 TIME: 18:21 Assessment/Plan Assessment/Plan Chief Complaint/Hosp Course This is a 76-year-old male with a history of diabetes mellitus hypertension lipid abnormality admitted to the hospital for thrombosis of the inferior vena cava. Patient complains of right lower quadrant abdominal pain and also significant weight loss. He lost 26 pounds over the. A few months and is chronically constipated. Patient denies of any kind of GI bleeding no nausea no vomiting no heartburn. No chest pain or shortness of breath. He has lost his appetite. Patient has umbrella in the inferior vena cava and also has a history of pulmonary embolism. He has a history of surgery on his knee and also on his hands. Problems: Additional Assessment/Plan Additional Assessment/Plan 1. Anemia microcytic, with few few blast cells: stool for occult blood negative 2. Thrombosis of the inferior vena cava 3. Weight loss of 26 pound 4. Abdominal pain right lower quadrant 5. Constipation 6. History of pulmonary embolism 7. Diabetes mellitus 8. Hypertension 9. Hyperlipidemia 10. Status post surgery on his knee and the hand Plan 1. discussed with Jose Martin Galindo ,pt,has myelofibrosis and also iron deficiency anemia 2. patient also say the same that Dr. Philippe wants to hold off on EGD and colonoscopy so I will do so. 3. will follow along with you 4. continue Amitiza for his constipation 5. EGD showed gastritis and also superficial duodenal ulcer and a colonoscopy showed multiple polyps in the cecum all were adjacent to each other and each polyp was 6-7 mm in diameter all were sessile in nature. Biopsies 3 biopsies obtained. final path report, cecal biopsies showed adenomatous polyp no dysplasia. EGD biopsy showed gastritis no Helicobacter pylori Consultation Date/Type/Reason Admit Date/Time Aug 07, 2016 at 16:05 Initial Consult Date 08/10/16 Type of Consultation: GI Referring Provider: TEDDY RUVALCABA MD 24 HR Interval Summary Constitutional: improved, no complaints Exam/Review of Systems Vital Signs Vitals Vital Signs Date Time Temp Pulse Resp B/P Pulse Ox O2 Delivery O2 Flow Rate FiO2 08/23/16 14:27 98.5 70 18 132/64 95 08/23/16 13:50 21 08/19/16 19:35 Room Air 08/19/16 19:05 2.0 Intake and Output 08/22/16 08/22/16 08/23/16 15:00 23:00 07:00 Intake Total 450 ml 1100 ml 1030 ml Output Total 900 ml 640 ml Balance 450 ml 200 ml 390 ml Exam Constitutional: alert, oriented, well developed Psych: nl mood/affect, no complaints Head: atraumatic, normocephalic Eyes: EOMI, PERRL, nl conjunctiva, nl lids, nl sclera ENMT: nl external ears & nose, nl lips & teeth, nl nasal mucosa & septum Neck: non-tender, supple Respiratory: clear to auscultation, normal air movement Cardiovascular: nl pulses, regular rate and rhythm Gastrointestinal: nl liver, spleen, non-tender, soft Musculoskeletal: nl extremities to inspection, nl gait and stance Extremities: normal pulses Neurological: CRANBERRY SORTER II-XII intact, nl mental status, nl speech, nl strength Skin: nl turgor, No rash or lesions Lymph: nl lymph nodes Results Result Diagram: 08/23/16 0548 08/23/16 0548 Results 24 hrs Laboratory Tests Test 08/22/16 20:22 08/22/16 21:15 08/23/16 02:36 08/23/16 05:48 Bedside Glucose 196 150 Urine Color YELLOW Urine Clarity SLIGHTLY CLOUDY A Urine pH 5.0 Urine Specific [place] 1.021 Urine Ketones NEGATIVE Urine Nitrite NEGATIVE Urine Bilirubin NEGATIVE Urine Urobilinogen NEGATIVE Urine Leukocyte Esterase NEGATIVE Urine Microscopic RBC 1 Urine Microscopic WBC 1 Urine Bacteria FEW A Urine Mucus FEW A Urine Hemoglobin NEGATIVE Urine Glucose 1+ H Urine Total Protein 2+ H White Blood Count 5.4 Red Blood Count 2.88 L Hemoglobin 7.1 L Hematocrit 22.5 L Mean Corpuscular Volume 78.1 L Mean Corpuscular Hemoglobin 24.7 L Mean Corpuscular Hemoglobin Concent 31.6 L Red Cell Distribution Width 25.5 H Platelet Count 263 Mean Platelet Volume Neutrophils % 58.0 Lymphocytes % 18.5 Monocytes % 16.4 H Eosinophils % 0.0 Basophils % 0.6 Nucleated Red Blood Cells % 0.7 H Neutrophils # 3.2 Lymphocytes # 1.0 Monocytes # 0.9 Eosinophils # 0.0 Basophils # 0.0 Nucleated Red Blood Cells # 0.0 Sodium Level 136 Potassium Level 3.4 L Chloride Level 111 H Carbon Dioxide Level 21 Anion Gap 7 L Blood Urea Nitrogen 14 Creatinine 0.66 Glucose Level 115 Calcium Level 8.1 L Test 08/23/16 07:59 08/23/16 09:45 08/23/16 12:00 08/23/16 17:43 Bedside Glucose 111 103 140 Vancomycin Level Trough 10.3 Medications Medications Current Medications Acetaminophen 650 mg 650 mg Q6H PRN PO PAIN AND OR ELEVATED TEMP Last administered on 08/22/16 20:27; Admin Dose 650 MG; Start 08/07/16 at 21:30 Sodium Chloride (NS) 1,000 ml @ 60 mls/hr [id number] IV Last administered on 08/23 02:38; Admin Dose 60 MLS/HR; Start 08/07/16 at 21:30 Morphine Sulfate (morphine) 2 mg Q4H PRN IV severe pain Last administered on 02:18; Admin Dose 2 MG; Start 08/07/16 at 21:30 Acetaminophen/ Hydrocodone Bitart ([place] (5/325)) 1 tab Q6H PRN PO moderate pain Last administered on 08/22/16 20:25; Admin Dose 1 TAB; Start 08/07/16 at 21:30 Diagnostic Test (Pha) (Accu-Chek) 1 ea 02 XX Last administered on 08/22/16 02: 03; Admin Dose 1 EA; Start 08/08/16 at 02:00 Cholecalciferol (Vitamin D) 5,000 unit DAILY PO Last administered on 08/23/16 09:15; Admin Dose 5,000 UNIT; Start 08/08/16 at 09:00 Gabapentin (Neurontin) 300 mg DAILY PO Last administered on 08/23/16 09:15; Admin Dose 300 MG; Start 08/08/16 at 09:00 Lorazepam (Ativan) 1 mg HS PRN PO ANXIETY Last administered on 08/22/16 20:25 ; Admin Dose 1 MG; Start 08/07/16 at 21:30 Losartan Potassium (Cozaar) 50 mg DAILY PO Last administered on 08/23/16 09:15 ; Admin Dose 50 MG; Start 08/08/16 at 09:00 Linagliptin (Tradjenta) 5 mg DAILY PO Last administered on 08/23/16 09:15; Admin Dose 5 MG; Start 08/08/16 at 09:00 Lubiprostone (Amitiza) 24 mcg BID PO Last administered on 08/23/16 09:15; Admin Dose 24 MCG; Start 08/09/16 at 21:00 Miscellaneous Information 1 ea NOTE XX ; Start 08/13/16 at 15:30 Glucose (Glutose) 15 gm Q15M PRN PO DECREASED GLUCOSE; Start 08/13/16 at 15:30 Glucose (Glutose) 22.5 gm Q15M PRN PO DECREASED GLUCOSE; Start 08/13/16 at 15:30 Dextrose (D50w Syringe) 25 ml Q15M PRN IV DECREASED GLUCOSE; Start 08/13/16 at 15:30 Dextrose (D50w Syringe) 50 ml Q15M PRN IV DECREASED GLUCOSE; Start 08/13/16 at 15:30 Glucagon (Glucagen) 1 mg Q15M PRN IM DECREASED GLUCOSE; Start 08/13/16 at 15:30 Glucose (Glutose) 15 gm Q15M PRN BUCCAL DECREASED GLUCOSE; Start 08/13/16 at 15: 30 Diphenhydramine HCl (Benadryl) 25 mg Q6H PRN PO ITCHING Last administered on 21:35; Admin Dose 25 MG; Start 08/17/16 at 20:30 Clotrimazole (Lotrimin Cr) 1 applic BID TOP Last administered on 08/23/16 09: 16; Admin Dose 1 APPLIC; Start 08/19/16 at 21:00 Guaifenesin/ Dextromethorphan (Robitussin Dm Liquid Cup) 10 ml Q6 PRN PO COUGH Last administered on 08/23/16 11:34; Admin Dose 10 ML; Start 08/20/16 at 07:00 Phenol (Cepastat Lozenge) 1 lozenge Q4H PRN MT COUGH Last administered on 11:34; Admin Dose 1 LOZENGE; Start 08/20/16 at 07:00 Insulin Glargine 20 unit 20 unit DAILY@20 SC Last administered on 08/22/16 20: 39; Admin Dose 20 UNIT; Start 08/21/16 at 20:00 Vancomycin HCl 1.5 gm/Sodium Chloride 250 ml @ 83.333 mls/ hr Q12H IVPB ; Start 08/23/16 at 23:00 Cefepime HCl (Maxipime 1gm/50 ml (Pmx)) 50 ml @ 100 mls/hr Q12 IVPB ; Start at 21:00 ANA VELASQUEZ MD Aug 23, 2016 18:22
[2016-08-23 19:53] VITALS: BP 164/71; RESP 18
[2016-08-23] MEDS ORDERED: DIPHENHYDRAMINE 50 MG INJ IV ONE (20:00)
[2016-08-23] MEDS ORDERED: HYDROCORTISONE 100 MG INJ IV ONE (20:00)
[2016-08-23] MEDS: CEFEPIME 1GM/50 ML (PMX) 50 ML IVPB SCH (21:58)
[2016-08-23] MEDS: INSULIN GLARGINE [LANtus] 3 ML PEN SC SCH (22:15)
[2016-08-23] MEDS: VANCOMYCIN 1.5 GM in SOD CHLORIDE 0.9% 250 ML IVPB SCH (23:13)
[2016-08-23] MEDS: ACETAMINOPHEN 325 MG TAB PO PRN (23:51)
[2016-08-24] MEDS: ACCU-CHEK XX SCH (02:00)
[2016-08-24 02:09] VITALS: BP 144/67; RESP 18
[2016-08-24] MEDS: SOD CHLORIDE 0.9% 1,000 ML IV SCH (07:26)
[2016-08-24 07:43] VITALS: BP 136/60; RESP 18
[2016-08-24 08:10] VITALS: BP 152/66; RESP 18
[2016-08-24] MEDS: INSULIN ASPART [NOVOLOG] 3 ML PEN SC SCH ×7 (08:15→21:00)
[2016-08-24] MEDS: CHOLECALCIFEROL 1,000 UNIT TAB PO SCH (08:32)
[2016-08-24] MEDS: GABAPENTIN 300 MG CAP PO SCH (08:32)
[2016-08-24] MEDS: LOSARTAN 50 MG TAB PO SCH ×2 (08:33→22:58)
[2016-08-24] MEDS: LUBIPROSTONE 24 MCG CAP PO SCH ×2 (08:33→22:55)
[2016-08-24] MEDS: CEFEPIME 1GM/50 ML (PMX) 50 ML IVPB SCH ×2 (08:33→22:54)
[2016-08-24] MEDS: LINAGLIPTIN 5 MG TABLET PO SCH (08:33)
[2016-08-24] MEDS: CLOTRIMAZOLE 1% 30 GM CR TOP SCH ×2 (09:00→22:59)
--- NOTE | 2016-08-24 09:17 | CONS ---
Date/Time of Note Date/Time of Note DATE: 08/24/16 TIME: 09:13 Consult Date/Type/Reason Admit Date/Time Aug 07, 2016 at 16:05 Initial Consult Date 08/10/16 Type of Consultation: GI Ordering Provider: TEDDY RUVALCABA MD Subjective Pt received 1upRBC overnight for Hb of 7.1g/dl. Pt has some diarrhea and is in the bathroom on evaluation this am. Objective Vital Signs Date Time Temp Pulse Resp B/P Pulse Ox O2 Delivery O2 Flow Rate FiO2 08/24/16 08:10 98.8 74 18 152/66 96 08/23/16 13:50 21 Intake and Output 08/23/16 08/23/16 08/24/16 15:00 23:00 07:00 Intake Total 250 ml 1490 ml 1620 ml Output Total 701 ml Balance 250 ml 789 ml 1620 ml Exam NAD/A&Ox3 OP clear Pale RRR no m/g/r CTA A Slight distension with splenomegaly No c/c/e Results/Medications Result Diagram: 08/23/16 0548 08/23/16 0548 Results 24 hrs Laboratory Tests Test 08/23/16 09:45 08/23/16 12:00 08/23/16 17:43 08/23/16 21:52 Vancomycin Level Trough 10.3 Bedside Glucose 103 140 165 Test 08/24/16 08:31 Bedside Glucose 137 Medications Current Medications Acetaminophen 650 mg 650 mg Q6H PRN PO PAIN AND OR ELEVATED TEMP Last administered on 08/23/16 23:51; Admin Dose 650 MG; Start 08/07/16 at 21:30 Sodium Chloride (NS) 1,000 ml @ 60 mls/hr [id number] IV Last administered on 08/24 07:26; Admin Dose 60 MLS/HR; Start 08/07/16 at 21:30 Morphine Sulfate (morphine) 2 mg Q4H PRN IV severe pain Last administered on 02:18; Admin Dose 2 MG; Start 08/07/16 at 21:30 Acetaminophen/ Hydrocodone Bitart ([place] (5/325)) 1 tab Q6H PRN PO moderate pain Last administered on 08/22/16 20:25; Admin Dose 1 TAB; Start 08/07/16 at 21:30 Diagnostic Test (Pha) (Accu-Chek) 1 ea 02 XX Last administered on 08/22/16 02: 03; Admin Dose 1 EA; Start 08/08/16 at 02:00 Cholecalciferol (Vitamin D) 5,000 unit DAILY PO Last administered on 08/24/16 08:32; Admin Dose 5,000 UNIT; Start 08/08/16 at 09:00 Gabapentin (Neurontin) 300 mg DAILY PO Last administered on 08/24/16 08:32; Admin Dose 300 MG; Start 08/08/16 at 09:00 Lorazepam (Ativan) 1 mg HS PRN PO ANXIETY Last administered on 08/22/16 20:25 ; Admin Dose 1 MG; Start 08/07/16 at 21:30 Linagliptin (Tradjenta) 5 mg DAILY PO Last administered on 08/24/16 08:33; Admin Dose 5 MG; Start 08/08/16 at 09:00 Lubiprostone (Amitiza) 24 mcg BID PO Last administered on 08/24/16 08:33; Admin Dose 24 MCG; Start 08/09/16 at 21:00 Miscellaneous Information 1 ea NOTE XX ; Start 08/13/16 at 15:30 Glucose (Glutose) 15 gm Q15M PRN PO DECREASED GLUCOSE; Start 08/13/16 at 15:30 Glucose (Glutose) 22.5 gm Q15M PRN PO DECREASED GLUCOSE; Start 08/13/16 at 15:30 Dextrose (D50w Syringe) 25 ml Q15M PRN IV DECREASED GLUCOSE; Start 08/13/16 at 15:30 Dextrose (D50w Syringe) 50 ml Q15M PRN IV DECREASED GLUCOSE; Start 08/13/16 at 15:30 Glucagon (Glucagen) 1 mg Q15M PRN IM DECREASED GLUCOSE; Start 08/13/16 at 15:30 Glucose (Glutose) 15 gm Q15M PRN BUCCAL DECREASED GLUCOSE; Start 08/13/16 at 15: 30 Diphenhydramine HCl (Benadryl) 25 mg Q6H PRN PO ITCHING Last administered on 21:35; Admin Dose 25 MG; Start 08/17/16 at 20:30 Clotrimazole (Lotrimin Cr) 1 applic BID TOP Last administered on 08/23/16 21: 56; Admin Dose 1 APPLIC; Start 08/19/16 at 21:00 Guaifenesin/ Dextromethorphan (Robitussin Dm Liquid Cup) 10 ml Q6 PRN PO COUGH Last administered on 08/23/16 18:53; Admin Dose 10 ML; Start 08/20/16 at 07:00 Phenol (Cepastat Lozenge) 1 lozenge Q4H PRN MT COUGH Last administered on 18:53; Admin Dose 1 LOZENGE; Start 08/20/16 at 07:00 Insulin Glargine 20 unit 20 unit DAILY@20 SC Last administered on 08/23/16 22: 15; Admin Dose 20 UNIT; Start 08/21/16 at 20:00 Vancomycin HCl 1.5 gm/Sodium Chloride 250 ml @ 83.333 mls/ hr Q12H IVPB Last administered on 08/23/16 23:13; Admin Dose 83.333 MLS/HR; Start 08/23/16 at 23: 00 Cefepime HCl (Maxipime 1gm/50 ml (Pmx)) 50 ml @ 100 mls/hr Q12 IVPB Last administered on 08/24/16 08:33; Admin Dose 100 MLS/HR; Start 08/23/16 at 21:00 Losartan Potassium (Cozaar) 50 mg BID PO Last administered on 08/24/16 08:33; Admin Dose 50 MG; Start 08/23/16 at 21:00 Assessment/Plan Problems: (1) Claudication (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 High risk MF. Pt has IVC thrombus and is s/p IVC filter. Anticoagulation held presumably due to possible GI bleed from duodenal ulcer. Pt received 1upRBC last night. Awaiting CBC from this am. Recommend starting Ruxolitinib as outpt anemia permitting. Strongly recommend anticoagulation if ok with GI. Will f/u with you. MD CEE Medellin,GINO Aug 24, 2016 09:17
[2016-08-24] MEDS ORDERED: POLYETHYLENE GLYCOL 17 GM PACKET GTB PRN (09:30)
[2016-08-24] MEDS: DOCUSATE SODIUM 100 MG CAP PO SCH ×2 (09:30→21:00)
[2016-08-24 11:07] LABS: ADD SCAN DIFF NO
[2016-08-24 11:23] LABS: ABNORMAL IP MESSAGE 1; HEMOGLOBIN 8.6 g/dl (14.0-18.0); MEAN CORPUSCULAR HEMOGLOBIN 24.8 pg (29.0-33.0); MEAN CORPUSCULAR HGB CONC 31.9 g/dl (32.0-37.0); MEAN CORPUSCULAR VOLUME 77.8 fl (82.0-101.0); PLATELET COUNT 266 10^3/UL (140-415); RED BLOOD COUNT 3.47 10^6/ul (4.70-6.10); RED CELL DISTRIBUTION WIDTH 25.2 % (11.5-14.5); WHITE BLOOD COUNT 4.8 10^3/ul (4.8-10.8)
[2016-08-24 11:33] LABS: CALCIUM 8.5 mg/dl (8.4-10.2); CREATININE 0.64 mg/dl (0.61-1.24); POTASSIUM 3.9 mmol/L (3.5-5.1)
[2016-08-24] MEDS: VANCOMYCIN 1.5 GM in SOD CHLORIDE 0.9% 250 ML IVPB SCH (12:12)
--- NOTE | 2016-08-24 12:42 | CONS ---
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 Patient complains of right lower quadrant abdominal pain and also significant weight loss. He lost 26 pounds over the. A few months and is chronically constipated. Patient denies of any kind of GI bleeding no nausea no vomiting no heartburn. No chest pain or shortness of breath. He has lost his appetite. Patient has umbrella in the inferior vena cava and also has a history of pulmonary embolism. He has a history of surgery on his knee and also on his hands. Problems: Additional Assessment/Plan Additional Assessment/Plan 1. Anemia microcytic, with few few blast cells: stool for occult blood negative 2. Thrombosis of the inferior vena cava 3. Weight loss of 26 pound 4. Abdominal pain right lower quadrant 5. Constipation 6. History of pulmonary embolism 7. Diabetes mellitus 8. Hypertension 9. Hyperlipidemia 10. Status post surgery on his knee and the hand Plan 1. discussed with Jose Martin Galindo ,pt,has myelofibrosis and also iron deficiency anemia 2. patient also say the same that Dr. Philippe wants to hold off on EGD and colonoscopy so I will do so. 3. will follow along with you 4. continue Amitiza for his constipation 5. EGD showed gastritis and also superficial duodenal ulcer and a colonoscopy showed multiple polyps in the cecum all were adjacent to each other and each polyp was 6-7 mm in diameter all were sessile in nature. Biopsies 3 biopsies obtained. final path report, cecal biopsies showed adenomatous polyp no dysplasia. EGD biopsy showed gastritis no Helicobacter pylori. Patient may need capsule endoscopy as an outpatient for his iron deficiency anemia. Simethicone 80 mg 3 times daily for flatulence. Consultation Date/Type/Reason Admit Date/Time Aug 07, 2016 at 16:05 Initial Consult Date 08/10/16 Type of Consultation: GI Referring Provider: TEDDY RUVALCABA MD 24 HR Interval Summary Free Text/Dictation Patient complains of flatulence Exam/Review of Systems Vital Signs Vitals Vital Signs Date Time Temp Pulse Resp B/P Pulse Ox O2 Delivery O2 Flow Rate FiO2 08/24/16 08:10 98.8 74 18 152/66 96 08/23/16 13:50 21 Intake and Output 08/23/16 08/23/16 08/24/16 15:00 23:00 07:00 Intake Total 250 ml 1490 ml 1620 ml Output Total 701 ml Balance 250 ml 789 ml 1620 ml Exam Constitutional: alert, oriented, well developed Psych: nl mood/affect, no complaints Head: atraumatic, normocephalic Eyes: EOMI, PERRL, nl conjunctiva, nl lids, nl sclera ENMT: nl external ears & nose, nl lips & teeth, nl nasal mucosa & septum Neck: non-tender, supple Respiratory: clear to auscultation, normal air movement Cardiovascular: nl pulses, regular rate and rhythm Gastrointestinal: nl liver, spleen, non-tender, soft Musculoskeletal: nl extremities to inspection, nl gait and stance Extremities: normal pulses Neurological: LENS HARDENER II-XII intact, nl mental status, nl speech, nl strength Skin: nl turgor, No rash or lesions Lymph: nl lymph nodes Results Result Diagram: 08/24/16 1015 08/24/16 1015 Results 24 hrs Laboratory Tests Test 08/23/16 17:43 08/23/16 21:52 08/24/16 08:31 08/24/16 10:15 Bedside Glucose 140 165 137 White Blood Count 4.8 Red Blood Count 3.47 #L Hemoglobin 8.6 #L Hematocrit 27.0 L Mean Corpuscular Volume 77.8 L Mean Corpuscular Hemoglobin 24.8 L Mean Corpuscular Hemoglobin Concent 31.9 L Red Cell Distribution Width 25.2 H Platelet Count 266 Mean Platelet Volume Neutrophils % Lymphocytes % Monocytes % Neutrophils # Lymphocytes # Monocytes # Sodium Level 141 Potassium Level 3.9 Chloride Level 106 Carbon Dioxide Level 22 Anion Gap 17 #H Blood Urea Nitrogen 15 Creatinine 0.64 Glucose Level 228 #H Calcium Level 8.5 Test 08/24/16 12:06 Bedside Glucose 213 Medications Medications Current Medications Acetaminophen 650 mg 650 mg Q6H PRN PO PAIN AND OR ELEVATED TEMP Last administered on 08/23/16 23:51; Admin Dose 650 MG; Start 08/07/16 at 21:30 Sodium Chloride (NS) 1,000 ml @ 60 mls/hr [id number] IV Last administered on 08/24 07:26; Admin Dose 60 MLS/HR; Start 08/07/16 at 21:30 Morphine Sulfate (morphine) 2 mg Q4H PRN IV severe pain Last administered on 02:18; Admin Dose 2 MG; Start 08/07/16 at 21:30 Acetaminophen/ Hydrocodone Bitart ([place] (5/325)) 1 tab Q6H PRN PO moderate pain Last administered on 08/22/16 20:25; Admin Dose 1 TAB; Start 08/07/16 at 21:30 Diagnostic Test (Pha) (Accu-Chek) 1 ea 02 XX Last administered on 08/22/16 02: 03; Admin Dose 1 EA; Start 08/08/16 at 02:00 Cholecalciferol (Vitamin D) 5,000 unit DAILY PO Last administered on 08/24/16 08:32; Admin Dose 5,000 UNIT; Start 08/08/16 at 09:00 Gabapentin (Neurontin) 300 mg DAILY PO Last administered on 08/24/16 08:32; Admin Dose 300 MG; Start 08/08/16 at 09:00 Lorazepam (Ativan) 1 mg HS PRN PO ANXIETY Last administered on 08/22/16 20:25 ; Admin Dose 1 MG; Start 08/07/16 at 21:30 Linagliptin (Tradjenta) 5 mg DAILY PO Last administered on 08/24/16 08:33; Admin Dose 5 MG; Start 08/08/16 at 09:00 Lubiprostone (Amitiza) 24 mcg BID PO Last administered on 08/24/16 08:33; Admin Dose 24 MCG; Start 08/09/16 at 21:00 Miscellaneous Information 1 ea NOTE XX ; Start 08/13/16 at 15:30 Glucose (Glutose) 15 gm Q15M PRN PO DECREASED GLUCOSE; Start 08/13/16 at 15:30 Glucose (Glutose) 22.5 gm Q15M PRN PO DECREASED GLUCOSE; Start 08/13/16 at 15:30 Dextrose (D50w Syringe) 25 ml Q15M PRN IV DECREASED GLUCOSE; Start 08/13/16 at 15:30 Dextrose (D50w Syringe) 50 ml Q15M PRN IV DECREASED GLUCOSE; Start 08/13/16 at 15:30 Glucagon (Glucagen) 1 mg Q15M PRN IM DECREASED GLUCOSE; Start 08/13/16 at 15:30 Glucose (Glutose) 15 gm Q15M PRN BUCCAL DECREASED GLUCOSE; Start 08/13/16 at 15: 30 Diphenhydramine HCl (Benadryl) 25 mg Q6H PRN PO ITCHING Last administered on 21:35; Admin Dose 25 MG; Start 08/17/16 at 20:30 Clotrimazole (Lotrimin Cr) 1 applic BID TOP Last administered on 08/23/16 21: 56; Admin Dose 1 APPLIC; Start 08/19/16 at 21:00 Guaifenesin/ Dextromethorphan (Robitussin Dm Liquid Cup) 10 ml Q6 PRN PO COUGH Last administered on 08/23/16 18:53; Admin Dose 10 ML; Start 08/20/16 at 07:00 Phenol (Cepastat Lozenge) 1 lozenge Q4H PRN MT COUGH Last administered on 18:53; Admin Dose 1 LOZENGE; Start 08/20/16 at 07:00 Insulin Glargine 20 unit 20 unit DAILY@20 SC Last administered on 08/23/16 22: 15; Admin Dose 20 UNIT; Start 08/21/16 at 20:00 Vancomycin HCl 1.5 gm/Sodium Chloride 250 ml @ 83.333 mls/ hr Q12H IVPB Last administered on 08/24/16 12:12; Admin Dose 83.333 MLS/HR; Start 08/23/16 at 23: 00 Cefepime HCl (Maxipime 1gm/50 ml (Pmx)) 50 ml @ 100 mls/hr Q12 IVPB Last administered on 08/24/16 08:33; Admin Dose 100 MLS/HR; Start 08/23/16 at 21:00 Losartan Potassium (Cozaar) 50 mg BID PO Last administered on 08/24/16 08:33; Admin Dose 50 MG; Start 08/23/16 at 21:00 Polyethylene Glycol (Miralax) 17 gm BID GTB ; Start 08/24/16 at 21:00 Polyethylene Glycol (Miralax) 17 gm DAILY PRN GTB CONSTIPATION; Start 08/24/16 at 09:30 Docusate Sodium (Colace) 100 mg BID PO ; Start 08/24/16 at 09:30 ANA VELASQUEZ MD Aug 24, 2016 12:42
--- NOTE | 2016-08-24 12:45 | RADRPT ---
Echocardiogram Report Patient Name: TAD WARD Gender: Male Date: 1940 Study Date: 24-Aug-2016 Automobile Rental Clerk: Sharmaine [facility] Location: 623 Ref. Physician: IVONNE KEARNS Quality: Adequate Procedures: Transthoracic echocardiogram with complete 2D, M-Mode, and doppler examination. Indications: Pleural Effusion. 2D/M Mode Doppler Measurement Value Normal Ranges Measurement Value Normal Ranges LVIDd 2D 4.3 3.5 - 5.6 cm AV Peak [place] 1.4 m/sec LVIDs 2D 3.2 2.1 - 4.1 cm AV Peak PG 8.0 mmHg FS 2D 26.0 % LVOT Peak [place] 1.2 m/sec LVPWd 2D 1.2 0.6 - 1.1 cm LVOT Peak PG 5.0 mmHg IVSd 2D 1.0 0.6 - 1.1 cm MV E Peak [place] 1.4 m/sec IVS/LVPW 2D 0.9 MV A Peak [place] 1.1 m/sec AoR Diam 2D 3.1 2.0 - 3.7 cm MV E/A 1.3 LA/Ao 2D 1 0 - 1 MV Decel Time 180 msec EDV 2D 81.7 cm3 MV E/A 1.3 ESV 2D 33.1 cm3 MR Peak PG 131.0 mmHg LA Dimen 2D 4.3 2.3 - 4.0 cm MR Peak [place]iste[place] 5.7 m/sec Findings Left Ventricle: Normal left ventricular systolic function. Normal left ventricular cavity size. Normal left ventricular wall thickness. Ejection fraction is visually estimated at 60 %. Tissue Doppler/Mitral Doppler indices are consistent with impaired relaxation (Stage I diastolic dysfunction). Right Ventricle: Normal right ventricular size. Normal right ventricular systolic function. Left Atrium: There is mild enlargement of left atrium. Right Atrium: The right atrium is normal in size. Mitral Valve: Mild mitral leaflet calcification. Mild mitral annular calcification. Moderate mitral valve regurgitation. Aortic Valve: Normal appearance of the aortic valve. No significant aortic stenosis or insufficiency. Tricuspid Valve: Normal appearance of the tricuspid valve. Unable to obtain RVSP due to minimal presence of tricuspid regurgitation. There is trace tricuspid regurgitation. Pulmonic Valve: Pulmonic valve not well visualized. There is trace pulmonic regurgitation. Pericardium: Left pleural effusion seen. Aorta: Normal aortic root. IVC: Normal size and poor respiratory collapse consistent with elevated right atrial pressure. Conclusions 1.Normal left ventricular systolic function. Normal left ventricular cavity size. Normal left ventricular wall thickness. Ejection fraction is visually estimated at 60 %. Tissue Doppler/Mitral Doppler indices are consistent with impaired relaxation (Stage I diastolic dysfunction). 2.There is mild enlargement of left atrium. 3.Mild mitral leaflet calcification. Mild mitral annular calcification. Moderate mitral valve regurgitation. 4.Normal appearance of the tricuspid valve. Unable to obtain RVSP due to minimal presence of tricuspid regurgitation. There is trace tricuspid regurgitation. 5.Pulmonic valve not well visualized. There is trace pulmonic regurgitation. Electronically Signed By: Martin Orozco 24-Aug-2016 12:44:47 -0700 Patient Name: TAD WARD Study Date: 24-Aug-2016 [id number]
[2016-08-24 13:59] LABS: LYMPHOCYTES # 0.3 10^3/ul (0.8-2.9); MONOCYTE # 0.2 10^3/ul (0.3-0.9); MYELOCYTES # 0.1; NEUTROPHIL # 3.8 10^3/ul (1.6-7.5)
[2016-08-24 14:00] LABS: ANISOCYTOSIS 3+; OVALOCYTES FEW; POIKILOCYTOSIS 2+
[2016-08-24 14:01] LABS: SCHISTOCYTES OCCASIONAL; TARGET CELLS FEW
--- NOTE | 2016-08-24 14:30 | PN ---
Date/Time of Note Date/Time of Note DATE: 08/24/16 TIME: 14:29 Assessment/Plan VTE Prophylaxis VTE Prophylaxis Intervention: other Lines/Catheters IV Catheter Type (from Nrs): Peripheral IV Assessment/Plan Assessment/Plan - Healthcare acquired pneumonia, continue broad-spectrum antibiotics - Bilateral pleural effusions, continue incentive spirometer, 2 D Echo. - Myelofibrosis. Dr. 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 - Status post EGD and colonoscopy, with notion of gastritis gastritis and superficial duodenal ulcer per EGD and multiple polyps per colonoscopy, awaiting for the final path report. 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 Hall is following in gastroenterology consultation. - History of pulmonary embolism, continue Eliquis - Diabetes mellitus, hemoglobin A1c is 8.2. continue, Tradjenta, Lantus and NovoLog. - Hypertension, continue Cozaar. - Hyperlipidemia - BPH, status post TURP - Pseudomonas UTI, status post treatment - Status post right hip replacement Further recommendations based on clinical course. Plan of care discussed with Dr. Seay. Exam/Review of Systems Vital Signs Vitals Vital Signs Date Time Temp Pulse Resp B/P Pulse Ox O2 Delivery O2 Flow Rate FiO2 08/24/16 08:10 98.8 74 18 152/66 96 08/23/16 13:50 21 Intake and Output 08/23/16 08/23/16 08/24/16 15:00 23:00 07:00 Intake Total 250 ml 1490 ml 1620 ml Output Total 701 ml Balance 250 ml 789 ml 1620 ml Exam Constitutional: alert, oriented, well developed Respiratory: clear to auscultation Cardiovascular: nl pulses, regular rate and rhythm Gastrointestinal: soft Musculoskeletal: nl extremities to inspection Extremities: normal pulses Neurological: nl mental status, nl speech Results Result Diagram: 08/24/16 1015 08/24/16 1015 Results 24 hrs Laboratory Tests Test 08/23/16 17:43 08/23/16 21:52 08/24/16 08:31 08/24/16 10:15 Bedside Glucose 140 165 137 White Blood Count 4.8 Red Blood Count 3.47 #L Hemoglobin 8.6 #L Hematocrit 27.0 L Mean Corpuscular Volume 77.8 L Mean Corpuscular Hemoglobin 24.8 L Mean Corpuscular Hemoglobin Concent 31.9 L Red Cell Distribution Width 25.2 H Platelet Count 266 Mean Platelet Volume Neutrophils % 80.0 H Band Neutrophils % 3.0 Lymphocytes % 7.0 L Monocytes % 5.0 Eosinophils % 1.0 Basophils % 1.0 Metamyelocytes % 1.0 H Myelocytes % 2.0 H Neutrophils # 3.8 Lymphocytes # 0.3 L Monocytes # 0.2 L Eosinophils # 0.0 Basophils # 0.0 Metamyelocytes # 0.0 Myelocytes # 0.1 Poikilocytosis 2+ Anisocytosis 3+ Target Cells FEW Ovalocytes FEW Schistocytes OCCASIONAL Sodium Level 141 Potassium Level 3.9 Chloride Level 106 Carbon Dioxide Level 22 Anion Gap 17 #H Blood Urea Nitrogen 15 Creatinine 0.64 Glucose Level 228 #H Calcium Level 8.5 Test 08/24/16 12:06 Bedside Glucose 213 Medications Medications Current Medications Acetaminophen 650 mg 650 mg Q6H PRN PO PAIN AND OR ELEVATED TEMP Last administered on 08/23/16 23:51; Admin Dose 650 MG; Start 08/07/16 at 21:30 Sodium Chloride (NS) 1,000 ml @ 60 mls/hr [id number] IV Last administered on 08/24 07:26; Admin Dose 60 MLS/HR; Start 08/07/16 at 21:30 Morphine Sulfate (morphine) 2 mg Q4H PRN IV severe pain Last administered on 02:18; Admin Dose 2 MG; Start 08/07/16 at 21:30 Acetaminophen/ Hydrocodone Bitart ([place] (5/325)) 1 tab Q6H PRN PO moderate pain Last administered on 08/22/16 20:25; Admin Dose 1 TAB; Start 08/07/16 at 21:30 Diagnostic Test (Pha) (Accu-Chek) 1 ea 02 XX Last administered on 08/22/16 02: 03; Admin Dose 1 EA; Start 08/08/16 at 02:00 Cholecalciferol (Vitamin D) 5,000 unit DAILY PO Last administered on 08/24/16 08:32; Admin Dose 5,000 UNIT; Start 08/08/16 at 09:00 Gabapentin (Neurontin) 300 mg DAILY PO Last administered on 08/24/16 08:32; Admin Dose 300 MG; Start 08/08/16 at 09:00 Lorazepam (Ativan) 1 mg HS PRN PO ANXIETY Last administered on 08/22/16 20:25 ; Admin Dose 1 MG; Start 08/07/16 at 21:30 Linagliptin (Tradjenta) 5 mg DAILY PO Last administered on 08/24/16 08:33; Admin Dose 5 MG; Start 08/08/16 at 09:00 Lubiprostone (Amitiza) 24 mcg BID PO Last administered on 08/24/16 08:33; Admin Dose 24 MCG; Start 08/09/16 at 21:00 Miscellaneous Information 1 ea NOTE XX ; Start 08/13/16 at 15:30 Glucose (Glutose) 15 gm Q15M PRN PO DECREASED GLUCOSE; Start 08/13/16 at 15:30 Glucose (Glutose) 22.5 gm Q15M PRN PO DECREASED GLUCOSE; Start 08/13/16 at 15:30 Dextrose (D50w Syringe) 25 ml Q15M PRN IV DECREASED GLUCOSE; Start 08/13/16 at 15:30 Dextrose (D50w Syringe) 50 ml Q15M PRN IV DECREASED GLUCOSE; Start 08/13/16 at 15:30 Glucagon (Glucagen) 1 mg Q15M PRN IM DECREASED GLUCOSE; Start 08/13/16 at 15:30 Glucose (Glutose) 15 gm Q15M PRN BUCCAL DECREASED GLUCOSE; Start 08/13/16 at 15: 30 Diphenhydramine HCl (Benadryl) 25 mg Q6H PRN PO ITCHING Last administered on 21:35; Admin Dose 25 MG; Start 08/17/16 at 20:30 Clotrimazole (Lotrimin Cr) 1 applic BID TOP Last administered on 08/23/16 21: 56; Admin Dose 1 APPLIC; Start 08/19/16 at 21:00 Guaifenesin/ Dextromethorphan (Robitussin Dm Liquid Cup) 10 ml Q6 PRN PO COUGH Last administered on 08/23/16 18:53; Admin Dose 10 ML; Start 08/20/16 at 07:00 Phenol (Cepastat Lozenge) 1 lozenge Q4H PRN MT COUGH Last administered on 18:53; Admin Dose 1 LOZENGE; Start 08/20/16 at 07:00 Insulin Glargine 20 unit 20 unit DAILY@20 SC Last administered on 08/23/16 22: 15; Admin Dose 20 UNIT; Start 08/21/16 at 20:00 Vancomycin HCl 1.5 gm/Sodium Chloride 250 ml @ 83.333 mls/ hr Q12H IVPB Last administered on 08/24/16 12:12; Admin Dose 83.333 MLS/HR; Start 08/23/16 at 23: 00 Cefepime HCl (Maxipime 1gm/50 ml (Pmx)) 50 ml @ 100 mls/hr Q12 IVPB Last administered on 08/24/16 08:33; Admin Dose 100 MLS/HR; Start 08/23/16 at 21:00 Losartan Potassium (Cozaar) 50 mg BID PO Last administered on 08/24/16 08:33; Admin Dose 50 MG; Start 08/23/16 at 21:00 Polyethylene Glycol (Miralax) 17 gm BID GTB ; Start 08/24/16 at 21:00 Polyethylene Glycol (Miralax) 17 gm DAILY PRN GTB CONSTIPATION; Start 08/24/16 at 09:30 Docusate Sodium (Colace) 100 mg BID PO ; Start 08/24/16 at 09:30 Simethicone (Mylicon) 80 mg QID PRN GTB DISTENSION/GAS/BLOATING; Start at 13:00 POLA CISNEROS Aug 24, 2016 14:30
[2016-08-24 15:41] VITALS: BP 149/72; RESP 18
[2016-08-24] MEDS: CEPASTAT LOZENGE MT PRN ×2 (15:48→23:56)
[2016-08-24] MEDS: GUAIFENESIN/DM 5ML CUP PO PRN ×2 (15:51→23:55)
--- NOTE | 2016-08-24 19:02 | RADRPT ---
PROCEDURE: US Abdomen and Retroperitoneum. CLINICAL INDICATION: Abdominal pain. TECHNIQUE: Multiple real-time longitudinal and transverse images were acquired of the patient's ab domen and retroperitoneum utilizing a curved array transducer. COMPARISON: No prior studies are available for comparison. FINDINGS: The liver is normal in size and normal in echogenicity. The liver has a normal smooth surface. Ther e is no focal hepatic lesion. Color Doppler and pulsed Doppler sonography demonstrate normal antegra de flow in the portal vein. The gallbladder is normal with no stones or wall thickening. The bile ducts are normal with the common bile duct measuring 3.9 mm in diameter. The spleen is mildly enlarged. There is no focal splenic lesion. The pancreas is partially seen and is unremarkable. There is no free fluid in the abdomen. There are bilateral pleural effusions. The right kidney measures 10.4 x 4.8 x 5.5 cm and the left kidney measures 11.1 x 4.9 x 5.3 cm. There is no renal mass. There is no hydronephrosis or calculus. The abdominal aorta is not dilated. There is a region of thrombus in the upper inferior vena cava. IMPRESSION: 1. Mild splenomegaly. 2. Bilateral pleural effusions. 3. Thrombus in the upper inferior vena cava. 4. Otherwise unremarkable ultrasound of the abdomen and retroperitoneum. RPTAT: QQ .Juan Jose Soler MD, Date Time Electronically viewed and signed by .Juan Jose Soler MD, on 08/24/2016 19:02 .R/
[2016-08-24 19:27] VITALS: BP 158/72; RESP 18
[2016-08-24] MEDS: POLYETHYLENE GLYCOL 17 GM PACKET GTB SCH (21:00)
[2016-08-24] MEDS: INSULIN GLARGINE [LANtus] 3 ML PEN SC SCH (21:29)
[2016-08-25] MEDS: VANCOMYCIN 1.5 GM in SOD CHLORIDE 0.9% 250 ML IVPB SCH ×2 (00:05→11:21)
[2016-08-25 02:00] VITALS: BP 162/70; RESP 18
[2016-08-25] MEDS: ACCU-CHEK XX SCH (02:00)
[2016-08-25 05:29] VITALS: BP 165/75; PULSE 85
[2016-08-25 05:57] LABS: ADD SCAN DIFF NO
[2016-08-25 07:28] VITALS: BP 168/74; RESP 18
[2016-08-25] MEDS: SOD CHLORIDE 0.9% 1,000 ML IV SCH (07:49)
[2016-08-25] MEDS: INSULIN ASPART [NOVOLOG] 3 ML PEN SC SCH ×7 (08:07→20:47)
[2016-08-25 08:10] LABS: PLATELET ESTIMATE PLT APPEAR ADEQUATE
[2016-08-25 08:11] LABS: ACANTHOCYTES FEW; ANISOCYTOSIS MODERATE; BURR CELLS FEW; OVALOCYTES FEW; POIKILOCYTOSIS MODERATE; SPHEROCYTES FEW; TEAR DROP CELLS OCCASIONAL
[2016-08-25 08:12] LABS: POLYCHROMASIA FEW; SCHISTOCYTES MODERATE
[2016-08-25 08:13] LABS: HEMATOCRIT 25.2 % (42.0-52.0); HEMOGLOBIN 8.3 g/dl (14.0-18.0); MEAN CORPUSCULAR HEMOGLOBIN 25.2 pg (29.0-33.0); MEAN CORPUSCULAR HGB CONC 32.9 g/dl (32.0-37.0); MEAN CORPUSCULAR VOLUME 76.6 fl (82.0-101.0); RED BLOOD COUNT 3.29 10^6/ul (4.70-6.10); RED CELL DISTRIBUTION WIDTH 24.6 % (11.5-14.5); WHITE BLOOD COUNT 5.7 10^3/ul (4.8-10.8)
[2016-08-25 08:14] LABS: PLATELET COUNT 261 10^3/UL (140-440)
--- NOTE | 2016-08-25 08:29 | CONS ---
Date/Time of Note Date/Time of Note DATE: 08/25/16 TIME: 08:21 Consult Date/Type/Reason Admit Date/Time Aug 07, 2016 at 16:05 Initial Consult Date 08/10/16 Type of Consultation: GI Ordering Provider: TEDDY RUVALCABA MD Subjective Pt not urinating much. He is retaining more fluid in his legs and he is uncomfortable. No sob or chest pain. Eating ok. Pt concerned he is going to remain in the hospital for an indefinite period of time. He is not clear what exactly is going on with him medically. Objective Vital Signs Date Time Temp Pulse Resp B/P Pulse Ox O2 Delivery O2 Flow Rate FiO2 08/25/16 07:28 97.5 76 18 168/74 98 08/23/16 13:50 21 Intake and Output 08/24/16 08/24/16 08/25/16 15:00 23:00 07:00 Intake Total 300 ml 910 ml 550 ml Output Total 180 ml Balance 300 ml 730 ml 550 ml Exam NAD/A&Ox4 OP clear JVD not elevated RRR no m/g/r CTA A Splenomegaly-mild 3+LE edema Results/Medications Result Diagram: 08/25/16 0520 08/24/16 1015 Results 24 hrs Laboratory Tests Test 08/24/16 08:31 08/24/16 10:15 08/24/16 12:06 08/24/16 16:48 Bedside Glucose 137 213 170 White Blood Count 4.8 Red Blood Count 3.47 #L Hemoglobin 8.6 #L Hematocrit 27.0 L Mean Corpuscular Volume 77.8 L Mean Corpuscular Hemoglobin 24.8 L Mean Corpuscular Hemoglobin Concent 31.9 L Red Cell Distribution Width 25.2 H Platelet Count 266 Mean Platelet Volume Neutrophils % 80.0 H Band Neutrophils % 3.0 Lymphocytes % 7.0 L Monocytes % 5.0 Eosinophils % 1.0 Basophils % 1.0 Metamyelocytes % 1.0 H Myelocytes % 2.0 H Neutrophils # 3.8 Lymphocytes # 0.3 L Monocytes # 0.2 L Eosinophils # 0.0 Basophils # 0.0 Metamyelocytes # 0.0 Myelocytes # 0.1 Poikilocytosis 2+ Anisocytosis 3+ Target Cells FEW Ovalocytes FEW Schistocytes OCCASIONAL Sodium Level 141 Potassium Level 3.9 Chloride Level 106 Carbon Dioxide Level 22 Anion Gap 17 #H Blood Urea Nitrogen 15 Creatinine 0.64 Glucose Level 228 #H Calcium Level 8.5 Test 08/24/16 21:22 08/25/16 05:20 08/25/16 05:50 08/25/16 07:58 Bedside Glucose 122 74 White Blood Count 5.7 Red Blood Count 3.29 L Hemoglobin 8.3 L Hematocrit 25.2 L Mean Corpuscular Volume 76.6 L Mean Corpuscular Hemoglobin 25.2 L Mean Corpuscular Hemoglobin Concent 32.9 Red Cell Distribution Width 24.6 H Platelet Count 261 Mean Platelet Volume Neutrophils % 69.0 Lymphocytes % 18.0 Monocytes % 6.0 Eosinophils % 2.0 Nucleated Red Blood Cells % 1.0 H Neutrophils # 0.0 L Lymphocytes # 0.0 L Monocytes # 0.0 L Eosinophils # 0.0 Platelet Estimate PLT APPEAR ADEQUATE Large Platelets MODERATE Giant Platelets FEW Polychromasia FEW Poikilocytosis MODERATE Anisocytosis MODERATE Spherocytes FEW Tear Drop Cells OCCASIONAL Ovalocytes FEW Acanthocytes FEW Schistocytes MODERATE Lab Scanned Report BLOOD TRANSFUSION Medications Current Medications Acetaminophen 650 mg 650 mg Q6H PRN PO PAIN AND OR ELEVATED TEMP Last administered on 08/23/16 23:51; Admin Dose 650 MG; Start 08/07/16 at 21:30 Sodium Chloride (NS) 1,000 ml @ 50 mls/hr Q20H IV Last administered on 07:26; Admin Dose 60 MLS/HR; Start 08/07/16 at 21:30 Morphine Sulfate (morphine) 2 mg Q4H PRN IV severe pain Last administered on 02:18; Admin Dose 2 MG; Start 08/07/16 at 21:30 Acetaminophen/ Hydrocodone Bitart ([place] (5/325)) 1 tab Q6H PRN PO moderate pain Last administered on 08/22/16 20:25; Admin Dose 1 TAB; Start 08/07/16 at 21:30 Diagnostic Test (Pha) (Accu-Chek) 1 ea 02 XX Last administered on 08/22/16 02: 03; Admin Dose 1 EA; Start 08/08/16 at 02:00 Cholecalciferol (Vitamin D) 5,000 unit DAILY PO Last administered on 08/24/16 08:32; Admin Dose 5,000 UNIT; Start 08/08/16 at 09:00 Gabapentin (Neurontin) 300 mg DAILY PO Last administered on 08/24/16 08:32; Admin Dose 300 MG; Start 08/08/16 at 09:00 Lorazepam (Ativan) 1 mg HS PRN PO ANXIETY Last administered on 08/22/16 20:25 ; Admin Dose 1 MG; Start 08/07/16 at 21:30 Linagliptin (Tradjenta) 5 mg DAILY PO Last administered on 08/24/16 08:33; Admin Dose 5 MG; Start 08/08/16 at 09:00 Lubiprostone (Amitiza) 24 mcg BID PO Last administered on 08/24/16 22:55; Admin Dose 24 MCG; Start 08/09/16 at 21:00 Miscellaneous Information 1 ea NOTE XX ; Start 08/13/16 at 15:30 Glucose (Glutose) 15 gm Q15M PRN PO DECREASED GLUCOSE; Start 08/13/16 at 15:30 Glucose (Glutose) 22.5 gm Q15M PRN PO DECREASED GLUCOSE; Start 08/13/16 at 15:30 Dextrose (D50w Syringe) 25 ml Q15M PRN IV DECREASED GLUCOSE; Start 08/13/16 at 15:30 Dextrose (D50w Syringe) 50 ml Q15M PRN IV DECREASED GLUCOSE; Start 08/13/16 at 15:30 Glucagon (Glucagen) 1 mg Q15M PRN IM DECREASED GLUCOSE; Start 08/13/16 at 15:30 Glucose (Glutose) 15 gm Q15M PRN BUCCAL DECREASED GLUCOSE; Start 08/13/16 at 15: 30 Diphenhydramine HCl (Benadryl) 25 mg Q6H PRN PO ITCHING Last administered on 21:35; Admin Dose 25 MG; Start 08/17/16 at 20:30 Clotrimazole (Lotrimin Cr) 1 applic BID TOP Last administered on 08/24/16 22: 59; Admin Dose 1 APPLIC; Start 08/19/16 at 21:00 Guaifenesin/ Dextromethorphan (Robitussin Dm Liquid Cup) 10 ml Q6 PRN PO COUGH Last administered on 08/24/16 23:55; Admin Dose 10 ML; Start 08/20/16 at 07:00 Phenol (Cepastat Lozenge) 1 lozenge Q4H PRN MT COUGH Last administered on 23:56; Admin Dose 1 LOZENGE; Start 08/20/16 at 07:00 Insulin Glargine 20 unit 20 unit DAILY@20 SC Last administered on 08/24/16 21: 29; Admin Dose 20 UNIT; Start 08/21/16 at 20:00 Vancomycin HCl 1.5 gm/Sodium Chloride 250 ml @ 83.333 mls/ hr Q12H IVPB Last administered on 08/25/16 00:05; Admin Dose 83.333 MLS/HR; Start 08/23/16 at 23: 00 Cefepime HCl (Maxipime 1gm/50 ml (Pmx)) 50 ml @ 100 mls/hr Q12 IVPB Last administered on 08/24/16 22:54; Admin Dose 100 MLS/HR; Start 08/23/16 at 21:00 Losartan Potassium (Cozaar) 50 mg BID PO Last administered on 08/24/16 22:58; Admin Dose 50 MG; Start 08/23/16 at 21:00 Polyethylene Glycol (Miralax) 17 gm BID GTB ; Start 08/24/16 at 21:00 Polyethylene Glycol (Miralax) 17 gm DAILY PRN GTB CONSTIPATION; Start 08/24/16 at 09:30 Docusate Sodium (Colace) 100 mg BID PO ; Start 08/24/16 at 09:30 Simethicone (Mylicon) 80 mg QID PRN GTB DISTENSION/GAS/BLOATING Last administered on 08/24/16 22:55; Admin Dose 80 MG; Start 08/24/16 at 13:00 Amlodipine Besylate (Norvasc) 5 mg DAILY PO ; Start 08/25/16 at 09:00 Clonidine (Catapres) 0.1 mg Q6H PRN PO ELEVATED BLOOD PRESSURE Last administered on 08/25/16 05:59; Admin Dose 0.1 MG; Start 08/25/16 at 06:00 Assessment/Plan Problems: (1) Claudication (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 Pt today is clinically overloaded. Normal renal function and Hb over 8g/dl yesterday after transfusion of 1pRBC. RECOMMENDATIONS: 1. Lasix 20mg IV x 1 and may need to continue as pt fluid overloaded. 2. Keep Hb around 7g/dl or greater. 3. Strongly recommend initiating ruxolotinib or Jakafi to treat myelofibrosis and reduce symptoms associated with disease (B symptoms, splenomegaly). Also associated with survival benefit compared to best supportive care. 4. Pt would benefit being on anticoagulation for IVC thrombus. Thrombosis is highly associated with myeloproliferative neoplasms and if this pt has no contraindication, then recommend initiating anticoagulation. Can start with a NOAC. Not sure why patient is not already. Will speak to Drs. Collier/Jose Martin who will resume care in the morning. Sincerely, Gino Mike MD Hematology/Oncology GINO MIKE Aug 25, 2016 08:28
[2016-08-25] MEDS ORDERED: FUROSEMIDE 20 MG INJ IV ONE (08:30)
[2016-08-25] MEDS: CHOLECALCIFEROL 1,000 UNIT TAB PO SCH ×3 (08:53→09:03)
[2016-08-25] MEDS: AMLODIPINE 5 MG TAB PO SCH (08:57)
[2016-08-25] MEDS: LINAGLIPTIN 5 MG TABLET PO SCH (08:57)
[2016-08-25] MEDS: GABAPENTIN 300 MG CAP PO SCH (08:57)
[2016-08-25] MEDS: LUBIPROSTONE 24 MCG CAP PO SCH ×2 (08:57→09:00)
[2016-08-25] MEDS: LOSARTAN 50 MG TAB PO SCH ×2 (08:58→20:48)
[2016-08-25] MEDS: CLOTRIMAZOLE 1% 30 GM CR TOP SCH ×2 (08:58→20:46)
[2016-08-25] MEDS: CEFEPIME 1GM/50 ML (PMX) 50 ML IVPB SCH ×2 (08:59→20:46)
[2016-08-25] MEDS: DOCUSATE SODIUM 100 MG CAP PO SCH (09:00)
[2016-08-25] MEDS: POLYETHYLENE GLYCOL 17 GM PACKET GTB SCH (09:00)
--- NOTE | 2016-08-25 11:48 | PN ---
Date/Time of Note Date/Time of Note DATE: 08/25/16 TIME: 11:44 Assessment/Plan VTE Prophylaxis VTE Prophylaxis Intervention: other Lines/Catheters IV Catheter Type (from Nrs): Peripheral IV Assessment/Plan Assessment/Plan - BLE edema -We will DC IV fluids -We will do follow-up chest x-ray. If stable we can de-escalate antibiotics - Healthcare acquired pneumonia, continue broad-spectrum antibiotics - Bilateral pleural effusions, continue incentive spirometer, 2 D Echo. - Myelofibrosis. Dr. 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 - Status post EGD and colonoscopy, with notion of gastritis gastritis and superficial duodenal ulcer per EGD and multiple polyps per colonoscopy, awaiting for the final path report. 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 Hall is following in gastroenterology consultation. - History of pulmonary embolism, continue Eliquis - Diabetes mellitus, hemoglobin A1c is 8.2. continue, Tradjenta, Lantus and NovoLog. - Hypertension, continue Cozaar. - Hyperlipidemia - BPH, status post TURP - Pseudomonas UTI, status post treatment - Status post right hip replacement Further recommendations based on clinical course. Plan of care discussed with Dr. Seay. Subjective 24 Hr Interval Summary Free Text/Dictation resting, afebrile, BLE edema- DC IV fluids, follow-up chest x-ray. If stable we can de-escalate antibiotics- dw staff Respiratory: no complaints Cardiovascular: no complaints Gastrointestinal: no complaints Genitourinary: no complaints Musculoskeletal: no complaints Skin: no complaints Exam/Review of Systems Vital Signs Vitals Vital Signs Date Time Temp Pulse Resp B/P Pulse Ox O2 Delivery O2 Flow Rate FiO2 08/25/16 07:28 97.5 76 18 168/74 98 08/23/16 13:50 21 Intake and Output 08/24/16 08/24/16 08/25/16 15:00 23:00 07:00 Intake Total 300 ml 910 ml 550 ml Output Total 180 ml Balance 300 ml 730 ml 550 ml Exam Constitutional: alert, oriented, well developed Psych: nl mood/affect Head: normocephalic Respiratory: clear to auscultation, normal air movement Cardiovascular: nl pulses, regular rate and rhythm Gastrointestinal: non-tender, soft Musculoskeletal: nl extremities to inspection Extremities: edema (BLE mild edema noted.) Neurological: nl mental status, nl speech Results Result Diagram: 08/25/16 0520 08/24/16 1015 Results 24 hrs Laboratory Tests Test 08/24/16 12:06 08/24/16 16:48 08/24/16 21:22 08/25/16 05:20 Bedside Glucose 213 170 122 White Blood Count 5.7 Red Blood Count 3.29 L Hemoglobin 8.3 L Hematocrit 25.2 L Mean Corpuscular Volume 76.6 L Mean Corpuscular Hemoglobin 25.2 L Mean Corpuscular Hemoglobin Concent 32.9 Red Cell Distribution Width 24.6 H Platelet Count 261 Mean Platelet Volume Neutrophils % 69.0 Lymphocytes % 18.0 Monocytes % 6.0 Eosinophils % 2.0 Nucleated Red Blood Cells % 1.0 H Neutrophils # 0.0 L Lymphocytes # 0.0 L Monocytes # 0.0 L Eosinophils # 0.0 Platelet Estimate PLT APPEAR ADEQUATE Large Platelets MODERATE Giant Platelets FEW Polychromasia FEW Poikilocytosis MODERATE Anisocytosis MODERATE Spherocytes FEW Tear Drop Cells OCCASIONAL Ovalocytes FEW Acanthocytes FEW Schistocytes MODERATE Test 08/25/16 05:50 08/25/16 07:58 Lab Scanned Report BLOOD TRANSFUSION Bedside Glucose 74 Medications Medications Current Medications Acetaminophen 650 mg 650 mg Q6H PRN PO PAIN AND OR ELEVATED TEMP Last administered on 08/23/16 23:51; Admin Dose 650 MG; Start 08/07/16 at 21:30 Sodium Chloride (NS) 1,000 ml @ 50 mls/hr Q20H IV Last administered on 07:26; Admin Dose 60 MLS/HR; Start 08/07/16 at 21:30 Morphine Sulfate (morphine) 2 mg Q4H PRN IV severe pain Last administered on 02:18; Admin Dose 2 MG; Start 08/07/16 at 21:30 Acetaminophen/ Hydrocodone Bitart ([place] (5/325)) 1 tab Q6H PRN PO moderate pain Last administered on 08/22/16 20:25; Admin Dose 1 TAB; Start 08/07/16 at 21:30 Diagnostic Test (Pha) (Accu-Chek) 1 ea 02 XX Last administered on 08/22/16 02: 03; Admin Dose 1 EA; Start 08/08/16 at 02:00 Cholecalciferol (Vitamin D) 5,000 unit DAILY PO Last administered on 08/24/16 08:32; Admin Dose 5,000 UNIT; Start 08/08/16 at 09:00 Gabapentin (Neurontin) 300 mg DAILY PO Last administered on 08/25/16 08:57; Admin Dose 300 MG; Start 08/08/16 at 09:00 Lorazepam (Ativan) 1 mg HS PRN PO ANXIETY Last administered on 08/22/16 20:25 ; Admin Dose 1 MG; Start 08/07/16 at 21:30 Linagliptin (Tradjenta) 5 mg DAILY PO Last administered on 08/25/16 08:57; Admin Dose 5 MG; Start 08/08/16 at 09:00 Lubiprostone (Amitiza) 24 mcg BID PO Last administered on 08/24/16 22:55; Admin Dose 24 MCG; Start 08/09/16 at 21:00 Miscellaneous Information 1 ea NOTE XX ; Start 08/13/16 at 15:30 Glucose (Glutose) 15 gm Q15M PRN PO DECREASED GLUCOSE; Start 08/13/16 at 15:30 Glucose (Glutose) 22.5 gm Q15M PRN PO DECREASED GLUCOSE; Start 08/13/16 at 15:30 Dextrose (D50w Syringe) 25 ml Q15M PRN IV DECREASED GLUCOSE; Start 08/13/16 at 15:30 Dextrose (D50w Syringe) 50 ml Q15M PRN IV DECREASED GLUCOSE; Start 08/13/16 at 15:30 Glucagon (Glucagen) 1 mg Q15M PRN IM DECREASED GLUCOSE; Start 08/13/16 at 15:30 Glucose (Glutose) 15 gm Q15M PRN BUCCAL DECREASED GLUCOSE; Start 08/13/16 at 15: 30 Diphenhydramine HCl (Benadryl) 25 mg Q6H PRN PO ITCHING Last administered on 21:35; Admin Dose 25 MG; Start 08/17/16 at 20:30 Clotrimazole (Lotrimin Cr) 1 applic BID TOP Last administered on 08/25/16 08: 58; Admin Dose 1 APPLIC; Start 08/19/16 at 21:00 Guaifenesin/ Dextromethorphan (Robitussin Dm Liquid Cup) 10 ml Q6 PRN PO COUGH Last administered on 08/24/16 23:55; Admin Dose 10 ML; Start 08/20/16 at 07:00 Phenol (Cepastat Lozenge) 1 lozenge Q4H PRN MT COUGH Last administered on 23:56; Admin Dose 1 LOZENGE; Start 08/20/16 at 07:00 Insulin Glargine 20 unit 20 unit DAILY@20 SC Last administered on 08/24/16 21: 29; Admin Dose 20 UNIT; Start 08/21/16 at 20:00 Vancomycin HCl 1.5 gm/Sodium Chloride 250 ml @ 83.333 mls/ hr Q12H IVPB Last administered on 08/25/16 11:21; Admin Dose 83.333 MLS/HR; Start 08/23/16 at 23: 00 Cefepime HCl (Maxipime 1gm/50 ml (Pmx)) 50 ml @ 100 mls/hr Q12 IVPB Last administered on 08/25/16 08:59; Admin Dose 100 MLS/HR; Start 08/23/16 at 21:00 Losartan Potassium (Cozaar) 50 mg BID PO Last administered on 08/25/16 08:58; Admin Dose 50 MG; Start 08/23/16 at 21:00 Polyethylene Glycol (Miralax) 17 gm BID GTB ; Start 08/24/16 at 21:00 Polyethylene Glycol (Miralax) 17 gm DAILY PRN GTB CONSTIPATION; Start 08/24/16 at 09:30 Docusate Sodium (Colace) 100 mg BID PO ; Start 08/24/16 at 09:30 Simethicone (Mylicon) 80 mg QID PRN GTB DISTENSION/GAS/BLOATING Last administered on 08/24/16 22:55; Admin Dose 80 MG; Start 08/24/16 at 13:00 Amlodipine Besylate (Norvasc) 5 mg DAILY PO Last administered on 08/25/16 08: 57; Admin Dose 5 MG; Start 08/25/16 at 09:00 Clonidine (Catapres) 0.1 mg Q6H PRN PO ELEVATED BLOOD PRESSURE Last administered on 08/25/16 05:59; Admin Dose 0.1 MG; Start 08/25/16 at 06:00 Miscellaneous Information (*Rx Drug Level Order Reminder*) VANCOMYCIN TROUGH AT 2200 ONCE ONCE XX ; Start 08/25/16 at 22:00; Stop 08/25/16 at 22:01 POLA CISNEROS Aug 25, 2016 11:47
--- NOTE | 2016-08-25 12:57 | RADRPT ---
PROCEDURE: XR Chest. CLINICAL INDICATION: Pneumonia. TECHNIQUE: PA and Lateral views of the chest were obtained. COMPARISON: CT chest 08/22/2016. FINDINGS: The soft tissues are normal. There are osteophytes in the thoracic spine. The heart is enlarged. The cardiomediastinal silhouette and hilar structures are normal. The pulmonary vasculature is incre ased. There is a left-sided aorta. There are perihilar and basilar infiltrates. There are bilateral pleural effusions. IMPRESSION: 1. Cardiomegaly with increased pulmonary vasculature and symmetric perihilar and basilar infiltrates which are suspicious for CHF with associated bilateral pleural effusions. A coexistent pneumonia c annot be excluded. 2. Spondylosis of the thoracic spine. RPTAT:AAJJ Physician Charan Date Time Electronically viewed and signed by Luis Bruno Physician on 08/25/2016 12:57 ISIDRA/
[2016-08-25 14:05] VITALS: BP 157/73; RESP 18
--- NOTE | 2016-08-25 14:13 | CONS ---
Date/Time of Note Date/Time of Note DATE: 08/25/16 TIME: 14:12 Assessment/Plan Assessment/Plan Chief Complaint/Hosp Course This is a 76-year-old male with a history of diabetes mellitus hypertension lipid abnormality admitted to the hospital for thrombosis of the inferior vena cava. Patient complains of right lower quadrant abdominal pain and also significant weight loss. He lost 26 pounds over the. A few months and is chronically constipated. Patient denies of any kind of GI bleeding no nausea no vomiting no heartburn. No chest pain or shortness of breath. He has lost his appetite. Patient has umbrella in the inferior vena cava and also has a history of pulmonary embolism. He has a history of surgery on his knee and also on his hands. Problems: Additional Assessment/Plan Additional Assessment/Plan 1. Anemia microcytic, with few few blast cells: stool for occult blood negative 2. Thrombosis of the inferior vena cava 3. Weight loss of 26 pound 4. Abdominal pain right lower quadrant 5. Constipation 6. History of pulmonary embolism 7. Diabetes mellitus 8. Hypertension 9. Hyperlipidemia 10. Status post surgery on his knee and the hand Plan 1. discussed with Jose Martin Galindo ,pt,has myelofibrosis and also iron deficiency anemia 2. patient also say the same that Dr. Philippe wants to hold off on EGD and colonoscopy so I will do so. 3. will follow along with you 4. continue Amitiza for his constipation 5. EGD showed gastritis and also superficial duodenal ulcer and a colonoscopy showed multiple polyps in the cecum all were adjacent to each other and each polyp was 6-7 mm in diameter all were sessile in nature. Biopsies 3 biopsies obtained. final path report, cecal biopsies showed adenomatous polyp no dysplasia. EGD biopsy showed gastritis no Helicobacter pylori. Patient may need capsule endoscopy as an outpatient for his iron deficiency anemia. Simethicone 80 mg 3 times daily for flatulence. Consultation Date/Type/Reason Admit Date/Time Aug 07, 2016 at 16:05 Initial Consult Date 08/10/16 Type of Consultation: GI Referring Provider: TEDDY RUVALCABA MD 24 HR Interval Summary Constitutional: no complaints Exam/Review of Systems Vital Signs Vitals Vital Signs Date Time Temp Pulse Resp B/P Pulse Ox O2 Delivery O2 Flow Rate FiO2 08/25/16 14:05 98.5 71 18 157/73 98 08/23/16 13:50 21 Intake and Output 08/24/16 08/24/16 08/25/16 15:00 23:00 07:00 Intake Total 300 ml 910 ml 550 ml Output Total 180 ml Balance 300 ml 730 ml 550 ml Exam Constitutional: alert, oriented, well developed Psych: nl mood/affect, no complaints Head: atraumatic, normocephalic Eyes: EOMI, PERRL, nl conjunctiva, nl lids, nl sclera ENMT: nl external ears & nose, nl lips & teeth, nl nasal mucosa & septum Neck: non-tender, supple Respiratory: clear to auscultation, normal air movement Cardiovascular: nl pulses, regular rate and rhythm Gastrointestinal: nl liver, spleen, non-tender, soft Musculoskeletal: nl extremities to inspection, nl gait and stance Extremities: normal pulses Neurological: JEWELRY BENCH MOLDER II-XII intact, nl mental status, nl speech, nl strength Skin: nl turgor, No rash or lesions Lymph: nl lymph nodes Results Result Diagram: 08/25/16 0520 08/24/16 1015 Results 24 hrs Laboratory Tests Test 08/24/16 16:48 08/24/16 21:22 08/25/16 05:20 08/25/16 05:50 Bedside Glucose 170 122 White Blood Count 5.7 Red Blood Count 3.29 L Hemoglobin 8.3 L Hematocrit 25.2 L Mean Corpuscular Volume 76.6 L Mean Corpuscular Hemoglobin 25.2 L Mean Corpuscular Hemoglobin Concent 32.9 Red Cell Distribution Width 24.6 H Platelet Count 261 Mean Platelet Volume Neutrophils % 69.0 Lymphocytes % 18.0 Monocytes % 6.0 Eosinophils % 2.0 Nucleated Red Blood Cells % 1.0 H Neutrophils # 0.0 L Lymphocytes # 0.0 L Monocytes # 0.0 L Eosinophils # 0.0 Platelet Estimate PLT APPEAR ADEQUATE Large Platelets MODERATE Giant Platelets FEW Polychromasia FEW Poikilocytosis MODERATE Anisocytosis MODERATE Spherocytes FEW Tear Drop Cells OCCASIONAL Ovalocytes FEW Acanthocytes FEW Schistocytes MODERATE Lab Scanned Report BLOOD TRANSFUSION Test 08/25/16 07:58 08/25/16 11:58 Bedside Glucose 74 183 Medications Medications Current Medications Acetaminophen (Tylenol Tab) 650 mg Q6H PRN PO PAIN AND OR ELEVATED TEMP Last administered on 08/23/16t 23:51; Admin Dose 650 MG; Start 08/07/16 at 21:30 Morphine Sulfate (morphine) 2 mg Q4H PRN IV severe pain Last administered on 02:18; Admin Dose 2 MG; Start 08/07/16 at 21:30 Acetaminophen/ Hydrocodone Bitart ([place] (5/325)) 1 tab Q6H PRN PO moderate pain Last administered on 08/22/16 20:25; Admin Dose 1 TAB; Start 08/07/16 at 21:30 Diagnostic Test (Pha) (Accu-Chek) 1 ea 02 XX Last administered on 08/22/16 02: 03; Admin Dose 1 EA; Start 08/08/16 at 02:00 Cholecalciferol (Vitamin D) 5,000 unit DAILY PO Last administered on 08/24/16 08:32; Admin Dose 5,000 UNIT; Start 08/08/16 at 09:00 Gabapentin (Neurontin) 300 mg DAILY PO Last administered on 08/25/16 08:57; Admin Dose 300 MG; Start 08/08/16 at 09:00 Lorazepam (Ativan) 1 mg HS PRN PO ANXIETY Last administered on 08/22/16 20:25 ; Admin Dose 1 MG; Start 08/07/16 at 21:30 Linagliptin (Tradjenta) 5 mg DAILY PO Last administered on 08/25/16 08:57; Admin Dose 5 MG; Start 08/08/16 at 09:00 Lubiprostone (Amitiza) 24 mcg BID PO Last administered on 08/24/16 22:55; Admin Dose 24 MCG; Start 08/09/16 at 21:00 Miscellaneous Information 1 ea NOTE XX ; Start 08/13/16 at 15:30 Glucose (Glutose) 15 gm Q15M PRN PO DECREASED GLUCOSE; Start 08/13/16 at 15:30 Glucose (Glutose) 22.5 gm Q15M PRN PO DECREASED GLUCOSE; Start 08/13/16 at 15:30 Dextrose (D50w Syringe) 25 ml Q15M PRN IV DECREASED GLUCOSE; Start 08/13/16 at 15:30 Dextrose (D50w Syringe) 50 ml Q15M PRN IV DECREASED GLUCOSE; Start 08/13/16 at 15:30 Glucagon (Glucagen) 1 mg Q15M PRN IM DECREASED GLUCOSE; Start 08/13/16 at 15:30 Glucose (Glutose) 15 gm Q15M PRN BUCCAL DECREASED GLUCOSE; Start 08/13/16 at 15: 30 Diphenhydramine HCl (Benadryl) 25 mg Q6H PRN PO ITCHING Last administered on 21:35; Admin Dose 25 MG; Start 08/17/16 at 20:30 Clotrimazole (Lotrimin Cr) 1 applic BID TOP Last administered on 08/25/16 08: 58; Admin Dose 1 APPLIC; Start 08/19/16 at 21:00 Guaifenesin/ Dextromethorphan (Robitussin Dm Liquid Cup) 10 ml Q6 PRN PO COUGH Last administered on 08/24/16 23:55; Admin Dose 10 ML; Start 08/20/16 at 07:00 Phenol (Cepastat Lozenge) 1 lozenge Q4H PRN MT COUGH Last administered on 23:56; Admin Dose 1 LOZENGE; Start 08/20/16 at 07:00 Insulin Glargine 20 unit 20 unit DAILY@20 SC Last administered on 08/24/16 21: 29; Admin Dose 20 UNIT; Start 08/21/16 at 20:00 Vancomycin HCl 1.5 gm/Sodium Chloride 250 ml @ 83.333 mls/ hr Q12H IVPB Last administered on 08/25/16 11:21; Admin Dose 83.333 MLS/HR; Start 08/23/16 at 23: 00 Cefepime HCl (Maxipime 1gm/50 ml (Pmx)) 50 ml @ 100 mls/hr Q12 IVPB Last administered on 08/25/16 08:59; Admin Dose 100 MLS/HR; Start 08/23/16 at 21:00 Losartan Potassium (Cozaar) 50 mg BID PO Last administered on 08/25/16 08:58; Admin Dose 50 MG; Start 08/23/16 at 21:00 Polyethylene Glycol (Miralax) 17 gm BID GTB ; Start 08/24/16 at 21:00 Polyethylene Glycol (Miralax) 17 gm DAILY PRN GTB CONSTIPATION; Start 08/24/16 at 09:30 Docusate Sodium (Colace) 100 mg BID PO ; Start 7/15/17 at 09:30 Simethicone (Mylicon) 80 mg QID PRN GTB DISTENSION/GAS/BLOATING Last administered on 08/24/16 22:55; Admin Dose 80 MG; Start 08/24/16 at 13:00 Amlodipine Besylate (Norvasc) 5 mg DAILY PO Last administered on 08/25/16 08: 57; Admin Dose 5 MG; Start 08/25/16 at 09:00 Clonidine (Catapres) 0.1 mg Q6H PRN PO ELEVATED BLOOD PRESSURE Last administered on 08/25/16 05:59; Admin Dose 0.1 MG; Start 08/25/16 at 06:00 Miscellaneous Information (*Rx Drug Level Order Reminder*) VANCOMYCIN TROUGH AT 2200 ONCE ONCE XX ; Start 08/25/16 at 22:00; Stop 08/25/16 at 22:01 ANA VELASQUEZ MD Aug 25, 2016 14:13
[2016-08-25] MEDS: GUAIFENESIN/DM 5ML CUP PO PRN ×2 (16:08→22:56)
[2016-08-25] MEDS: CEPASTAT LOZENGE MT PRN ×2 (16:08→22:56)
[2016-08-25 19:52] VITALS: BP 174/79; RESP 20
[2016-08-25] MEDS: INSULIN GLARGINE [LANtus] 3 ML PEN SC SCH (20:37)
[2016-08-26] MEDS ORDERED: VANCOMYCIN 1.25 GM in SOD CHLORIDE 0.9% 250 ML IVPB SCH ×5 (00:30→03:00)
[2016-08-26] MEDS: ACCU-CHEK XX SCH (01:55)
[2016-08-26 02:52] VITALS: BP 154/69; RESP 24
[2016-08-26] MEDS: CEPASTAT LOZENGE MT PRN ×2 (03:16→20:28)
[2016-08-26] MEDS: ACETAMINOPHEN 325 MG TAB PO PRN (03:16)
[2016-08-26 07:30] VITALS: BP 141/65; RESP 18
[2016-08-26 07:45] LABS: ABNORMAL IP MESSAGE 1; ADD SCAN DIFF NO; BASOPHILS % 0.7 % (0.0-2.0); EOSINOPHILS % 0.2 % (0.0-7.0); HEMATOCRIT 23.8 % (42.0-52.0); HEMOGLOBIN 7.9 g/dl (14.0-18.0); LYMPHOCYTES # 0.9 10^3/ul (0.8-2.9); LYMPHOCYTES % 15.1 % (15.0-51.0); MEAN CORPUSCULAR HEMOGLOBIN 25.2 pg (29.0-33.0); MEAN CORPUSCULAR HGB CONC 33.2 g/dl (32.0-37.0); MEAN CORPUSCULAR VOLUME 75.8 fl (82.0-101.0); MONOCYTES % 17.2 % (0.0-11.0); NEUTROPHIL # 3.7 10^3/ul (1.6-7.5); NEUTROPHILS % 60.3 % (39.0-77.0); NUCLEATED RED BLOOD CELLS% 0.7 /100WBC (0.0-0.0); PLATELET COUNT 230 10^3/UL (140-415); RED BLOOD COUNT 3.14 10^6/ul (4.70-6.10)
[2016-08-26] MEDS: INSULIN ASPART [NOVOLOG] 3 ML PEN SC SCH ×7 (08:09→21:00)
[2016-08-26 08:40] LABS: ALBUMIN/GLOBULIN RATIO 0.96; BILIRUBIN,INDIRECT 0.4 mg/dl (0-1.1); BILIRUBIN,TOTAL 0.4 mg/dl (0.2-1.3); CALCIUM 8.1 mg/dl (8.4-10.2); CREATININE 0.62 mg/dl (0.61-1.24); MAGNESIUM 1.8 mg/dl (1.7-2.5); POTASSIUM 3.4 mmol/L (3.5-5.1); TOTAL PROTEIN 6.1 g/dl (6.1-8.1)
[2016-08-26] MEDS: LOSARTAN 50 MG TAB PO SCH ×2 (08:44→20:30)
[2016-08-26] MEDS: GABAPENTIN 300 MG CAP PO SCH (08:44)
[2016-08-26] MEDS: AMLODIPINE 5 MG TAB PO SCH (08:44)
[2016-08-26] MEDS: CEFEPIME 1GM/50 ML (PMX) 50 ML IVPB SCH ×2 (08:49→20:27)
[2016-08-26] MEDS: LINAGLIPTIN 5 MG TABLET PO SCH (08:55)
[2016-08-26] MEDS: CLOTRIMAZOLE 1% 30 GM CR TOP SCH ×2 (08:55→20:30)
[2016-08-26] MEDS: CHOLECALCIFEROL 1,000 UNIT TAB PO SCH (08:55)
[2016-08-26 14:09] VITALS: BP 171/72; RESP 18
[2016-08-26] MEDS: VANCOMYCIN 1 GM in NS 250 ML IVPB SCH (15:00)
--- NOTE | 2016-08-26 18:18 | CONS ---
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 Patient complains of right lower quadrant abdominal pain and also significant weight loss. He lost 26 pounds over the. A few months and is chronically constipated. Patient denies of any kind of GI bleeding no nausea no vomiting no heartburn. No chest pain or shortness of breath. He has lost his appetite. Patient has umbrella in the inferior vena cava and also has a history of pulmonary embolism. He has a history of surgery on his knee and also on his hands. Problems: Additional Assessment/Plan Additional Assessment/Plan 1. Anemia microcytic, with few few blast cells: stool for occult blood negative 2. Thrombosis of the inferior vena cava 3. Weight loss of 26 pound 4. Abdominal pain right lower quadrant 5. Constipation 6. History of pulmonary embolism 7. Diabetes mellitus 8. Hypertension 9. Hyperlipidemia 10. Status post surgery on his knee and the hand Plan 1. discussed with Jose Martin Galindo ,pt,has myelofibrosis and also iron deficiency anemia 2. patient also say the same that Dr. Philippe wants to hold off on EGD and colonoscopy so I will do so. 3. will follow along with you 4. continue Amitiza for his constipation 5. EGD showed gastritis and also superficial duodenal ulcer and a colonoscopy showed multiple polyps in the cecum all were adjacent to each other and each polyp was 6-7 mm in diameter all were sessile in nature. Biopsies 3 biopsies obtained. final path report, cecal biopsies showed adenomatous polyp no dysplasia. EGD biopsy showed gastritis no Helicobacter pylori. Patient may need capsule endoscopy as an outpatient for his iron deficiency anemia. Simethicone 80 mg 3 times daily for flatulence. Consultation Date/Type/Reason Admit Date/Time Aug 07, 2016 at 16:05 Initial Consult Date 08/10/16 Type of Consultation: GI Referring Provider: TEDDY RUVALCABA MD 24 HR Interval Summary Constitutional: improved, no complaints Exam/Review of Systems Vital Signs Vitals Vital Signs Date Time Temp Pulse Resp B/P Pulse Ox O2 Delivery O2 Flow Rate FiO2 08/26/16 14:09 97.8 92 18 171/72 97 08/23/16 13:50 21 Intake and Output 08/25/16 08/25/16 08/26/16 15:00 23:00 07:00 Intake Total 450 ml 890 ml 1130 ml Output Total 1500 ml 400 ml Balance 450 ml -610 ml 730 ml Exam Constitutional: alert, oriented, well developed Psych: nl mood/affect, no complaints Head: atraumatic, normocephalic Eyes: EOMI, PERRL, nl conjunctiva, nl lids, nl sclera ENMT: nl external ears & nose, nl lips & teeth, nl nasal mucosa & septum Neck: non-tender, supple Respiratory: clear to auscultation, normal air movement Cardiovascular: nl pulses, regular rate and rhythm Gastrointestinal: nl liver, spleen, non-tender, soft Musculoskeletal: nl extremities to inspection, nl gait and stance Extremities: normal pulses Neurological: HIDE SELECTOR II-XII intact, nl mental status, nl speech, nl strength Skin: nl turgor, No rash or lesions Lymph: nl lymph nodes Results Result Diagram: 08/26/16 0730 08/26/16 0740 Results 24 hrs Laboratory Tests Test 08/25/16 20:27 08/25/16 23:10 08/26/16 07:30 08/26/16 07:40 Bedside Glucose 139 Vancomycin Level Trough 23.1 *H White Blood Count 6.0 Red Blood Count 3.14 L Hemoglobin 7.9 L Hematocrit 23.8 L Mean Corpuscular Volume 75.8 L Mean Corpuscular Hemoglobin 25.2 L Mean Corpuscular Hemoglobin Concent 33.2 Red Cell Distribution Width 25.0 H Platelet Count 230 Mean Platelet Volume Neutrophils % 60.3 Lymphocytes % 15.1 Monocytes % 17.2 H Eosinophils % 0.2 Basophils % 0.7 Nucleated Red Blood Cells % 0.7 H Neutrophils # 3.7 Lymphocytes # 0.9 Monocytes # 1.0 H Eosinophils # 0.0 Basophils # 0.0 Nucleated Red Blood Cells # 0.0 Sodium Level 140 Potassium Level 3.4 L Chloride Level 108 Carbon Dioxide Level 19 L Anion Gap 16 Blood Urea Nitrogen 15 Creatinine 0.62 Glucose Level 41 #*L Calcium Level 8.1 L Magnesium Level 1.8 Total Bilirubin 0.4 Direct Bilirubin 0.00 Indirect Bilirubin 0.4 Aspartate Amino Transf (AST/SGOT) 33 Alanine Aminotransferase (ALT/SGPT) 50 Alkaline Phosphatase 556 H Total Protein 6.1 Albumin 3.0 L Globulin 3.10 Albumin/Globulin Ratio 0.96 Test 08/26/16 08:03 08/26/16 08:38 08/26/16 08:59 08/26/16 12:03 Bedside Glucose 53 L 102 108 156 Test 08/26/16 17:14 Bedside Glucose 153 Medications Medications Current Medications Acetaminophen (Tylenol Tab) 650 mg Q6H PRN PO PAIN AND OR ELEVATED TEMP Last administered on 08/26/16 03:16; Admin Dose 650 MG; Start 08/07/16 at 21:30 Morphine Sulfate (morphine) 2 mg Q4H PRN IV severe pain Last administered on 02:18; Admin Dose 2 MG; Start 08/07/16 at 21:30 Acetaminophen/ Hydrocodone Bitart ([place] (5/325)) 1 tab Q6H PRN PO moderate pain Last administered on 08/22/16 20:25; Admin Dose 1 TAB; Start 08/07/16 at 21:30 Diagnostic Test (Pha) (Accu-Chek) 1 ea 02 XX Last administered on 08/22/16 02: 03; Admin Dose 1 EA; Start 08/08/16 at 02:00 Cholecalciferol (Vitamin D) 5,000 unit DAILY PO Last administered on 08/24/16 08:32; Admin Dose 5,000 UNIT; Start 08/08/16 at 09:00 Gabapentin (Neurontin) 300 mg DAILY PO Last administered on 08/26/16 08:44; Admin Dose 300 MG; Start 08/08/16 at 09:00 Lorazepam (Ativan) 1 mg HS PRN PO ANXIETY Last administered on 08/22/16 20:25 ; Admin Dose 1 MG; Start 08/07/16 at 21:30 Linagliptin (Tradjenta) 5 mg DAILY PO Last administered on 08/25/16 08:57; Admin Dose 5 MG; Start 08/08/16 at 09:00 Miscellaneous Information 1 ea NOTE XX Last administered on 08/26/16 08:08; Admin Dose 1 EA; Start 08/13/16 at 15:30 Glucose (Glutose) 15 gm Q15M PRN PO DECREASED GLUCOSE; Start 08/13/16 at 15:30 Glucose (Glutose) 22.5 gm Q15M PRN PO DECREASED GLUCOSE; Start 08/13/16 at 15:30 Dextrose (D50w Syringe) 25 ml Q15M PRN IV DECREASED GLUCOSE; Start 08/13/16 at 15:30 Dextrose (D50w Syringe) 50 ml Q15M PRN IV DECREASED GLUCOSE; Start 08/13/16 at 15:30 Glucagon (Glucagen) 1 mg Q15M PRN IM DECREASED GLUCOSE; Start 08/13/16 at 15:30 Glucose (Glutose) 15 gm Q15M PRN BUCCAL DECREASED GLUCOSE; Start 08/13/16 at 15: 30 Diphenhydramine HCl (Benadryl) 25 mg Q6H PRN PO ITCHING Last administered on 21:35; Admin Dose 25 MG; Start 08/17/16 at 20:30 Clotrimazole (Lotrimin Cr) 1 applic BID TOP Last administered on 08/25/16 20: 46; Admin Dose 1 APPLIC; Start 08/19/16 at 21:00 Guaifenesin/ Dextromethorphan (Robitussin Dm Liquid Cup) 10 ml Q6 PRN PO COUGH Last administered on 08/25/16 22:56; Admin Dose 10 ML; Start 08/20/16 at 07:00 Phenol 1 lozenge 1 lozenge Q4H PRN MT COUGH Last administered on 08/26/16 03: 16; Admin Dose 1 LOZENGE; Start 08/20/16 at 07:00 Cefepime HCl (Maxipime 1gm/50 ml (Pmx)) 50 ml @ 100 mls/hr Q12 IVPB Last administered on 08/26/16 08:49; Admin Dose 100 MLS/HR; Start 08/23/16 at 21:00 Losartan Potassium (Cozaar) 50 mg BID PO Last administered on 08/26/16 08:44; Admin Dose 50 MG; Start 08/23/16 at 21:00 Polyethylene Glycol (Miralax) 17 gm DAILY PRN GTB CONSTIPATION; Start 08/24/16 at 09:30 Simethicone (Mylicon) 80 mg QID PRN GTB DISTENSION/GAS/BLOATING Last administered on 08/26/16 16:00; Admin Dose 80 MG; Start 7/15/17 at 13:00 Amlodipine Besylate (Norvasc) 5 mg DAILY PO Last administered on 08/26/16 08: 44; Admin Dose 5 MG; Start 08/25/16 at 09:00 Clonidine 0.1 mg 0.1 mg Q6H PRN PO ELEVATED BLOOD PRESSURE Last administered on 08/25/16 05:59; Admin Dose 0.1 MG; Start 08/25/16 at 06:00 Vancomycin HCl (Vancocin) 250 ml @ 125 mls/hr Q12H IVPB Last administered on 15:00; Admin Dose 125 MLS/HR; Start 08/26/16 at 15:00 Insulin Glargine (Lantus) 17 unit DAILY@20 SC ; Start 08/26/16 at 20:00 ANA VELASQUEZ MD Aug 26, 2016 18:17
[2016-08-26] MEDS: GUAIFENESIN/DM 5ML CUP PO PRN (20:27)
[2016-08-26 20:28] VITALS: BP 153/69; RESP 18
--- NOTE | 2016-08-26 21:27 | PN ---
Date/Time of Note Date/Time of Note DATE: 08/26/16 TIME: 21:17 Assessment/Plan VTE Prophylaxis VTE Prophylaxis Intervention: SCD's VTE Contraindication Reason: bleeding Lines/Catheters IV Catheter Type (from Nrsg): Peripheral IV Assessment/Plan Chief Complaint/Hosp Course Anemia and IVC thrombosis. Problems: (1) Duodenal ulcer (2) Lupus anticoagulant positive Status: Chronic (3) Myelofibrosis Status: Chronic (4) Microcytic anemia Status: Chronic Assessment/Plan Anemia continues and daily decrease in Hgb/Hct continues. This continued decrease can only be due to blood loss or hemolysis. No indication of the later atthis time. Pt is still microcytic. Will recheck iron studies. Will also check haptoglobin. EPO level was previously inappropriately low for Hgb. Will recheck EPO level in AM and then start intense therapy with EPO and iron replacement. Reluctant to start on anticoagulants because of bleeding. Agree that investigation of small bowel as site of bleed is indicated. Subjective 24 Hr Interval Summary Free Text/Dictation No new complaints. No abd pain. No N/V. No fevers ornight sweats. Exam/Review of Systems Vital Signs Vitals Vital Signs Date Time Temp Pulse Resp B/P Pulse Ox O2 Delivery O2 Flow Rate FiO2 08/26/16 20:28 98.2 92 18 153/69 95 08/23/16 13:50 21 Intake and Output 08/25/16 08/25/16 08/26/16 15:00 23:00 07:00 Intake Total 450 ml 890 ml 1130 ml Output Total 1500 ml 400 ml Balance 450 ml -610 ml 730 ml Exam Constitutional: alert, oriented Head: atraumatic, normocephalic Eyes: PERRL, nl conjunctiva, nl sclera ENMT: mucosa pink and moist Neck: non-tender, supple Respiratory: clear to auscultation, normal air movement Cardiovascular: nl pulses, regular rate and rhythm Gastrointestinal: nl liver, spleen, non-tender, splenomegaly Musculoskeletal: nl extremities to inspection, nl gait and stance Extremities: normal pulses Neurological: CUPOLA OPERATOR II-XII intact, nl mental status Skin: nl turgor, other (pale) Lymph: nl lymph nodes Results Result Diagram: 08/26/16 0730 08/26/16 0740 Results 24 hrs Laboratory Tests Test 08/25/16 23:10 08/26/16 07:30 08/26/16 07:40 08/26/16 08:03 Vancomycin Level Trough 23.1 *H White Blood Count 6.0 Red Blood Count 3.14 L Hemoglobin 7.9 L Hematocrit 23.8 L Mean Corpuscular Volume 75.8 L Mean Corpuscular Hemoglobin 25.2 L Mean Corpuscular Hemoglobin Concent 33.2 Red Cell Distribution Width 25.0 H Platelet Count 230 Mean Platelet Volume Neutrophils % 60.3 Lymphocytes % 15.1 Monocytes % 17.2 H Eosinophils % 0.2 Basophils % 0.7 Nucleated Red Blood Cells % 0.7 H Neutrophils # 3.7 Lymphocytes # 0.9 Monocytes # 1.0 H Eosinophils # 0.0 Basophils # 0.0 Nucleated Red Blood Cells # 0.0 Sodium Level 140 Potassium Level 3.4 L Chloride Level 108 Carbon Dioxide Level 19 L Anion Gap 16 Blood Urea Nitrogen 15 Creatinine 0.62 Glucose Level 41 #*L Calcium Level 8.1 L Magnesium Level 1.8 Total Bilirubin 0.4 Direct Bilirubin 0.00 Indirect Bilirubin 0.4 Aspartate Amino Transf (AST/SGOT) 33 Alanine Aminotransferase (ALT/SGPT) 50 Alkaline Phosphatase 556 H Total Protein 6.1 Albumin 3.0 L Globulin 3.10 Albumin/Globulin Ratio 0.96 Bedside Glucose 53 L Test 08/26/16 08:38 08/26/16 08:59 08/26/16 12:03 08/26/16 17:14 Bedside Glucose 102 108 156 153 Medications Medications Current Medications Acetaminophen (Tylenol Tab) 650 mg Q6H PRN PO PAIN AND OR ELEVATED TEMP Last administered on 08/26/16 03:16; Admin Dose 650 MG; Start 08/07/16 at 21:30 Morphine Sulfate (morphine) 2 mg Q4H PRN IV severe pain Last administered on 02:18; Admin Dose 2 MG; Start 08/07/16 at 21:30 Acetaminophen/ Hydrocodone Bitart ([place] (5/325)) 1 tab Q6H PRN PO moderate pain Last administered on 08/22/16 20:25; Admin Dose 1 TAB; Start 08/07/16 at 21:30 Diagnostic Test (Pha) (Accu-Chek) 1 ea 02 XX Last administered on 08/22/16 02: 03; Admin Dose 1 EA; Start 08/08/16 at 02:00 Cholecalciferol (Vitamin D) 5,000 unit DAILY PO Last administered on 08/24/16 08:32; Admin Dose 5,000 UNIT; Start 08/08/16 at 09:00 Gabapentin (Neurontin) 300 mg DAILY PO Last administered on 08/26/16 08:44; Admin Dose 300 MG; Start 08/08/16 at 09:00 Lorazepam (Ativan) 1 mg HS PRN PO ANXIETY Last administered on 08/22/16 20:25 ; Admin Dose 1 MG; Start 08/07/16 at 21:30 Linagliptin (Tradjenta) 5 mg DAILY PO Last administered on 08/25/16 08:57; Admin Dose 5 MG; Start 08/08/16 at 09:00 Miscellaneous Information 1 ea NOTE XX Last administered on 08/26/16 08:08; Admin Dose 1 EA; Start 08/13/16 at 15:30 Glucose (Glutose) 15 gm Q15M PRN PO DECREASED GLUCOSE; Start 08/13/16 at 15:30 Glucose (Glutose) 22.5 gm Q15M PRN PO DECREASED GLUCOSE; Start 08/13/16 at 15:30 Dextrose (D50w Syringe) 25 ml Q15M PRN IV DECREASED GLUCOSE; Start 08/13/16 at 15:30 Dextrose (D50w Syringe) 50 ml Q15M PRN IV DECREASED GLUCOSE; Start 08/13/16 at 15:30 Glucagon (Glucagen) 1 mg Q15M PRN IM DECREASED GLUCOSE; Start 08/13/16 at 15:30 Glucose (Glutose) 15 gm Q15M PRN BUCCAL DECREASED GLUCOSE; Start 08/13/16 at 15: 30 Diphenhydramine HCl (Benadryl) 25 mg Q6H PRN PO ITCHING Last administered on 21:35; Admin Dose 25 MG; Start 08/17/16 at 20:30 Clotrimazole (Lotrimin Cr) 1 applic BID TOP Last administered on 08/26/16 20: 30; Admin Dose 1 APPLIC; Start 08/19/16 at 21:00 Guaifenesin/ Dextromethorphan (Robitussin Dm Liquid Cup) 10 ml Q6 PRN PO COUGH Last administered on 08/26/16 20:27; Admin Dose 10 ML; Start 08/20/16 at 07:00 Phenol 1 lozenge 1 lozenge Q4H PRN MT COUGH Last administered on 08/26/16 20: 28; Admin Dose 1 LOZENGE; Start 08/20/16 at 07:00 Cefepime HCl (Maxipime 1gm/50 ml (Pmx)) 50 ml @ 100 mls/hr Q12 IVPB Last administered on 08/26/16 20:27; Admin Dose 100 MLS/HR; Start 08/23/16 at 21:00 Losartan Potassium (Cozaar) 50 mg BID PO Last administered on 08/26/16 20:30; Admin Dose 50 MG; Start 08/23/16 at 21:00 Polyethylene Glycol (Miralax) 17 gm DAILY PRN GTB CONSTIPATION; Start 08/24/16 at 09:30 Simethicone (Mylicon) 80 mg QID PRN GTB DISTENSION/GAS/BLOATING Last administered on 08/26/16 16:00; Admin Dose 80 MG; Start 08/24/16 at 13:00 Amlodipine Besylate (Norvasc) 5 mg DAILY PO Last administered on 08/26/16 08: 44; Admin Dose 5 MG; Start 08/25/16 at 09:00 Clonidine 0.1 mg 0.1 mg Q6H PRN PO ELEVATED BLOOD PRESSURE Last administered on 08/25/16 05:59; Admin Dose 0.1 MG; Start 08/25/16 at 06:00 Vancomycin HCl (Vancocin) 250 ml @ 125 mls/hr Q12H IVPB Last administered on 15:00; Admin Dose 125 MLS/HR; Start 08/26/16 at 15:00 Insulin Glargine (Lantus) 17 unit DAILY@20 SC ; Start 08/26/16 at 20:00 Copies To: CC: ЕЛЕНА CLAROS MD,TRICIA Mcneil MD Aug 26, 2016 21:26
[2016-08-26] MEDS: INSULIN GLARGINE [LANtus] 3 ML PEN SC SCH (21:51)
[2016-08-26] MEDS: ZOLPIDEM 5 MG TAB PO PRN (23:23)
[2016-08-27] VITALS (10 sets, daily range): BP systolic 108–172; BP diastolic 61–82; PULSE 82–88; RESP 20; Ht 182.9 cm; Wt 72.0 kg
[2016-08-27] MEDS: ZOLPIDEM 5 MG TAB PO PRN ×2 (01:07→22:38)
[2016-08-27] MEDS: ACCU-CHEK XX SCH (02:00)
[2016-08-27] MEDS: GUAIFENESIN/DM 5ML CUP PO PRN ×2 (03:23→21:16)
[2016-08-27] MEDS: VANCOMYCIN 1 GM in NS 250 ML IVPB SCH ×2 (03:25→15:15)
[2016-08-27] MEDS: ACETAMINOPHEN 325 MG TAB PO PRN ×2 (03:29→21:16)
[2016-08-27] MEDS: ALBUTEROL/IPRATROPIUM (NEB) 3 ML AMP HHN PRN (03:48)
[2016-08-27 06:23] LABS: ADD SCAN DIFF NO
[2016-08-27 06:35] LABS: ABNORMAL IP MESSAGE 1; BASOPHILS % 0.5 % (0.0-2.0); EOSINOPHILS % 0.3 % (0.0-7.0); HEMATOCRIT 22.1 % (42.0-52.0); HEMOGLOBIN 7.4 g/dl (14.0-18.0); LYMPHOCYTES # 0.9 10^3/ul (0.8-2.9); LYMPHOCYTES % 14.1 % (15.0-51.0); MEAN CORPUSCULAR HGB CONC 33.5 g/dl (32.0-37.0); MEAN CORPUSCULAR VOLUME 77.5 fl (82.0-101.0); MONOCYTE # 1.2 10^3/ul (0.3-0.9); MONOCYTES % 18.7 % (0.0-11.0); NEUTROPHIL # 3.9 10^3/ul (1.6-7.5); NEUTROPHILS % 58.6 % (39.0-77.0); NUCLEATED RED BLOOD CELLS # 0.1 10^3/ul (0.0-0.0); NUCLEATED RED BLOOD CELLS% 0.9 /100WBC (0.0-0.0); PLATELET COUNT 220 10^3/UL (140-415); RED BLOOD COUNT 2.85 10^6/ul (4.70-6.10); RED CELL DISTRIBUTION WIDTH 24.3 % (11.5-14.5); WHITE BLOOD COUNT 6.6 10^3/ul (4.8-10.8)
[2016-08-27 06:56] LABS: CREATININE 0.7 mg/dl (0.61-1.24)
[2016-08-27 07:15] LABS: IRON 25 ug/dl (35-150)
[2016-08-27 07:24] LABS: TOTAL IRON BINDING CAPACITY 197 ug/dl (241-421)
--- NOTE | 2016-08-27 07:46 | RADRPT ---
PROCEDURE: XR Chest 1 View. CLINICAL INDICATION: Shortness of breath. TECHNIQUE: AP view of the chest was obtained. COMPARISON: August 25, 2016 FINDINGS: The cardiomediastinal silhouette is within normal limits. Central pulmonary vascular congestion and interstitial prominence is seen in both lungs. Patchy perihilar and lower lung infiltrates, combine d with small to moderate pleural effusions are stable. Osseous structures are intact. IMPRESSION: Stable central pulmonary vascular congestion and interstitial prominence in both lungs. Stable bilateral perihilar and lower lung infiltrates, combined with small to moderate pleural effus ions. RPTAT: AA .Han Trevizo MD, MD Date Time Electronically viewed and signed by .Han Trevizo MD, MD on 08/27/2016 07:46 .P/
[2016-08-27] MEDS: INSULIN ASPART [NOVOLOG] 3 ML PEN SC SCH ×7 (08:11→21:31)
[2016-08-27] MEDS: GABAPENTIN 300 MG CAP PO SCH (09:03)
[2016-08-27] MEDS: CHOLECALCIFEROL 1,000 UNIT TAB PO SCH (09:03)
[2016-08-27] MEDS: LINAGLIPTIN 5 MG TABLET PO SCH (09:03)
[2016-08-27] MEDS: CEFEPIME 1GM/50 ML (PMX) 50 ML IVPB SCH ×2 (09:03→21:16)
[2016-08-27] MEDS: CLOTRIMAZOLE 1% 30 GM CR TOP SCH ×2 (09:04→21:00)
[2016-08-27] MEDS: AMLODIPINE 5 MG TAB PO SCH (09:04)
[2016-08-27] MEDS: LOSARTAN 50 MG TAB PO SCH ×2 (09:04→21:18)
[2016-08-27] MEDS ORDERED: EPOETIN 10000 UNITS/ML VIAL (ONCOLOGY) SC SCH (17:00)
--- NOTE | 2016-08-27 18:51 | PN ---
Date/Time of Note Date/Time of Note DATE: 08/27/16 TIME: 18:48 Assessment/Plan VTE Prophylaxis VTE Prophylaxis Intervention: SCD's Lines/Catheters IV Catheter Type (from [facility]): Peripheral IV Assessment/Plan Chief Complaint/Hosp Course Patient with gradual decrease in hemoglobin, active bleeding noted, patient remains hemodynamically stable. Chest x-ray reviewed. Assessment/Plan - Healthcare acquired pneumonia, continue broad-spectrum antibiotics - Bilateral pleural effusions, continue incentive spirometer, 2 D Echo with stage I diastolic dysfunction and preserved ejection fraction. - Myelofibrosis. Dr. 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 - Status post EGD and colonoscopy, with notion of gastritis gastritis and superficial duodenal ulcer per EGD and multiple polyps per colonoscopy. 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 Hall is following in gastroenterology consultation. - History of pulmonary embolism, continue Eliquis - Diabetes mellitus, hemoglobin A1c is 8.2. continue, Tradjenta, Lantus and NovoLog. - Hypertension, continue Cozaar. - Hyperlipidemia - BPH, status post TURP - Pseudomonas UTI, status post treatment - Status post right hip replacement Further recommendations based on clinical course. Plan of care discussed with Dr. Seay. Problems: Exam/Review of Systems Vital Signs Vitals Vital Signs Date Time Temp Pulse Resp B/P Pulse Ox O2 Delivery O2 Flow Rate FiO2 08/27/16 16:56 2.0 08/27/16 15:14 97.7 83 20 158/61 97 08/27/16 05:45 Room Air 08/23/16 13:50 21 Intake and Output 08/26/16 08/26/16 08/27/16 15:00 23:00 07:00 Intake Total 50 ml 1020 ml 390 ml Output Total 870 ml 650 ml Balance 50 ml 150 ml -260 ml Exam Constitutional: alert, oriented Head: atraumatic, normocephalic Neck: supple Respiratory: clear Cardiovascular: nl pulses Gastrointestinal: non-tender, soft Extremities: edema, other Neurological: nl mental status Skin: nl turgor Results Result Diagram: 08/27/1636 08/27/1636 Results 24 hrs Laboratory Tests Test 08/26/16 21:45 08/27/16 05:36 08/27/16 05:43 08/27/16 08:06 Bedside Glucose 158 135 106 White Blood Count 6.6 Red Blood Count 2.85 L Hemoglobin 7.4 L Hematocrit 22.1 L Mean Corpuscular Volume 77.5 L Mean Corpuscular Hemoglobin 26.0 L Mean Corpuscular Hemoglobin Concent 33.5 Red Cell Distribution Width 24.3 H Platelet Count 220 Mean Platelet Volume Neutrophils % 58.6 Lymphocytes % 14.1 L Monocytes % 18.7 H Eosinophils % 0.3 Basophils % 0.5 Nucleated Red Blood Cells % 0.9 H Neutrophils # 3.9 Lymphocytes # 0.9 Monocytes # 1.2 H Eosinophils # 0.0 Basophils # 0.0 Nucleated Red Blood Cells # 0.1 H Blood Urea Nitrogen 15 Creatinine 0.70 Iron Level 25 L Total Iron Binding Capacity 197 L Percent Iron Saturation 13 L Ferritin 76.1 Test 08/27/16 11:57 08/27/16 17:28 Bedside Glucose 134 122 Medications Medications Current Medications Acetaminophen (Tylenol Tab) 650 mg Q6H PRN PO PAIN AND OR ELEVATED TEMP Last administered on 08/27/16 03:29; Admin Dose 650 MG; Start 08/07/16 at 21:30 Morphine Sulfate (morphine) 2 mg Q4H PRN IV severe pain Last administered on 02:18; Admin Dose 2 MG; Start 08/07/16 at 21:30 Acetaminophen/ Hydrocodone Bitart ([place] (5/325)) 1 tab Q6H PRN PO moderate pain Last administered on 08/22/16 20:25; Admin Dose 1 TAB; Start 08/07/16 at 21:30 Diagnostic Test (Pha) (Accu-Chek) 1 ea 02 XX Last administered on 08/22/16 02: 03; Admin Dose 1 EA; Start 08/08/16 at 02:00 Cholecalciferol (Vitamin D) 5,000 unit DAILY PO Last administered on 08/27/16 09:03; Admin Dose 5,000 UNIT; Start 08/08/16 at 09:00 Gabapentin (Neurontin) 300 mg DAILY PO Last administered on 08/27/16 09:03; Admin Dose 300 MG; Start 08/08/16 at 09:00 Lorazepam (Ativan) 1 mg HS PRN PO ANXIETY Last administered on 08/22/16 20:25 ; Admin Dose 1 MG; Start 08/07/16 at 21:30 Linagliptin (Tradjenta) 5 mg DAILY PO Last administered on 08/27/16 09:03; Admin Dose 5 MG; Start 08/08/16 at 09:00 Miscellaneous Information 1 ea NOTE XX Last administered on 08/26/16 08:08; Admin Dose 1 EA; Start 08/13/16 at 15:30 Glucose (Glutose) 15 gm Q15M PRN PO DECREASED GLUCOSE; Start 08/13/16 at 15:30 Glucose (Glutose) 22.5 gm Q15M PRN PO DECREASED GLUCOSE; Start 08/13/16 at 15:30 Dextrose (D50w Syringe) 25 ml Q15M PRN IV DECREASED GLUCOSE; Start 08/13/16 at 15:30 Dextrose (D50w Syringe) 50 ml Q15M PRN IV DECREASED GLUCOSE; Start 08/13/16 at 15:30 Glucagon (Glucagen) 1 mg Q15M PRN IM DECREASED GLUCOSE; Start 08/13/16 at 15:30 Glucose (Glutose) 15 gm Q15M PRN BUCCAL DECREASED GLUCOSE; Start 08/13/16 at 15: 30 Diphenhydramine HCl (Benadryl) 25 mg Q6H PRN PO ITCHING Last administered on 21:35; Admin Dose 25 MG; Start 08/17/16 at 20:30 Clotrimazole (Lotrimin Cr) 1 applic BID TOP Last administered on 08/27/16 09: 04; Admin Dose 1 APPLIC; Start 08/19/16 at 21:00 Guaifenesin/ Dextromethorphan (Robitussin Dm Liquid Cup) 10 ml Q6 PRN PO COUGH Last administered on 08/27/16 03:23; Admin Dose 10 ML; Start 08/20/16 at 07:00 Phenol 1 lozenge 1 lozenge Q4H PRN MT COUGH Last administered on 08/26/16 20: 28; Admin Dose 1 LOZENGE; Start 08/20/16 at 07:00 Cefepime HCl (Maxipime 1gm/50 ml (Pmx)) 50 ml @ 100 mls/hr Q12 IVPB Last administered on 08/27/16 09:03; Admin Dose 100 MLS/HR; Start 08/23/16 at 21:00 Losartan Potassium (Cozaar) 50 mg BID PO Last administered on 08/27/16 09:04; Admin Dose 50 MG; Start 08/23/16 at 21:00 Polyethylene Glycol (Miralax) 17 gm DAILY PRN GTB CONSTIPATION Last administered on 08/27/16 09:03; Admin Dose 17 GM; Start 08/24/16 at 09:30 Simethicone (Mylicon) 80 mg QID PRN GTB DISTENSION/GAS/BLOATING Last administered on 08/26/16 16:00; Admin Dose 80 MG; Start 08/24/16 at 13:00 Amlodipine Besylate (Norvasc) 5 mg DAILY PO Last administered on 08/27/16 09: 04; Admin Dose 5 MG; Start 08/25/16 at 09:00 Clonidine 0.1 mg 0.1 mg Q6H PRN PO ELEVATED BLOOD PRESSURE Last administered on 08/27/16 03:25; Admin Dose 0.1 MG; Start 08/25/16 at 06:00 Vancomycin HCl (Vancocin) 250 ml @ 125 mls/hr Q12H IVPB Last administered on 15:15; Admin Dose 125 MLS/HR; Start 08/26/16 at 15:00 Insulin Glargine (Lantus) 17 unit DAILY@20 SC Last administered on 08/26/16 21 :51; Admin Dose 17 UNIT; Start 08/26/16 at 20:00 Epoetin Baldomero (Epogen (Oncology)) 40,000 units ONCE SC Last administered on 08/27 17:48; Admin Dose 40,000 UNITS; Start 08/27/16 at 17:00; Stop 08/27/16 at 23:00 Epoetin Baldomero (Epogen (Oncology)) 20,000 units MoWeFr@17 SC ; Start 08/28/16 at 17:00 Miscellaneous Information (*Rx Drug Level Order Reminder*) 1 ONCE ONCE XX ; Start 08/28/16 at 02:00; Stop 08/28/16 at 02:01 IVONNE KEARNS Aug 27, 2016 18:50
--- NOTE | 2016-08-27 19:07 | CONS ---
Date/Time of Note Date/Time of Note DATE: 08/27/16 TIME: 19:04 Assessment/Plan Assessment/Plan Chief Complaint/Hosp Course This is a 76-year-old male with a history of diabetes mellitus hypertension lipid abnormality admitted to the hospital for thrombosis of the inferior vena cava. Patient complains of right lower quadrant abdominal pain and also significant weight loss. He lost 26 pounds over the. A few months and is chronically constipated. Patient denies of any kind of GI bleeding no nausea no vomiting no heartburn. No chest pain or shortness of breath. He has lost his appetite. Patient has umbrella in the inferior vena cava and also has a history of pulmonary embolism. He has a history of surgery on his knee and also on his hands. Problems: Additional Assessment/Plan 1. Diabetes mellitus 2. Anemia 3. Myelofibrosis 4. Pneumonia 5. IVC thrombosis 6. UTI 7. Abdominal pain resolved Plan Monitor H&H Transfuse as needed if hemoglobin less than 7.5 Antibiotic as per primary MD Consultation Date/Type/Reason Admit Date/Time Aug 07, 2016 at 16:05 Initial Consult Date 08/10/16 Type of Consultation: GI Referring Provider: TEDDY RUVALCABA MD 24 HR Interval Summary Free Text/Dictation Abdominal pain better Constitutional: improved Exam/Review of Systems Vital Signs Vitals Vital Signs Date Time Temp Pulse Resp B/P Pulse Ox O2 Delivery O2 Flow Rate FiO2 08/27/16 19:02 Nasal Cannula 2.0 08/27/16 15:14 97.7 83 20 158/61 97 08/23/16 13:50 21 Intake and Output 08/26/16 08/26/16 08/27/16 15:00 23:00 07:00 Intake Total 50 ml 1020 ml 390 ml Output Total 870 ml 650 ml Balance 50 ml 150 ml -260 ml Exam Constitutional: alert, oriented, well developed Psych: nl mood/affect, no complaints Head: atraumatic, normocephalic Eyes: EOMI, PERRL, nl conjunctiva, nl lids, nl sclera ENMT: nl external ears & nose, nl lips & teeth, nl nasal mucosa & septum Neck: non-tender, supple Respiratory: clear to auscultation, normal air movement Cardiovascular: nl pulses, regular rate and rhythm Gastrointestinal: nl liver, spleen, non-tender, soft Musculoskeletal: nl extremities to inspection, nl gait and stance Extremities: normal pulses Neurological: 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 DRILL OPERATOR II-XII 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, nl mental status, nl speech, nl strength Skin: nl turgor, No rash or lesions Lymph: nl lymph nodes Results Result Diagram: 08/27/16 0536 08/27/16 0536 Results 24 hrs Laboratory Tests Test 08/26/16 21:45 08/27/16 05:36 08/27/16 05:43 08/27/16 08:06 Bedside Glucose 158 135 106 White Blood Count 6.6 Red Blood Count 2.85 L Hemoglobin 7.4 L Hematocrit 22.1 L Mean Corpuscular Volume 77.5 L Mean Corpuscular Hemoglobin 26.0 L Mean Corpuscular Hemoglobin Concent 33.5 Red Cell Distribution Width 24.3 H Platelet Count 220 Mean Platelet Volume Neutrophils % 58.6 Lymphocytes % 14.1 L Monocytes % 18.7 H Eosinophils % 0.3 Basophils % 0.5 Nucleated Red Blood Cells % 0.9 H Neutrophils # 3.9 Lymphocytes # 0.9 Monocytes # 1.2 H Eosinophils # 0.0 Basophils # 0.0 Nucleated Red Blood Cells # 0.1 H Blood Urea Nitrogen 15 Creatinine 0.70 Iron Level 25 L Total Iron Binding Capacity 197 L Percent Iron Saturation 13 L Ferritin 76.1 Test 08/27/16 11:57 08/27/16 17:28 Bedside Glucose 134 122 Medications Medications Current Medications Acetaminophen (Tylenol Tab) 650 mg Q6H PRN PO PAIN AND OR ELEVATED TEMP Last administered on 08/27/16 03:29; Admin Dose 650 MG; Start 08/07/16 at 21:30 Morphine Sulfate (morphine) 2 mg Q4H PRN IV severe pain Last administered on 02:18; Admin Dose 2 MG; Start 08/07/16 at 21:30 Acetaminophen/ Hydrocodone Bitart ([place] (5/325)) 1 tab Q6H PRN PO moderate pain Last administered on 08/22/16 20:25; Admin Dose 1 TAB; Start 08/07/16 at 21:30 Diagnostic Test (Pha) (Accu-Chek) 1 ea 02 XX Last administered on 08/22/16 02: 03; Admin Dose 1 EA; Start 08/08/16 at 02:00 Cholecalciferol (Vitamin D) 5,000 unit DAILY PO Last administered on 08/27/16 09:03; Admin Dose 5,000 UNIT; Start 08/08/16 at 09:00 Gabapentin (Neurontin) 300 mg DAILY PO Last administered on 08/27/16 09:03; Admin Dose 300 MG; Start 08/08/16 at 09:00 Lorazepam (Ativan) 1 mg HS PRN PO ANXIETY Last administered on 08/22/16 20:25 ; Admin Dose 1 MG; Start 08/07/16 at 21:30 Linagliptin (Tradjenta) 5 mg DAILY PO Last administered on 08/27/16 09:03; Admin Dose 5 MG; Start 08/08/16 at 09:00 Miscellaneous Information 1 ea NOTE XX Last administered on 08/26/16 08:08; Admin Dose 1 EA; Start 08/13/16 at 15:30 Glucose (Glutose) 15 gm Q15M PRN PO DECREASED GLUCOSE; Start 08/13/16 at 15:30 Glucose (Glutose) 22.5 gm Q15M PRN PO DECREASED GLUCOSE; Start 08/13/16 at 15:30 Dextrose (D50w Syringe) 25 ml Q15M PRN IV DECREASED GLUCOSE; Start 08/13/16 at 15:30 Dextrose (D50w Syringe) 50 ml Q15M PRN IV DECREASED GLUCOSE; Start 08/13/16 at 15:30 Glucagon (Glucagen) 1 mg Q15M PRN IM DECREASED GLUCOSE; Start 08/13/16 at 15:30 Glucose (Glutose) 15 gm Q15M PRN BUCCAL DECREASED GLUCOSE; Start 08/13/16 at 15: 30 Diphenhydramine HCl (Benadryl) 25 mg Q6H PRN PO ITCHING Last administered on 21:35; Admin Dose 25 MG; Start 08/17/16 at 20:30 Clotrimazole (Lotrimin Cr) 1 applic BID TOP Last administered on 08/27/16 09: 04; Admin Dose 1 APPLIC; Start 08/19/16 at 21:00 Guaifenesin/ Dextromethorphan (Robitussin Dm Liquid Cup) 10 ml Q6 PRN PO COUGH Last administered on 08/27/16 03:23; Admin Dose 10 ML; Start 08/20/16 at 07:00 Phenol 1 lozenge 1 lozenge Q4H PRN MT COUGH Last administered on 08/26/16 20: 28; Admin Dose 1 LOZENGE; Start 08/20/16 at 07:00 Cefepime HCl (Maxipime 1gm/50 ml (Pmx)) 50 ml @ 100 mls/hr Q12 IVPB Last administered on 08/27/16 09:03; Admin Dose 100 MLS/HR; Start 08/23/16 at 21:00 Losartan Potassium (Cozaar) 50 mg BID PO Last administered on 08/27/16 09:04; Admin Dose 50 MG; Start 08/23/16 at 21:00 Polyethylene Glycol (Miralax) 17 gm DAILY PRN GTB CONSTIPATION Last administered on 08/27/16 09:03; Admin Dose 17 GM; Start 08/24/16 at 09:30 Simethicone (Mylicon) 80 mg QID PRN GTB DISTENSION/GAS/BLOATING Last administered on 08/26/16 16:00; Admin Dose 80 MG; Start 08/24/16 at 13:00 Amlodipine Besylate (Norvasc) 5 mg DAILY PO Last administered on 08/27/16 09: 04; Admin Dose 5 MG; Start 08/25/16 at 09:00 Clonidine 0.1 mg 0.1 mg Q6H PRN PO ELEVATED BLOOD PRESSURE Last administered on 08/27/16 03:25; Admin Dose 0.1 MG; Start 08/25/16 at 06:00 Vancomycin HCl (Vancocin) 250 ml @ 125 mls/hr Q12H IVPB Last administered on 15:15; Admin Dose 125 MLS/HR; Start 08/26/16 at 15:00 Insulin Glargine (Lantus) 17 unit DAILY@20 SC Last administered on 08/26/16 21 :51; Admin Dose 17 UNIT; Start 08/26/16 at 20:00 Epoetin Baldomero (Epogen (Oncology)) 40,000 units ONCE SC Last administered on 08/27 17:48; Admin Dose 40,000 UNITS; Start 08/27/16 at 17:00; Stop 08/27/16 at 23:00 Epoetin Baldomero (Epogen (Oncology)) 20,000 units MoWeFr@17 SC ; Start 08/28/16 at 17:00 Miscellaneous Information (*Rx Drug Level Order Reminder*) 1 ONCE ONCE XX ; Start 08/28/16 at 02:00; Stop 08/28/16 at 02:01 ANA VELASQUEZ MD Aug 27, 2016 19:07
[2016-08-27] MEDS: CEPASTAT LOZENGE MT PRN (21:16)
[2016-08-27] MEDS: INSULIN GLARGINE [LANtus] 3 ML PEN SC SCH (21:28)
[2016-08-27] MEDS: MAGNESIUM HYDROXIDE 30ML CUP PO PRN (22:38)
[2016-08-28] MEDS ORDERED: MAGNESIUM HYDROXIDE 30ML CUP PO SCH
[2016-08-28] MEDS ORDERED: MAGNESIUM HYDROXIDE 30ML CUP PO PRN
[2016-08-28] MEDS: ACCU-CHEK XX SCH (02:00)
[2016-08-28 02:20] LABS: ADD SCAN DIFF NO
[2016-08-28 02:25] VITALS: BP 159/69; RESP 18
[2016-08-28 02:29] LABS: ABNORMAL IP MESSAGE 1; BASOPHIL # 0.1 10^3/ul (0.0-0.1); BASOPHILS % 0.6 % (0.0-2.0); HEMATOCRIT 23.8 % (42.0-52.0); HEMOGLOBIN 7.8 g/dl (14.0-18.0); LYMPHOCYTES % 12.9 % (15.0-51.0); MEAN CORPUSCULAR HEMOGLOBIN 25.7 pg (29.0-33.0); MEAN CORPUSCULAR HGB CONC 32.8 g/dl (32.0-37.0); MEAN CORPUSCULAR VOLUME 78.3 fl (82.0-101.0); MONOCYTE # 1.6 10^3/ul (0.3-0.9); MONOCYTES % 19.7 % (0.0-11.0); NEUTROPHIL # 4.7 10^3/ul (1.6-7.5); NEUTROPHILS % 59.3 % (39.0-77.0); NUCLEATED RED BLOOD CELLS% 0.5 /100WBC (0.0-0.0); PLATELET COUNT 276 10^3/UL (140-415); RED BLOOD COUNT 3.04 10^6/ul (4.70-6.10); RED CELL DISTRIBUTION WIDTH 24.7 % (11.5-14.5); WHITE BLOOD COUNT 7.9 10^3/ul (4.8-10.8)
[2016-08-28 03:02] LABS: CALCIUM 8.4 mg/dl (8.4-10.2); CREATININE 0.68 mg/dl (0.61-1.24); POTASSIUM 3.7 mmol/L (3.5-5.1)
[2016-08-28] MEDS: VANCOMYCIN 1 GM in NS 250 ML IVPB SCH ×2 (03:37→15:33)
[2016-08-28] MEDS: MAGNESIUM HYDROXIDE 30ML CUP PO PRN ×2 (05:41→12:51)
[2016-08-28] MEDS: GUAIFENESIN/DM 5ML CUP PO PRN ×3 (05:41→16:35)
[2016-08-28 07:41] VITALS: BP 174/79
[2016-08-28 07:42] VITALS: BP 179/90; RESP 19
[2016-08-28] MEDS: INSULIN ASPART [NOVOLOG] 3 ML PEN SC SCH ×7 (08:15→21:42)
[2016-08-28] MEDS: CHOLECALCIFEROL 1,000 UNIT TAB PO SCH (09:00)
[2016-08-28] MEDS: CLOTRIMAZOLE 1% 30 GM CR TOP SCH ×2 (09:03→21:29)
[2016-08-28] MEDS: CEFEPIME 1GM/50 ML (PMX) 50 ML IVPB SCH ×2 (09:04→21:28)
[2016-08-28] MEDS: AMLODIPINE 5 MG TAB PO SCH (09:06)
[2016-08-28] MEDS: LINAGLIPTIN 5 MG TABLET PO SCH (09:06)
[2016-08-28] MEDS: GABAPENTIN 300 MG CAP PO SCH (09:06)
[2016-08-28] MEDS: LOSARTAN 50 MG TAB PO SCH ×2 (09:07→21:29)
[2016-08-28] MEDS: ACETAMINOPHEN 325 MG TAB PO PRN ×2 (10:21→16:35)
[2016-08-28] MEDS: CEPASTAT LOZENGE MT PRN (10:29)
[2016-08-28] MEDS: ALBUTEROL/IPRATROPIUM (NEB) 3 ML AMP HHN PRN ×2 (11:46→17:07)
[2016-08-28 13:58] VITALS: BP 144/65; RESP 18
--- NOTE | 2016-08-28 16:39 | PN ---
Date/Time of Note Date/Time of Note DATE: 08/28/16 TIME: 16:37 Assessment/Plan VTE Prophylaxis VTE Prophylaxis Intervention: SCD's Lines/Catheters [facility]from [facility] Saline Lock Assessment/Plan Chief Complaint/Hosp Course Patient's complains of occasional shortness of breath which is relieved by breathing treatment, remains afebrile, hemodynamically stable. Assessment/Plan - Healthcare acquired pneumonia, continue broad-spectrum antibiotics - Bilateral pleural effusions, continue incentive spirometer, 2 D Echo with stage I diastolic dysfunction and preserved ejection fraction. - Myelofibrosis. Dr. 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 - Status post EGD and colonoscopy, with notion of gastritis gastritis and superficial duodenal ulcer per EGD and multiple polyps per colonoscopy. 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 Hall is following in gastroenterology consultation. - History of pulmonary embolism, continue Eliquis - Diabetes mellitus, hemoglobin A1c is 8.2. continue, Tradjenta, Lantus and NovoLog. - Hypertension, continue Cozaar. - Hyperlipidemia - BPH, status post TURP - Pseudomonas UTI, status post treatment - Status post right hip replacement Further recommendations based on clinical course. Plan of care discussed with Dr. Seay. Problems: Exam/Review of Systems Vital Signs Vitals Vital Signs Date Time Temp Pulse Resp B/P Pulse Ox O2 Delivery O2 Flow Rate FiO2 08/28/16 13:58 98.7 92 18 144/65 97 08/28/16 11:46 Nasal Cannula 2.0 Intake and Output 08/27/16 08/27/16 08/28/16 15:00 23:00 07:00 Intake Total 1590 ml 650 ml Output Total 1900 ml 1100 ml Balance -310 ml -450 ml Exam Constitutional: alert, oriented Head: atraumatic, normocephalic Neck: supple Respiratory: clear Cardiovascular: nl pulses Gastrointestinal: non-tender, soft Extremities: edema, other Neurological: nl mental status Skin: nl turgor Results Result Diagram: 08/28/16 0200 08/28/16 0200 Results 24 hrs Laboratory Tests Test 08/27/16 17:28 08/27/16 21:25 08/28/16 02:00 08/28/16 02:24 Bedside Glucose 122 195 94 White Blood Count 7.9 Red Blood Count 3.04 L Hemoglobin 7.8 L Hematocrit 23.8 L Mean Corpuscular Volume 78.3 L Mean Corpuscular Hemoglobin 25.7 L Mean Corpuscular Hemoglobin Concent 32.8 Red Cell Distribution Width 24.7 H Platelet Count 276 # Mean Platelet Volume Neutrophils % 59.3 Lymphocytes % 12.9 L Monocytes % 19.7 H Eosinophils % 0.0 Basophils % 0.6 Nucleated Red Blood Cells % 0.5 H Neutrophils # 4.7 Lymphocytes # 1.0 Monocytes # 1.6 H Eosinophils # 0.0 Basophils # 0.1 Nucleated Red Blood Cells # 0.0 Sodium Level 144 Potassium Level 3.7 Chloride Level 109 Carbon Dioxide Level 21 Anion Gap 18 H Blood Urea Nitrogen 16 Creatinine 0.68 Glucose Level 95 # Calcium Level 8.4 Vancomycin Level Trough 13.5 Test 08/28/16 08:47 08/28/16 12:36 Bedside Glucose 103 192 Medications Medications Current Medications Acetaminophen (Tylenol Tab) 650 mg Q6H PRN PO PAIN AND OR ELEVATED TEMP Last administered on 08/28/16 10:21; Admin Dose 650 MG; Start 08/07/16 at 21:30 Morphine Sulfate (morphine) 2 mg Q4H PRN IV severe pain Last administered on 02:18; Admin Dose 2 MG; Start 08/07/16 at 21:30 Acetaminophen/ Hydrocodone Bitart ([place] (5/325)) 1 tab Q6H PRN PO moderate pain Last administered on 08/22/16 20:25; Admin Dose 1 TAB; Start 08/07/16 at 21:30 Diagnostic Test (Pha) (Accu-Chek) 1 ea 02 XX Last administered on 08/28/16 02: 00; Admin Dose 1 EA; Start 08/08/16 at 02:00 Cholecalciferol (Vitamin D) 5,000 unit DAILY PO Last administered on 08/27/16 09:03; Admin Dose 5,000 UNIT; Start 08/08/16 at 09:00 Gabapentin (Neurontin) 300 mg DAILY PO Last administered on 08/28/16 09:06; Admin Dose 300 MG; Start 08/08/16 at 09:00 Lorazepam (Ativan) 1 mg HS PRN PO ANXIETY Last administered on 08/22/16 20:25 ; Admin Dose 1 MG; Start 08/07/16 at 21:30 Linagliptin (Tradjenta) 5 mg DAILY PO Last administered on 08/28/16 09:06; Admin Dose 5 MG; Start 08/08/16 at 09:00 Miscellaneous Information 1 ea NOTE XX Last administered on 08/26/16 08:08; Admin Dose 1 EA; Start 08/13/16 at 15:30 Glucose (Glutose) 15 gm Q15M PRN PO DECREASED GLUCOSE; Start 08/13/16 at 15:30 Glucose (Glutose) 22.5 gm Q15M PRN PO DECREASED GLUCOSE; Start 08/13/16 at 15:30 Dextrose (D50w Syringe) 25 ml Q15M PRN IV DECREASED GLUCOSE; Start 08/13/16 at 15:30 Dextrose (D50w Syringe) 50 ml Q15M PRN IV DECREASED GLUCOSE; Start 08/13/16 at 15:30 Glucagon (Glucagen) 1 mg Q15M PRN IM DECREASED GLUCOSE; Start 08/13/16 at 15:30 Glucose (Glutose) 15 gm Q15M PRN BUCCAL DECREASED GLUCOSE; Start 08/13/16 at 15: 30 Diphenhydramine HCl (Benadryl) 25 mg Q6H PRN PO ITCHING Last administered on 21:35; Admin Dose 25 MG; Start 08/17/16 at 20:30 Clotrimazole (Lotrimin Cr) 1 applic BID TOP Last administered on 08/28/16 09: 03; Admin Dose 1 APPLIC; Start 08/19/16 at 21:00 Guaifenesin/ Dextromethorphan (Robitussin Dm Liquid Cup) 10 ml Q6 PRN PO COUGH Last administered on 08/28/16 10:29; Admin Dose 10 ML; Start 08/20/16 at 07:00 Phenol 1 lozenge 1 lozenge Q4H PRN MT COUGH Last administered on 08/28/16 10: 29; Admin Dose 1 LOZENGE; Start 08/20/16 at 07:00 Cefepime HCl (Maxipime 1gm/50 ml (Pmx)) 50 ml @ 100 mls/hr Q12 IVPB Last administered on 08/28/16 09:04; Admin Dose 100 MLS/HR; Start 08/23/16 at 21:00 Losartan Potassium (Cozaar) 50 mg BID PO Last administered on 08/28/16 09:07; Admin Dose 50 MG; Start 08/23/16 at 21:00 Polyethylene Glycol (Miralax) 17 gm DAILY PRN GTB CONSTIPATION Last administered on 08/27/16 09:03; Admin Dose 17 GM; Start 08/24/16 at 09:30 Simethicone (Mylicon) 80 mg QID PRN GTB DISTENSION/GAS/BLOATING Last administered on 08/27/16 22:43; Admin Dose 80 MG; Start 08/24/16 at 13:00 Amlodipine Besylate (Norvasc) 5 mg DAILY PO Last administered on 08/28/16 09: 06; Admin Dose 5 MG; Start 08/25/16 at 09:00 Clonidine 0.1 mg 0.1 mg Q6H PRN PO ELEVATED BLOOD PRESSURE Last administered on 08/28/16 11:27; Admin Dose 0.1 MG; Start 08/25/16 at 06:00 Vancomycin HCl (Vancocin) 250 ml @ 125 mls/hr Q12H IVPB Last administered on 15:33; Admin Dose 125 MLS/HR; Start 08/26/16 at 15:00 Insulin Glargine (Lantus) 17 unit DAILY@20 SC Last administered on 08/27/16 21 :28; Admin Dose 17 UNIT; Start 08/26/16 at 20:00 Epoetin Baldomero (Epogen (Oncology)) 20,000 units MoWeFr@17 SC ; Start 08/28/16 at 17:00 Magnesium Hydroxide (Milk Of Mag) 30 ml Q6H PRN PO CONSTIPATION Last administered on 08/28/16 12:51; Admin Dose 30 ML; Start 08/27/16 at 22:20 IVONNE KEARNS Aug 28, 2016 16:38
--- NOTE | 2016-08-28 18:12 | PN ---
Date/Time of Note Date/Time of Note DATE: 08/28/16 TIME: 17:56 Assessment/Plan VTE Prophylaxis VTE Prophylaxis Intervention: ambulation, SCD's Lines/Catheters [facility] Saline [facility] Assessment/Plan Chief Complaint/Hosp Course Anemia and IVC thrombosis. Problems: (1) Duodenal ulcer (2) Lupus anticoagulant positive Status: Chronic (3) Myelofibrosis Status: Chronic (4) Microcytic anemia Status: Chronic Assessment/Plan Pt anemia continues. Has been started on increased doses of EPO. Iron studies consistent with "anemia of chronic disease". Haptoglobin is nl. Pt has myelofibrosis and is SABRINA-2 positive. Does not have thrombocytosis or significant splenomegaly. Not clear if there would be any benefit from use of Jakafi. Pt has chest discomfort and bilateral pleural effusions--?CHF Subjective 24 Hr Interval Summary Free Text/Dictation Pt states that he is "feeling sick". Only specific complaint is of chest discomfort. Not associated with SOB or cough. No diaphoresis. No nausea. Pain does not radiate to arm, neck, jaw or back. Pain is not pleuritic in nature. States he has daily fevers but not recorded in [facility] records. Exam/Review of Systems Vital Signs Vitals Vital Signs Date Time Temp Pulse Resp B/P Pulse Ox O2 Delivery O2 Flow Rate FiO2 08/28/16 17:07 97 18 97 Nasal Cannula 2.0 08/28/16 13:58 98.7 144/65 Intake and Output 08/27/16 08/27/16 08/28/16 15:00 23:00 07:00 Intake Total 1590 ml 650 ml Output Total 1900 ml 1100 ml Balance -310 ml -450 ml Exam Constitutional: alert, oriented, well developed Head: atraumatic, normocephalic Eyes: PERRL, nl conjunctiva, nl sclera ENMT: nl external ears & nose, other (mucosa pale) Neck: non-tender, supple Respiratory: diminished breath sounds ( in both bases and dullness to percussion in both bases.) Cardiovascular: nl pulses, regular rate and rhythm Gastrointestinal: distended, nl liver, spleen, non-tender, soft Musculoskeletal: nl extremities to inspection, nl gait and stance Extremities: edema (2+ bilateral pedal and pretibial edema), normal pulses Neurological: HOT METAL CAR OPERATOR II-XII intact, nl mental status, nl speech, nl strength Skin: nl turgor, other (pale) Lymph: nl lymph nodes Results Result Diagram: 08/28/16 0200 08/28/16 0200 Results 24 hrs Laboratory Tests Test 08/27/16 21:25 08/28/16 02:00 08/28/16 02:24 08/28/16 08:47 Bedside Glucose 195 94 103 White Blood Count 7.9 Red Blood Count 3.04 L Hemoglobin 7.8 L Hematocrit 23.8 L Mean Corpuscular Volume 78.3 L Mean Corpuscular Hemoglobin 25.7 L Mean Corpuscular Hemoglobin Concent 32.8 Red Cell Distribution Width 24.7 H Platelet Count 276 # Mean Platelet Volume Neutrophils % 59.3 Lymphocytes % 12.9 L Monocytes % 19.7 H Eosinophils % 0.0 Basophils % 0.6 Nucleated Red Blood Cells % 0.5 H Neutrophils # 4.7 Lymphocytes # 1.0 Monocytes # 1.6 H Eosinophils # 0.0 Basophils # 0.1 Nucleated Red Blood Cells # 0.0 Sodium Level 144 Potassium Level 3.7 Chloride Level 109 Carbon Dioxide Level 21 Anion Gap 18 H Blood Urea Nitrogen 16 Creatinine 0.68 Glucose Level 95 # Calcium Level 8.4 Vancomycin Level Trough 13.5 Test 08/28/16 12:36 08/28/16 17:36 Bedside Glucose 192 275 H Medications Medications Current Medications Acetaminophen (Tylenol Tab) 650 mg Q6H PRN PO PAIN AND OR ELEVATED TEMP Last administered on 08/28/16 16:35; Admin Dose 650 MG; Start 08/07/16 at 21:30 Morphine Sulfate (morphine) 2 mg Q4H PRN IV severe pain Last administered on 02:18; Admin Dose 2 MG; Start 08/07/16 at 21:30 Acetaminophen/ Hydrocodone Bitart ([place] (5/325)) 1 tab Q6H PRN PO moderate pain Last administered on 08/22/16 20:25; Admin Dose 1 TAB; Start 08/07/16 at 21:30 Diagnostic Test (Pha) (Accu-Chek) 1 ea 02 XX Last administered on 08/28/16 02: 00; Admin Dose 1 EA; Start 08/08/16 at 02:00 Cholecalciferol (Vitamin D) 5,000 unit DAILY PO Last administered on 08/27/16 09:03; Admin Dose 5,000 UNIT; Start 08/08/16 at 09:00 Gabapentin (Neurontin) 300 mg DAILY PO Last administered on 08/28/16 09:06; Admin Dose 300 MG; Start 08/08/16 at 09:00 Lorazepam (Ativan) 1 mg HS PRN PO ANXIETY Last administered on 08/22/16 20:25 ; Admin Dose 1 MG; Start 08/07/16 at 21:30 Linagliptin (Tradjenta) 5 mg DAILY PO Last administered on 08/28/16 09:06; Admin Dose 5 MG; Start 08/08/16 at 09:00 Miscellaneous Information 1 ea NOTE XX Last administered on 08/26/16 08:08; Admin Dose 1 EA; Start 08/13/16 at 15:30 Glucose (Glutose) 15 gm Q15M PRN PO DECREASED GLUCOSE; Start 08/13/16 at 15:30 Glucose (Glutose) 22.5 gm Q15M PRN PO DECREASED GLUCOSE; Start 08/13/16 at 15:30 Dextrose (D50w Syringe) 25 ml Q15M PRN IV DECREASED GLUCOSE; Start 08/13/16 at 15:30 Dextrose (D50w Syringe) 50 ml Q15M PRN IV DECREASED GLUCOSE; Start 08/13/16 at 15:30 Glucagon (Glucagen) 1 mg Q15M PRN IM DECREASED GLUCOSE; Start 08/13/16 at 15:30 Glucose (Glutose) 15 gm Q15M PRN BUCCAL DECREASED GLUCOSE; Start 08/13/16 at 15: 30 Diphenhydramine HCl (Benadryl) 25 mg Q6H PRN PO ITCHING Last administered on 21:35; Admin Dose 25 MG; Start 08/17/16 at 20:30 Clotrimazole (Lotrimin Cr) 1 applic BID TOP Last administered on 08/28/16 09: 03; Admin Dose 1 APPLIC; Start 08/19/16 at 21:00 Guaifenesin/ Dextromethorphan (Robitussin Dm Liquid Cup) 10 ml Q6 PRN PO COUGH Last administered on 08/28/16 16:35; Admin Dose 10 ML; Start 08/20/16 at 07:00 Phenol 1 lozenge 1 lozenge Q4H PRN MT COUGH Last administered on 08/28/16 10: 29; Admin Dose 1 LOZENGE; Start 08/20/16 at 07:00 Cefepime HCl (Maxipime 1gm/50 ml (Pmx)) 50 ml @ 100 mls/hr Q12 IVPB Last administered on 08/28/16 09:04; Admin Dose 100 MLS/HR; Start 08/23/16 at 21:00 Losartan Potassium (Cozaar) 50 mg BID PO Last administered on 08/28/16 09:07; Admin Dose 50 MG; Start 08/23/16 at 21:00 Polyethylene Glycol (Miralax) 17 gm DAILY PRN GTB CONSTIPATION Last administered on 08/27/16 09:03; Admin Dose 17 GM; Start 08/24/16 at 09:30 Simethicone (Mylicon) 80 mg QID PRN GTB DISTENSION/GAS/BLOATING Last administered on 08/27/16 22:43; Admin Dose 80 MG; Start 08/24/16 at 13:00 Amlodipine Besylate (Norvasc) 5 mg DAILY PO Last administered on 08/28/16 09: 06; Admin Dose 5 MG; Start 08/25/16 at 09:00 Clonidine 0.1 mg 0.1 mg Q6H PRN PO ELEVATED BLOOD PRESSURE Last administered on 08/28/16 11:27; Admin Dose 0.1 MG; Start 08/25/16 at 06:00 Vancomycin HCl (Vancocin) 250 ml @ 125 mls/hr Q12H IVPB Last administered on 15:33; Admin Dose 125 MLS/HR; Start 08/26/16 at 15:00 Insulin Glargine (Lantus) 17 unit DAILY@20 SC Last administered on 08/27/16 21 :28; Admin Dose 17 UNIT; Start 08/26/16 at 20:00 Epoetin Baldomero (Epogen (Oncology)) 20,000 units MoWeFr@17 SC ; Start 08/28/16 at 17:00 Magnesium Hydroxide (Milk Of Mag) 30 ml Q6H PRN PO CONSTIPATION Last administered on 08/28/16 12:51; Admin Dose 30 ML; Start 08/27/16 at 22:20 Copies To: CC: ЕЛЕНА CLAROS MD, STANLEY H MD Jul 19, 2017 18:07
[2016-08-28] MEDS: EPOETIN 10000 UNITS/ML VIAL (ONCOLOGY) SC SCH (18:52)
[2016-08-28 19:49] VITALS: BP 148/67; RESP 18
[2016-08-28] MEDS: ALBUTEROL/IPRATROPIUM (NEB) 3 ML AMP HHN SCH (21:12)
[2016-08-28] MEDS: APIXABAN 5 MG TABLET PO SCH (21:29)
[2016-08-28] MEDS: INSULIN GLARGINE [LANtus] 3 ML PEN SC SCH (21:40)
[2016-08-29] MEDS: ACCU-CHEK XX SCH (01:52)
[2016-08-29 02:00] VITALS: BP 150/65; RESP 18
[2016-08-29] MEDS: GUAIFENESIN/DM 5ML CUP PO PRN ×3 (02:11→18:12)
[2016-08-29] MEDS: CEPASTAT LOZENGE MT PRN ×3 (02:13→18:12)
[2016-08-29] MEDS: VANCOMYCIN 1 GM in NS 250 ML IVPB SCH ×2 (02:14→14:41)
[2016-08-29] MEDS: ALBUTEROL/IPRATROPIUM (NEB) 3 ML AMP HHN SCH ×4 (02:36→20:15)
[2016-08-29] MEDS: ACETAMINOPHEN 325 MG TAB PO PRN ×2 (03:59→18:12)
[2016-08-29 05:45] LABS: ADD SCAN DIFF NO
[2016-08-29 05:49] LABS: ABNORMAL IP MESSAGE 1; HEMATOCRIT 22.6 % (42.0-52.0); HEMOGLOBIN 7.2 g/dl (14.0-18.0); MEAN CORPUSCULAR HEMOGLOBIN 24.7 pg (29.0-33.0); MEAN CORPUSCULAR HGB CONC 31.9 g/dl (32.0-37.0); MEAN CORPUSCULAR VOLUME 77.7 fl (82.0-101.0); PLATELET COUNT 246 10^3/UL (140-415); RED BLOOD COUNT 2.91 10^6/ul (4.70-6.10); RED CELL DISTRIBUTION WIDTH 24.8 % (11.5-14.5); WHITE BLOOD COUNT 7.5 10^3/ul (4.8-10.8)
[2016-08-29 06:16] LABS: CALCIUM 8.3 mg/dl (8.4-10.2); CREATININE 0.6 mg/dl (0.61-1.24); POTASSIUM 3.4 mmol/L (3.5-5.1)
[2016-08-29 07:31] VITALS: BP 152/72; RESP 20
[2016-08-29] MEDS: INSULIN ASPART [NOVOLOG] 3 ML PEN SC SCH ×7 (08:15→20:45)
[2016-08-29] MEDS: GABAPENTIN 300 MG CAP PO SCH (08:20)
[2016-08-29] MEDS: LOSARTAN 50 MG TAB PO SCH ×2 (08:20→20:32)
[2016-08-29] MEDS: APIXABAN 5 MG TABLET PO SCH ×2 (08:20→20:32)
[2016-08-29] MEDS: LINAGLIPTIN 5 MG TABLET PO SCH (08:20)
[2016-08-29] MEDS: CHOLECALCIFEROL 1,000 UNIT TAB PO SCH (08:20)
[2016-08-29] MEDS: AMLODIPINE 5 MG TAB PO SCH (08:21)
[2016-08-29] MEDS: CLOTRIMAZOLE 1% 30 GM CR TOP SCH ×2 (08:23→20:53)
[2016-08-29] MEDS: CEFEPIME 1GM/50 ML (PMX) 50 ML IVPB SCH ×2 (08:24→20:32)
[2016-08-29] MEDS: MAGNESIUM HYDROXIDE 30ML CUP PO PRN (08:31)
[2016-08-29 10:26] LABS: LYMPHOCYTES # 1.7 10^3/ul (0.8-2.9); MONOCYTE # 0.5 10^3/ul (0.3-0.9); MYELOCYTES # 0.1; MYELOCYTES % (M) 1 % (0-0); PROMYELOCYTES % (M) 1 % (0-0)
[2016-08-29] MEDS ORDERED: POTASSIUM CHLORIDE (SR) 20 MEQ TAB PO STA (12:15)
[2016-08-29 12:35] LABS: ADD SCAN DIFF NO
[2016-08-29 12:38] LABS: ABNORMAL IP MESSAGE 1; HEMATOCRIT 23.7 % (42.0-52.0); HEMOGLOBIN 7.8 g/dl (14.0-18.0); MEAN CORPUSCULAR HEMOGLOBIN 25.5 pg (29.0-33.0); MEAN CORPUSCULAR HGB CONC 32.9 g/dl (32.0-37.0); MEAN CORPUSCULAR VOLUME 77.5 fl (82.0-101.0); PLATELET COUNT 243 10^3/UL (140-415); RED BLOOD COUNT 3.06 10^6/ul (4.70-6.10); RED CELL DISTRIBUTION WIDTH 24.5 % (11.5-14.5); WHITE BLOOD COUNT 7.8 10^3/ul (4.8-10.8)
--- NOTE | 2016-08-29 13:09 | RADRPT ---
PROCEDURE: X-ray Chest. CLINICAL INDICATION: Hemoptysis. TECHNIQUE: Single view chest x-ray. COMPARISON: Exam is 08/27/2016. FINDINGS: The examination is under inflated. The cardiomediastinal silhouette remains enlarged. There is christy lar cephalization of the pulmonary vessels with extensive bilateral interstitial disease with conflu ent bilateral perihilar alveolar disease and layering bilateral pleural effusions. There is mildly increased focal parenchymal opacity in the lateral right mid lung zone. There is no pneumothorax. There are no acute osseous abnormalities. IMPRESSION: 1. Cardiomegaly with similar findings suggestive of severe hydrostatic edema with increased focal p arenchymal opacity in the lateral right mid lung zone. Diffuse alveolar hemorrhage could also potent ially have this appearance, given the patient's symptoms. 2. Layering bilateral effusions, not significantly changed. RPTAT: GG .Willi Arango MD, MD Date Time Electronically viewed and signed by .Willi Arango MD, on 08/29/2016 13:09 .P/
[2016-08-29 13:29] LABS: ERYTHROBLAST% (NRBC) (M) 4 % (0-0); LYMPHOCYTES # 1.1 10^3/ul (0.8-2.9); MONOCYTE # 0.9 10^3/ul (0.3-0.9); NEUTROPHIL # 4.9 10^3/ul (1.6-7.5)
[2016-08-29 13:49] VITALS: BP 168/74; RESP 18
--- NOTE | 2016-08-29 14:19 | PN ---
Date/Time of Note Date/Time of Note DATE: 08/29/16 TIME: 14:17 Assessment/Plan VTE Prophylaxis VTE Prophylaxis Intervention: SCD's Lines/Catheters IV Catheter Type (from Nrs): Saline Lock Assessment/Plan Assessment/Plan CBC is stable. Epogen is being given for anemia but Hgb unchanged so far. There is also a question of CHF. No new suggestions at this time. Subjective 24 Hr Interval Summary Free Text/Dictation Pt sitting in chair at bedside Exam/Review of Systems Vital Signs Vitals Vital Signs Date Time Temp Pulse Resp B/P Pulse Ox O2 Delivery O2 Flow Rate FiO2 08/29/16 13:49 98.6 103 18 168/74 95 08/29/16 13:36 Nasal Cannula 2.0 Intake and Output 08/28/16 08/28/16 08/29/16 15:00 23:00 07:00 Intake Total 50 ml 970 ml 600 ml Output Total 550 ml 550 ml Balance 50 ml 420 ml 50 ml Exam Constitutional: alert Head: normocephalic Eyes: other (pallor) Respiratory: diminished breath sounds (at both bases) Cardiovascular: regular rate and rhythm Gastrointestinal: soft Results Result Diagram: 08/29/16 1228 08/29/16 0521 Results 24 hrs Laboratory Tests Test 08/28/16 17:36 08/28/16 18:47 08/28/16 21:31 08/29/16 01:46 Bedside Glucose 275 H 224 H 212 152 Test 08/29/16 04:01 08/29/16 05:21 08/29/16 08:10 08/29/16 12:28 Bedside Glucose 173 137 White Blood Count 7.5 7.8 Red Blood Count 2.91 L 3.06 L Hemoglobin 7.2 L 7.8 L Hematocrit 22.6 L 23.7 L Mean Corpuscular Volume 77.7 L 77.5 L Mean Corpuscular Hemoglobin 24.7 L 25.5 L Mean Corpuscular Hemoglobin Concent 31.9 L 32.9 Red Cell Distribution Width 24.8 H 24.5 H Platelet Count 246 243 Mean Platelet Volume Neutrophils % 67.0 63.0 Band Neutrophils % 2.0 12.0 H Lymphocytes % 23.0 14.0 L Monocytes % 6.0 11.0 Eosinophils % Myelocytes % (Manual) 1 H Promyelocytes % (Manual) 1 H Neutrophils # 5.0 4.9 Lymphocytes # 1.7 1.1 Monocytes # 0.5 0.9 Eosinophils # Myelocytes # 0.1 Promyelocytes # 0.1 Sodium Level 139 Potassium Level 3.4 L Chloride Level 107 Carbon Dioxide Level 23 Anion Gap 12 Blood Urea Nitrogen 15 Creatinine 0.60 L Glucose Level 145 # Calcium Level 8.3 L B-Type Natriuretic Peptide 1400 H Nucleated Red Blood Cells % 4 H Test 08/29/16 12:29 Bedside Glucose 121 Medications Medications Current Medications Acetaminophen (Tylenol Tab) 650 mg Q6H PRN PO PAIN AND OR ELEVATED TEMP Last administered on 08/29/16 03:59; Admin Dose 650 MG; Start 08/07/16 at 21:30 Morphine Sulfate (morphine) 2 mg Q4H PRN IV severe pain Last administered on 02:18; Admin Dose 2 MG; Start 08/07/16 at 21:30 Acetaminophen/ Hydrocodone Bitart ([place] (5/325)) 1 tab Q6H PRN PO moderate pain Last administered on 08/22/16 20:25; Admin Dose 1 TAB; Start 08/07/16 at 21:30 Diagnostic Test (Pha) (Accu-Chek) 1 ea 02 XX Last administered on 08/28/16 02: 00; Admin Dose 1 EA; Start 08/08/16 at 02:00 Cholecalciferol (Vitamin D) 5,000 unit DAILY PO Last administered on 08/29/16 08:20; Admin Dose 5,000 UNIT; Start 08/08/16 at 09:00 Gabapentin (Neurontin) 300 mg DAILY PO Last administered on 08/29/16 08:20; Admin Dose 300 MG; Start 08/08/16 at 09:00 Lorazepam (Ativan) 1 mg HS PRN PO ANXIETY Last administered on 08/22/16 20:25 ; Admin Dose 1 MG; Start 08/07/16 at 21:30 Linagliptin (Tradjenta) 5 mg DAILY PO Last administered on 08/29/16 08:20; Admin Dose 5 MG; Start 08/08/16 at 09:00 Miscellaneous Information 1 ea NOTE XX Last administered on 08/26/16 08:08; Admin Dose 1 EA; Start 08/13/16 at 15:30 Glucose (Glutose) 15 gm Q15M PRN PO DECREASED GLUCOSE; Start 08/13/16 at 15:30 Glucose (Glutose) 22.5 gm Q15M PRN PO DECREASED GLUCOSE; Start 08/13/16 at 15:30 Dextrose (D50w Syringe) 25 ml Q15M PRN IV DECREASED GLUCOSE; Start 08/13/16 at 15:30 Dextrose (D50w Syringe) 50 ml Q15M PRN IV DECREASED GLUCOSE; Start 08/13/16 at 15:30 Glucagon (Glucagen) 1 mg Q15M PRN IM DECREASED GLUCOSE; Start 08/13/16 at 15:30 Glucose (Glutose) 15 gm Q15M PRN BUCCAL DECREASED GLUCOSE; Start 08/13/16 at 15: 30 Diphenhydramine HCl (Benadryl) 25 mg Q6H PRN PO ITCHING Last administered on 21:35; Admin Dose 25 MG; Start 08/17/16 at 20:30 Clotrimazole (Lotrimin Cr) 1 applic BID TOP Last administered on 08/29/16 08: 23; Admin Dose 1 APPLIC; Start 08/19/16 at 21:00 Guaifenesin/ Dextromethorphan (Robitussin Dm Liquid Cup) 10 ml Q6 PRN PO COUGH Last administered on 08/29/16 08:31; Admin Dose 10 ML; Start 08/20/16 at 07:00 Phenol 1 lozenge 1 lozenge Q4H PRN MT COUGH Last administered on 08/29/16 13: 41; Admin Dose 1 LOZENGE; Start 08/20/16 at 07:00 Cefepime HCl (Maxipime 1gm/50 ml (Pmx)) 50 ml @ 100 mls/hr Q12 IVPB Last administered on 08/29/16 08:24; Admin Dose 100 MLS/HR; Start 08/23/16 at 21:00 Losartan Potassium (Cozaar) 50 mg BID PO Last administered on 08/29/16 08:20; Admin Dose 50 MG; Start 08/23/16 at 21:00 Polyethylene Glycol (Miralax) 17 gm DAILY PRN GTB CONSTIPATION Last administered on 08/27/16 09:03; Admin Dose 17 GM; Start 08/24/16 at 09:30 Simethicone (Mylicon) 80 mg QID PRN GTB DISTENSION/GAS/BLOATING Last administered on 08/27/16 22:43; Admin Dose 80 MG; Start 08/24/16 at 13:00 Amlodipine Besylate (Norvasc) 5 mg DAILY PO Last administered on 08/29/16 08: 21; Admin Dose 5 MG; Start 08/25/16 at 09:00 Clonidine 0.1 mg 0.1 mg Q6H PRN PO ELEVATED BLOOD PRESSURE Last administered on 08/28/16 11:27; Admin Dose 0.1 MG; Start 08/25/16 at 06:00 Vancomycin HCl (Vancocin) 250 ml @ 125 mls/hr Q12H IVPB Last administered on 02:14; Admin Dose 125 MLS/HR; Start 08/26/16 at 15:00 Insulin Glargine (Lantus) 17 unit DAILY@20 SC Last administered on 08/28/16 21 :40; Admin Dose 17 UNIT; Start 08/26/16 at 20:00 Epoetin Baldomero (Epogen (Oncology)) 20,000 units MoWeFr@17 SC Last administered on 08/28/16 18:52; Admin Dose 20,000 UNITS; Start 08/28/16 at 17:00 Magnesium Hydroxide (Milk Of Mag) 30 ml Q6H PRN PO CONSTIPATION Last administered on 08/29/16 08:31; Admin Dose 30 ML; Start 08/27/16 at 22:20 Apixaban (Eliquis) 5 mg BID PO Last administered on 08/29/16 08:20; Admin Dose 5 MG; Start 08/28/16 at 21:00 HENRY FLAHERTY MD Aug 29, 2016 14:19
--- NOTE | 2016-08-29 14:40 | PN ---
Date/Time of Note Date/Time of Note DATE: 08/29/16 TIME: 14:36 Assessment/Plan VTE Prophylaxis VTE Prophylaxis Intervention: other Lines/Catheters IV Catheter Type (from Nrsg): Saline Lock Assessment/Plan Assessment/Plan - Healthcare acquired pneumonia, continue broad-spectrum antibiotics - Bilateral pleural effusions, continue incentive spirometer, 2 D Echo with stage I diastolic dysfunction and preserved ejection fraction. - Myelofibrosis. Dr. 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 - Status post EGD and colonoscopy, with notion of gastritis gastritis and superficial duodenal ulcer per EGD and multiple polyps per colonoscopy. 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 Hall is following in gastroenterology consultation. - History of pulmonary embolism, continue Eliquis - Diabetes mellitus, hemoglobin A1c is 8.2. continue, Tradjenta, Lantus and NovoLog. - Hypertension, continue Cozaar. - Hyperlipidemia - BPH, status post TURP - Pseudomonas UTI, status post treatment - Status post right hip replacement Further recommendations based on clinical course. Plan of care discussed with Dr. Seay. Subjective 24 Hr Interval Summary Free Text/Dictation sitting up in chair, denies any chest pain, sob, fever, abd pain/nv. low H/H- will get 1 unit PRBC per Hematology, dw staff Respiratory: no complaints Cardiovascular: no complaints Gastrointestinal: no complaints Genitourinary: no complaints Exam/Review of Systems Vital Signs Vitals Vital Signs Date Time Temp Pulse Resp B/P Pulse Ox O2 Delivery O2 Flow Rate FiO2 08/29/16 13:49 98.6 103 18 168/74 95 08/29/16 13:36 Nasal Cannula 2.0 Intake and Output 08/28/16 08/28/16 08/29/16 15:00 23:00 07:00 Intake Total 50 ml 970 ml 600 ml Output Total 550 ml 550 ml Balance 50 ml 420 ml 50 ml Exam Constitutional: alert, oriented, well developed Respiratory: clear to auscultation, normal air movement Cardiovascular: nl pulses, regular rate and rhythm Gastrointestinal: non-tender, soft Musculoskeletal: nl extremities to inspection Extremities: normal pulses Neurological: nl mental status, nl speech Results Result Diagram: 08/29/16 1228 08/29/16 0521 Results 24 hrs Laboratory Tests Test 08/28/16 17:36 08/28/16 18:47 08/28/16 21:31 08/29/16 01:46 Bedside Glucose 275 H 224 H 212 152 Test 08/29/16 04:01 08/29/16 05:21 08/29/16 08:10 08/29/16 12:28 Bedside Glucose 173 137 White Blood Count 7.5 7.8 Red Blood Count 2.91 L 3.06 L Hemoglobin 7.2 L 7.8 L Hematocrit 22.6 L 23.7 L Mean Corpuscular Volume 77.7 L 77.5 L Mean Corpuscular Hemoglobin 24.7 L 25.5 L Mean Corpuscular Hemoglobin Concent 31.9 L 32.9 Red Cell Distribution Width 24.8 H 24.5 H Platelet Count 246 243 Mean Platelet Volume Neutrophils % 67.0 63.0 Band Neutrophils % 2.0 12.0 H Lymphocytes % 23.0 14.0 L Monocytes % 6.0 11.0 Eosinophils % Myelocytes % (Manual) 1 H Promyelocytes % (Manual) 1 H Neutrophils # 5.0 4.9 Lymphocytes # 1.7 1.1 Monocytes # 0.5 0.9 Eosinophils # Myelocytes # 0.1 Promyelocytes # 0.1 Sodium Level 139 Potassium Level 3.4 L Chloride Level 107 Carbon Dioxide Level 23 Anion Gap 12 Blood Urea Nitrogen 15 Creatinine 0.60 L Glucose Level 145 # Calcium Level 8.3 L B-Type Natriuretic Peptide 1400 H Nucleated Red Blood Cells % 4 H Test 08/29/16 12:29 Bedside Glucose 121 Medications Medications Current Medications Acetaminophen (Tylenol Tab) 650 mg Q6H PRN PO PAIN AND OR ELEVATED TEMP Last administered on 08/29/16 03:59; Admin Dose 650 MG; Start 08/07/16 at 21:30 Morphine Sulfate (morphine) 2 mg Q4H PRN IV severe pain Last administered on 02:18; Admin Dose 2 MG; Start 08/07/16 at 21:30 Acetaminophen/ Hydrocodone Bitart ([place] (5/325)) 1 tab Q6H PRN PO moderate pain Last administered on 08/22/16 20:25; Admin Dose 1 TAB; Start 08/07/16 at 21:30 Diagnostic Test (Pha) (Accu-Chek) 1 ea 02 XX Last administered on 08/28/16 02: 00; Admin Dose 1 EA; Start 08/08/16 at 02:00 Cholecalciferol (Vitamin D) 5,000 unit DAILY PO Last administered on 08/29/16 08:20; Admin Dose 5,000 UNIT; Start 08/08/16 at 09:00 Gabapentin (Neurontin) 300 mg DAILY PO Last administered on 08/29/16 08:20; Admin Dose 300 MG; Start 08/08/16 at 09:00 Lorazepam (Ativan) 1 mg HS PRN PO ANXIETY Last administered on 08/22/16 20:25 ; Admin Dose 1 MG; Start 08/07/16 at 21:30 Linagliptin (Tradjenta) 5 mg DAILY PO Last administered on 08/29/16 08:20; Admin Dose 5 MG; Start 08/08/16 at 09:00 Miscellaneous Information 1 ea NOTE XX Last administered on 08/26/16 08:08; Admin Dose 1 EA; Start 08/13/16 at 15:30 Glucose (Glutose) 15 gm Q15M PRN PO DECREASED GLUCOSE; Start 08/13/16 at 15:30 Glucose (Glutose) 22.5 gm Q15M PRN PO DECREASED GLUCOSE; Start 08/13/16 at 15:30 Dextrose (D50w Syringe) 25 ml Q15M PRN IV DECREASED GLUCOSE; Start 08/13/16 at 15:30 Dextrose (D50w Syringe) 50 ml Q15M PRN IV DECREASED GLUCOSE; Start 08/13/16 at 15:30 Glucagon (Glucagen) 1 mg Q15M PRN IM DECREASED GLUCOSE; Start 08/13/16 at 15:30 Glucose (Glutose) 15 gm Q15M PRN BUCCAL DECREASED GLUCOSE; Start 08/13/16 at 15: 30 Diphenhydramine HCl (Benadryl) 25 mg Q6H PRN PO ITCHING Last administered on 21:35; Admin Dose 25 MG; Start 08/17/16 at 20:30 Clotrimazole (Lotrimin Cr) 1 applic BID TOP Last administered on 08/29/16 08: 23; Admin Dose 1 APPLIC; Start 08/19/16 at 21:00 Guaifenesin/ Dextromethorphan (Robitussin Dm Liquid Cup) 10 ml Q6 PRN PO COUGH Last administered on 08/29/16 08:31; Admin Dose 10 ML; Start 08/20/16 at 07:00 Phenol 1 lozenge 1 lozenge Q4H PRN MT COUGH Last administered on 08/29/16 13: 41; Admin Dose 1 LOZENGE; Start 08/20/16 at 07:00 Cefepime HCl (Maxipime 1gm/50 ml (Pmx)) 50 ml @ 100 mls/hr Q12 IVPB Last administered on 08/29/16 08:24; Admin Dose 100 MLS/HR; Start 08/23/16 at 21:00 Losartan Potassium (Cozaar) 50 mg BID PO Last administered on 08/29/16 08:20; Admin Dose 50 MG; Start 08/23/16 at 21:00 Polyethylene Glycol (Miralax) 17 gm DAILY PRN GTB CONSTIPATION Last administered on 08/27/16 09:03; Admin Dose 17 GM; Start 08/24/16 at 09:30 Simethicone (Mylicon) 80 mg QID PRN GTB DISTENSION/GAS/BLOATING Last administered on 08/27/16 22:43; Admin Dose 80 MG; Start 08/24/16 at 13:00 Amlodipine Besylate (Norvasc) 5 mg DAILY PO Last administered on 08/29/16 08: 21; Admin Dose 5 MG; Start 08/25/16 at 09:00 Clonidine 0.1 mg 0.1 mg Q6H PRN PO ELEVATED BLOOD PRESSURE Last administered on 08/28/16 11:27; Admin Dose 0.1 MG; Start 08/25/16 at 06:00 Vancomycin HCl (Vancocin) 250 ml @ 125 mls/hr Q12H IVPB Last administered on 02:14; Admin Dose 125 MLS/HR; Start 08/26/16 at 15:00 Insulin Glargine (Lantus) 17 unit DAILY@20 SC Last administered on 08/28/16 21 :40; Admin Dose 17 UNIT; Start 08/26/16 at 20:00 Epoetin Baldomero (Epogen (Oncology)) 20,000 units MoWeFr@17 SC Last administered on 7/19/17at 18:52; Admin Dose 20,000 UNITS; Start 08/28/16 at 17:00 Magnesium Hydroxide (Milk Of Mag) 30 ml Q6H PRN PO CONSTIPATION Last administered on 08/29/16 08:31; Admin Dose 30 ML; Start 08/27/16 at 22:20 Apixaban (Eliquis) 5 mg BID PO Last administered on 08/29/16 08:20; Admin Dose 5 MG; Start 08/28/16 at 21:00 POLA CISNEROS Aug 29, 2016 14:40
--- NOTE | 2016-08-29 19:16 | CONS ---
Date/Time of Note Date/Time of Note DATE: 08/29/16 TIME: 19:16 Assessment/Plan Assessment/Plan Chief Complaint/Hosp Course This is a 76-year-old male with a history of diabetes mellitus hypertension lipid abnormality admitted to the hospital for thrombosis of the inferior vena cava. Patient complains of right lower quadrant abdominal pain and also significant weight loss. He lost 26 pounds over the. A few months and is chronically constipated. Patient denies of any kind of GI bleeding no nausea no vomiting no heartburn. No chest pain or shortness of breath. He has lost his appetite. Patient has umbrella in the inferior vena cava and also has a history of pulmonary embolism. He has a history of surgery on his knee and also on his hands. Problems: Additional Assessment/Plan Problems: Additional Assessment/Plan 1. Diabetes mellitus 2. Anemia 3. Myelofibrosis 4. Pneumonia, alveolar hemorrhage 5. IVC thrombosis 6. UTI 7. Abdominal pain resolved Plan Monitor H&H Transfuse as needed if hemoglobin less than 7.5 Pulmonary follow up Consultation Date/Type/Reason Admit Date/Time Aug 07, 2016 at 16:05 Initial Consult Date 08/10/16 Type of Consultation: GI Referring Provider: TEDDY RUVALCABA MD 24 HR Interval Summary Free Text/Dictation Hemoptysis Exam/Review of Systems Vital Signs Vitals Vital Signs Date Time Temp Pulse Resp B/P Pulse Ox O2 Delivery O2 Flow Rate FiO2 08/29/16 13:49 98.6 103 18 168/74 95 08/29/16 13:36 Nasal Cannula 2.0 Intake and Output 08/28/16 08/28/16 08/29/16 15:00 23:00 07:00 Intake Total 50 ml 970 ml 600 ml Output Total 550 ml 550 ml Balance 50 ml 420 ml 50 ml Exam Constitutional: alert, oriented, well developed Psych: nl mood/affect, no complaints Head: atraumatic, normocephalic Eyes: EOMI, PERRL, nl conjunctiva, nl lids, nl sclera ENMT: nl external ears & nose, nl lips & teeth, nl nasal mucosa & septum Neck: non-tender, supple Respiratory: clear to auscultation, normal air movement Cardiovascular: nl pulses, regular rate and rhythm Gastrointestinal: nl liver, spleen, non-tender, soft Musculoskeletal: nl extremities to inspection, nl gait and stance Extremities: normal pulses 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, nl mental status, nl speech, nl strength Skin: nl turgor, No rash or lesions Lymph: nl lymph nodes Results Result Diagram: 08/29/16 1228 08/29/16 0521 Results 24 hrs Laboratory Tests Test 08/28/16 21:31 08/29/16 01:46 08/29/16 04:01 08/29/16 05:21 Bedside Glucose 212 152 173 White Blood Count 7.5 Red Blood Count 2.91 L Hemoglobin 7.2 L Hematocrit 22.6 L Mean Corpuscular Volume 77.7 L Mean Corpuscular Hemoglobin 24.7 L Mean Corpuscular Hemoglobin Concent 31.9 L Red Cell Distribution Width 24.8 H Platelet Count 246 Mean Platelet Volume Neutrophils % 67.0 Band Neutrophils % 2.0 Lymphocytes % 23.0 Monocytes % 6.0 Eosinophils % Myelocytes % (Manual) 1 H Promyelocytes % (Manual) 1 H Neutrophils # 5.0 Lymphocytes # 1.7 Monocytes # 0.5 Eosinophils # Myelocytes # 0.1 Promyelocytes # 0.1 Sodium Level 139 Potassium Level 3.4 L Chloride Level 107 Carbon Dioxide Level 23 Anion Gap 12 Blood Urea Nitrogen 15 Creatinine 0.60 L Glucose Level 145 # Calcium Level 8.3 L B-Type Natriuretic Peptide 1400 H Test 08/29/16 08:10 08/29/16 12:28 08/29/16 12:29 08/29/16 18:06 Bedside Glucose 137 121 184 White Blood Count 7.8 Red Blood Count 3.06 L Hemoglobin 7.8 L Hematocrit 23.7 L Mean Corpuscular Volume 77.5 L Mean Corpuscular Hemoglobin 25.5 L Mean Corpuscular Hemoglobin Concent 32.9 Red Cell Distribution Width 24.5 H Platelet Count 243 Mean Platelet Volume Neutrophils % 63.0 Band Neutrophils % 12.0 H Lymphocytes % 14.0 L Monocytes % 11.0 Nucleated Red Blood Cells % 4 H Neutrophils # 4.9 Lymphocytes # 1.1 Monocytes # 0.9 Medications Medications Current Medications Acetaminophen (Tylenol Tab) 650 mg Q6H PRN PO PAIN AND OR ELEVATED TEMP Last administered on 08/29/16t 18:12; Admin Dose 650 MG; Start 08/07/16 at 21:30 Morphine Sulfate (morphine) 2 mg Q4H PRN IV severe pain Last administered on 02:18; Admin Dose 2 MG; Start 08/07/16 at 21:30 Acetaminophen/ Hydrocodone Bitart ([place] (5/325)) 1 tab Q6H PRN PO moderate pain Last administered on 08/22/16 20:25; Admin Dose 1 TAB; Start 08/07/16 at 21:30 Diagnostic Test (Pha) (Accu-Chek) 1 ea 02 XX Last administered on 08/28/16 02: 00; Admin Dose 1 EA; Start 08/08/16 at 02:00 Cholecalciferol (Vitamin D) 5,000 unit DAILY PO Last administered on 08/29/16 08:20; Admin Dose 5,000 UNIT; Start 08/08/16 at 09:00 Gabapentin (Neurontin) 300 mg DAILY PO Last administered on 08/29/16 08:20; Admin Dose 300 MG; Start 08/08/16 at 09:00 Lorazepam (Ativan) 1 mg HS PRN PO ANXIETY Last administered on 08/22/16 20:25 ; Admin Dose 1 MG; Start 08/07/16 at 21:30 Linagliptin (Tradjenta) 5 mg DAILY PO Last administered on 08/29/16 08:20; Admin Dose 5 MG; Start 08/08/16 at 09:00 Miscellaneous Information 1 ea NOTE XX Last administered on 08/26/16 08:08; Admin Dose 1 EA; Start 08/13/16 at 15:30 Glucose (Glutose) 15 gm Q15M PRN PO DECREASED GLUCOSE; Start 08/13/16 at 15:30 Glucose (Glutose) 22.5 gm Q15M PRN PO DECREASED GLUCOSE; Start 08/13/16 at 15:30 Dextrose (D50w Syringe) 25 ml Q15M PRN IV DECREASED GLUCOSE; Start 08/13/16 at 15:30 Dextrose (D50w Syringe) 50 ml Q15M PRN IV DECREASED GLUCOSE; Start 08/13/16 at 15:30 Glucagon (Glucagen) 1 mg Q15M PRN IM DECREASED GLUCOSE; Start 08/13/16 at 15:30 Glucose (Glutose) 15 gm Q15M PRN BUCCAL DECREASED GLUCOSE; Start 08/13/16 at 15: 30 Diphenhydramine HCl (Benadryl) 25 mg Q6H PRN PO ITCHING Last administered on 21:35; Admin Dose 25 MG; Start 08/17/16 at 20:30 Clotrimazole (Lotrimin Cr) 1 applic BID TOP Last administered on 08/29/16 08: 23; Admin Dose 1 APPLIC; Start 08/19/16 at 21:00 Guaifenesin/ Dextromethorphan (Robitussin Dm Liquid Cup) 10 ml Q6 PRN PO COUGH Last administered on 08/29/16 18:12; Admin Dose 10 ML; Start 08/20/16 at 07:00 Phenol 1 lozenge 1 lozenge Q4H PRN MT COUGH Last administered on 08/29/16 18: 12; Admin Dose 1 LOZENGE; Start 08/20/16 at 07:00 Cefepime HCl (Maxipime 1gm/50 ml (Pmx)) 50 ml @ 100 mls/hr Q12 IVPB Last administered on 08/29/16 08:24; Admin Dose 100 MLS/HR; Start 08/23/16 at 21:00 Losartan Potassium (Cozaar) 50 mg BID PO Last administered on 08/29/16 08:20; Admin Dose 50 MG; Start 08/23/16 at 21:00 Polyethylene Glycol (Miralax) 17 gm DAILY PRN GTB CONSTIPATION Last administered on 08/27/16 09:03; Admin Dose 17 GM; Start 08/24/16 at 09:30 Simethicone (Mylicon) 80 mg QID PRN GTB DISTENSION/GAS/BLOATING Last administered on 08/27/16 22:43; Admin Dose 80 MG; Start 08/24/16 at 13:00 Amlodipine Besylate (Norvasc) 5 mg DAILY PO Last administered on 08/29/16 08: 21; Admin Dose 5 MG; Start 08/25/16 at 09:00 Clonidine 0.1 mg 0.1 mg Q6H PRN PO ELEVATED BLOOD PRESSURE Last administered on 08/28/16 11:27; Admin Dose 0.1 MG; Start 08/25/16 at 06:00 Vancomycin HCl (Vancocin) 250 ml @ 125 mls/hr Q12H IVPB Last administered on 14:41; Admin Dose 125 MLS/HR; Start 08/26/16 at 15:00 Insulin Glargine (Lantus) 17 unit DAILY@20 SC Last administered on 08/28/16 21 :40; Admin Dose 17 UNIT; Start 08/26/16 at 20:00 Epoetin Baldomero (Epogen (Oncology)) 20,000 units MoWeFr@17 SC Last administered on 08/28/16 18:52; Admin Dose 20,000 UNITS; Start 08/28/16 at 17:00 Magnesium Hydroxide (Milk Of Mag) 30 ml Q6H PRN PO CONSTIPATION Last administered on 08/29/16 08:31; Admin Dose 30 ML; Start 08/27/16 at 22:20 Apixaban (Eliquis) 5 mg BID PO Last administered on 08/29/16 08:20; Admin Dose 5 MG; Start 08/28/16 at 21:00 ANA VELASQUEZ MD Aug 29, 2016 19:16
[2016-08-29 19:59] VITALS: BP 157/69; RESP 18
[2016-08-29] MEDS: INSULIN GLARGINE [LANtus] 3 ML PEN SC SCH (20:35)
[2016-08-29] MEDS: PROMETHAZINE/CODEINE 5ML CUP PO PRN (22:23)
[2016-08-30] MEDS: ALBUTEROL/IPRATROPIUM (NEB) 3 ML AMP HHN SCH ×4 (01:49→20:10)
[2016-08-30] MEDS: ACCU-CHEK XX SCH (02:00)
[2016-08-30 02:09] VITALS: BP 155/72; RESP 18
[2016-08-30] MEDS: VANCOMYCIN 1 GM in NS 250 ML IVPB SCH ×2 (03:18→14:41)
--- NOTE | 2016-08-30 05:15 | GILP ---
DATE OF PROCEDURE: PROCEDURE PERFORMED: Esophagogastroduodenoscopy with biopsy, colonoscopy with multiple biopsies. INDICATION: A 75-year-old male who presented with severe anemia. His ferritin level was low. The purpose of this procedure is to evaluate the upper GI and lower GI tract to find the source of GI blood loss. The risks of the procedure, related complications, anesthetic risks, alternatives discussed and informed consent was obtained. DESCRIPTION OF PROCEDURE: Patient was brought to the GI lab, sedated by Dr. Caceres. After a smooth intubation, scope was passed in the esophagus, which was grossly within normal limits except for a tongue-like projection of the Z-line proximally by 1.5 cm. Biopsy was taken to rule out Carson's esophagus. The biopsy was taken while coming out. Some of the mucosa revealed gastritis. Three biopsies randomly obtained to rule out H pylori infection. Duodenal mucosa revealed linear ulcer in the 2nd part of the duodenum and also duodenitis. Biopsies taken from the 2nd part and the bulb to rule out celiac sprue. Retroflexion was then done, which was normal. Z-line was at 40 cm. Scope was then removed with good patient tolerance. IMPRESSION: 1. Tongue-like projection from the Z-line proximally by 1.5 cm. 2. Normal esophagus. 3. Gastritis, multiple biopsies obtained. 4. There was a extraluminal compression in the body of the stomach. 5. Superficial duodenal ulcer and duodenitis. 6. Small bowl biopsy to rule out celiac sprue. PLAN: Review histopathology. I will review the CAT scan to make sure there is no intra-abdominal organ that is pressing upon the stomach. COLONOSCOPY: He was turned around. Scope was passed as much into rectum, advanced through the rectosigmoid, descending colon, all the way into the cecum. Cecum was filled with stool, tried to remove as much as possible. Then polypoid lesion identified. It was in the form of a necklace, semicircular in fashion. 3-4 giant biopsies obtained to obliterate the polyp by 50 percent. Risks of the colon was normal. Hemorrhoids identified. Retroflexion was then done. Patient was unable to hold air in the rectum. Scope was taken out and removed with good patient tolerance. IMPRESSION: 1. Somewhat poor prep in the right side of the colon. 2. Polypoid lesion in the form of necklace in the cecum, semicircular in fashion. 3. Hemorrhoids. 4. Scope all the way into the cecum. PLAN: Review histopathology. Dictated By: Matias Hall MD /annita/niraj /Document#: [id number] CC: Matias Hall MD; Sky Seay MD; Dr. Miller;*EndCC*
[2016-08-30 05:59] LABS: ADD SCAN DIFF NO
[2016-08-30 06:03] LABS: ABNORMAL IP MESSAGE 1; BASOPHIL # 0.1 10^3/ul (0.0-0.1); BASOPHILS % 0.8 % (0.0-2.0); HEMATOCRIT 24.7 % (42.0-52.0); HEMOGLOBIN 8.3 g/dl (14.0-18.0); MEAN CORPUSCULAR HEMOGLOBIN 25.9 pg (29.0-33.0); MEAN CORPUSCULAR HGB CONC 33.6 g/dl (32.0-37.0); MEAN CORPUSCULAR VOLUME 77.2 fl (82.0-101.0); MONOCYTE # 1.9 10^3/ul (0.3-0.9); NEUTROPHIL # 3.8 10^3/ul (1.6-7.5); NEUTROPHILS % 51.1 % (39.0-77.0); NUCLEATED RED BLOOD CELLS # 0.1 10^3/ul (0.0-0.0); PLATELET COUNT 287 10^3/UL (140-415); RED CELL DISTRIBUTION WIDTH 23.8 % (11.5-14.5); WHITE BLOOD COUNT 7.5 10^3/ul (4.8-10.8)
[2016-08-30 06:39] LABS: MONOCYTES % 25.5 % (0.0-11.0)
[2016-08-30 07:03] LABS: CALCIUM 8.5 mg/dl (8.4-10.2); CREATININE 0.63 mg/dl (0.61-1.24); POTASSIUM 3.8 mmol/L (3.5-5.1)
[2016-08-30] MEDS: INSULIN ASPART [NOVOLOG] 3 ML PEN SC SCH ×7 (08:01→20:49)
[2016-08-30] MEDS: LINAGLIPTIN 5 MG TABLET PO SCH (08:16)
[2016-08-30] MEDS: APIXABAN 5 MG TABLET PO SCH ×2 (08:16→20:50)
[2016-08-30] MEDS: CEFEPIME 1GM/50 ML (PMX) 50 ML IVPB SCH ×2 (08:16→20:50)
[2016-08-30] MEDS: GABAPENTIN 300 MG CAP PO SCH (08:16)
[2016-08-30] MEDS: AMLODIPINE 5 MG TAB PO SCH (08:17)
[2016-08-30] MEDS: LOSARTAN 50 MG TAB PO SCH ×2 (08:17→20:51)
[2016-08-30 08:23] VITALS: BP 182/81; PULSE 102
[2016-08-30] MEDS: CHOLECALCIFEROL 1,000 UNIT TAB PO SCH (09:00)
[2016-08-30] MEDS: CLOTRIMAZOLE 1% 30 GM CR TOP SCH ×2 (09:00→20:52)
[2016-08-30 10:38] VITALS: BP 152/70; PULSE 103; RESP 20
--- NOTE | 2016-08-30 11:04 | PN ---
Date/Time of Note Date/Time of Note DATE: 08/30/16 TIME: 10:53 Assessment/Plan VTE Prophylaxis VTE Prophylaxis Intervention: other (apixaban) Lines/Catheters IV [facility] Type (from [facility]): Saline Lock Assessment/Plan Chief Complaint/Hosp Course Anemia and IVC thrombosis. Problems: Assessment/Plan Lesions seen in esophagus and colon have been biopsied. One of these may be the source of iron deficiency. Extrinsic compression of gastric body may be due to splenomegaly assoc with myelofibrosis. Pt has bilat pleural effusions. Likely related element of CHF but perhaps should be tapped to r/o a malignant effusion or an effusion due to extramedullary hematopoiesis. Subjective 24 Hr Interval Summary Free Text/Dictation Pt has undergone EGD and colonoscopy today. Received RBC transfusion yesterday. Exam/Review of Systems Vital Signs Vitals Vital Signs Date Time Temp Pulse Resp B/P Pulse Ox O2 Delivery O2 Flow Rate FiO2 08/30/16 10:38 99.0 103 20 152/70 99 Room Air 08/30/16 09:12 2.0 Intake and Output 08/29/16 08/29/16 08/30/16 15:00 23:00 07:00 Intake Total 50 ml 1260 ml 710 ml Output Total 760 ml 800 ml Balance 50 ml 500 ml -90 ml Exam Constitutional: alert, oriented, well developed Head: atraumatic, normocephalic Eyes: EOMI, nl conjunctiva, nl sclera ENMT: nl lips & teeth, other (pale mucosa) Neck: non-tender, supple Respiratory: diminished breath sounds (boyh bases. Dullness to percussion in both bases.), normal air movement Cardiovascular: nl pulses, regular rate and rhythm Gastrointestinal: non-tender Musculoskeletal: nl extremities to inspection, nl gait and stance Extremities: normal pulses Neurological: WEB APPLICATION TESTER II-XII intact Skin: nl turgor, other (pale) Results Result Diagram: 08/30/16 0453 08/30/16 0453 Results 24 hrs Laboratory Tests Test 08/29/16 12:28 08/29/16 12:29 08/29/16 18:06 08/29/16 20:30 White Blood Count 7.8 Red Blood Count 3.06 L Hemoglobin 7.8 L Hematocrit 23.7 L Mean Corpuscular Volume 77.5 L Mean Corpuscular Hemoglobin 25.5 L Mean Corpuscular Hemoglobin Concent 32.9 Red Cell Distribution Width 24.5 H Platelet Count 243 Mean Platelet Volume Neutrophils % 63.0 Band Neutrophils % 12.0 H Lymphocytes % 14.0 L Monocytes % 11.0 Nucleated Red Blood Cells % 4 H Neutrophils # 4.9 Lymphocytes # 1.1 Monocytes # 0.9 Bedside Glucose 121 184 132 Test 08/30/16 04:53 08/30/16 06:03 08/30/16 07:47 White Blood Count 7.5 Red Blood Count 3.20 L Hemoglobin 8.3 L Hematocrit 24.7 L Mean Corpuscular Volume 77.2 L Mean Corpuscular Hemoglobin 25.9 L Mean Corpuscular Hemoglobin Concent 33.6 Red Cell Distribution Width 23.8 H Platelet Count 287 Mean Platelet Volume Neutrophils % 51.1 Lymphocytes % 13.0 L Monocytes % 25.5 H Eosinophils % 0.0 Basophils % 0.8 Neutrophils # 3.8 Lymphocytes # 1.0 Monocytes # 1.9 H Eosinophils # 0.0 Basophils # 0.1 Nucleated Red Blood Cells # 0.1 H Sodium Level 140 Potassium Level 3.8 Chloride Level 107 Carbon Dioxide Level 23 Anion Gap 14 Blood Urea Nitrogen 13 Creatinine 0.63 Glucose Level 78 # Calcium Level 8.5 Lab Scanned Report BLOOD TRANSFUSION Bedside Glucose 96 Medications Medications Current Medications Acetaminophen (Tylenol Tab) 650 mg Q6H PRN PO PAIN AND OR ELEVATED TEMP Last administered on 08/29/16 18:12; Admin Dose 650 MG; Start 08/07/16 at 21:30 Morphine Sulfate (morphine) 2 mg Q4H PRN IV severe pain Last administered on 02:18; Admin Dose 2 MG; Start 08/07/16 at 21:30 Acetaminophen/ Hydrocodone Bitart ([place] (5/325)) 1 tab Q6H PRN PO moderate pain Last administered on 08/22/16 20:25; Admin Dose 1 TAB; Start 08/07/16 at 21:30 Diagnostic Test (Pha) (Accu-Chek) 1 ea 02 XX Last administered on 08/28/16 02: 00; Admin Dose 1 EA; Start 08/08/16 at 02:00 Cholecalciferol (Vitamin D) 5,000 unit DAILY PO Last administered on 08/29/16 08:20; Admin Dose 5,000 UNIT; Start 08/08/16 at 09:00 Gabapentin (Neurontin) 300 mg DAILY PO Last administered on 08/30/16 08:16; Admin Dose 300 MG; Start 08/08/16 at 09:00 Lorazepam (Ativan) 1 mg HS PRN PO ANXIETY Last administered on 08/22/16 20:25 ; Admin Dose 1 MG; Start 08/07/16 at 21:30 Linagliptin (Tradjenta) 5 mg DAILY PO Last administered on 08/30/16 08:16; Admin Dose 5 MG; Start 08/08/16 at 09:00 Miscellaneous Information 1 ea NOTE XX Last administered on 08/26/16 08:08; Admin Dose 1 EA; Start 08/13/16 at 15:30 Glucose (Glutose) 15 gm Q15M PRN PO DECREASED GLUCOSE; Start 08/13/16 at 15:30 Glucose (Glutose) 22.5 gm Q15M PRN PO DECREASED GLUCOSE; Start 08/13/16 at 15:30 Dextrose (D50w Syringe) 25 ml Q15M PRN IV DECREASED GLUCOSE; Start 08/13/16 at 15:30 Dextrose (D50w Syringe) 50 ml Q15M PRN IV DECREASED GLUCOSE; Start 08/13/16 at 15:30 Glucagon (Glucagen) 1 mg Q15M PRN IM DECREASED GLUCOSE; Start 08/13/16 at 15:30 Glucose (Glutose) 15 gm Q15M PRN BUCCAL DECREASED GLUCOSE; Start 08/13/16 at 15: 30 Diphenhydramine HCl (Benadryl) 25 mg Q6H PRN PO ITCHING Last administered on 21:35; Admin Dose 25 MG; Start 08/17/16 at 20:30 Clotrimazole (Lotrimin Cr) 1 applic BID TOP Last administered on 08/29/16 20: 53; Admin Dose 1 APPLIC; Start 08/19/16 at 21:00 Phenol 1 lozenge 1 lozenge Q4H PRN MT COUGH Last administered on 08/29/16 18: 12; Admin Dose 1 LOZENGE; Start 08/20/16 at 07:00 Cefepime HCl (Maxipime 1gm/50 ml (Pmx)) 50 ml @ 100 mls/hr Q12 IVPB Last administered on 08/30/16 08:16; Admin Dose 100 MLS/HR; Start 08/23/16 at 21:00 Losartan Potassium (Cozaar) 50 mg BID PO Last administered on 08/30/16 08:17; Admin Dose 50 MG; Start 08/23/16 at 21:00 Polyethylene Glycol (Miralax) 17 gm DAILY PRN GTB CONSTIPATION Last administered on 08/27/16 09:03; Admin Dose 17 GM; Start 08/24/16 at 09:30 Simethicone (Mylicon) 80 mg QID PRN GTB DISTENSION/GAS/BLOATING Last administered on 08/27/16 22:43; Admin Dose 80 MG; Start 08/24/16 at 13:00 Amlodipine Besylate (Norvasc) 5 mg DAILY PO Last administered on 08/30/16 08: 17; Admin Dose 5 MG; Start 08/25/16 at 09:00 Clonidine 0.1 mg 0.1 mg Q6H PRN PO ELEVATED BLOOD PRESSURE Last administered on 08/28/16 11:27; Admin Dose 0.1 MG; Start 08/25/16 at 06:00 Vancomycin HCl (Vancocin) 250 ml @ 125 mls/hr Q12H IVPB Last administered on 03:18; Admin Dose 125 MLS/HR; Start 08/26/16 at 15:00 Insulin Glargine (Lantus) 17 unit DAILY@20 SC Last administered on 08/29/16 20 :35; Admin Dose 17 UNIT; Start 08/26/16 at 20:00 Epoetin Baldomero (Epogen (Oncology)) 20,000 units MoWeFr@17 SC Last administered on 08/28/16 18:52; Admin Dose 20,000 UNITS; Start 08/28/16 at 17:00 Magnesium Hydroxide (Milk Of Mag) 30 ml Q6H PRN PO CONSTIPATION Last administered on 08/29/16 08:31; Admin Dose 30 ML; Start 08/27/16 at 22:20 Apixaban (Eliquis) 5 mg BID PO Last administered on 08/30/16 08:16; Admin Dose 5 MG; Start 08/28/16 at 21:00 Promethazine HCl/ Codeine (Phenergan/ Codeine) 10 ml Q4H PRN PO COUGH Last administered on 08/29/16t 22:23; Admin Dose 10 ML; Start 08/29/16 at 22:00 Copies To: CC: ЕЛЕНА CLAROS MD, STANLEY H MD Aug 30, 2016 11:03
[2016-08-30 14:00] VITALS: BP 185/81; RESP 22
[2016-08-30 14:42] VITALS: BP 185/81; PULSE 109
--- NOTE | 2016-08-30 16:31 | CONS ---
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 Patient complains of right lower quadrant abdominal pain and also significant weight loss. He lost 26 pounds over the. A few months and is chronically constipated. Patient denies of any kind of GI bleeding no nausea no vomiting no heartburn. No chest pain or shortness of breath. He has lost his appetite. Patient has umbrella in the inferior vena cava and also has a history of pulmonary embolism. He has a history of surgery on his knee and also on his hands. Problems: Additional Assessment/Plan Additional Assessment/Plan 1. Diabetes mellitus 2. Anemia 3. Myelofibrosis 4. Pneumonia, alveolar hemorrhage 5. IVC thrombosis 6. UTI 7. Abdominal pain resolved 8. Chronic constipation 9. Pleural effusion Plan Monitor H&H Transfuse as needed if hemoglobin less than 7.5 Pulmonary follow up [place] Consultation Date/Type/Reason Admit Date/Time Aug 07, 2016 at 16:05 Initial Consult Date 08/10/16 Type of Consultation: GI Referring Provider: TEDDY RUVALCABA MD 24 HR Interval Summary Free Text/Dictation Complains of constipation Exam/Review of Systems Vital Signs Vitals Vital Signs Date Time Temp Pulse Resp B/P Pulse Ox O2 Delivery O2 Flow Rate FiO2 08/30/16 14:59 Nasal Cannula 2.0 08/30/16 14:42 109 185/81 08/30/16 14:00 99.9 22 97 Intake and Output 08/29/16 08/29/16 08/30/16 15:00 23:00 07:00 Intake Total 50 ml 1260 ml 710 ml Output Total 760 ml 800 ml Balance 50 ml 500 ml -90 ml Exam Constitutional: alert, oriented, well developed Psych: nl mood/affect, no complaints Head: atraumatic, normocephalic Eyes: EOMI, PERRL, nl conjunctiva, nl lids, nl sclera ENMT: nl external ears & nose, nl lips & teeth, nl nasal mucosa & septum Neck: non-tender, supple Respiratory: clear to auscultation, normal air movement Cardiovascular: nl pulses, regular rate and rhythm Gastrointestinal: nl liver, spleen, non-tender, soft Musculoskeletal: nl extremities to inspection, nl gait and stance Extremities: normal pulses 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, nl mental status, nl speech, nl strength Skin: nl turgor, No rash or lesions Lymph: nl lymph nodes Results Result Diagram: 08/30/16 0453 08/30/16 0453 Results 24 hrs Laboratory Tests Test 08/29/16 18:06 08/29/16 20:30 08/30/16 04:53 08/30/16 06:03 Bedside Glucose 184 132 White Blood Count 7.5 Red Blood Count 3.20 L Hemoglobin 8.3 L Hematocrit 24.7 L Mean Corpuscular Volume 77.2 L Mean Corpuscular Hemoglobin 25.9 L Mean Corpuscular Hemoglobin Concent 33.6 Red Cell Distribution Width 23.8 H Platelet Count 287 Mean Platelet Volume Neutrophils % 51.1 Lymphocytes % 13.0 L Monocytes % 25.5 H Eosinophils % 0.0 Basophils % 0.8 Neutrophils # 3.8 Lymphocytes # 1.0 Monocytes # 1.9 H Eosinophils # 0.0 Basophils # 0.1 Nucleated Red Blood Cells # 0.1 H Sodium Level 140 Potassium Level 3.8 Chloride Level 107 Carbon Dioxide Level 23 Anion Gap 14 Blood Urea Nitrogen 13 Creatinine 0.63 Glucose Level 78 # Calcium Level 8.5 Lab Scanned Report BLOOD TRANSFUSION Test 08/30/16 07:47 08/30/16 11:52 Bedside Glucose 96 183 Medications Medications Current Medications Acetaminophen (Tylenol Tab) 650 mg Q6H PRN PO PAIN AND OR ELEVATED TEMP Last administered on 08/29/16 18:12; Admin Dose 650 MG; Start 08/07/16 at 21:30 Morphine Sulfate (morphine) 2 mg Q4H PRN IV severe pain Last administered on 02:18; Admin Dose 2 MG; Start 08/07/16 at 21:30 Acetaminophen/ Hydrocodone Bitart ([place] (5/325)) 1 tab Q6H PRN PO moderate pain Last administered on 08/22/16 20:25; Admin Dose 1 TAB; Start 08/07/16 at 21:30 Diagnostic Test (Pha) (Accu-Chek) 1 ea 02 XX Last administered on 08/28/16 02: 00; Admin Dose 1 EA; Start 08/08/16 at 02:00 Cholecalciferol (Vitamin D) 5,000 unit DAILY PO Last administered on 08/29/16 08:20; Admin Dose 5,000 UNIT; Start 08/08/16 at 09:00 Gabapentin (Neurontin) 300 mg DAILY PO Last administered on 08/30/16 08:16; Admin Dose 300 MG; Start 08/08/16 at 09:00 Lorazepam (Ativan) 1 mg HS PRN PO ANXIETY Last administered on 08/22/16 20:25 ; Admin Dose 1 MG; Start 08/07/16 at 21:30 Linagliptin (Tradjenta) 5 mg DAILY PO Last administered on 08/30/16 08:16; Admin Dose 5 MG; Start 08/08/16 at 09:00 Miscellaneous Information 1 ea NOTE XX Last administered on 08/26/16 08:08; Admin Dose 1 EA; Start 08/13/16 at 15:30 Glucose (Glutose) 15 gm Q15M PRN PO DECREASED GLUCOSE; Start 08/13/16 at 15:30 Glucose (Glutose) 22.5 gm Q15M PRN PO DECREASED GLUCOSE; Start 08/13/16 at 15:30 Dextrose (D50w Syringe) 25 ml Q15M PRN IV DECREASED GLUCOSE; Start 08/13/16 at 15:30 Dextrose (D50w Syringe) 50 ml Q15M PRN IV DECREASED GLUCOSE; Start 08/13/16 at 15:30 Glucagon (Glucagen) 1 mg Q15M PRN IM DECREASED GLUCOSE; Start 08/13/16 at 15:30 Glucose (Glutose) 15 gm Q15M PRN BUCCAL DECREASED GLUCOSE; Start 08/13/16 at 15: 30 Diphenhydramine HCl (Benadryl) 25 mg Q6H PRN PO ITCHING Last administered on 21:35; Admin Dose 25 MG; Start 08/17/16 at 20:30 Clotrimazole (Lotrimin Cr) 1 applic BID TOP Last administered on 08/29/16 20: 53; Admin Dose 1 APPLIC; Start 08/19/16 at 21:00 Phenol 1 lozenge 1 lozenge Q4H PRN MT COUGH Last administered on 08/29/16 18: 12; Admin Dose 1 LOZENGE; Start 08/20/16 at 07:00 Cefepime HCl (Maxipime 1gm/50 ml (Pmx)) 50 ml @ 100 mls/hr Q12 IVPB Last administered on 08/30/16 08:16; Admin Dose 100 MLS/HR; Start 08/23/16 at 21:00 Losartan Potassium (Cozaar) 50 mg BID PO Last administered on 08/30/16 08:17; Admin Dose 50 MG; Start 08/23/16 at 21:00 Polyethylene Glycol (Miralax) 17 gm DAILY PRN GTB CONSTIPATION Last administered on 08/27/16 09:03; Admin Dose 17 GM; Start 08/24/16 at 09:30 Simethicone (Mylicon) 80 mg QID PRN GTB DISTENSION/GAS/BLOATING Last administered on 08/27/16 22:43; Admin Dose 80 MG; Start 08/24/16 at 13:00 Amlodipine Besylate (Norvasc) 5 mg DAILY PO Last administered on 08/30/16 08: 17; Admin Dose 5 MG; Start 08/25/16 at 09:00 Clonidine 0.1 mg 0.1 mg Q6H PRN PO ELEVATED BLOOD PRESSURE Last administered on 08/30/16 14:41; Admin Dose 0.1 MG; Start 08/25/16 at 06:00 Vancomycin HCl (Vancocin) 250 ml @ 125 mls/hr Q12H IVPB Last administered on 14:41; Admin Dose 125 MLS/HR; Start 08/26/16 at 15:00 Insulin Glargine (Lantus) 17 unit DAILY@20 SC Last administered on 08/29/16 20 :35; Admin Dose 17 UNIT; Start 08/26/16 at 20:00 Epoetin Baldomero (Epogen (Oncology)) 20,000 units MoWeFr@17 SC Last administered on 08/28/16 18:52; Admin Dose 20,000 UNITS; Start 08/28/16 at 17:00 Magnesium Hydroxide (Milk Of Mag) 30 ml Q6H PRN PO CONSTIPATION Last administered on 08/29/16 08:31; Admin Dose 30 ML; Start 08/27/16 at 22:20 Apixaban (Eliquis) 5 mg BID PO Last administered on 08/30/16 08:16; Admin Dose 5 MG; Start 08/28/16 at 21:00 Promethazine HCl/ Codeine (Phenergan/ Codeine) 10 ml Q4H PRN PO COUGH Last administered on 08/29/16t 22:23; Admin Dose 10 ML; Start 08/29/16 at 22:00 ANA VELASQUEZ MD Aug 30, 2016 16:31
--- NOTE | 2016-08-30 16:54 | PN ---
Date/Time of Note Date/Time of Note DATE: 08/30/16 TIME: 16:47 Assessment/Plan VTE Prophylaxis VTE Prophylaxis Intervention: SCD's Lines/Catheters [facility]from [facility] Saline Lock Assessment/Plan Chief Complaint/Hosp Course Patient status post blood transfusion rest last night, very minimal hemoptysis, continues to have tachycardia tachycardia and low-grade fever. Assessment/Plan - Healthcare acquired pneumonia, continued on vancomycin and cefepime, Dr. Springer is asked to see patient in pulmonology consultation. - Bilateral pleural effusions, continue incentive spirometer, 2 D Echo with stage I diastolic dysfunction and preserved ejection fraction. - Myelofibrosis. Dr. 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 - Status post EGD and colonoscopy, with notion of gastritis gastritis and superficial duodenal ulcer per EGD and multiple polyps per colonoscopy. 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 Hall is following in gastroenterology consultation. - History of pulmonary embolism, continue Eliquis - Diabetes mellitus, hemoglobin A1c is 8.2. continue, Tradjenta, Lantus and NovoLog. - Hypertension, continue Cozaar. - Hyperlipidemia - BPH, status post TURP - Pseudomonas UTI, status post treatment - Status post right hip replacement Further recommendations based on clinical course. Plan of care discussed with Dr. Seay. Problems: Exam/Review of Systems Vital Signs Vitals Vital Signs Date Time Temp Pulse Resp B/P Pulse Ox O2 Delivery O2 Flow Rate FiO2 08/30/16 14:59 Nasal Cannula 2.0 08/30/16 14:42 109 185/81 08/30/16 14:00 99.9 22 97 Intake and Output 08/29/16 08/29/16 08/30/16 15:00 23:00 07:00 Intake Total 50 ml 1260 ml 710 ml Output Total 760 ml 800 ml Balance 50 ml 500 ml -90 ml Exam Constitutional: alert, oriented Head: atraumatic, normocephalic Neck: supple Respiratory: clear Cardiovascular: nl pulses Gastrointestinal: non-tender, soft Extremities: edema, other Neurological: nl mental status Skin: nl turgor Results Result Diagram: 08/30/16 0453 08/30/16452 Results 24 hrs Laboratory Tests Test 08/29/16 18:06 08/29/16 20:30 08/30/16 04:53 08/30/16 06:03 Bedside Glucose 184 132 White Blood Count 7.5 Red Blood Count 3.20 L Hemoglobin 8.3 L Hematocrit 24.7 L Mean Corpuscular Volume 77.2 L Mean Corpuscular Hemoglobin 25.9 L Mean Corpuscular Hemoglobin Concent 33.6 Red Cell Distribution Width 23.8 H Platelet Count 287 Mean Platelet Volume Neutrophils % 51.1 Lymphocytes % 13.0 L Monocytes % 25.5 H Eosinophils % 0.0 Basophils % 0.8 Neutrophils # 3.8 Lymphocytes # 1.0 Monocytes # 1.9 H Eosinophils # 0.0 Basophils # 0.1 Nucleated Red Blood Cells # 0.1 H Sodium Level 140 Potassium Level 3.8 Chloride Level 107 Carbon Dioxide Level 23 Anion Gap 14 Blood Urea Nitrogen 13 Creatinine 0.63 Glucose Level 78 # Calcium Level 8.5 Lab Scanned Report BLOOD TRANSFUSION Test 08/30/16 07:47 08/30/16 11:52 Bedside Glucose 96 183 Medications Medications Current Medications Acetaminophen (Tylenol Tab) 650 mg Q6H PRN PO PAIN AND OR ELEVATED TEMP Last administered on 08/29/16 18:12; Admin Dose 650 MG; Start 08/07/16 at 21:30 Morphine Sulfate (morphine) 2 mg Q4H PRN IV severe pain Last administered on 02:18; Admin Dose 2 MG; Start 08/07/16 at 21:30 Acetaminophen/ Hydrocodone Bitart ([place] (5/325)) 1 tab Q6H PRN PO moderate pain Last administered on 08/22/16 20:25; Admin Dose 1 TAB; Start 08/07/16 at 21:30 Diagnostic Test (Pha) (Accu-Chek) 1 ea 02 XX Last administered on 08/28/16 02: 00; Admin Dose 1 EA; Start 08/08/16 at 02:00 Cholecalciferol (Vitamin D) 5,000 unit DAILY PO Last administered on 08/29/16 08:20; Admin Dose 5,000 UNIT; Start 08/08/16 at 09:00 Gabapentin (Neurontin) 300 mg DAILY PO Last administered on 08/30/16 08:16; Admin Dose 300 MG; Start 08/08/16 at 09:00 Lorazepam (Ativan) 1 mg HS PRN PO ANXIETY Last administered on 08/22/16 20:25 ; Admin Dose 1 MG; Start 08/07/16 at 21:30 Linagliptin (Tradjenta) 5 mg DAILY PO Last administered on 08/30/16 08:16; Admin Dose 5 MG; Start 08/08/16 at 09:00 Miscellaneous Information 1 ea NOTE XX Last administered on 08/26/16 08:08; Admin Dose 1 EA; Start 08/13/16 at 15:30 Glucose (Glutose) 15 gm Q15M PRN PO DECREASED GLUCOSE; Start 08/13/16 at 15:30 Glucose (Glutose) 22.5 gm Q15M PRN PO DECREASED GLUCOSE; Start 08/13/16 at 15:30 Dextrose (D50w Syringe) 25 ml Q15M PRN IV DECREASED GLUCOSE; Start 08/13/16 at 15:30 Dextrose (D50w Syringe) 50 ml Q15M PRN IV DECREASED GLUCOSE; Start 08/13/16 at 15:30 Glucagon (Glucagen) 1 mg Q15M PRN IM DECREASED GLUCOSE; Start 08/13/16 at 15:30 Glucose (Glutose) 15 gm Q15M PRN BUCCAL DECREASED GLUCOSE; Start 08/13/16 at 15: 30 Diphenhydramine HCl (Benadryl) 25 mg Q6H PRN PO ITCHING Last administered on 21:35; Admin Dose 25 MG; Start 08/17/16 at 20:30 Clotrimazole (Lotrimin Cr) 1 applic BID TOP Last administered on 08/29/16 20: 53; Admin Dose 1 APPLIC; Start 08/19/16 at 21:00 Phenol 1 lozenge 1 lozenge Q4H PRN MT COUGH Last administered on 08/29/16 18: 12; Admin Dose 1 LOZENGE; Start 08/20/16 at 07:00 Cefepime HCl (Maxipime 1gm/50 ml (Pmx)) 50 ml @ 100 mls/hr Q12 IVPB Last administered on 08/30/16 08:16; Admin Dose 100 MLS/HR; Start 08/23/16 at 21:00 Losartan Potassium (Cozaar) 50 mg BID PO Last administered on 08/30/16 08:17; Admin Dose 50 MG; Start 08/23/16 at 21:00 Polyethylene Glycol (Miralax) 17 gm DAILY PRN GTB CONSTIPATION Last administered on 08/27/16 09:03; Admin Dose 17 GM; Start 08/24/16 at 09:30 Simethicone (Mylicon) 80 mg QID PRN GTB DISTENSION/GAS/BLOATING Last administered on 08/27/16 22:43; Admin Dose 80 MG; Start 08/24/16 at 13:00 Amlodipine Besylate (Norvasc) 5 mg DAILY PO Last administered on 08/30/16 08: 17; Admin Dose 5 MG; Start 08/25/16 at 09:00 Clonidine 0.1 mg 0.1 mg Q6H PRN PO ELEVATED BLOOD PRESSURE Last administered on 08/30/16 14:41; Admin Dose 0.1 MG; Start 08/25/16 at 06:00 Vancomycin HCl (Vancocin) 250 ml @ 125 mls/hr Q12H IVPB Last administered on 14:41; Admin Dose 125 MLS/HR; Start 08/26/16 at 15:00 Insulin Glargine (Lantus) 17 unit DAILY@20 SC Last administered on 08/29/16 20 :35; Admin Dose 17 UNIT; Start 08/26/16 at 20:00 Epoetin Baldomero (Epogen (Oncology)) 20,000 units MoWeFr@17 SC Last administered on 08/28/16 18:52; Admin Dose 20,000 UNITS; Start 08/28/16 at 17:00 Magnesium Hydroxide (Milk Of Mag) 30 ml Q6H PRN PO CONSTIPATION Last administered on 08/29/16 08:31; Admin Dose 30 ML; Start 08/27/16 at 22:20 Apixaban (Eliquis) 5 mg BID PO Last administered on 08/30/16 08:16; Admin Dose 5 MG; Start 08/28/16 at 21:00 Promethazine HCl/ Codeine (Phenergan/ Codeine) 10 ml Q4H PRN PO COUGH Last administered on 08/29/16 22:23; Admin Dose 10 ML; Start 08/29/16 at 22:00 IVONNE KEARNS Aug 30, 2016 16:54
[2016-08-30] MEDS: EPOETIN 10000 UNITS/ML VIAL (ONCOLOGY) SC SCH (17:22)
[2016-08-30 19:21] VITALS: BP 124/67; RESP 18
[2016-08-30] MEDS: INSULIN GLARGINE [LANtus] 3 ML PEN SC SCH (21:08)
[2016-08-30] MEDS: PROMETHAZINE/CODEINE 5ML CUP PO PRN (22:00)
[2016-08-30] MEDS: CEPASTAT LOZENGE MT PRN (22:08)
[2016-08-30] MEDS: ACETAMINOPHEN 325 MG TAB PO PRN (22:08)
[2016-08-31] MEDS: ALBUTEROL/IPRATROPIUM (NEB) 3 ML AMP HHN SCH ×5 (01:01→20:00)
[2016-08-31] MEDS: ACCU-CHEK XX SCH (02:00)
[2016-08-31 02:10] VITALS: BP 148/67; RESP 18
[2016-08-31] MEDS: VANCOMYCIN 1 GM in NS 250 ML IVPB SCH ×2 (03:04→14:58)
[2016-08-31 07:29] LABS: ABNORMAL IP MESSAGE 1; HEMATOCRIT 24.8 % (42.0-52.0); MEAN CORPUSCULAR HEMOGLOBIN 25.1 pg (29.0-33.0); MEAN CORPUSCULAR HGB CONC 32.3 g/dl (32.0-37.0); MEAN CORPUSCULAR VOLUME 77.7 fl (82.0-101.0); NUCLEATED RED BLOOD CELLS% 1.7 /100WBC (0.0-0.0); POSITIVE DIFF @See below; RED BLOOD COUNT 3.19 10^6/ul (4.70-6.10); RED CELL DISTRIBUTION WIDTH 24.2 % (11.5-14.5); WHITE BLOOD COUNT 7.7 10^3/ul (4.8-10.8)
[2016-08-31 07:45] VITALS: BP 152/71; RESP 18
[2016-08-31 07:45] LABS: CALCIUM 8.2 mg/dl (8.4-10.2); CREATININE 0.63 mg/dl (0.61-1.24); POTASSIUM 3.7 mmol/L (3.5-5.1)
[2016-08-31] MEDS: INSULIN ASPART [NOVOLOG] 3 ML PEN SC SCH ×7 (08:15→20:55)
[2016-08-31] MEDS: CEFEPIME 1GM/50 ML (PMX) 50 ML IVPB SCH ×2 (08:36→20:53)
[2016-08-31] MEDS: CHOLECALCIFEROL 1,000 UNIT TAB PO SCH (08:40)
[2016-08-31] MEDS: LINAGLIPTIN 5 MG TABLET PO SCH (08:40)
[2016-08-31] MEDS: APIXABAN 5 MG TABLET PO SCH ×2 (08:40→20:58)
[2016-08-31] MEDS: GABAPENTIN 300 MG CAP PO SCH (08:40)
[2016-08-31] MEDS: LOSARTAN 50 MG TAB PO SCH ×2 (08:41→20:55)
[2016-08-31] MEDS: AMLODIPINE 5 MG TAB PO SCH (08:42)
[2016-08-31] MEDS: CLOTRIMAZOLE 1% 30 GM CR TOP SCH ×2 (08:42→20:56)
--- NOTE | 2016-08-31 08:45 | PN ---
Date/Time of Note Date/Time of Note DATE: 08/31/16 TIME: 08:36 Assessment/Plan VTE Prophylaxis VTE Prophylaxis Intervention: other Lines/Catheters IV [facility] (from [facility]): Saline Lock Urinary Cath still in place: No Assessment/Plan Chief Complaint/Hosp Course Anemia and IVC thrombosis. Problems: (1) Hemoptysis (2) Pleural effusion (3) Lupus anticoagulant positive Status: Chronic (4) Microcytic anemia Status: Chronic (5) Thrombosis Status: Chronic Assessment/Plan Pt has cough and some hemoptysis. Has bilateral pleural effusions and JVD. Feel some degree of CHF but this may not fully explain bilateral pleural effusions or hemoptysis. The latter started the same day as apixaban. Will repeat CXR in AM. Subjective 24 Hr Interval Summary Free Text/Dictation Pt still has cough and some hemoptysis. Denies chest pain. Exam/Review of Systems Vital Signs Vitals Vital Signs Date Time Temp Pulse Resp B/P Pulse Ox O2 Delivery O2 Flow Rate FiO2 08/31/16 07:45 98.0 84 18 152/71 99 08/31/16 01:02 Nasal Cannula 2.0 Intake and Output 08/30/16 08/30/16 08/31/16 15:00 23:00 07:00 Intake Total 1310 ml 650 ml Output Total 650 ml 800 ml 2000 ml Balance -650 ml 510 ml -1350 ml Exam Constitutional: alert, oriented Head: atraumatic, normocephalic Eyes: EOMI, PERRL, nl conjunctiva, nl sclera ENMT: nl external ears & nose, other (pale mucosa) Neck: jvd (JVD is present at 45 degrees), non-tender, supple Respiratory: other (decrased breath sounds and dullness in both bases. 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, nl mental status, nl speech, nl strength Skin: nl turgor, other (pale) Results Result Diagram: 08/31/1662608/31/16626 Results 24 hrs Laboratory Tests Test 08/30/16 11:52 08/30/16 17:17 08/30/16 20:48 08/31/16 06:27 Bedside Glucose 183 129 77 White Blood Count 7.7 Red Blood Count 3.19 L Hemoglobin 8.0 L Hematocrit 24.8 L Mean Corpuscular Volume 77.7 L Mean Corpuscular Hemoglobin 25.1 L Mean Corpuscular Hemoglobin Concent 32.3 Red Cell Distribution Width 24.2 H Platelet Count 252 Mean Platelet Volume Neutrophils % Lymphocytes % Monocytes % Eosinophils % Basophils % Nucleated Red Blood Cells % 1.7 H Neutrophils # Lymphocytes # Monocytes # Eosinophils # Basophils # Nucleated Red Blood Cells # Sodium Level 141 Potassium Level 3.7 Chloride Level 106 Carbon Dioxide Level 24 Anion Gap 15 Blood Urea Nitrogen 12 Creatinine 0.63 Glucose Level 77 Calcium Level 8.2 L Test 08/31/16 07:59 Bedside Glucose 78 Medications Medications Current Medications Acetaminophen (Tylenol Tab) 650 mg Q6H PRN PO PAIN AND OR ELEVATED TEMP Last administered on 08/30/16 22:08; Admin Dose 650 MG; Start 08/07/16 at 21:30 Morphine Sulfate (morphine) 2 mg Q4H PRN IV severe pain Last administered on 02:18; Admin Dose 2 MG; Start 08/07/16 at 21:30 Acetaminophen/ Hydrocodone Bitart ([place] (5/325)) 1 tab Q6H PRN PO moderate pain Last administered on 08/22/16 20:25; Admin Dose 1 TAB; Start 08/07/16 at 21:30 Diagnostic Test (Pha) (Accu-Chek) 1 ea 02 XX Last administered on 08/28/16 02: 00; Admin Dose 1 EA; Start 08/08/16 at 02:00 Cholecalciferol (Vitamin D) 5,000 unit DAILY PO Last administered on 08/29/16 08:20; Admin Dose 5,000 UNIT; Start 08/08/16 at 09:00 Gabapentin (Neurontin) 300 mg DAILY PO Last administered on 08/30/16 08:16; Admin Dose 300 MG; Start 08/08/16 at 09:00 Lorazepam (Ativan) 1 mg HS PRN PO ANXIETY Last administered on 08/22/16 20:25 ; Admin Dose 1 MG; Start 08/07/16 at 21:30 Linagliptin (Tradjenta) 5 mg DAILY PO Last administered on 08/30/16 08:16; Admin Dose 5 MG; Start 08/08/16 at 09:00 Miscellaneous Information 1 ea NOTE XX Last administered on 08/26/16 08:08; Admin Dose 1 EA; Start 08/13/16 at 15:30 Glucose (Glutose) 15 gm Q15M PRN PO DECREASED GLUCOSE; Start 08/13/16 at 15:30 Glucose (Glutose) 22.5 gm Q15M PRN PO DECREASED GLUCOSE; Start 08/13/16 at 15:30 Dextrose (D50w Syringe) 25 ml Q15M PRN IV DECREASED GLUCOSE; Start 08/13/16 at 15:30 Dextrose (D50w Syringe) 50 ml Q15M PRN IV DECREASED GLUCOSE; Start 08/13/16 at 15:30 Glucagon (Glucagen) 1 mg Q15M PRN IM DECREASED GLUCOSE; Start 08/13/16 at 15:30 Glucose (Glutose) 15 gm Q15M PRN BUCCAL DECREASED GLUCOSE; Start 08/13/16 at 15: 30 Diphenhydramine HCl (Benadryl) 25 mg Q6H PRN PO ITCHING Last administered on 21:35; Admin Dose 25 MG; Start 08/17/16 at 20:30 Clotrimazole (Lotrimin Cr) 1 applic BID TOP Last administered on 08/30/16 20: 52; Admin Dose 1 APPLIC; Start 08/19/16 at 21:00 Phenol 1 lozenge 1 lozenge Q4H PRN MT COUGH Last administered on 08/30/16 22: 08; Admin Dose 1 LOZENGE; Start 08/20/16 at 07:00 Cefepime HCl (Maxipime 1gm/50 ml (Pmx)) 50 ml @ 100 mls/hr Q12 IVPB Last administered on 08/30/16 20:50; Admin Dose 100 MLS/HR; Start 08/23/16 at 21:00 Losartan Potassium (Cozaar) 50 mg BID PO Last administered on 08/30/16 20:51; Admin Dose 50 MG; Start 08/23/16 at 21:00 Polyethylene Glycol (Miralax) 17 gm DAILY PRN GTB CONSTIPATION Last administered on 08/27/16 09:03; Admin Dose 17 GM; Start 08/24/16 at 09:30 Simethicone (Mylicon) 80 mg QID PRN GTB DISTENSION/GAS/BLOATING Last administered on 08/30/16 23:35; Admin Dose 80 MG; Start 08/24/16 at 13:00 Amlodipine Besylate (Norvasc) 5 mg DAILY PO Last administered on 08/30/16 08: 17; Admin Dose 5 MG; Start 08/25/16 at 09:00 Clonidine 0.1 mg 0.1 mg Q6H PRN PO ELEVATED BLOOD PRESSURE Last administered on 08/30/16 14:41; Admin Dose 0.1 MG; Start 08/25/16 at 06:00 Vancomycin HCl (Vancocin) 250 ml @ 125 mls/hr Q12H IVPB Last administered on 03:04; Admin Dose 125 MLS/HR; Start 08/26/16 at 15:00 Insulin Glargine (Lantus) 17 unit DAILY@20 SC Last administered on 08/30/16 21 :08; Admin Dose 17 UNIT; Start 08/26/16 at 20:00 Epoetin Baldomero (Epogen (Oncology)) 20,000 units MoWeFr@17 SC Last administered on 08/30/16 17:22; Admin Dose 20,000 UNITS; Start 08/28/16 at 17:00 Magnesium Hydroxide (Milk Of Mag) 30 ml Q6H PRN PO CONSTIPATION Last administered on 08/29/16 08:31; Admin Dose 30 ML; Start 08/27/16 at 22:20 Apixaban (Eliquis) 5 mg BID PO Last administered on 08/30/16 20:50; Admin Dose 5 MG; Start 08/28/16 at 21:00 Promethazine HCl/ Codeine (Phenergan/ Codeine) 10 ml Q4H PRN PO COUGH Last administered on 08/30/16 22:00; Admin Dose 10 ML; Start 08/29/16 at 22:00 Copies To: CC: ЕЛЕНА CLAROS MD, STANLEY H MD Aug 31, 2016 08:45
[2016-08-31 10:09] LABS: ERYTHROBLAST% (NRBC) (M) 1 % (0-0); LYMPHOCYTES # 0.7 10^3/ul (0.8-2.9); METAMYELOCYTES %M 4 % (0-0); MONOCYTE # 0.8 10^3/ul (0.3-0.9); NEUTROPHIL # 5.8 10^3/ul (1.6-7.5)
[2016-08-31 10:10] LABS: HYPOCHROMASIA 1+ (0-0)
[2016-08-31 10:11] LABS: PLATELET COUNT 252 10^3/UL (140-415)
--- NOTE | 2016-08-31 10:25 | PN ---
Date/Time of Note Date/Time of Note DATE: 08/31/16 TIME: 10:23 Assessment/Plan VTE Prophylaxis VTE Prophylaxis Intervention: other Lines/Catheters [facility] (from [facility] Saline Lock Urinary Cath still in place: No Assessment/Plan Assessment/Plan -Hemoptysis - pulmonary follows - Healthcare acquired pneumonia, continued on vancomycin and cefepime, Dr. Springer is asked to see patient in pulmonology consultation. - Bilateral pleural effusions, continue incentive spirometer, 2 D Echo with stage I diastolic dysfunction and preserved ejection fraction. - Myelofibrosis. Dr. 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 - Status post EGD and colonoscopy, with notion of gastritis gastritis and superficial duodenal ulcer per EGD and multiple polyps per colonoscopy. 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 Hall is following in gastroenterology consultation. - History of pulmonary embolism, continue Eliquis - Diabetes mellitus, hemoglobin A1c is 8.2. continue, Tradjenta, Lantus and NovoLog. - Hypertension, continue Cozaar. - Hyperlipidemia - BPH, status post TURP - Pseudomonas UTI, status post treatment - Status post right hip replacement Further recommendations based on clinical course. Plan of care discussed with Dr. Seay. n (3) Lupus anticoagulant positive Status: Chronic (4) Microcytic anemia Status: Chronic (5) Thrombosis Status: Chronic Subjective 24 Hr Interval Summary Free Text/Dictation Alert, awake. afebrile, no hemoptysis reported, Going for 2 view chest x-ray. Afebrile discussed with staff-no new events reported last night Constitutional: requiring O2 Respiratory: cough Cardiovascular: no complaints Gastrointestinal: no complaints Genitourinary: no complaints Musculoskeletal: no complaints Skin: no complaints Exam/Review of Systems Vital Signs Vitals Vital Signs Date Time Temp Pulse Resp B/P Pulse Ox O2 Delivery O2 Flow Rate FiO2 08/31/16 08:52 90 20 95 Nasal Cannula 2.0 08/31/16 07:45 98.0 152/71 Intake and Output 08/30/16 08/30/16 08/31/16 15:00 23:00 07:00 Intake Total 1310 ml 650 ml Output Total 650 ml 800 ml 2000 ml Balance -650 ml 510 ml -1350 ml Exam Constitutional: alert, oriented, well developed Respiratory: diminished breath sounds Cardiovascular: nl pulses, regular rate and rhythm Gastrointestinal: non-tender, soft Musculoskeletal: nl extremities to inspection Extremities: normal pulses Neurological: nl mental status, nl speech Results Result Diagram: 08/31/1662608/31/16 0627 Results 24 hrs Laboratory Tests Test 08/30/16 11:52 08/30/16 17:17 08/30/16 20:48 08/31/16 06:27 Bedside Glucose 183 129 77 White Blood Count 7.7 Red Blood Count 3.19 L Hemoglobin 8.0 L Hematocrit 24.8 L Mean Corpuscular Volume 77.7 L Mean Corpuscular Hemoglobin 25.1 L Mean Corpuscular Hemoglobin Concent 32.3 Red Cell Distribution Width 24.2 H Platelet Count 252 Mean Platelet Volume Neutrophils % 75.0 Lymphocytes % 9.0 L Monocytes % 10.0 Eosinophils % Basophils % Metamyelocytes % (manual) 4 H Nucleated Red Blood Cells % 1 H Neutrophils # 5.8 Band Neutrophils # 5.8 H Lymphocytes # 0.7 L Monocytes # 0.8 Eosinophils # Basophils # Metamyelocytes # Pending Nucleated Red Blood Cells # Hypochromasia 1+ Sodium Level 141 Potassium Level 3.7 Chloride Level 106 Carbon Dioxide Level 24 Anion Gap 15 Blood Urea Nitrogen 12 Creatinine 0.63 Glucose Level 77 Calcium Level 8.2 L Test 08/31/16 07:59 Bedside Glucose 78 Medications Medications Current Medications Acetaminophen (Tylenol Tab) 650 mg Q6H PRN PO PAIN AND OR ELEVATED TEMP Last administered on 08/30/16 22:08; Admin Dose 650 MG; Start 08/07/16 at 21:30 Morphine Sulfate (morphine) 2 mg Q4H PRN IV severe pain Last administered on 02:18; Admin Dose 2 MG; Start 08/07/16 at 21:30 Acetaminophen/ Hydrocodone Bitart ([place] (5/325)) 1 tab Q6H PRN PO moderate pain Last administered on 08/22/16 20:25; Admin Dose 1 TAB; Start 08/07/16 at 21:30 Diagnostic Test (Pha) (Accu-Chek) 1 ea 02 XX Last administered on 08/28/16 02: 00; Admin Dose 1 EA; Start 08/08/16 at 02:00 Cholecalciferol (Vitamin D) 5,000 unit DAILY PO Last administered on 08/29/16 08:20; Admin Dose 5,000 UNIT; Start 08/08/16 at 09:00 Gabapentin (Neurontin) 300 mg DAILY PO Last administered on 08/31/16 08:40; Admin Dose 300 MG; Start 08/08/16 at 09:00 Lorazepam (Ativan) 1 mg HS PRN PO ANXIETY Last administered on 08/22/16 20:25 ; Admin Dose 1 MG; Start 08/07/16 at 21:30 Linagliptin (Tradjenta) 5 mg DAILY PO Last administered on 08/31/16 08:40; Admin Dose 5 MG; Start 08/08/16 at 09:00 Miscellaneous Information 1 ea NOTE XX Last administered on 08/26/16 08:08; Admin Dose 1 EA; Start 08/13/16 at 15:30 Glucose (Glutose) 15 gm Q15M PRN PO DECREASED GLUCOSE; Start 08/13/16 at 15:30 Glucose (Glutose) 22.5 gm Q15M PRN PO DECREASED GLUCOSE; Start 08/13/16 at 15:30 Dextrose (D50w Syringe) 25 ml Q15M PRN IV DECREASED GLUCOSE; Start 08/13/16 at 15:30 Dextrose (D50w Syringe) 50 ml Q15M PRN IV DECREASED GLUCOSE; Start 08/13/16 at 15:30 Glucagon (Glucagen) 1 mg Q15M PRN IM DECREASED GLUCOSE; Start 08/13/16 at 15:30 Glucose (Glutose) 15 gm Q15M PRN BUCCAL DECREASED GLUCOSE; Start 08/13/16 at 15: 30 Diphenhydramine HCl (Benadryl) 25 mg Q6H PRN PO ITCHING Last administered on 21:35; Admin Dose 25 MG; Start 08/17/16 at 20:30 Clotrimazole (Lotrimin Cr) 1 applic BID TOP Last administered on 08/31/16 08: 42; Admin Dose 1 APPLIC; Start 08/19/16 at 21:00 Phenol 1 lozenge 1 lozenge Q4H PRN MT COUGH Last administered on 08/30/16 22: 08; Admin Dose 1 LOZENGE; Start 08/20/16 at 07:00 Cefepime HCl (Maxipime 1gm/50 ml (Pmx)) 50 ml @ 100 mls/hr Q12 IVPB Last administered on 08/31/16 08:36; Admin Dose 100 MLS/HR; Start 08/23/16 at 21:00 Losartan Potassium (Cozaar) 50 mg BID PO Last administered on 08/31/16 08:41; Admin Dose 50 MG; Start 08/23/16 at 21:00 Polyethylene Glycol (Miralax) 17 gm DAILY PRN GTB CONSTIPATION Last administered on 08/27/16 09:03; Admin Dose 17 GM; Start 08/24/16 at 09:30 Simethicone (Mylicon) 80 mg QID PRN GTB DISTENSION/GAS/BLOATING Last administered on 08/30/16 23:35; Admin Dose 80 MG; Start 08/24/16 at 13:00 Amlodipine Besylate (Norvasc) 5 mg DAILY PO Last administered on 08/31/16 08: 42; Admin Dose 5 MG; Start 08/25/16 at 09:00 Clonidine 0.1 mg 0.1 mg Q6H PRN PO ELEVATED BLOOD PRESSURE Last administered on 08/30/16 14:41; Admin Dose 0.1 MG; Start 08/25/16 at 06:00 Vancomycin HCl (Vancocin) 250 ml @ 125 mls/hr Q12H IVPB Last administered on 03:04; Admin Dose 125 MLS/HR; Start 08/26/16 at 15:00 Insulin Glargine (Lantus) 17 unit DAILY@20 SC Last administered on 08/30/16 21 :08; Admin Dose 17 UNIT; Start 08/26/16 at 20:00 Epoetin Baldomero (Epogen (Oncology)) 20,000 units MoWeFr@17 SC Last administered on 08/30/16 17:22; Admin Dose 20,000 UNITS; Start 08/28/16 at 17:00 Magnesium Hydroxide (Milk Of Mag) 30 ml Q6H PRN PO CONSTIPATION Last administered on 08/29/16 08:31; Admin Dose 30 ML; Start 08/27/16 at 22:20 Apixaban (Eliquis) 5 mg BID PO Last administered on 08/31/16 08:40; Admin Dose 5 MG; Start 08/28/16 at 21:00 Promethazine HCl/ Codeine (Phenergan/ Codeine) 10 ml Q4H PRN PO COUGH Last administered on 08/30/16 22:00; Admin Dose 10 ML; Start 08/29/16 at 22:00 POLA CISNEROS Aug 31, 2016 10:25
[2016-08-31] MEDS: MAGNESIUM HYDROXIDE 30ML CUP PO PRN (11:28)
[2016-08-31] MEDS ORDERED: BISACODYL (EC) 5 MG TAB PO STA (13:36)
--- NOTE | 2016-08-31 13:36 | CONS ---
Date/Time of Note Date/Time of Note DATE: 08/31/16 TIME: 13:36 Assessment/Plan Assessment/Plan Chief Complaint/Hosp Course This is a 76-year-old male with a history of diabetes mellitus hypertension lipid abnormality admitted to the hospital for thrombosis of the inferior vena cava. Patient complains of right lower quadrant abdominal pain and also significant weight loss. He lost 26 pounds over the. A few months and is chronically constipated. Patient denies of any kind of GI bleeding no nausea no vomiting no heartburn. No chest pain or shortness of breath. He has lost his appetite. Patient has umbrella in the inferior vena cava and also has a history of pulmonary embolism. He has a history of surgery on his knee and also on his hands. Problems: Additional Assessment/Plan Problems: Additional Assessment/Plan Additional Assessment/Plan 1. Diabetes mellitus 2. Anemia 3. Myelofibrosis 4. Pneumonia, alveolar hemorrhage 5. IVC thrombosis 6. UTI 7. Abdominal pain resolved 8. Chronic constipation 9. Pleural effusion Plan Monitor H&H Transfuse as needed if hemoglobin less than 7.5 Pulmonary follow up Gregory Steen Consultation Date/Type/Reason Admit Date/Time Aug 07, 2016 at 16:05 Initial Consult Date 08/10/16 Type of Consultation: GI Referring Provider: TEDDY RUVALCABA MD 24 HR Interval Summary Free Text/Dictation Complaints of constipation Exam/Review of Systems Vital Signs Vitals Vital Signs Date Time Temp Pulse Resp B/P Pulse Ox O2 Delivery O2 Flow Rate FiO2 08/31/16 08:52 90 20 95 Nasal Cannula 2.0 08/31/16 07:45 98.0 152/71 Intake and Output 08/30/16 08/30/16 08/31/16 15:00 23:00 07:00 Intake Total 1310 ml 650 ml Output Total 650 ml 800 ml 2000 ml Balance -650 ml 510 ml -1350 ml Exam Constitutional: alert, oriented, well developed Psych: nl mood/affect, no complaints Head: atraumatic, normocephalic Eyes: EOMI, PERRL, nl conjunctiva, nl lids, nl sclera ENMT: nl external ears & nose, nl lips & teeth, nl nasal mucosa & septum Neck: non-tender, supple Respiratory: clear to auscultation, normal air movement Cardiovascular: nl pulses, regular rate and rhythm Gastrointestinal: nl liver, spleen, non-tender, soft Musculoskeletal: nl extremities to inspection, nl gait and stance Extremities: normal pulses 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, nl mental status, nl speech, nl strength Skin: nl turgor, No rash or lesions Lymph: nl lymph nodes Results Result Diagram: 08/31/1662608/31/16 0627 Results 24 hrs Laboratory Tests Test 08/30/16 17:17 08/30/16 20:48 08/31/16 06:27 08/31/16 07:59 Bedside Glucose 129 77 78 White Blood Count 7.7 Red Blood Count 3.19 L Hemoglobin 8.0 L Hematocrit 24.8 L Mean Corpuscular Volume 77.7 L Mean Corpuscular Hemoglobin 25.1 L Mean Corpuscular Hemoglobin Concent 32.3 Red Cell Distribution Width 24.2 H Platelet Count 252 Mean Platelet Volume Neutrophils % 75.0 Lymphocytes % 9.0 L Monocytes % 10.0 Eosinophils % Basophils % Metamyelocytes % (manual) 4 H Nucleated Red Blood Cells % 1 H Neutrophils # 5.8 Band Neutrophils # 5.8 H Lymphocytes # 0.7 L Monocytes # 0.8 Eosinophils # Basophils # Metamyelocytes # 0.3 H Nucleated Red Blood Cells # Hypochromasia 1+ Sodium Level 141 Potassium Level 3.7 Chloride Level 106 Carbon Dioxide Level 24 Anion Gap 15 Blood Urea Nitrogen 12 Creatinine 0.63 Glucose Level 77 Calcium Level 8.2 L Test 08/31/16 12:27 Bedside Glucose 113 Medications Medications Current Medications Acetaminophen (Tylenol Tab) 650 mg Q6H PRN PO PAIN AND OR ELEVATED TEMP Last administered on 08/30/16 22:08; Admin Dose 650 MG; Start 08/07/16 at 21:30 Morphine Sulfate (morphine) 2 mg Q4H PRN IV severe pain Last administered on 02:18; Admin Dose 2 MG; Start 08/07/16 at 21:30 Acetaminophen/ Hydrocodone Bitart ([place] (5/325)) 1 tab Q6H PRN PO moderate pain Last administered on 08/22/16 20:25; Admin Dose 1 TAB; Start 08/07/16 at 21:30 Diagnostic Test (Pha) (Accu-Chek) 1 ea 02 XX Last administered on 08/28/16 02: 00; Admin Dose 1 EA; Start 08/08/16 at 02:00 Cholecalciferol (Vitamin D) 5,000 unit DAILY PO Last administered on 08/29/16 08:20; Admin Dose 5,000 UNIT; Start 08/08/16 at 09:00 Gabapentin (Neurontin) 300 mg DAILY PO Last administered on 08/31/16 08:40; Admin Dose 300 MG; Start 08/08/16 at 09:00 Lorazepam (Ativan) 1 mg HS PRN PO ANXIETY Last administered on 08/22/16 20:25 ; Admin Dose 1 MG; Start 08/07/16 at 21:30 Linagliptin (Tradjenta) 5 mg DAILY PO Last administered on 08/31/16 08:40; Admin Dose 5 MG; Start 08/08/16 at 09:00 Miscellaneous Information 1 ea NOTE XX Last administered on 08/26/16 08:08; Admin Dose 1 EA; Start 08/13/16 at 15:30 Glucose (Glutose) 15 gm Q15M PRN PO DECREASED GLUCOSE; Start 08/13/16 at 15:30 Glucose (Glutose) 22.5 gm Q15M PRN PO DECREASED GLUCOSE; Start 08/13/16 at 15:30 Dextrose (D50w Syringe) 25 ml Q15M PRN IV DECREASED GLUCOSE; Start 08/13/16 at 15:30 Dextrose (D50w Syringe) 50 ml Q15M PRN IV DECREASED GLUCOSE; Start 08/13/16 at 15:30 Glucagon (Glucagen) 1 mg Q15M PRN IM DECREASED GLUCOSE; Start 08/13/16 at 15:30 Glucose (Glutose) 15 gm Q15M PRN BUCCAL DECREASED GLUCOSE; Start 08/13/16 at 15: 30 Diphenhydramine HCl (Benadryl) 25 mg Q6H PRN PO ITCHING Last administered on 21:35; Admin Dose 25 MG; Start 08/17/16 at 20:30 Clotrimazole (Lotrimin Cr) 1 applic BID TOP Last administered on 08/31/16 08: 42; Admin Dose 1 APPLIC; Start 08/19/16 at 21:00 Phenol 1 lozenge 1 lozenge Q4H PRN MT COUGH Last administered on 08/30/16 22: 08; Admin Dose 1 LOZENGE; Start 08/20/16 at 07:00 Cefepime HCl (Maxipime 1gm/50 ml (Pmx)) 50 ml @ 100 mls/hr Q12 IVPB Last administered on 08/31/16 08:36; Admin Dose 100 MLS/HR; Start 08/23/16 at 21:00 Losartan Potassium (Cozaar) 50 mg BID PO Last administered on 08/31/16 08:41; Admin Dose 50 MG; Start 08/23/16 at 21:00 Polyethylene Glycol (Miralax) 17 gm DAILY PRN GTB CONSTIPATION Last administered on 08/27/16 09:03; Admin Dose 17 GM; Start 08/24/16 at 09:30 Simethicone (Mylicon) 80 mg QID PRN GTB DISTENSION/GAS/BLOATING Last administered on 08/31/16 11:27; Admin Dose 80 MG; Start 08/24/16 at 13:00 Amlodipine Besylate (Norvasc) 5 mg DAILY PO Last administered on 08/31/16 08: 42; Admin Dose 5 MG; Start 08/25/16 at 09:00 Clonidine 0.1 mg 0.1 mg Q6H PRN PO ELEVATED BLOOD PRESSURE Last administered on 08/30/16 14:41; Admin Dose 0.1 MG; Start 08/25/16 at 06:00 Vancomycin HCl (Vancocin) 250 ml @ 125 mls/hr Q12H IVPB Last administered on 03:04; Admin Dose 125 MLS/HR; Start 08/26/16 at 15:00 Insulin Glargine (Lantus) 17 unit DAILY@20 SC Last administered on 08/30/16 21 :08; Admin Dose 17 UNIT; Start 08/26/16 at 20:00 Epoetin Baldomero (Epogen (Oncology)) 20,000 units MoWeFr@17 SC Last administered on 08/30/16 17:22; Admin Dose 20,000 UNITS; Start 08/28/16 at 17:00 Magnesium Hydroxide (Milk Of Mag) 30 ml Q6H PRN PO CONSTIPATION Last administered on 08/31/16 11:28; Admin Dose 30 ML; Start 08/27/16 at 22:20 Apixaban (Eliquis) 5 mg BID PO Last administered on 08/31/16 08:40; Admin Dose 5 MG; Start 08/28/16 at 21:00 Promethazine HCl/ Codeine (Phenergan/ Codeine) 10 ml Q4H PRN PO COUGH Last administered on 08/30/16 22:00; Admin Dose 10 ML; Start 08/29/16 at 22:00 Miscellaneous Information (*Rx Drug Level Order Reminder*) VANCOMYCIN TROUGH AT 0200 ONCE ONCE XX ; Start 09/01/16 at 02:00; Stop 09/01/16 at 02:01 ANA VELASQUEZ MD Aug 31, 2016 13:36
[2016-08-31 14:30] VITALS: BP 168/77; RESP 18
[2016-08-31 17:35] VITALS: BP 153/80; PULSE 100
[2016-08-31] MEDS: ACETAMINOPHEN 325 MG TAB PO PRN (18:45)
--- NOTE | 2016-08-31 19:03 | RADRPT ---
PROCEDURE: XR Chest. CLINICAL INDICATION: Cough and shortness of breath. TECHNIQUE: Two views. Frontal and lateral. COMPARISON: 08/25/2016. FINDINGS: There is bilateral mid and lower lung zone airspace disease consistent with pulmonary edema. Patchy air space disease in the right upper lobe is consistent with pneumonia. The appearance is slightly worse than seen previously. The heart is enlarged. There is no pleural effusion. There is no pneumothorax. IMPRESSION: 1. Slightly worse appearance of the lungs when compared with 08/25/2016. 2. Cardiomegaly. 3. Otherwise unremarkable study. RPTAT: QQ .Juan Jose Soler MD, MD Date Time Electronically viewed and signed by .Juan Jose Soler MD, MD on 08/31/2016 19:02 .R/
[2016-08-31 19:32] VITALS: BP 153/70; RESP 18
[2016-08-31 20:50] VITALS: BP 156/72; PULSE 98
[2016-08-31] MEDS: INSULIN GLARGINE [LANtus] 3 ML PEN SC SCH (21:24)
[2016-09-01 01:28] VITALS: BP 128/60; RESP 18
[2016-09-01] MEDS: ALBUTEROL/IPRATROPIUM (NEB) 3 ML AMP HHN SCH ×4 (01:44→20:16)
[2016-09-01] MEDS: ACCU-CHEK XX SCH (02:00)
[2016-09-01 02:29] LABS: ABNORMAL IP MESSAGE 1; BASOPHIL # 0.1 10^3/ul (0.0-0.1); BASOPHILS % 0.7 % (0.0-2.0); HEMATOCRIT 26.2 % (42.0-52.0); HEMOGLOBIN 8.7 g/dl (14.0-18.0); LYMPHOCYTES # 1.4 10^3/ul (0.8-2.9); LYMPHOCYTES % 14.3 % (15.0-51.0); MEAN CORPUSCULAR HEMOGLOBIN 25.2 pg (29.0-33.0); MEAN CORPUSCULAR HGB CONC 33.2 g/dl (32.0-37.0); MEAN CORPUSCULAR VOLUME 75.9 fl (82.0-101.0); MONOCYTE # 1.8 10^3/ul (0.3-0.9); NEUTROPHIL # 5.6 10^3/ul (1.6-7.5); NEUTROPHILS % 57.1 % (39.0-77.0); NUCLEATED RED BLOOD CELLS # 0.2 10^3/ul (0.0-0.0); NUCLEATED RED BLOOD CELLS% 1.6 /100WBC (0.0-0.0); PLATELET COUNT 252 10^3/UL (140-415); POSITIVE DIFF @See below; RED BLOOD COUNT 3.45 10^6/ul (4.70-6.10); RED CELL DISTRIBUTION WIDTH 24.4 % (11.5-14.5); WHITE BLOOD COUNT 9.8 10^3/ul (4.8-10.8)
[2016-09-01 02:45] LABS: INR 1.66; PT RATIO 1.5
[2016-09-01 02:46] LABS: PARTIAL THROMBOPLASTIN TIME 44.7 Sec (25.0-35.0)
[2016-09-01 03:04] LABS: MONOCYTES % 17.9 % (0.0-11.0)
[2016-09-01 03:15] LABS: PROTIME 19.7 Sec (12.2-14.2)
[2016-09-01] MEDS: VANCOMYCIN 1 GM in NS 250 ML IVPB SCH ×2 (03:46→14:32)
[2016-09-01] MEDS: INSULIN ASPART [NOVOLOG] 3 ML PEN SC SCH ×7 (08:15→21:00)
[2016-09-01 08:24] VITALS: BP 148/67; RESP 18
[2016-09-01] MEDS: CEFEPIME 1GM/50 ML (PMX) 50 ML IVPB SCH ×2 (08:32→21:22)
[2016-09-01] MEDS: PROMETHAZINE/CODEINE 5ML CUP PO PRN ×3 (08:34→21:34)
[2016-09-01] MEDS: APIXABAN 5 MG TABLET PO SCH ×2 (08:35→21:21)
[2016-09-01] MEDS: LINAGLIPTIN 5 MG TABLET PO SCH (08:35)
[2016-09-01] MEDS: GABAPENTIN 300 MG CAP PO SCH (08:35)
[2016-09-01] MEDS: CLOTRIMAZOLE 1% 30 GM CR TOP SCH ×2 (08:36→21:00)
[2016-09-01] MEDS: AMLODIPINE 5 MG TAB PO SCH (08:36)
[2016-09-01] MEDS: LOSARTAN 50 MG TAB PO SCH ×2 (08:36→21:21)
[2016-09-01] MEDS: CHOLECALCIFEROL 1,000 UNIT TAB PO SCH (08:37)
--- NOTE | 2016-09-01 10:17 | PN ---
Date/Time of Note Date/Time of Note DATE: 09/01/16 TIME: 10:15 Assessment/Plan VTE Prophylaxis VTE Prophylaxis Intervention: other Lines/Catheters IV Catheter Type (from [facility]): [facility] Urinary Cath still in place: No Assessment/Plan Assessment/Plan -Hemoptysis-none at present - pulmonary follows - Healthcare acquired pneumonia, continued on vancomycin and cefepime, Dr. Springer is asked to see patient in pulmonology consultation. - Bilateral pleural effusions, continue incentive spirometer, 2 D Echo with stage I diastolic dysfunction and preserved ejection fraction. - Myelofibrosis. Dr. 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 - Status post EGD and colonoscopy, with notion of gastritis gastritis and superficial duodenal ulcer per EGD and multiple polyps per colonoscopy. 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 Hall is following in gastroenterology consultation. - History of pulmonary embolism, continue Eliquis - Diabetes mellitus, hemoglobin A1c is 8.2. continue, Tradjenta, Lantus and NovoLog. - Hypertension, continue Cozaar. - Hyperlipidemia - BPH, status post TURP - Pseudomonas UTI, status post treatment - Status post right hip replacement Further recommendations based on clinical course. Plan of care discussed with Dr. Seay. Subjective 24 Hr Interval Summary Free Text/Dictation Discussed with Dr. Jaquez regarding his x-rays getting worse but no hemoptysis seen. Scrotal edema noted get urology consult discussed with the staff Exam/Review of Systems Vital Signs Vitals Vital Signs Date Time Temp Pulse Resp B/P Pulse Ox O2 Delivery O2 Flow Rate FiO2 09/01/16 08:24 98.8 100 18 148/67 92 09/01/16 07:44 21 09/01/16 01:44 2.0 09/01/16 01:44 Nasal Cannula Intake and Output 08/31/16 08/31/16 09/01/16 15:00 23:00 07:00 Intake Total 50 ml 860 ml 650 ml Output Total 1400 ml 820 ml Balance 50 ml -540 ml -170 ml Exam Constitutional: alert, oriented, well developed Respiratory: clear to auscultation, normal air movement Cardiovascular: nl pulses Gastrointestinal: non-tender, soft Musculoskeletal: nl extremities to inspection Extremities: normal pulses Neurological: nl mental status Results Result Diagram: 09/01/16 0219 08/31/16 0627 Results 24 hrs Laboratory Tests Test 08/31/16 12:27 08/31/16 17:28 08/31/16 20:53 09/01/16 02:19 Bedside Glucose 113 83 131 White Blood Count 9.8 # Red Blood Count 3.45 L Hemoglobin 8.7 L Hematocrit 26.2 L Mean Corpuscular Volume 75.9 L Mean Corpuscular Hemoglobin 25.2 L Mean Corpuscular Hemoglobin Concent 33.2 Red Cell Distribution Width 24.4 H Platelet Count 252 Mean Platelet Volume Neutrophils % 57.1 Lymphocytes % 14.3 L Monocytes % 17.9 H Eosinophils % 0.0 Basophils % 0.7 Nucleated Red Blood Cells % 1.6 H Neutrophils # 5.6 Lymphocytes # 1.4 Monocytes # 1.8 H Eosinophils # 0.0 Basophils # 0.1 Nucleated Red Blood Cells # 0.2 H Prothrombin Time 19.7 #H Prothrombin Time Ratio 1.5 INR International Normalized Ratio 1.66 Activated Partial Thromboplast Time 44.7 H Fibrinogen 392.0 Vancomycin Level Trough 13.3 Test 09/01/16 07:56 Bedside Glucose 94 Medications Medications Current Medications Acetaminophen (Tylenol Tab) 650 mg Q6H PRN PO PAIN AND OR ELEVATED TEMP Last administered on 08/31/16 18:45; Admin Dose 650 MG; Start 08/07/16 at 21:30 Morphine Sulfate (morphine) 2 mg Q4H PRN IV severe pain Last administered on 02:18; Admin Dose 2 MG; Start 08/07/16 at 21:30 Acetaminophen/ Hydrocodone Bitart ([place] (5/325)) 1 tab Q6H PRN PO moderate pain Last administered on 08/22/16 20:25; Admin Dose 1 TAB; Start 08/07/16 at 21:30 Diagnostic Test (Pha) (Accu-Chek) 1 ea 02 XX Last administered on 08/28/16 02: 00; Admin Dose 1 EA; Start 08/08/16 at 02:00 Cholecalciferol (Vitamin D) 5,000 unit DAILY PO Last administered on 08/29/16 08:20; Admin Dose 5,000 UNIT; Start 08/08/16 at 09:00 Gabapentin (Neurontin) 300 mg DAILY PO Last administered on 09/01/16 08:35; Admin Dose 300 MG; Start 08/08/16 at 09:00 Lorazepam (Ativan) 1 mg HS PRN PO ANXIETY Last administered on 08/22/16 20:25 ; Admin Dose 1 MG; Start 08/07/16 at 21:30 Linagliptin (Tradjenta) 5 mg DAILY PO Last administered on 09/01/16 08:35; Admin Dose 5 MG; Start 08/08/16 at 09:00 Miscellaneous Information 1 ea NOTE XX Last administered on 08/26/16 08:08; Admin Dose 1 EA; Start 08/13/16 at 15:30 Glucose (Glutose) 15 gm Q15M PRN PO DECREASED GLUCOSE; Start 08/13/16 at 15:30 Glucose (Glutose) 22.5 gm Q15M PRN PO DECREASED GLUCOSE; Start 08/13/16 at 15:30 Dextrose (D50w Syringe) 25 ml Q15M PRN IV DECREASED GLUCOSE; Start 08/13/16 at 15:30 Dextrose (D50w Syringe) 50 ml Q15M PRN IV DECREASED GLUCOSE; Start 08/13/16 at 15:30 Glucagon (Glucagen) 1 mg Q15M PRN IM DECREASED GLUCOSE; Start 08/13/16 at 15:30 Glucose (Glutose) 15 gm Q15M PRN BUCCAL DECREASED GLUCOSE; Start 08/13/16 at 15: 30 Diphenhydramine HCl (Benadryl) 25 mg Q6H PRN PO ITCHING Last administered on 21:35; Admin Dose 25 MG; Start 08/17/16 at 20:30 Clotrimazole (Lotrimin Cr) 1 applic BID TOP Last administered on 09/01/16 08: 36; Admin Dose 1 APPLIC; Start 08/19/16 at 21:00 Phenol 1 lozenge 1 lozenge Q4H PRN MT COUGH Last administered on 08/30/16 22: 08; Admin Dose 1 LOZENGE; Start 08/20/16 at 07:00 Cefepime HCl (Maxipime 1gm/50 ml (Pmx)) 50 ml @ 100 mls/hr Q12 IVPB Last administered on 09/01/16 08:32; Admin Dose 100 MLS/HR; Start 08/23/16 at 21:00 Losartan Potassium (Cozaar) 50 mg BID PO Last administered on 09/01/16 08:36; Admin Dose 50 MG; Start 08/23/16 at 21:00 Polyethylene Glycol (Miralax) 17 gm DAILY PRN GTB CONSTIPATION Last administered on 08/27/16 09:03; Admin Dose 17 GM; Start 08/24/16 at 09:30 Simethicone (Mylicon) 80 mg QID PRN GTB DISTENSION/GAS/BLOATING Last administered on 08/31/16 11:27; Admin Dose 80 MG; Start 08/24/16 at 13:00 Amlodipine Besylate (Norvasc) 5 mg DAILY PO Last administered on 09/01/16 08: 36; Admin Dose 5 MG; Start 08/25/16 at 09:00 Clonidine 0.1 mg 0.1 mg Q6H PRN PO ELEVATED BLOOD PRESSURE Last administered on 08/31/16 15:11; Admin Dose 0.1 MG; Start 08/25/16 at 06:00 Vancomycin HCl (Vancocin) 250 ml @ 125 mls/hr Q12H IVPB Last administered on 03:46; Admin Dose 125 MLS/HR; Start 08/26/16 at 15:00 Insulin Glargine (Lantus) 17 unit DAILY@20 SC Last administered on 08/31/16 21 :24; Admin Dose 17 UNIT; Start 08/26/16 at 20:00 Epoetin Baldomero (Epogen (Oncology)) 20,000 units MoWeFr@17 SC Last administered on 08/30/16 17:22; Admin Dose 20,000 UNITS; Start 08/28/16 at 17:00 Magnesium Hydroxide (Milk Of Mag) 30 ml Q6H PRN PO CONSTIPATION Last administered on 08/31/16 11:28; Admin Dose 30 ML; Start 08/27/16 at 22:20 Apixaban (Eliquis) 5 mg BID PO Last administered on 09/01/16 08:35; Admin Dose 5 MG; Start 08/28/16 at 21:00 Promethazine HCl/ Codeine (Phenergan/ Codeine) 10 ml Q4H PRN PO COUGH Last administered on 09/01/16t 08:34; Admin Dose 10 ML; Start 08/29/16 at 22:00 POLA CISNEROS Sep 01, 2016 10:17
[2016-09-01] MEDS: CEPASTAT LOZENGE MT PRN ×2 (12:13→22:02)
--- NOTE | 2016-09-01 13:16 | CONS ---
Date/Time of Note Date/Time of Note DATE: 09/01/16 TIME: 13:15 Assessment/Plan Assessment/Plan Chief Complaint/Hosp Course This is a 76-year-old male with a history of diabetes mellitus hypertension lipid abnormality admitted to the hospital for thrombosis of the inferior vena cava. Patient complains of right lower quadrant abdominal pain and also significant weight loss. He lost 26 pounds over the. A few months and is chronically constipated. Patient denies of any kind of GI bleeding no nausea no vomiting no heartburn. No chest pain or shortness of breath. He has lost his appetite. Patient has umbrella in the inferior vena cava and also has a history of pulmonary embolism. He has a history of surgery on his knee and also on his hands. Problems: Additional Assessment/Plan 1. Diabetes mellitus 2. Anemia 3. Myelofibrosis 4. Pneumonia, alveolar hemorrhage 5. IVC thrombosis 6. UTI 7. Abdominal pain resolved 8. Chronic constipation 9. Pleural effusion Plan Monitor H&H Transfuse as needed if hemoglobin less than 7.5 Pulmonary follow up Gregory Steen Consultation Date/Type/Reason Admit Date/Time Aug 07, 2016 at 16:05 Initial Consult Date 08/10/16 Type of Consultation: GI Referring Provider: TEDDY RUVALCABA MD 24 HR Interval Summary Free Text/Dictation Finally had a good bowel movements Exam/Review of Systems Vital Signs Vitals Vital Signs Date Time Temp Pulse Resp B/P Pulse Ox O2 Delivery O2 Flow Rate FiO2 09/01/16 08:24 98.8 100 18 148/67 92 09/01/16 07:44 21 09/01/16 01:44 2.0 09/01/16 01:44 Nasal Cannula Intake and Output 08/31/16 08/31/16 09/01/16 15:00 23:00 07:00 Intake Total 50 ml 860 ml 650 ml Output Total 1400 ml 820 ml Balance 50 ml -540 ml -170 ml Exam Constitutional: alert, oriented, well developed Psych: nl mood/affect, no complaints Head: atraumatic, normocephalic Eyes: EOMI, PERRL, nl conjunctiva, nl lids, nl sclera ENMT: nl external ears & nose, nl lips & teeth, nl nasal mucosa & septum Neck: non-tender, supple Respiratory: clear to auscultation, normal air movement Cardiovascular: nl pulses, regular rate and rhythm Gastrointestinal: nl liver, spleen, non-tender, soft Musculoskeletal: nl extremities to inspection, nl gait and stance Extremities: normal pulses Neurological: STONE HAND II-XII intact, nl mental status, nl speech, nl strength Skin: nl turgor, No rash or lesions Lymph: nl lymph nodes Results Result Diagram: 09/01/16 0219 08/31/16 0627 Results 24 hrs Laboratory Tests Test 08/31/16 17:28 08/31/16 20:53 09/01/16 02:19 09/01/16 07:56 Bedside Glucose 83 131 94 White Blood Count 9.8 # Red Blood Count 3.45 L Hemoglobin 8.7 L Hematocrit 26.2 L Mean Corpuscular Volume 75.9 L Mean Corpuscular Hemoglobin 25.2 L Mean Corpuscular Hemoglobin Concent 33.2 Red Cell Distribution Width 24.4 H Platelet Count 252 Mean Platelet Volume Neutrophils % 57.1 Lymphocytes % 14.3 L Monocytes % 17.9 H Eosinophils % 0.0 Basophils % 0.7 Nucleated Red Blood Cells % 1.6 H Neutrophils # 5.6 Lymphocytes # 1.4 Monocytes # 1.8 H Eosinophils # 0.0 Basophils # 0.1 Nucleated Red Blood Cells # 0.2 H Prothrombin Time 19.7 #H Prothrombin Time Ratio 1.5 INR International Normalized Ratio 1.66 Activated Partial Thromboplast Time 44.7 H Fibrinogen 392.0 Vancomycin Level Trough 13.3 Test 09/01/16 11:59 Bedside Glucose 196 Medications Medications Current Medications Acetaminophen (Tylenol Tab) 650 mg Q6H PRN PO PAIN AND OR ELEVATED TEMP Last administered on 08/31/16 18:45; Admin Dose 650 MG; Start 08/07/16 at 21:30 Morphine Sulfate (morphine) 2 mg Q4H PRN IV severe pain Last administered on 02:18; Admin Dose 2 MG; Start 08/07/16 at 21:30 Acetaminophen/ Hydrocodone Bitart ([place] (5/325)) 1 tab Q6H PRN PO moderate pain Last administered on 08/22/16 20:25; Admin Dose 1 TAB; Start 08/07/16 at 21:30 Diagnostic Test (Pha) (Accu-Chek) 1 ea 02 XX Last administered on 08/28/16 02: 00; Admin Dose 1 EA; Start 08/08/16 at 02:00 Cholecalciferol (Vitamin D) 5,000 unit DAILY PO Last administered on 08/29/16 08:20; Admin Dose 5,000 UNIT; Start 08/08/16 at 09:00 Gabapentin (Neurontin) 300 mg DAILY PO Last administered on 09/01/16 08:35; Admin Dose 300 MG; Start 08/08/16 at 09:00 Lorazepam (Ativan) 1 mg HS PRN PO ANXIETY Last administered on 08/22/16 20:25 ; Admin Dose 1 MG; Start 08/07/16 at 21:30 Linagliptin (Tradjenta) 5 mg DAILY PO Last administered on 09/01/16 08:35; Admin Dose 5 MG; Start 08/08/16 at 09:00 Miscellaneous Information 1 ea NOTE XX Last administered on 08/26/16 08:08; Admin Dose 1 EA; Start 08/13/16 at 15:30 Glucose (Glutose) 15 gm Q15M PRN PO DECREASED GLUCOSE; Start 08/13/16 at 15:30 Glucose (Glutose) 22.5 gm Q15M PRN PO DECREASED GLUCOSE; Start 08/13/16 at 15:30 Dextrose (D50w Syringe) 25 ml Q15M PRN IV DECREASED GLUCOSE; Start 08/13/16 at 15:30 Dextrose (D50w Syringe) 50 ml Q15M PRN IV DECREASED GLUCOSE; Start 08/13/16 at 15:30 Glucagon (Glucagen) 1 mg Q15M PRN IM DECREASED GLUCOSE; Start 08/13/16 at 15:30 Glucose (Glutose) 15 gm Q15M PRN BUCCAL DECREASED GLUCOSE; Start 08/13/16 at 15: 30 Diphenhydramine HCl (Benadryl) 25 mg Q6H PRN PO ITCHING Last administered on 21:35; Admin Dose 25 MG; Start 08/17/16 at 20:30 Clotrimazole (Lotrimin Cr) 1 applic BID TOP Last administered on 09/01/16 08: 36; Admin Dose 1 APPLIC; Start 08/19/16 at 21:00 Phenol 1 lozenge 1 lozenge Q4H PRN MT COUGH Last administered on 09/01/16 12: 13; Admin Dose 1 LOZENGE; Start 08/20/16 at 07:00 Cefepime HCl (Maxipime 1gm/50 ml (Pmx)) 50 ml @ 100 mls/hr Q12 IVPB Last administered on 09/01/16 08:32; Admin Dose 100 MLS/HR; Start 08/23/16 at 21:00 Losartan Potassium (Cozaar) 50 mg BID PO Last administered on 09/01/16 08:36; Admin Dose 50 MG; Start 08/23/16 at 21:00 Polyethylene Glycol (Miralax) 17 gm DAILY PRN GTB CONSTIPATION Last administered on 08/27/16 09:03; Admin Dose 17 GM; Start 08/24/16 at 09:30 Simethicone (Mylicon) 80 mg QID PRN GTB DISTENSION/GAS/BLOATING Last administered on 08/31/16 11:27; Admin Dose 80 MG; Start 08/24/16 at 13:00 Amlodipine Besylate (Norvasc) 5 mg DAILY PO Last administered on 09/01/16 08: 36; Admin Dose 5 MG; Start 08/25/16 at 09:00 Clonidine 0.1 mg 0.1 mg Q6H PRN PO ELEVATED BLOOD PRESSURE Last administered on 08/31/16 15:11; Admin Dose 0.1 MG; Start 08/25/16 at 06:00 Vancomycin HCl (Vancocin) 250 ml @ 125 mls/hr Q12H IVPB Last administered on 03:46; Admin Dose 125 MLS/HR; Start 08/26/16 at 15:00 Insulin Glargine (Lantus) 17 unit DAILY@20 SC Last administered on 08/31/16 21 :24; Admin Dose 17 UNIT; Start 08/26/16 at 20:00 Epoetin Baldomero (Epogen (Oncology)) 20,000 units MoWeFr@17 SC Last administered on 08/30/16 17:22; Admin Dose 20,000 UNITS; Start 08/28/16 at 17:00 Magnesium Hydroxide (Milk Of Mag) 30 ml Q6H PRN PO CONSTIPATION Last administered on 08/31/16 11:28; Admin Dose 30 ML; Start 08/27/16 at 22:20 Apixaban (Eliquis) 5 mg BID PO Last administered on 09/01/16 08:35; Admin Dose 5 MG; Start 08/28/16 at 21:00 Promethazine HCl/ Codeine (Phenergan/ Codeine) 10 ml Q4H PRN PO COUGH Last administered on 09/01/16 08:34; Admin Dose 10 ML; Start 08/29/16 at 22:00 ANA VELASQUEZ MD Sep 01, 2016 13:16
--- NOTE | 2016-09-01 13:36 | CONS ---
Date/Time of Note Date/Time of Note DATE: 09/01/16 TIME: 13:32 Assessment/Plan Assessment/Plan Additional Assessment/Plan Chest x-ray was reviewed from yesterday which is showing bibasilar infiltrative changes. CT chest was reviewed from May of this month which is showing moderate bilateral pleural effusions with compressive atelectasis involving the lower lobes bilaterally. Assessment and recommendations; 1. Patient admitted for inferior vena cava thrombus with lung extension. Currently on anticoagulation. 2. Episode of hemoptysis likely combination of bilateral lower lobe pneumonia as well as anticoagulation. Continue current treatment. Obtain follow-up chest x-ray in 48 hours. Consultation Date/Type/Reason Admit Date/Time Aug 07, 2016 at 16:05 Date of Consultation: Sep 01, 2016 Type of Consultation: Pulmonary Reason for Consultation Pulmonary consultation requested for evaluation of hemoptysis. History of presenting any; patient is a 76-year-old male who was admitted on 08 August sent over from his primary care physician's office because of discovery of inferior vena cava thrombus as seen on CT imaging of the abdomen thrombus was also extending into the lungs. The patient has been started on anticoagulation as well as antibiotics for bilateral pneumonia. Patient is now having hemoptysis off and on for the last 2 or 3 days and according to him the last episode was yesterday morning without any further recurrence. Patient denies any shortness of breath, abdominal pain, nausea vomiting. Denies any fever or chills. By the time I saw the patient the patient is completely awake alert sitting in bed. Was able to give a meaningful history by himself. Past medical history; next 1. Patient with a history of recently discovered inferior vena cava thrombus with extension into the lungs. 2. History of right knee replacement. 3. History of inferior vena cava filter placement. Medications; reviewed. Allergies; penicillin. Social history; patient has a remote history of smoking. No history of alcohol or drug abuse. Family history; patient is . No history of any illnesses in the family. 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 Review of systems; denies any headache, visual changes, sinus symptoms, chest pain, angina. Hemoptysis has resolved. Denies any cough or sputum production. Denies any fever or chills. Denies any abdominal pain, nausea vomiting. Denies any edema. Has lost some weight recently. Denies any orthopnea. General exam; elderly male, awake alert currently in no distress. Constitutional: requiring O2 Eyes: no complaints ENT: no complaints Respiratory: cough Cardiovascular: no complaints Gastrointestinal: no complaints Genitourinary: no complaints Musculoskeletal: no complaints Skin: no complaints Neurologic: no complaints Endocrine: no complaints Lymphatic: no complaints Psychological: nl mood/affect, no complaints Immunologic: no complaints Social History Alcohol Use: none Smoking Status: Never smoker Drug Use: none Exam/Review of Systems Vital Signs Vitals Vital Signs Date Time Temp Pulse Resp B/P Pulse Ox O2 Delivery O2 Flow Rate FiO2 09/01/16 08:24 98.8 100 18 148/67 92 09/01/16 07:44 21 09/01/16 01:44 2.0 09/01/16 01:44 Nasal Cannula Intake and Output 08/31/16 08/31/16 09/01/16 15:00 23:00 07:00 Intake Total 50 ml 860 ml 650 ml Output Total 1400 ml 820 ml Balance 50 ml -540 ml -170 ml Exam HEENT exam; supple neck, no JVD. No lymphadenopathy. Midline trachea. No thyromegaly. Patient has fair dentition. Pupils are midsize and reactive to light bilaterally. No thyromegaly. Chest exam; diminished breath on lung bases bilaterally. Upper lobes are clear to auscultation. S1-S2 audible, no murmurs. Regular rhythm. Abdomen exam; soft, no organomegaly. Bowel sounds audible. Nontender. Extremity exam; no peripheral edema. Pulses 1+ bilaterally. There is a well- healed right knee scar. [employer] exam; no focal deficit. Results Result Diagram: 09/01/16 0219 08/31/16 0627 Results 24 hrs Laboratory Tests Test 08/31/16 17:28 08/31/16 20:53 09/01/16 02:19 09/01/16 07:56 Bedside Glucose 83 131 94 White Blood Count 9.8 # Red Blood Count 3.45 L Hemoglobin 8.7 L Hematocrit 26.2 L Mean Corpuscular Volume 75.9 L Mean Corpuscular Hemoglobin 25.2 L Mean Corpuscular Hemoglobin Concent 33.2 Red Cell Distribution Width 24.4 H Platelet Count 252 Mean Platelet Volume Neutrophils % 57.1 Lymphocytes % 14.3 L Monocytes % 17.9 H Eosinophils % 0.0 Basophils % 0.7 Nucleated Red Blood Cells % 1.6 H Neutrophils # 5.6 Lymphocytes # 1.4 Monocytes # 1.8 H Eosinophils # 0.0 Basophils # 0.1 Nucleated Red Blood Cells # 0.2 H Prothrombin Time 19.7 #H Prothrombin Time Ratio 1.5 INR International Normalized Ratio 1.66 Activated Partial Thromboplast Time 44.7 H Fibrinogen 392.0 Vancomycin Level Trough 13.3 Test 09/01/16 11:59 Bedside Glucose 196 Medications Medications Current Medications Acetaminophen (Tylenol Tab) 650 mg Q6H PRN PO PAIN AND OR ELEVATED TEMP Last administered on 08/31/16 18:45; Admin Dose 650 MG; Start 08/07/16 at 21:30 Morphine Sulfate (morphine) 2 mg Q4H PRN IV severe pain Last administered on 02:18; Admin Dose 2 MG; Start 08/07/16 at 21:30 Acetaminophen/ Hydrocodone Bitart ([place] (5/325)) 1 tab Q6H PRN PO moderate pain Last administered on 08/22/16 20:25; Admin Dose 1 TAB; Start 08/07/16 at 21:30 Diagnostic Test (Pha) (Accu-Chek) 1 ea 02 XX Last administered on 08/28/16 02: 00; Admin Dose 1 EA; Start 08/08/16 at 02:00 Cholecalciferol (Vitamin D) 5,000 unit DAILY PO Last administered on 08/29/16 08:20; Admin Dose 5,000 UNIT; Start 08/08/16 at 09:00 Gabapentin (Neurontin) 300 mg DAILY PO Last administered on 09/01/16 08:35; Admin Dose 300 MG; Start 08/08/16 at 09:00 Lorazepam (Ativan) 1 mg HS PRN PO ANXIETY Last administered on 08/22/16 20:25 ; Admin Dose 1 MG; Start 08/07/16 at 21:30 Linagliptin (Tradjenta) 5 mg DAILY PO Last administered on 09/01/16 08:35; Admin Dose 5 MG; Start 08/08/16 at 09:00 Miscellaneous Information 1 ea NOTE XX Last administered on 08/26/16 08:08; Admin Dose 1 EA; Start 08/13/16 at 15:30 Glucose (Glutose) 15 gm Q15M PRN PO DECREASED GLUCOSE; Start 08/13/16 at 15:30 Glucose (Glutose) 22.5 gm Q15M PRN PO DECREASED GLUCOSE; Start 08/13/16 at 15:30 Dextrose (D50w Syringe) 25 ml Q15M PRN IV DECREASED GLUCOSE; Start 08/13/16 at 15:30 Dextrose (D50w Syringe) 50 ml Q15M PRN IV DECREASED GLUCOSE; Start 08/13/16 at 15:30 Glucagon (Glucagen) 1 mg Q15M PRN IM DECREASED GLUCOSE; Start 08/13/16 at 15:30 Glucose (Glutose) 15 gm Q15M PRN BUCCAL DECREASED GLUCOSE; Start 08/13/16 at 15: 30 Diphenhydramine HCl (Benadryl) 25 mg Q6H PRN PO ITCHING Last administered on 21:35; Admin Dose 25 MG; Start 08/17/16 at 20:30 Clotrimazole (Lotrimin Cr) 1 applic BID TOP Last administered on 09/01/16 08: 36; Admin Dose 1 APPLIC; Start 08/19/16 at 21:00 Phenol 1 lozenge 1 lozenge Q4H PRN MT COUGH Last administered on 09/01/16 12: 13; Admin Dose 1 LOZENGE; Start 08/20/16 at 07:00 Cefepime HCl (Maxipime 1gm/50 ml (Pmx)) 50 ml @ 100 mls/hr Q12 IVPB Last administered on 09/01/16 08:32; Admin Dose 100 MLS/HR; Start 08/23/16 at 21:00 Losartan Potassium (Cozaar) 50 mg BID PO Last administered on 09/01/16 08:36; Admin Dose 50 MG; Start 08/23/16 at 21:00 Polyethylene Glycol (Miralax) 17 gm DAILY PRN GTB CONSTIPATION Last administered on 08/27/16 09:03; Admin Dose 17 GM; Start 08/24/16 at 09:30 Simethicone (Mylicon) 80 mg QID PRN GTB DISTENSION/GAS/BLOATING Last administered on 08/31/16 11:27; Admin Dose 80 MG; Start 08/24/16 at 13:00 Amlodipine Besylate (Norvasc) 5 mg DAILY PO Last administered on 09/01/16 08: 36; Admin Dose 5 MG; Start 08/25/16 at 09:00 Clonidine 0.1 mg 0.1 mg Q6H PRN PO ELEVATED BLOOD PRESSURE Last administered on 08/31/16 15:11; Admin Dose 0.1 MG; Start 08/25/16 at 06:00 Vancomycin HCl (Vancocin) 250 ml @ 125 mls/hr Q12H IVPB Last administered on 03:46; Admin Dose 125 MLS/HR; Start 08/26/16 at 15:00 Insulin Glargine (Lantus) 17 unit DAILY@20 SC Last administered on 08/31/16 21 :24; Admin Dose 17 UNIT; Start 08/26/16 at 20:00 Epoetin Baldomero (Epogen (Oncology)) 20,000 units MoWeFr@17 SC Last administered on 08/30/16 17:22; Admin Dose 20,000 UNITS; Start 08/28/16 at 17:00 Magnesium Hydroxide (Milk Of Mag) 30 ml Q6H PRN PO CONSTIPATION Last administered on 08/31/16 11:28; Admin Dose 30 ML; Start 08/27/16 at 22:20 Apixaban (Eliquis) 5 mg BID PO Last administered on 09/01/16 08:35; Admin Dose 5 MG; Start 08/28/16 at 21:00 Promethazine HCl/ Codeine (Phenergan/ Codeine) 10 ml Q4H PRN PO COUGH Last administered on 09/01/16 08:34; Admin Dose 10 ML; Start 08/29/16 at 22:00 ESEQUIEL RADER Sep 01, 2016 13:36
[2016-09-01 13:57] VITALS: BP 173/79; RESP 22
--- NOTE | 2016-09-01 14:22 | RADRPT ---
PROCEDURE: US Scrotum. CLINICAL INDICATION: Scrotal swelling TECHNIQUE: Multiple sonographic images of the scrotal region were obtained utilizing a linear arra y transducer with grayscale and color-flow and a Doppler imaging. The images were reviewed on a high -resolution PACS workstation. COMPARISON: No prior studies are available for comparison. FINDINGS: The right testicle is well visualized and has a normal echotexture. No focal areas of abnormal echog enicity are visualized. The right testicle measures measures 3.6 x 1.9 x 2.3 cm. There is normal col or-flow. The right epididymis is visualized and unremarkable in appearance. There is normal color-fl ow. The left testicle is well visualized and has a normal echotexture. No focal areas abnormal echogenic ity are visualized. The left testicle measures measures 4.0 x 1.9 x 2.2 cm. There is normal color-fl ow. The left epididymis is visualized and is unremarkable in appearance. There is normal color-flow. The scrotal wall is unremarkable. Bilateral hydroceles are present. No swelling or edema is seen. IMPRESSION: 1. No evidence for testicular torsion or epididymitis. 2. Bilateral large hydroceles. RPTAT: QQ .Daina Burris MD, Date Time Electronically viewed and signed by .Daina Burris MD, MD on 09/01/2016 14:22 .M/
[2016-09-01] MEDS: ACETAMINOPHEN 325 MG TAB PO PRN ×2 (14:32→21:21)
[2016-09-01 15:15] VITALS: BP 136/65; PULSE 71; RESP 18
--- NOTE | 2016-09-01 15:21 | PN ---
Date/Time of Note Date/Time of Note DATE: 09/01/16 TIME: 15:18 Assessment/Plan VTE Prophylaxis VTE Prophylaxis Intervention: other Lines/Catheters [facility] Urinary Cath still in place: No Assessment/Plan Assessment/Plan Patient is a 76 year old man with noted IVC thrombus >Venous thromboembolism Patient noted to have IVC thrombus Patient seemingly responding to apixiban Continue Minimum of 6 months but given size of embolus, may require longer. Subjective 24 Hr Interval Summary Free Text/Dictation Patient notes improvement in lower extremity edema Exam/Review of Systems Vital Signs Vitals Vital Signs Date Time Temp Pulse Resp B/P Pulse Ox O2 Delivery O2 Flow Rate FiO2 09/01/16 14:54 95 20 97 Nasal Cannula 2.0 09/01/16 13:57 98.4 173/79 09/01/16 07:44 21 Intake and Output 08/31/16 08/31/16 09/01/16 15:00 23:00 07:00 Intake Total 50 ml 860 ml 650 ml Output Total 1400 ml 820 ml Balance 50 ml -540 ml -170 ml Exam Constitutional: alert, oriented, well developed Head: atraumatic, normocephalic Eyes: EOMI, nl conjunctiva Neck: non-tender, supple Respiratory: clear to auscultation, normal air movement Cardiovascular: nl pulses, regular rate and rhythm Gastrointestinal: non-tender, soft Genitourinary - Male: other (swollen scrotum) Musculoskeletal: nl extremities to inspection Extremities: normal pulses Neurological: [employer]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 II-XII intact, nl mental status Results Result Diagram: 09/01/16 0219 08/31/16 0627 Results 24 hrs Laboratory Tests Test 08/31/16 17:28 08/31/16 20:53 09/01/16 02:19 09/01/16 07:56 Bedside Glucose 83 131 94 White Blood Count 9.8 # Red Blood Count 3.45 L Hemoglobin 8.7 L Hematocrit 26.2 L Mean Corpuscular Volume 75.9 L Mean Corpuscular Hemoglobin 25.2 L Mean Corpuscular Hemoglobin Concent 33.2 Red Cell Distribution Width 24.4 H Platelet Count 252 Mean Platelet Volume Neutrophils % 57.1 Lymphocytes % 14.3 L Monocytes % 17.9 H Eosinophils % 0.0 Basophils % 0.7 Nucleated Red Blood Cells % 1.6 H Neutrophils # 5.6 Lymphocytes # 1.4 Monocytes # 1.8 H Eosinophils # 0.0 Basophils # 0.1 Nucleated Red Blood Cells # 0.2 H Prothrombin Time 19.7 #H Prothrombin Time Ratio 1.5 INR International Normalized Ratio 1.66 Activated Partial Thromboplast Time 44.7 H Fibrinogen 392.0 Vancomycin Level Trough 13.3 Test 09/01/16 11:59 Bedside Glucose 196 Medications Medications Current Medications Acetaminophen (Tylenol Tab) 650 mg Q6H PRN PO PAIN AND OR ELEVATED TEMP Last administered on 09/01/16 14:32; Admin Dose 650 MG; Start 08/07/16 at 21:30 Morphine Sulfate (morphine) 2 mg Q4H PRN IV severe pain Last administered on 02:18; Admin Dose 2 MG; Start 08/07/16 at 21:30 Acetaminophen/ Hydrocodone Bitart ([place] (5/325)) 1 tab Q6H PRN PO moderate pain Last administered on 08/22/16 20:25; Admin Dose 1 TAB; Start 08/07/16 at 21:30 Diagnostic Test (Pha) (Accu-Chek) 1 ea 02 XX Last administered on 08/28/16 02: 00; Admin Dose 1 EA; Start 08/08/16 at 02:00 Cholecalciferol (Vitamin D) 5,000 unit DAILY PO Last administered on 08/29/16 08:20; Admin Dose 5,000 UNIT; Start 08/08/16 at 09:00 Gabapentin (Neurontin) 300 mg DAILY PO Last administered on 09/01/16 08:35; Admin Dose 300 MG; Start 08/08/16 at 09:00 Lorazepam (Ativan) 1 mg HS PRN PO ANXIETY Last administered on 08/22/16 20:25 ; Admin Dose 1 MG; Start 08/07/16 at 21:30 Linagliptin (Tradjenta) 5 mg DAILY PO Last administered on 09/01/16 08:35; Admin Dose 5 MG; Start 08/08/16 at 09:00 Miscellaneous Information 1 ea NOTE XX Last administered on 08/26/16 08:08; Admin Dose 1 EA; Start 08/13/16 at 15:30 Glucose (Glutose) 15 gm Q15M PRN PO DECREASED GLUCOSE; Start 08/13/16 at 15:30 Glucose (Glutose) 22.5 gm Q15M PRN PO DECREASED GLUCOSE; Start 08/13/16 at 15:30 Dextrose (D50w Syringe) 25 ml Q15M PRN IV DECREASED GLUCOSE; Start 08/13/16 at 15:30 Dextrose (D50w Syringe) 50 ml Q15M PRN IV DECREASED GLUCOSE; Start 08/13/16 at 15:30 Glucagon (Glucagen) 1 mg Q15M PRN IM DECREASED GLUCOSE; Start 08/13/16 at 15:30 Glucose (Glutose) 15 gm Q15M PRN BUCCAL DECREASED GLUCOSE; Start 08/13/16 at 15: 30 Diphenhydramine HCl (Benadryl) 25 mg Q6H PRN PO ITCHING Last administered on 21:35; Admin Dose 25 MG; Start 08/17/16 at 20:30 Clotrimazole (Lotrimin Cr) 1 applic BID TOP Last administered on 09/01/16 08: 36; Admin Dose 1 APPLIC; Start 08/19/16 at 21:00 Phenol 1 lozenge 1 lozenge Q4H PRN MT COUGH Last administered on 09/01/16 12: 13; Admin Dose 1 LOZENGE; Start 08/20/16 at 07:00 Cefepime HCl (Maxipime 1gm/50 ml (Pmx)) 50 ml @ 100 mls/hr Q12 IVPB Last administered on 09/01/16 08:32; Admin Dose 100 MLS/HR; Start 08/23/16 at 21:00 Losartan Potassium (Cozaar) 50 mg BID PO Last administered on 09/01/16 08:36; Admin Dose 50 MG; Start 08/23/16 at 21:00 Polyethylene Glycol (Miralax) 17 gm DAILY PRN GTB CONSTIPATION Last administered on 08/27/16 09:03; Admin Dose 17 GM; Start 08/24/16 at 09:30 Simethicone (Mylicon) 80 mg QID PRN GTB DISTENSION/GAS/BLOATING Last administered on 08/31/16 11:27; Admin Dose 80 MG; Start 08/24/16 at 13:00 Amlodipine Besylate (Norvasc) 5 mg DAILY PO Last administered on 09/01/16 08: 36; Admin Dose 5 MG; Start 08/25/16 at 09:00 Clonidine 0.1 mg 0.1 mg Q6H PRN PO ELEVATED BLOOD PRESSURE Last administered on 09/01/16 14:33; Admin Dose 0.1 MG; Start 08/25/16 at 06:00 Vancomycin HCl (Vancocin) 250 ml @ 125 mls/hr Q12H IVPB Last administered on 14:32; Admin Dose 125 MLS/HR; Start 08/26/16 at 15:00 Insulin Glargine (Lantus) 17 unit DAILY@20 SC Last administered on 08/31/16 21 :24; Admin Dose 17 UNIT; Start 08/26/16 at 20:00 Epoetin Baldomero (Epogen (Oncology)) 20,000 units MoWeFr@17 SC Last administered on 08/30/16 17:22; Admin Dose 20,000 UNITS; Start 08/28/16 at 17:00 Magnesium Hydroxide (Milk Of Mag) 30 ml Q6H PRN PO CONSTIPATION Last administered on 08/31/16 11:28; Admin Dose 30 ML; Start 08/27/16 at 22:20 Apixaban (Eliquis) 5 mg BID PO Last administered on 09/01/16 08:35; Admin Dose 5 MG; Start 08/28/16 at 21:00 Promethazine HCl/ Codeine (Phenergan/ Codeine) 10 ml Q4H PRN PO COUGH Last administered on 09/01/16 14:33; Admin Dose 10 ML; Start 08/29/16 at 22:00 ASHLEY CERON MD Sep 01, 2016 15:21
[2016-09-01 20:00] VITALS: BP 132/61; RESP 20
[2016-09-01] MEDS: INSULIN GLARGINE [LANtus] 3 ML PEN SC SCH (21:31)
[2016-09-01] MEDS: MAGNESIUM HYDROXIDE 30ML CUP PO PRN (21:34)
[2016-09-02] MEDS: ALBUTEROL/IPRATROPIUM (NEB) 3 ML AMP HHN SCH ×4 (01:48→20:40)
[2016-09-02] MEDS: ACCU-CHEK XX SCH (01:57)
[2016-09-02 02:00] VITALS: BP 142/62; RESP 20
[2016-09-02] MEDS: VANCOMYCIN 1 GM in NS 250 ML IVPB SCH ×2 (02:49→16:30)
--- NOTE | 2016-09-02 04:14 | PN ---
DATE: 08/09/2016 SUBJECTIVE DATA: Follow up on hypertension, diabetes, benign prostatic hypertrophy, anemia, pulmonary embolus and IVC thrombosis. The patient denies any chest pain, no shortness of breath, no reported bleeding from any site. No reported nausea, vomiting, diarrhea. No history of abdominal pain. No history of fever or chills. No history of headache, dizziness, syncope. No history of dysuria or hematuria. OBJECTIVE DATA: GENERAL: The patient is conscious, awake, alert. VITAL SIGNS: Temperature 98.6, pulse 75, respirations 18, blood pressure 150/68, O2 sat 98% on room air. HEENT: Atraumatic, normocephalic. Nonicteric. NECK: Supple. No masses or thyromegaly. CHEST: Fairly clear. CARDIAC: CVS: S1, S2 normal. No murmur, gallop or rub. ABDOMEN: Soft, no tenderness noted. No palpable mass. EXTREMITIES: Trace ankle edema. NEUROLOGIC: The patient is awake, alert. No gross focal deficits. LABORATORY AND DIAGNOSTIC DATA: Done this morning: WBC 7.5, hemoglobin 8.5, platelets 258, sodium 136, potassium 4.2. BUN 21, creatinine 0.7, glucose 149. Peripheral smear showed a few blast cells as per oncologist. ASSESSMENT AND PLAN: 1. Anemia with a few blasts cells. Dr. Philippe has been called for Hem/Onc to evaluate the patient. 2. Anemia. Workup underway. I spoke with for GI consult. 3. Chronic pulmonary embolism and IVC thrombosis. Continue Eliquis. 4. Hypertension. Blood pressure is slightly up. We will continue Cozaar and I will continue to monitor the blood pressure and will adjust antihypertensive as necessary. 5. Diabetes. Continue Lantus, premeal insulin and sliding scale insulin. Hemoglobin A1c came back as 8.2. 6. Plan of care discussed with the patient with the help of face worker. Dictated By: Sky Seay MD /annita/ /Document#: [id number]
[2016-09-02 05:54] LABS: ABNORMAL IP MESSAGE 1; BASOPHIL # 0.1 10^3/ul (0.0-0.1); BASOPHILS % 0.7 % (0.0-2.0); HEMATOCRIT 24.3 % (42.0-52.0); HEMOGLOBIN 7.9 g/dl (14.0-18.0); LYMPHOCYTES # 1.1 10^3/ul (0.8-2.9); LYMPHOCYTES % 14.6 % (15.0-51.0); MEAN CORPUSCULAR HEMOGLOBIN 25.1 pg (29.0-33.0); MEAN CORPUSCULAR HGB CONC 32.5 g/dl (32.0-37.0); MEAN CORPUSCULAR VOLUME 77.1 fl (82.0-101.0); MONOCYTE # 1.3 10^3/ul (0.3-0.9); NEUTROPHIL # 4.4 10^3/ul (1.6-7.5); NEUTROPHILS % 58.4 % (39.0-77.0); NUCLEATED RED BLOOD CELLS # 0.1 10^3/ul (0.0-0.0); NUCLEATED RED BLOOD CELLS% 1.2 /100WBC (0.0-0.0); PLATELET COUNT 213 10^3/UL (140-415); POSITIVE DIFF @See below; RED BLOOD COUNT 3.15 10^6/ul (4.70-6.10); RED CELL DISTRIBUTION WIDTH 24.3 % (11.5-14.5); WHITE BLOOD COUNT 7.5 10^3/ul (4.8-10.8)
[2016-09-02 06:31] LABS: CALCIUM 8.1 mg/dl (8.4-10.2); CREATININE 0.64 mg/dl (0.61-1.24); MONOCYTES % 17.4 % (0.0-11.0); POTASSIUM 3.5 mmol/L (3.5-5.1)
[2016-09-02 07:57] VITALS: BP 157/74; RESP 18
[2016-09-02] MEDS: INSULIN ASPART [NOVOLOG] 3 ML PEN SC SCH ×8 (08:15→21:00)
--- NOTE | 2016-09-02 08:31 | CONS ---
Date/Time of Note Date/Time of Note DATE: 09/02/16 TIME: 08:17 Assessment/Plan Assessment/Plan Chief Complaint/Hosp Course Penoscrotal edema which is part of the generalized edema that he has over the pubic area on the lower extremities. Patient needs to elevate his lower extremities and also have the scrotum and the penis elevated on a towel all the time Problems: Additional Assessment/Plan Elevate the penis and the scrotum on a towel all the time and diuresis Consultation Date/Type/Reason Admit Date/Time Aug 07, 2016 at 16:05 Date of Consultation: Sep 02, 2016 Type of Consultation: Urology Reason for Consultation Penile and scrotal edema Referring Provider: TEDDY RUVALCABA MD Hx of Present Illness The patient has multiple medical problems that are listed below: -Hemoptysis-none at present - Healthcare acquired pneumonia, continued on vancomycin and cefepime, - Bilateral pleural effusions, . - Myelofibrosis. - Microcytic anemia secondary to myelofibrosis, iron deficiency anemia. - Status post EGD and colonoscopy, with notion of gastritis gastritis and superficial duodenal ulcer per EGD and multiple polyps per colonoscopy. 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 on Tradjenta, Lantus and NovoLog. - Hypertension, on Cozaar. - Hyperlipidemia - BPH, status post TURP - Pseudomonas UTI, status post treatment - Status post right hip replacement The patient has significant penoscrotal edema Constitutional: no complaints, requiring O2 Eyes: no complaints ENT: no complaints Respiratory: shortness of breath, No cough Cardiovascular: edema, no complaints Gastrointestinal: no complaints, pain (Lower abdomen) Genitourinary: no complaints, other (Penile and scrotal edema) Musculoskeletal: no complaints Skin: no complaints, other (Edema of lower extremities) Neurologic: no complaints Endocrine: no complaints Lymphatic: no complaints Psychological: nl mood/affect, no complaints Immunologic: no complaints Past Medical History Medical History: diabetes, high cholesterol, hypertension, other (Inferior vena cava thrombus status post filter placement, myelofibrosis and anemia) Past Surgical History Past Surgical Hx: endoscopy (EGD and colonoscopy), other (IVC filter, TURP, right total knee replacement) Family History Significant Family History: no pertinent family hx Social History Alcohol Use: none Smoking Status: Never smoker Drug Use: none Exam/Review of Systems Vital Signs Vitals Vital Signs Date Time Temp Pulse Resp B/P Pulse Ox O2 Delivery O2 Flow Rate FiO2 09/02/16 07:57 99.3 104 18 157/74 97 09/02/16 07:14 Nasal Cannula 2.0 09/01/16 07:44 21 Intake and Output 09/01/16 09/01/16 09/02/16 15:00 23:00 07:00 Intake Total 50 ml 900 ml 750 ml Output Total 400 ml 700 ml Balance 50 ml 500 ml 50 ml Exam Constitutional: alert, oriented Psych: no complaints Head: normocephalic Eyes: nl conjunctiva ENMT: nl external ears & nose Neck: non-tender, supple Respiratory: normal air movement Cardiovascular: edema Gastrointestinal: other (Pubic area edema), soft Genitourinary - Male: other (Penile edema and scrotal edema) Extremities: edema, pitting pedal edema Results Result Diagram: 09/02/16 0531 09/02/16 0531 Results 24 hrs Laboratory Tests Test 09/01/16 11:59 09/01/16 17:32 09/01/16 21:25 09/02/16 05:31 Bedside Glucose 196 134 124 White Blood Count 7.5 # Red Blood Count 3.15 L Hemoglobin 7.9 L Hematocrit 24.3 L Mean Corpuscular Volume 77.1 L Mean Corpuscular Hemoglobin 25.1 L Mean Corpuscular Hemoglobin Concent 32.5 Red Cell Distribution Width 24.3 H Platelet Count 213 Mean Platelet Volume Neutrophils % 58.4 Lymphocytes % 14.6 L Monocytes % 17.4 H Eosinophils % 0.0 Basophils % 0.7 Nucleated Red Blood Cells % 1.2 H Neutrophils # 4.4 Lymphocytes # 1.1 Monocytes # 1.3 H Eosinophils # 0.0 Basophils # 0.1 Nucleated Red Blood Cells # 0.1 H Sodium Level 140 Potassium Level 3.5 Chloride Level 108 Carbon Dioxide Level 26 Anion Gap 10 # Blood Urea Nitrogen 11 Creatinine 0.64 Glucose Level 62 #L Calcium Level 8.1 L Medications Medications Current Medications Acetaminophen (Tylenol Tab) 650 mg Q6H PRN PO PAIN AND OR ELEVATED TEMP Last administered on 09/01/16t 21:21; Admin Dose 650 MG; Start 08/07/16 at 21:30 Morphine Sulfate (morphine) 2 mg Q4H PRN IV severe pain Last administered on 02:18; Admin Dose 2 MG; Start 08/07/16 at 21:30 Acetaminophen/ Hydrocodone Bitart ([place] (5/325)) 1 tab Q6H PRN PO moderate pain Last administered on 08/22/16 20:25; Admin Dose 1 TAB; Start 08/07/16 at 21:30 Diagnostic Test (Pha) (Accu-Chek) 1 ea 02 XX Last administered on 08/28/16 02: 00; Admin Dose 1 EA; Start 08/08/16 at 02:00 Cholecalciferol (Vitamin D) 5,000 unit DAILY PO Last administered on 08/29/16 08:20; Admin Dose 5,000 UNIT; Start 08/08/16 at 09:00 Gabapentin (Neurontin) 300 mg DAILY PO Last administered on 09/01/16 08:35; Admin Dose 300 MG; Start 08/08/16 at 09:00 Lorazepam (Ativan) 1 mg HS PRN PO ANXIETY Last administered on 08/22/16 20:25 ; Admin Dose 1 MG; Start 08/07/16 at 21:30 Linagliptin (Tradjenta) 5 mg DAILY PO Last administered on 09/01/16 08:35; Admin Dose 5 MG; Start 08/08/16 at 09:00 Miscellaneous Information 1 ea NOTE XX Last administered on 08/26/16 08:08; Admin Dose 1 EA; Start 08/13/16 at 15:30 Glucose (Glutose) 15 gm Q15M PRN PO DECREASED GLUCOSE; Start 08/13/16 at 15:30 Glucose (Glutose) 22.5 gm Q15M PRN PO DECREASED GLUCOSE; Start 08/13/16 at 15:30 Dextrose (D50w Syringe) 25 ml Q15M PRN IV DECREASED GLUCOSE; Start 08/13/16 at 15:30 Dextrose (D50w Syringe) 50 ml Q15M PRN IV DECREASED GLUCOSE; Start 08/13/16 at 15:30 Glucagon (Glucagen) 1 mg Q15M PRN IM DECREASED GLUCOSE; Start 08/13/16 at 15:30 Glucose (Glutose) 15 gm Q15M PRN BUCCAL DECREASED GLUCOSE; Start 08/13/16 at 15: 30 Diphenhydramine HCl (Benadryl) 25 mg Q6H PRN PO ITCHING Last administered on 21:35; Admin Dose 25 MG; Start 08/17/16 at 20:30 Clotrimazole (Lotrimin Cr) 1 applic BID TOP Last administered on 09/01/16 08: 36; Admin Dose 1 APPLIC; Start 08/19/16 at 21:00 Phenol 1 lozenge 1 lozenge Q4H PRN MT COUGH Last administered on 09/01/16 22: 02; Admin Dose 1 LOZENGE; Start 08/20/16 at 07:00 Cefepime HCl (Maxipime 1gm/50 ml (Pmx)) 50 ml @ 100 mls/hr Q12 IVPB Last administered on 09/01/16 21:22; Admin Dose 100 MLS/HR; Start 08/23/16 at 21:00 Losartan Potassium (Cozaar) 50 mg BID PO Last administered on 09/01/16 21:21; Admin Dose 50 MG; Start 08/23/16 at 21:00 Polyethylene Glycol (Miralax) 17 gm DAILY PRN GTB CONSTIPATION Last administered on 08/27/16 09:03; Admin Dose 17 GM; Start 08/24/16 at 09:30 Simethicone (Mylicon) 80 mg QID PRN GTB DISTENSION/GAS/BLOATING Last administered on 08/31/16 11:27; Admin Dose 80 MG; Start 08/24/16 at 13:00 Amlodipine Besylate (Norvasc) 5 mg DAILY PO Last administered on 09/01/16 08: 36; Admin Dose 5 MG; Start 08/25/16 at 09:00 Clonidine 0.1 mg 0.1 mg Q6H PRN PO ELEVATED BLOOD PRESSURE Last administered on 09/01/16 14:33; Admin Dose 0.1 MG; Start 08/25/16 at 06:00 Vancomycin HCl (Vancocin) 250 ml @ 125 mls/hr Q12H IVPB Last administered on 02:49; Admin Dose 125 MLS/HR; Start 08/26/16 at 15:00 Insulin Glargine (Lantus) 17 unit DAILY@20 SC Last administered on 09/01/16 21 :31; Admin Dose 17 UNIT; Start 08/26/16 at 20:00 Epoetin Baldomero (Epogen (Oncology)) 20,000 units MoWeFr@17 SC Last administered on 08/30/16 17:22; Admin Dose 20,000 UNITS; Start 08/28/16 at 17:00 Magnesium Hydroxide (Milk Of Mag) 30 ml Q6H PRN PO CONSTIPATION Last administered on 09/01/16 21:34; Admin Dose 30 ML; Start 08/27/16 at 22:20 Apixaban (Eliquis) 5 mg BID PO Last administered on 09/01/16 21:21; Admin Dose 5 MG; Start 08/28/16 at 21:00 Promethazine HCl/ Codeine (Phenergan/ Codeine) 10 ml Q4H PRN PO COUGH Last administered on 09/01/16 21:34; Admin Dose 10 ML; Start 08/29/16 at 22:00 ANNEMARIE OCONNELL MD Sep 02, 2016 08:27
[2016-09-02] MEDS: CHOLECALCIFEROL 1,000 UNIT TAB PO SCH (09:00)
[2016-09-02 09:04] VITALS: BP 171/79; PULSE 109
[2016-09-02] MEDS: LOSARTAN 50 MG TAB PO SCH ×2 (09:09→21:00)
[2016-09-02] MEDS: CEFEPIME 1GM/50 ML (PMX) 50 ML IVPB SCH ×2 (09:09→21:00)
[2016-09-02] MEDS: APIXABAN 5 MG TABLET PO SCH ×2 (09:10→21:00)
[2016-09-02] MEDS: AMLODIPINE 5 MG TAB PO SCH (09:10)
[2016-09-02] MEDS: GABAPENTIN 300 MG CAP PO SCH (09:10)
[2016-09-02] MEDS: LINAGLIPTIN 5 MG TABLET PO SCH (09:10)
[2016-09-02] MEDS: ACETAMINOPHEN 325 MG TAB PO PRN ×2 (09:11→14:56)
[2016-09-02 09:52] LABS: BURR CELLS 1+; OVALOCYTES 1+ (0-0); POLYCHROMASIA 1+ (0-0)
[2016-09-02] MEDS: CLOTRIMAZOLE 1% 30 GM CR TOP SCH ×2 (09:59→21:00)
[2016-09-02 11:53] VITALS: BP 159/74; PULSE 99
--- NOTE | 2016-09-02 12:19 | CONS ---
Date/Time of Note Date/Time of Note DATE: 09/02/16 TIME: 12:15 Consult Date/Type/Reason Admit Date/Time Aug 07, 2016 at 16:05 Initial Consult Date 09/02/16 Type of Consultation: Pulmonary Ordering Provider: TEDDY RUVALCABA MD Subjective Comfortable no hemoptysis this morning. Objective Vital Signs Date Time Temp Pulse Resp B/P Pulse Ox O2 Delivery O2 Flow Rate FiO2 09/02/16 11:53 99 159/74 09/02/16 09:04 98.7 97 Nasal Cannula 2.0 09/02/16 07:57 18 09/01/16 07:44 21 Intake and Output 09/01/16 09/01/16 09/02/16 14:59 22:59 06:59 Intake Total 50 ml 900 ml 750 ml Output Total 400 ml 700 ml Balance 50 ml 500 ml 50 ml Exam Elderly gentleman comfortable at rest HEENT moist mucous membranes pupils equal reactive to light obliquely. Neck is supple no JVD or adenopathy Cardiac exam S1-S2 no added sounds or murmurs Chest diminished air entry both lung bases Abdomen soft nontender no guarding or rebound Results/Medications Result Diagram: 09/02/16 0531 09/02/16 0531 Results 24 hrs Chest x-ray FINDINGS: There is bilateral mid and lower lung zone airspace disease consistent with pulmonary edema. Patchy air space disease in the right upper lobe is consistent with pneumonia. The appearance is slightly worse than seen previously. The heart is enlarged. There is no pleural effusion. There is no pneumothorax. Laboratory Tests Test 09/01/16 17:32 09/01/16 21:25 09/02/16 05:31 09/02/16 08:26 Bedside Glucose 134 124 89 White Blood Count 7.5 # Red Blood Count 3.15 L Hemoglobin 7.9 L Hematocrit 24.3 L Mean Corpuscular Volume 77.1 L Mean Corpuscular Hemoglobin 25.1 L Mean Corpuscular Hemoglobin Concent 32.5 Red Cell Distribution Width 24.3 H Platelet Count 213 Mean Platelet Volume Neutrophils % 58.4 Lymphocytes % 14.6 L Monocytes % 17.4 H Eosinophils % 0.0 Basophils % 0.7 Nucleated Red Blood Cells % 1.2 H Neutrophils # 4.4 Lymphocytes # 1.1 Monocytes # 1.3 H Eosinophils # 0.0 Basophils # 0.1 Nucleated Red Blood Cells # 0.1 H Polychromasia 1+ Ovalocytes 1+ Sodium Level 140 Potassium Level 3.5 Chloride Level 108 Carbon Dioxide Level 26 Anion Gap 10 # Blood Urea Nitrogen 11 Creatinine 0.64 Glucose Level 62 #L Calcium Level 8.1 L Medications Current Medications Acetaminophen (Tylenol Tab) 650 mg Q6H PRN PO PAIN AND OR ELEVATED TEMP Last administered on 09/02/16 09:11; Admin Dose 650 MG; Start 08/07/16 at 21:30 Morphine Sulfate (morphine) 2 mg Q4H PRN IV severe pain Last administered on 02:18; Admin Dose 2 MG; Start 08/07/16 at 21:30 Acetaminophen/ Hydrocodone Bitart ([place] (5/325)) 1 tab Q6H PRN PO moderate pain Last administered on 08/22/16 20:25; Admin Dose 1 TAB; Start 08/07/16 at 21:30 Diagnostic Test (Pha) (Accu-Chek) 1 ea 02 XX Last administered on 08/28/16 02: 00; Admin Dose 1 EA; Start 08/08/16 at 02:00 Cholecalciferol (Vitamin D) 5,000 unit DAILY PO Last administered on 08/29/16 08:20; Admin Dose 5,000 UNIT; Start 08/08/16 at 09:00 Gabapentin (Neurontin) 300 mg DAILY PO Last administered on 09/02/16 09:10; Admin Dose 300 MG; Start 08/08/16 at 09:00 Lorazepam (Ativan) 1 mg HS PRN PO ANXIETY Last administered on 08/22/16 20:25 ; Admin Dose 1 MG; Start 08/07/16 at 21:30 Linagliptin (Tradjenta) 5 mg DAILY PO Last administered on 09/02/16 09:10; Admin Dose 5 MG; Start 08/08/16 at 09:00 Miscellaneous Information 1 ea NOTE XX Last administered on 08/26/16 08:08; Admin Dose 1 EA; Start 08/13/16 at 15:30 Glucose (Glutose) 15 gm Q15M PRN PO DECREASED GLUCOSE; Start 08/13/16 at 15:30 Glucose (Glutose) 22.5 gm Q15M PRN PO DECREASED GLUCOSE; Start 08/13/16 at 15:30 Dextrose (D50w Syringe) 25 ml Q15M PRN IV DECREASED GLUCOSE; Start 08/13/16 at 15:30 Dextrose (D50w Syringe) 50 ml Q15M PRN IV DECREASED GLUCOSE; Start 08/13/16 at 15:30 Glucagon (Glucagen) 1 mg Q15M PRN IM DECREASED GLUCOSE; Start 08/13/16 at 15:30 Glucose (Glutose) 15 gm Q15M PRN BUCCAL DECREASED GLUCOSE; Start 08/13/16 at 15: 30 Diphenhydramine HCl (Benadryl) 25 mg Q6H PRN PO ITCHING Last administered on 21:35; Admin Dose 25 MG; Start 08/17/16 at 20:30 Clotrimazole (Lotrimin Cr) 1 applic BID TOP Last administered on 09/01/16 08: 36; Admin Dose 1 APPLIC; Start 08/19/16 at 21:00 Phenol 1 lozenge 1 lozenge Q4H PRN MT COUGH Last administered on 09/01/16 22: 02; Admin Dose 1 LOZENGE; Start 08/20/16 at 07:00 Cefepime HCl (Maxipime 1gm/50 ml (Pmx)) 50 ml @ 100 mls/hr Q12 IVPB Last administered on 09/02/16 09:09; Admin Dose 100 MLS/HR; Start 08/23/16 at 21:00 Losartan Potassium (Cozaar) 50 mg BID PO Last administered on 09/02/16 09:09; Admin Dose 50 MG; Start 08/23/16 at 21:00 Polyethylene Glycol (Miralax) 17 gm DAILY PRN GTB CONSTIPATION Last administered on 08/27/16 09:03; Admin Dose 17 GM; Start 08/24/16 at 09:30 Simethicone (Mylicon) 80 mg QID PRN GTB DISTENSION/GAS/BLOATING Last administered on 08/31/16 11:27; Admin Dose 80 MG; Start 08/24/16 at 13:00 Amlodipine Besylate (Norvasc) 5 mg DAILY PO Last administered on 09/02/16 09: 10; Admin Dose 5 MG; Start 08/25/16 at 09:00 Clonidine 0.1 mg 0.1 mg Q6H PRN PO ELEVATED BLOOD PRESSURE Last administered on 09/01/16 14:33; Admin Dose 0.1 MG; Start 08/25/16 at 06:00 Vancomycin HCl (Vancocin) 250 ml @ 125 mls/hr Q12H IVPB Last administered on 02:49; Admin Dose 125 MLS/HR; Start 08/26/16 at 15:00 Insulin Glargine (Lantus) 17 unit DAILY@20 SC Last administered on 09/01/16 21 :31; Admin Dose 17 UNIT; Start 08/26/16 at 20:00 Epoetin Baldomero (Epogen (Oncology)) 20,000 units MoWeFr@17 SC Last administered on 08/30/16 17:22; Admin Dose 20,000 UNITS; Start 08/28/16 at 17:00 Magnesium Hydroxide (Milk Of Mag) 30 ml Q6H PRN PO CONSTIPATION Last administered on 09/01/16 21:34; Admin Dose 30 ML; Start 08/27/16 at 22:20 Apixaban (Eliquis) 5 mg BID PO Last administered on 09/02/16 09:10; Admin Dose 5 MG; Start 08/28/16 at 21:00 Promethazine HCl/ Codeine (Phenergan/ Codeine) 10 ml Q4H PRN PO COUGH Last administered on 09/01/16 21:34; Admin Dose 10 ML; Start 08/29/16 at 22:00 Assessment/Plan Chief Complaint/Hosp Course Assessment 1. Pulmonary embolus with intermittent hemoptysis chest x-ray shows pulmonary edema possible pneumonia. 2. Anemia likely of chronic disease rule out GI bleed 3. Effusions with compressive atelectasis Plan 1. Continue O2 as needed 2. Anticoagulation, monitor hemoptysis. Bronchoscopy if worse. Problems: DIOMEDES ARTHUR MD, [facility] Sep 02, 2016 12:19
[2016-09-02 14:08] VITALS: BP 151/68; RESP 18
[2016-09-02] MEDS: PROMETHAZINE/CODEINE 5ML CUP PO PRN (14:22)
[2016-09-02] MEDS: CEPASTAT LOZENGE MT PRN (14:23)
[2016-09-02] MEDS: MAGNESIUM HYDROXIDE 30ML CUP PO PRN (14:30)
--- NOTE | 2016-09-02 15:42 | PN ---
Date/Time of Note Date/Time of Note DATE: 09/02/16 TIME: 15:28 Assessment/Plan VTE Prophylaxis VTE Prophylaxis Intervention: SCD's Lines/Catheters IV C[facility]ter Type (from [facility]): Saline Lock Urinary Cath still in place: No Assessment/Plan Chief Complaint/Hosp Course No hemoptysis today per RN today, patient's complains of occasional shortness of breath, feels better after breathing treatment. Assessment/Plan - Healthcare acquired pneumonia, continued on vancomycin and cefepime, Dr. Springer is following pulmonology consultation. - Bilateral pleural effusions, continue incentive spirometer, 2 D Echo with stage I diastolic dysfunction and preserved ejection fraction. - Myelofibrosis. Dr. 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 - Bilateral large hydroceles, Dr. Keane is following in urology consultation - Status post EGD and colonoscopy, with notion of gastritis gastritis and superficial duodenal ulcer per EGD and multiple polyps per colonoscopy. 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 Hall is following in gastroenterology consultation. - History of pulmonary embolism, continue Eliquis - Diabetes mellitus, hemoglobin A1c is 8.2. continue, Tradjenta, Lantus and NovoLog. - Hypertension, continue Cozaar. - Hyperlipidemia - BPH, status post TURP - Pseudomonas UTI, status post treatment - Status post right hip replacement Further recommendations based on clinical course. Plan of care discussed with Dr. Seay. Problems: Exam/Review of Systems Vital Signs Vitals Vital Signs Date Time Temp Pulse Resp B/P Pulse Ox O2 Delivery O2 Flow Rate FiO2 09/02/16 14:08 98.7 95 18 151/68 97 09/02/16 09:45 2.0 09/02/16 09:04 Nasal Cannula 09/01/16 07:44 21 Intake and Output 09/01/16 09/01/16 09/02/16 15:00 23:00 07:00 Intake Total 50 ml 900 ml 750 ml Output Total 400 ml 700 ml Balance 50 ml 500 ml 50 ml Exam Constitutional: alert, oriented Head: atraumatic, normocephalic Neck: supple Respiratory: clear Cardiovascular: nl pulses Gastrointestinal: non-tender, soft Extremities: edema, other Neurological: nl mental status Skin: nl turgor Results Result Diagram: 09/02/16 0531 09/02/16 0531 Results 24 hrs Laboratory Tests Test 09/01/16 17:32 09/01/16 21:25 09/02/16 05:31 09/02/16 08:26 Bedside Glucose 134 124 89 White Blood Count 7.5 # Red Blood Count 3.15 L Hemoglobin 7.9 L Hematocrit 24.3 L Mean Corpuscular Volume 77.1 L Mean Corpuscular Hemoglobin 25.1 L Mean Corpuscular Hemoglobin Concent 32.5 Red Cell Distribution Width 24.3 H Platelet Count 213 Mean Platelet Volume Neutrophils % 58.4 Lymphocytes % 14.6 L Monocytes % 17.4 H Eosinophils % 0.0 Basophils % 0.7 Nucleated Red Blood Cells % 1.2 H Neutrophils # 4.4 Lymphocytes # 1.1 Monocytes # 1.3 H Eosinophils # 0.0 Basophils # 0.1 Nucleated Red Blood Cells # 0.1 H Polychromasia 1+ Ovalocytes 1+ Sodium Level 140 Potassium Level 3.5 Chloride Level 108 Carbon Dioxide Level 26 Anion Gap 10 # Blood Urea Nitrogen 11 Creatinine 0.64 Glucose Level 62 #L Calcium Level 8.1 L Test 09/02/16 12:14 09/02/16 14:45 Bedside Glucose 86 146 Medications Medications Current Medications Acetaminophen (Tylenol Tab) 650 mg Q6H PRN PO PAIN AND OR ELEVATED TEMP Last administered on 09/02/16 14:56; Admin Dose 650 MG; Start 08/07/16 at 21:30 Morphine Sulfate (morphine) 2 mg Q4H PRN IV severe pain Last administered on 02:18; Admin Dose 2 MG; Start 08/07/16 at 21:30 Acetaminophen/ Hydrocodone Bitart ([place] (5/325)) 1 tab Q6H PRN PO moderate pain Last administered on 08/22/16 20:25; Admin Dose 1 TAB; Start 08/07/16 at 21:30 Diagnostic Test (Pha) (Accu-Chek) 1 ea 02 XX Last administered on 08/28/16 02: 00; Admin Dose 1 EA; Start 08/08/16 at 02:00 Cholecalciferol (Vitamin D) 5,000 unit DAILY PO Last administered on 08/29/16 08:20; Admin Dose 5,000 UNIT; Start 08/08/16 at 09:00 Gabapentin (Neurontin) 300 mg DAILY PO Last administered on 09/02/16 09:10; Admin Dose 300 MG; Start 08/08/16 at 09:00 Lorazepam (Ativan) 1 mg HS PRN PO ANXIETY Last administered on 08/22/16 20:25 ; Admin Dose 1 MG; Start 08/07/16 at 21:30 Linagliptin (Tradjenta) 5 mg DAILY PO Last administered on 09/02/16 09:10; Admin Dose 5 MG; Start 08/08/16 at 09:00 Miscellaneous Information 1 ea NOTE XX Last administered on 08/26/16 08:08; Admin Dose 1 EA; Start 08/13/16 at 15:30 Glucose (Glutose) 15 gm Q15M PRN PO DECREASED GLUCOSE; Start 08/13/16 at 15:30 Glucose (Glutose) 22.5 gm Q15M PRN PO DECREASED GLUCOSE; Start 08/13/16 at 15:30 Dextrose (D50w Syringe) 25 ml Q15M PRN IV DECREASED GLUCOSE; Start 08/13/16 at 15:30 Dextrose (D50w Syringe) 50 ml Q15M PRN IV DECREASED GLUCOSE; Start 08/13/16 at 15:30 Glucagon (Glucagen) 1 mg Q15M PRN IM DECREASED GLUCOSE; Start 08/13/16 at 15:30 Glucose (Glutose) 15 gm Q15M PRN BUCCAL DECREASED GLUCOSE; Start 08/13/16 at 15: 30 Diphenhydramine HCl (Benadryl) 25 mg Q6H PRN PO ITCHING Last administered on 21:35; Admin Dose 25 MG; Start 08/17/16 at 20:30 Clotrimazole (Lotrimin Cr) 1 applic BID TOP Last administered on 09/01/16 08: 36; Admin Dose 1 APPLIC; Start 08/19/16 at 21:00 Phenol 1 lozenge 1 lozenge Q4H PRN MT COUGH Last administered on 09/02/16 14: 23; Admin Dose 1 LOZENGE; Start 08/20/16 at 07:00 Cefepime HCl (Maxipime 1gm/50 ml (Pmx)) 50 ml @ 100 mls/hr Q12 IVPB Last administered on 09/02/16 09:09; Admin Dose 100 MLS/HR; Start 08/23/16 at 21:00 Losartan Potassium (Cozaar) 50 mg BID PO Last administered on 09/02/16 09:09; Admin Dose 50 MG; Start 08/23/16 at 21:00 Polyethylene Glycol (Miralax) 17 gm DAILY PRN GTB CONSTIPATION Last administered on 08/27/16 09:03; Admin Dose 17 GM; Start 08/24/16 at 09:30 Simethicone (Mylicon) 80 mg QID PRN GTB DISTENSION/GAS/BLOATING Last administered on 09/02/16 14:56; Admin Dose 80 MG; Start 08/24/16 at 13:00 Amlodipine Besylate (Norvasc) 5 mg DAILY PO Last administered on 09/02/16 09: 10; Admin Dose 5 MG; Start 08/25/16 at 09:00 Clonidine 0.1 mg 0.1 mg Q6H PRN PO ELEVATED BLOOD PRESSURE Last administered on 09/01/16 14:33; Admin Dose 0.1 MG; Start 08/25/16 at 06:00 Vancomycin HCl (Vancocin) 250 ml @ 125 mls/hr Q12H IVPB Last administered on 02:49; Admin Dose 125 MLS/HR; Start 08/26/16 at 15:00 Insulin Glargine (Lantus) 17 unit DAILY@20 SC Last administered on 09/01/16 21 :31; Admin Dose 17 UNIT; Start 08/26/16 at 20:00 Epoetin Baldomero (Epogen (Oncology)) 20,000 units MoWeFr@17 SC Last administered on 08/30/16 17:22; Admin Dose 20,000 UNITS; Start 08/28/16 at 17:00 Magnesium Hydroxide (Milk Of Mag) 30 ml Q6H PRN PO CONSTIPATION Last administered on 09/02/16 14:30; Admin Dose 30 ML; Start 08/27/16 at 22:20 Apixaban (Eliquis) 5 mg BID PO Last administered on 09/02/16 09:10; Admin Dose 5 MG; Start 08/28/16 at 21:00 Promethazine HCl/ Codeine (Phenergan/ Codeine) 10 ml Q4H PRN PO COUGH Last administered on 09/02/16t 14:22; Admin Dose 10 ML; Start 08/29/16 at 22:00 IVONNE KEARNS Sep 02, 2016 15:38
[2016-09-02] MEDS ORDERED: FUROSEMIDE 20 MG INJ IV ONE (16:00)
[2016-09-02] MEDS: EPOETIN 10000 UNITS/ML VIAL (ONCOLOGY) SC SCH (17:28)
[2016-09-02 20:00] VITALS: BP 145/65; RESP 20
[2016-09-02] MEDS: INSULIN GLARGINE [LANtus] 3 ML PEN SC SCH (20:00)
[2016-09-03] MEDS: ACCU-CHEK XX SCH (01:57)
[2016-09-03] MEDS: ALBUTEROL/IPRATROPIUM (NEB) 3 ML AMP HHN SCH ×4 (02:39→21:01)
[2016-09-03 02:44] VITALS: BP 161/73; RESP 20
[2016-09-03 03:00] VITALS: BP 142/78; PULSE 88; RESP 18
[2016-09-03] MEDS: VANCOMYCIN 1 GM in NS 250 ML IVPB SCH ×2 (03:11→15:39)
[2016-09-03 06:14] LABS: ABNORMAL IP MESSAGE 1; BASOPHIL # 0.1 10^3/ul (0.0-0.1); BASOPHILS % 0.6 % (0.0-2.0); EOSINOPHILS % 0.1 % (0.0-7.0); HEMATOCRIT 23.8 % (42.0-52.0); HEMOGLOBIN 7.8 g/dl (14.0-18.0); LYMPHOCYTES # 1.2 10^3/ul (0.8-2.9); LYMPHOCYTES % 13.7 % (15.0-51.0); MEAN CORPUSCULAR HEMOGLOBIN 25.2 pg (29.0-33.0); MEAN CORPUSCULAR HGB CONC 32.8 g/dl (32.0-37.0); MEAN CORPUSCULAR VOLUME 76.8 fl (82.0-101.0); MONOCYTE # 1.3 10^3/ul (0.3-0.9); NEUTROPHILS % 59.1 % (39.0-77.0); NUCLEATED RED BLOOD CELLS # 0.1 10^3/ul (0.0-0.0); PLATELET COUNT 264 10^3/UL (140-415); POSITIVE DIFF @See below; RED CELL DISTRIBUTION WIDTH 23.7 % (11.5-14.5); WHITE BLOOD COUNT 8.4 10^3/ul (4.8-10.8)
[2016-09-03 06:55] LABS: MONOCYTES % 15.7 % (0.0-11.0)
[2016-09-03 07:39] LABS: CALCIUM 8.2 mg/dl (8.4-10.2); CREATININE 0.61 mg/dl (0.61-1.24)
[2016-09-03] MEDS: INSULIN ASPART [NOVOLOG] 3 ML PEN SC SCH ×7 (07:57→20:45)
[2016-09-03 08:04] VITALS: BP 167/77; RESP 18
[2016-09-03 08:11] VITALS: BP 167/77; RESP 18
[2016-09-03] MEDS: GABAPENTIN 300 MG CAP PO SCH (08:39)
[2016-09-03] MEDS: LINAGLIPTIN 5 MG TABLET PO SCH (08:39)
[2016-09-03] MEDS: CHOLECALCIFEROL 1,000 UNIT TAB PO SCH (08:40)
[2016-09-03] MEDS: CEFEPIME 1GM/50 ML (PMX) 50 ML IVPB SCH ×2 (08:40→20:44)
[2016-09-03] MEDS: CLOTRIMAZOLE 1% 30 GM CR TOP SCH ×2 (08:40→20:49)
[2016-09-03] MEDS: APIXABAN 5 MG TABLET PO SCH ×2 (08:40→20:45)
[2016-09-03] MEDS: AMLODIPINE 5 MG TAB PO SCH (08:40)
[2016-09-03] MEDS: LOSARTAN 50 MG TAB PO SCH ×2 (08:40→20:44)
[2016-09-03] MEDS: MAGNESIUM HYDROXIDE 30ML CUP PO PRN (09:10)
--- NOTE | 2016-09-03 11:13 | CONS ---
Date/Time of Note Date/Time of Note DATE: 09/03/16 TIME: 11:12 Consult Date/Type/Reason Admit Date/Time Aug 07, 2016 at 16:05 Initial Consult Date 09/02/16 Type of Consultation: Pulmonary Ordering Provider: TEDDY RUVALCABA MD Subjective Relatively stable from pulmonary standpoint no significant events. Objective Vital Signs Date Time Temp Pulse Resp B/P Pulse Ox O2 Delivery O2 Flow Rate FiO2 09/03/16 08:11 99.1 103 18 167/77 94 09/03/16 07:24 2.0 09/03/16 07:24 Nasal Cannula 09/01/16 07:44 21 Intake and Output 09/02/16 09/02/16 09/03/16 15:00 23:00 07:00 Intake Total 50 ml 1140 ml 970 ml Output Total 700 ml 1550 ml Balance 50 ml 440 ml -580 ml Exam Elderly gentleman comfortable at rest HEENT moist mucous membranes pupils equal reactive to light obliquely. Neck is supple no JVD or adenopathy Cardiac exam S1-S2 no added sounds or murmurs Chest diminished air entry both lung bases Abdomen soft nontender no guarding or rebound Results/Medications Result Diagram: 09/03/16 0520 09/03/16 0520 Results 24 hrs Laboratory Tests Test 09/02/16 12:14 09/02/16 14:45 09/02/16 17:27 09/02/16 20:36 Bedside Glucose 86 146 195 71 Test 09/03/16 05:20 09/03/16 07:47 White Blood Count 8.4 Red Blood Count 3.10 L Hemoglobin 7.8 L Hematocrit 23.8 L Mean Corpuscular Volume 76.8 L Mean Corpuscular Hemoglobin 25.2 L Mean Corpuscular Hemoglobin Concent 32.8 Red Cell Distribution Width 23.7 H Platelet Count 264 # Mean Platelet Volume Neutrophils % 59.1 Lymphocytes % 13.7 L Monocytes % 15.7 H Eosinophils % 0.1 Basophils % 0.6 Nucleated Red Blood Cells % 1.0 H Neutrophils # 5.0 Lymphocytes # 1.2 Monocytes # 1.3 H Eosinophils # 0.0 Basophils # 0.1 Nucleated Red Blood Cells # 0.1 H Sodium Level 138 Potassium Level 4.0 Chloride Level 103 Carbon Dioxide Level 23 Anion Gap 16 Blood Urea Nitrogen 13 Creatinine 0.61 Glucose Level 153 Calcium Level 8.2 L Bedside Glucose 154 Medications Current Medications Acetaminophen (Tylenol Tab) 650 mg Q6H PRN PO PAIN AND OR ELEVATED TEMP Last administered on 09/02/16 14:56; Admin Dose 650 MG; Start 08/07/16 at 21:30 Morphine Sulfate (morphine) 2 mg Q4H PRN IV severe pain Last administered on 02:18; Admin Dose 2 MG; Start 08/07/16 at 21:30 Acetaminophen/ Hydrocodone Bitart ([place] (5/325)) 1 tab Q6H PRN PO moderate pain Last administered on 08/22/16 20:25; Admin Dose 1 TAB; Start 08/07/16 at 21:30 Diagnostic Test (Pha) (Accu-Chek) 1 ea 02 XX Last administered on 08/28/16 02: 00; Admin Dose 1 EA; Start 08/08/16 at 02:00 Cholecalciferol (Vitamin D) 5,000 unit DAILY PO Last administered on 08/29/16 08:20; Admin Dose 5,000 UNIT; Start 08/08/16 at 09:00 Gabapentin (Neurontin) 300 mg DAILY PO Last administered on 09/03/16 08:39; Admin Dose 300 MG; Start 08/08/16 at 09:00 Lorazepam (Ativan) 1 mg HS PRN PO ANXIETY Last administered on 08/22/16 20:25 ; Admin Dose 1 MG; Start 08/07/16 at 21:30 Linagliptin (Tradjenta) 5 mg DAILY PO Last administered on 09/03/16 08:39; Admin Dose 5 MG; Start 08/08/16 at 09:00 Miscellaneous Information 1 ea NOTE XX Last administered on 08/26/16 08:08; Admin Dose 1 EA; Start 08/13/16 at 15:30 Glucose (Glutose) 15 gm Q15M PRN PO DECREASED GLUCOSE; Start 08/13/16 at 15:30 Glucose (Glutose) 22.5 gm Q15M PRN PO DECREASED GLUCOSE; Start 08/13/16 at 15:30 Dextrose (D50w Syringe) 25 ml Q15M PRN IV DECREASED GLUCOSE; Start 08/13/16 at 15:30 Dextrose (D50w Syringe) 50 ml Q15M PRN IV DECREASED GLUCOSE; Start 08/13/16 at 15:30 Glucagon (Glucagen) 1 mg Q15M PRN IM DECREASED GLUCOSE; Start 08/13/16 at 15:30 Glucose (Glutose) 15 gm Q15M PRN BUCCAL DECREASED GLUCOSE; Start 08/13/16 at 15: 30 Diphenhydramine HCl (Benadryl) 25 mg Q6H PRN PO ITCHING Last administered on 21:35; Admin Dose 25 MG; Start 08/17/16 at 20:30 Clotrimazole (Lotrimin Cr) 1 applic BID TOP Last administered on 09/01/16 08: 36; Admin Dose 1 APPLIC; Start 08/19/16 at 21:00 Phenol 1 lozenge 1 lozenge Q4H PRN MT COUGH Last administered on 09/02/16 14: 23; Admin Dose 1 LOZENGE; Start 08/20/16 at 07:00 Cefepime HCl (Maxipime 1gm/50 ml (Pmx)) 50 ml @ 100 mls/hr Q12 IVPB Last administered on 09/03/16 08:40; Admin Dose 100 MLS/HR; Start 08/23/16 at 21:00 Losartan Potassium (Cozaar) 50 mg BID PO Last administered on 09/03/16 08:40; Admin Dose 50 MG; Start 08/23/16 at 21:00 Polyethylene Glycol (Miralax) 17 gm DAILY PRN GTB CONSTIPATION Last administered on 08/27/16 09:03; Admin Dose 17 GM; Start 08/24/16 at 09:30 Simethicone (Mylicon) 80 mg QID PRN GTB DISTENSION/GAS/BLOATING Last administered on 09/03/16 10:55; Admin Dose 80 MG; Start 08/24/16 at 13:00 Amlodipine Besylate (Norvasc) 5 mg DAILY PO Last administered on 09/03/16 08: 40; Admin Dose 5 MG; Start 08/25/16 at 09:00 Clonidine 0.1 mg 0.1 mg Q6H PRN PO ELEVATED BLOOD PRESSURE Last administered on 09/01/16 14:33; Admin Dose 0.1 MG; Start 08/25/16 at 06:00 Vancomycin HCl (Vancocin) 250 ml @ 125 mls/hr Q12H IVPB Last administered on 03:11; Admin Dose 125 MLS/HR; Start 08/26/16 at 15:00 Insulin Glargine (Lantus) 17 unit DAILY@20 SC Last administered on 09/01/16 21 :31; Admin Dose 17 UNIT; Start 08/26/16 at 20:00 Epoetin Baldomero (Epogen (Oncology)) 20,000 units MoWeFr@17 SC Last administered on 09/02/16 17:28; Admin Dose 20,000 UNITS; Start 08/28/16 at 17:00 Magnesium Hydroxide (Milk Of Mag) 30 ml Q6H PRN PO CONSTIPATION Last administered on 09/03/16 09:10; Admin Dose 30 ML; Start 08/27/16 at 22:20 Apixaban (Eliquis) 5 mg BID PO Last administered on 09/03/16 08:40; Admin Dose 5 MG; Start 08/28/16 at 21:00 Promethazine HCl/ Codeine (Phenergan/ Codeine) 10 ml Q4H PRN PO COUGH Last administered on 09/02/16 14:22; Admin Dose 10 ML; Start 08/29/16 at 22:00 Assessment/Plan Chief Complaint/Hosp Course Assessment 1. Pulmonary embolus with intermittent hemoptysis chest x-ray shows pulmonary edema possible pneumonia. 2. Anemia likely of chronic disease rule out GI bleed 3. Effusions with compressive atelectasis Plan 1. Continue O2 as needed 2. Anticoagulation, monitor hemoptysis. Bronchoscopy if worse. No need at present. Problems: DIOMEDES ARTHUR MD, [facility] Sep 03, 2016 11:13
[2016-09-03] MEDS: ACETAMINOPHEN 325 MG TAB PO PRN (12:24)
--- NOTE | 2016-09-03 14:17 | PN ---
Date/Time of Note Date/Time of Note DATE: 09/03/16 TIME: 14:14 Assessment/Plan VTE Prophylaxis VTE Prophylaxis Intervention: SCD's Lines/Catheters IV [facility] Type (from [facility] Saline Lock Urinary Cath still in place: No Assessment/Plan Chief Complaint/Hosp Course Patient remains hemodynamically stable, complaints of bilateral lower extremities and scrotal edema, comfortable on supplemental oxygen. Assessment/Plan - Healthcare acquired pneumonia, continued on vancomycin and cefepime, Dr. Springer is following pulmonology consultation. - Bilateral pleural effusions, continue incentive spirometer, 2 D Echo with stage I diastolic dysfunction and preserved ejection fraction. - Myelofibrosis. Dr. 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 - Bilateral large hydroceles, Dr. Keane is following in urology consultation - Status post EGD and colonoscopy, with notion of gastritis gastritis and superficial duodenal ulcer per EGD and multiple polyps per colonoscopy. 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 Hall is following in gastroenterology consultation. - History of pulmonary embolism, continue Eliquis - Diabetes mellitus, hemoglobin A1c is 8.2. continue, Tradjenta, Lantus and NovoLog. - Hypertension, continue Cozaar. - Hyperlipidemia - BPH, status post TURP - Pseudomonas UTI, status post treatment - Status post right hip replacement Further recommendations based on clinical course. Plan of care discussed with Dr. Seay. Problems: Exam/Review of Systems Vital Signs Vitals Vital Signs Date Time Temp Pulse Resp B/P Pulse Ox O2 Delivery O2 Flow Rate FiO2 09/03/16 13:38 97 22 98 Nasal Cannula 2.0 09/03/16 08:11 99.1 167/77 09/01/16 07:44 21 Intake and Output 09/02/16 09/02/16 09/03/16 15:00 23:00 07:00 Intake Total 50 ml 1140 ml 970 ml Output Total 700 ml 1550 ml Balance 50 ml 440 ml -580 ml Exam Constitutional: alert, oriented Head: atraumatic, normocephalic Neck: supple Respiratory: clear Cardiovascular: nl pulses Gastrointestinal: non-tender, soft Extremities: edema, other Neurological: nl mental status Skin: nl turgor Results Result Diagram: 09/03/16 0520 09/03/16 0520 Results 24 hrs Laboratory Tests Test 09/02/16 14:45 09/02/16 17:27 09/02/16 20:36 09/03/16 05:20 Bedside Glucose 146 195 71 White Blood Count 8.4 Red Blood Count 3.10 L Hemoglobin 7.8 L Hematocrit 23.8 L Mean Corpuscular Volume 76.8 L Mean Corpuscular Hemoglobin 25.2 L Mean Corpuscular Hemoglobin Concent 32.8 Red Cell Distribution Width 23.7 H Platelet Count 264 # Mean Platelet Volume Neutrophils % 59.1 Lymphocytes % 13.7 L Monocytes % 15.7 H Eosinophils % 0.1 Basophils % 0.6 Nucleated Red Blood Cells % 1.0 H Neutrophils # 5.0 Lymphocytes # 1.2 Monocytes # 1.3 H Eosinophils # 0.0 Basophils # 0.1 Nucleated Red Blood Cells # 0.1 H Sodium Level 138 Potassium Level 4.0 Chloride Level 103 Carbon Dioxide Level 23 Anion Gap 16 Blood Urea Nitrogen 13 Creatinine 0.61 Glucose Level 153 Calcium Level 8.2 L Test 09/03/16 07:47 09/03/16 12:08 Bedside Glucose 154 222 H Medications Medications Current Medications Acetaminophen (Tylenol Tab) 650 mg Q6H PRN PO PAIN AND OR ELEVATED TEMP Last administered on 09/03/16 12:24; Admin Dose 650 MG; Start 08/07/16 at 21:30 Morphine Sulfate (morphine) 2 mg Q4H PRN IV severe pain Last administered on 02:18; Admin Dose 2 MG; Start 08/07/16 at 21:30 Acetaminophen/ Hydrocodone Bitart ([place] (5/325)) 1 tab Q6H PRN PO moderate pain Last administered on 08/22/16 20:25; Admin Dose 1 TAB; Start 08/07/16 at 21:30 Diagnostic Test (Pha) (Accu-Chek) 1 ea 02 XX Last administered on 08/28/16 02: 00; Admin Dose 1 EA; Start 08/08/16 at 02:00 Cholecalciferol (Vitamin D) 5,000 unit DAILY PO Last administered on 08/29/16 08:20; Admin Dose 5,000 UNIT; Start 08/08/16 at 09:00 Gabapentin (Neurontin) 300 mg DAILY PO Last administered on 09/03/16 08:39; Admin Dose 300 MG; Start 08/08/16 at 09:00 Lorazepam (Ativan) 1 mg HS PRN PO ANXIETY Last administered on 08/22/16 20:25 ; Admin Dose 1 MG; Start 08/07/16 at 21:30 Linagliptin (Tradjenta) 5 mg DAILY PO Last administered on 09/03/16 08:39; Admin Dose 5 MG; Start 08/08/16 at 09:00 Miscellaneous Information 1 ea NOTE XX Last administered on 08/26/16 08:08; Admin Dose 1 EA; Start 08/13/16 at 15:30 Glucose (Glutose) 15 gm Q15M PRN PO DECREASED GLUCOSE; Start 08/13/16 at 15:30 Glucose (Glutose) 22.5 gm Q15M PRN PO DECREASED GLUCOSE; Start 08/13/16 at 15:30 Dextrose (D50w Syringe) 25 ml Q15M PRN IV DECREASED GLUCOSE; Start 08/13/16 at 15:30 Dextrose (D50w Syringe) 50 ml Q15M PRN IV DECREASED GLUCOSE; Start 08/13/16 at 15:30 Glucagon (Glucagen) 1 mg Q15M PRN IM DECREASED GLUCOSE; Start 08/13/16 at 15:30 Glucose (Glutose) 15 gm Q15M PRN BUCCAL DECREASED GLUCOSE; Start 08/13/16 at 15: 30 Diphenhydramine HCl (Benadryl) 25 mg Q6H PRN PO ITCHING Last administered on 21:35; Admin Dose 25 MG; Start 08/17/16 at 20:30 Clotrimazole (Lotrimin Cr) 1 applic BID TOP Last administered on 09/01/16 08: 36; Admin Dose 1 APPLIC; Start 08/19/16 at 21:00 Phenol 1 lozenge 1 lozenge Q4H PRN MT COUGH Last administered on 09/02/16 14: 23; Admin Dose 1 LOZENGE; Start 08/20/16 at 07:00 Cefepime HCl (Maxipime 1gm/50 ml (Pmx)) 50 ml @ 100 mls/hr Q12 IVPB Last administered on 09/03/16 08:40; Admin Dose 100 MLS/HR; Start 08/23/16 at 21:00 Losartan Potassium (Cozaar) 50 mg BID PO Last administered on 09/03/16 08:40; Admin Dose 50 MG; Start 08/23/16 at 21:00 Polyethylene Glycol (Miralax) 17 gm DAILY PRN GTB CONSTIPATION Last administered on 08/27/16 09:03; Admin Dose 17 GM; Start 08/24/16 at 09:30 Simethicone (Mylicon) 80 mg QID PRN GTB DISTENSION/GAS/BLOATING Last administered on 09/03/16 10:55; Admin Dose 80 MG; Start 08/24/16 at 13:00 Amlodipine Besylate (Norvasc) 5 mg DAILY PO Last administered on 09/03/16 08: 40; Admin Dose 5 MG; Start 08/25/16 at 09:00 Clonidine 0.1 mg 0.1 mg Q6H PRN PO ELEVATED BLOOD PRESSURE Last administered on 09/01/16 14:33; Admin Dose 0.1 MG; Start 08/25/16 at 06:00 Vancomycin HCl (Vancocin) 250 ml @ 125 mls/hr Q12H IVPB Last administered on 03:11; Admin Dose 125 MLS/HR; Start 08/26/16 at 15:00 Insulin Glargine (Lantus) 17 unit DAILY@20 SC Last administered on 09/01/16 21 :31; Admin Dose 17 UNIT; Start 08/26/16 at 20:00 Epoetin Baldomero (Epogen (Oncology)) 20,000 units MoWeFr@17 SC Last administered on 09/02/16 17:28; Admin Dose 20,000 UNITS; Start 08/28/16 at 17:00 Magnesium Hydroxide (Milk Of Mag) 30 ml Q6H PRN PO CONSTIPATION Last administered on 09/03/16 09:10; Admin Dose 30 ML; Start 08/27/16 at 22:20 Apixaban (Eliquis) 5 mg BID PO Last administered on 09/03/16 08:40; Admin Dose 5 MG; Start 08/28/16 at 21:00 Promethazine HCl/ Codeine (Phenergan/ Codeine) 10 ml Q4H PRN PO COUGH Last administered on 09/02/16 14:22; Admin Dose 10 ML; Start 08/29/16 at 22:00 IVONNE KEARNS Sep 03, 2016 14:17
[2016-09-03 15:08] VITALS: BP 149/67; RESP 18
[2016-09-03] MEDS ORDERED: BISACODYL (EC) 5 MG TAB PO PRN (15:30)
--- NOTE | 2016-09-03 19:31 | PN ---
Date/Time of Note Date/Time of Note DATE: 09/03/16 TIME: 19:25 Assessment/Plan VTE Prophylaxis VTE Prophylaxis Intervention: other (Patient is on Eliquis) Lines/Catheters IV C[facility]ter Type (from [facility]): Sal[facility] Lock Urinary Cath still in place: No Assessment/Plan Chief Complaint/Hosp Course Penoscrotal edema which is part of the generalized edema that he has over the pubic area and the lower extremities. Patient needs to elevate his lower extremities and also have the scrotum and the penis elevated on a towel all the time Problems: Subjective 24 Hr Interval Summary Constitutional: requiring O2 Eyes: no complaints ENT: no complaints Respiratory: cough, other (Hemoptysis) Cardiovascular: chest pain Gastrointestinal: other (Suprapubic edema), No nausea, No vomiting Genitourinary: other (Penile and scrotal edema) Musculoskeletal: no complaints Skin: no complaints Neurologic: no complaints Endocrine: no complaints Exam/Review of Systems Vital Signs Vitals Vital Signs Date Time Temp Pulse Resp B/P Pulse Ox O2 Delivery O2 Flow Rate FiO2 09/03/16 15:08 99.8 109 18 149/67 91 09/03/16 13:38 Nasal Cannula 2.0 09/01/16 07:44 21 Intake and Output 09/02/16 09/02/16 09/03/16 15:00 23:00 07:00 Intake Total 50 ml 1140 ml 970 ml Output Total 700 ml 1550 ml Balance 50 ml 440 ml -580 ml Exam Constitutional: alert, oriented, other (Sitting up on the chair) Psych: no complaints Head: normocephalic Eyes: nl conjunctiva ENMT: nl external ears & nose Neck: supple Cardiovascular: edema Gastrointestinal: other (Suprapubic edema), soft Genitourinary - Male: other (Penis and scrotum very swollen, unchanged from 2 days earlier) Extremities: edema, pitting pedal edema Skin: nl turgor Results Result Diagram: 09/03/16 0509/03/16 0520 Results 24 hrs Laboratory Tests Test 09/02/16 20:36 09/03/16 05:20 09/03/16 07:47 09/03/16 12:08 Bedside Glucose 71 154 222 H White Blood Count 8.4 Red Blood Count 3.10 L Hemoglobin 7.8 L Hematocrit 23.8 L Mean Corpuscular Volume 76.8 L Mean Corpuscular Hemoglobin 25.2 L Mean Corpuscular Hemoglobin Concent 32.8 Red Cell Distribution Width 23.7 H Platelet Count 264 # Mean Platelet Volume Neutrophils % 59.1 Lymphocytes % 13.7 L Monocytes % 15.7 H Eosinophils % 0.1 Basophils % 0.6 Nucleated Red Blood Cells % 1.0 H Neutrophils # 5.0 Lymphocytes # 1.2 Monocytes # 1.3 H Eosinophils # 0.0 Basophils # 0.1 Nucleated Red Blood Cells # 0.1 H Sodium Level 138 Potassium Level 4.0 Chloride Level 103 Carbon Dioxide Level 23 Anion Gap 16 Blood Urea Nitrogen 13 Creatinine 0.61 Glucose Level 153 Calcium Level 8.2 L Test 09/03/16 17:32 Bedside Glucose 162 Medications Medications Current Medications Acetaminophen (Tylenol Tab) 650 mg Q6H PRN PO PAIN AND OR ELEVATED TEMP Last administered on 09/03/16 12:24; Admin Dose 650 MG; Start 08/07/16 at 21:30 Morphine Sulfate (morphine) 2 mg Q4H PRN IV severe pain Last administered on 02:18; Admin Dose 2 MG; Start 08/07/16 at 21:30 Acetaminophen/ Hydrocodone Bitart ([place] (5/325)) 1 tab Q6H PRN PO moderate pain Last administered on 08/22/16 20:25; Admin Dose 1 TAB; Start 08/07/16 at 21:30 Diagnostic Test (Pha) (Accu-Chek) 1 ea 02 XX Last administered on 08/28/16 02: 00; Admin Dose 1 EA; Start 08/08/16 at 02:00 Cholecalciferol (Vitamin D) 5,000 unit DAILY PO Last administered on 08/29/16 08:20; Admin Dose 5,000 UNIT; Start 08/08/16 at 09:00 Gabapentin (Neurontin) 300 mg DAILY PO Last administered on 09/03/16 08:39; Admin Dose 300 MG; Start 08/08/16 at 09:00 Lorazepam (Ativan) 1 mg HS PRN PO ANXIETY Last administered on 08/22/16 20:25 ; Admin Dose 1 MG; Start 08/07/16 at 21:30 Linagliptin (Tradjenta) 5 mg DAILY PO Last administered on 09/03/16 08:39; Admin Dose 5 MG; Start 08/08/16 at 09:00 Miscellaneous Information 1 ea NOTE XX Last administered on 08/26/16 08:08; Admin Dose 1 EA; Start 08/13/16 at 15:30 Glucose (Glutose) 15 gm Q15M PRN PO DECREASED GLUCOSE; Start 08/13/16 at 15:30 Glucose (Glutose) 22.5 gm Q15M PRN PO DECREASED GLUCOSE; Start 08/13/16 at 15:30 Dextrose (D50w Syringe) 25 ml Q15M PRN IV DECREASED GLUCOSE; Start 08/13/16 at 15:30 Dextrose (D50w Syringe) 50 ml Q15M PRN IV DECREASED GLUCOSE; Start 08/13/16 at 15:30 Glucagon (Glucagen) 1 mg Q15M PRN IM DECREASED GLUCOSE; Start 08/13/16 at 15:30 Glucose (Glutose) 15 gm Q15M PRN BUCCAL DECREASED GLUCOSE; Start 08/13/16 at 15: 30 Diphenhydramine HCl (Benadryl) 25 mg Q6H PRN PO ITCHING Last administered on 21:35; Admin Dose 25 MG; Start 08/17/16 at 20:30 Clotrimazole (Lotrimin Cr) 1 applic BID TOP Last administered on 09/01/16 08: 36; Admin Dose 1 APPLIC; Start 08/19/16 at 21:00 Phenol 1 lozenge 1 lozenge Q4H PRN MT COUGH Last administered on 09/02/16 14: 23; Admin Dose 1 LOZENGE; Start 08/20/16 at 07:00 Cefepime HCl (Maxipime 1gm/50 ml (Pmx)) 50 ml @ 100 mls/hr Q12 IVPB Last administered on 09/03/16 08:40; Admin Dose 100 MLS/HR; Start 08/23/16 at 21:00 Losartan Potassium (Cozaar) 50 mg BID PO Last administered on 09/03/16 08:40; Admin Dose 50 MG; Start 08/23/16 at 21:00 Polyethylene Glycol (Miralax) 17 gm DAILY PRN GTB CONSTIPATION Last administered on 08/27/16 09:03; Admin Dose 17 GM; Start 08/24/16 at 09:30 Simethicone (Mylicon) 80 mg QID PRN GTB DISTENSION/GAS/BLOATING Last administered on 09/03/16 10:55; Admin Dose 80 MG; Start 08/24/16 at 13:00 Amlodipine Besylate (Norvasc) 5 mg DAILY PO Last administered on 09/03/16 08: 40; Admin Dose 5 MG; Start 08/25/16 at 09:00 Clonidine 0.1 mg 0.1 mg Q6H PRN PO ELEVATED BLOOD PRESSURE Last administered on 09/01/16 14:33; Admin Dose 0.1 MG; Start 08/25/16 at 06:00 Vancomycin HCl (Vancocin) 250 ml @ 125 mls/hr Q12H IVPB Last administered on 15:39; Admin Dose 125 MLS/HR; Start 08/26/16 at 15:00 Insulin Glargine (Lantus) 17 unit DAILY@20 SC Last administered on 09/01/16 21 :31; Admin Dose 17 UNIT; Start 08/26/16 at 20:00 Epoetin Baldomero (Epogen (Oncology)) 20,000 units MoWeFr@17 SC Last administered on 09/02/16 17:28; Admin Dose 20,000 UNITS; Start 08/28/16 at 17:00 Magnesium Hydroxide (Milk Of Mag) 30 ml Q6H PRN PO CONSTIPATION Last administered on 09/03/16 09:10; Admin Dose 30 ML; Start 08/27/16 at 22:20 Apixaban (Eliquis) 5 mg BID PO Last administered on 09/03/16 08:40; Admin Dose 5 MG; Start 08/28/16 at 21:00 Promethazine HCl/ Codeine (Phenergan/ Codeine) 10 ml Q4H PRN PO COUGH Last administered on 09/02/16 14:22; Admin Dose 10 ML; Start 08/29/16 at 22:00 Bisacodyl (Dulcolax) 5 mg DAILY PRN PO CONSTIPATION Last administered on 15:35; Admin Dose 5 MG; Start 09/03/16 at 15:30 Senna (Senokot) 2 tab BID PO ; Start 09/03/16 at 21:00 ANNEMARIE OCONNELL MD Sep 03, 2016 19:31
[2016-09-03] MEDS ORDERED: MAGNESIUM CITRATE 300 ML BTL PO STA (19:57)
--- NOTE | 2016-09-03 19:57 | CONS ---
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 Patient complains of right lower quadrant abdominal pain and also significant weight loss. He lost 26 pounds over the. A few months and is chronically constipated. Patient denies of any kind of GI bleeding no nausea no vomiting no heartburn. No chest pain or shortness of breath. He has lost his appetite. Patient has umbrella in the inferior vena cava and also has a history of pulmonary embolism. He has a history of surgery on his knee and also on his hands. Problems: Additional Assessment/Plan Problems: Additional Assessment/Plan 1. Diabetes mellitus 2. Anemia 3. Myelofibrosis 4. Pneumonia, alveolar hemorrhage 5. IVC thrombosis 6. UTI 7. Abdominal pain resolved 8. Chronic constipation 9. Pleural effusion Plan Monitor H&H Transfuse as needed if hemoglobin less than 7.5 Pulmonary follow up Amitiza Dulcolax Magnesium citrate 1 bottle Consultation Date/Type/Reason Admit Date/Time Aug 07, 2016 at 16:05 Initial Consult Date 08/10/16 Type of Consultation: Pulmonary Referring Provider: TEDDY RUVALCABA MD 24 HR Interval Summary Free Text/Dictation Patient complains of severe constipation Exam/Review of Systems Vital Signs Vitals Vital Signs Date Time Temp Pulse Resp B/P Pulse Ox O2 Delivery O2 Flow Rate FiO2 09/03/16 15:08 99.8 109 18 149/67 91 09/03/16 13:38 Nasal Cannula 2.0 09/01/16 07:44 21 Intake and Output 09/02/16 09/02/16 09/03/16 15:00 23:00 07:00 Intake Total 50 ml 1140 ml 970 ml Output Total 700 ml 1550 ml Balance 50 ml 440 ml -580 ml Exam Constitutional: alert, oriented, well developed Psych: nl mood/affect, no complaints Head: atraumatic, normocephalic Eyes: EOMI, PERRL, nl conjunctiva, nl lids, nl sclera ENMT: nl external ears & nose, nl lips & teeth, nl nasal mucosa & septum Neck: non-tender, supple Respiratory: clear to auscultation, normal air movement Cardiovascular: nl pulses, regular rate and rhythm Gastrointestinal: nl liver, spleen, non-tender, soft Musculoskeletal: nl extremities to inspection, nl gait and stance Extremities: normal pulses 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, nl mental status, nl speech, nl strength Skin: nl turgor, No rash or lesions Lymph: nl lymph nodes Results Result Diagram: 09/03/16 0520 09/03/16 0520 Results 24 hrs Laboratory Tests Test 09/02/16 20:36 09/03/16 05:20 09/03/16 07:47 09/03/16 12:08 Bedside Glucose 71 154 222 H White Blood Count 8.4 Red Blood Count 3.10 L Hemoglobin 7.8 L Hematocrit 23.8 L Mean Corpuscular Volume 76.8 L Mean Corpuscular Hemoglobin 25.2 L Mean Corpuscular Hemoglobin Concent 32.8 Red Cell Distribution Width 23.7 H Platelet Count 264 # Mean Platelet Volume Neutrophils % 59.1 Lymphocytes % 13.7 L Monocytes % 15.7 H Eosinophils % 0.1 Basophils % 0.6 Nucleated Red Blood Cells % 1.0 H Neutrophils # 5.0 Lymphocytes # 1.2 Monocytes # 1.3 H Eosinophils # 0.0 Basophils # 0.1 Nucleated Red Blood Cells # 0.1 H Sodium Level 138 Potassium Level 4.0 Chloride Level 103 Carbon Dioxide Level 23 Anion Gap 16 Blood Urea Nitrogen 13 Creatinine 0.61 Glucose Level 153 Calcium Level 8.2 L Test 09/03/16 17:32 Bedside Glucose 162 Medications Medications Current Medications Acetaminophen (Tylenol Tab) 650 mg Q6H PRN PO PAIN AND OR ELEVATED TEMP Last administered on 09/03/16 12:24; Admin Dose 650 MG; Start 08/07/16 at 21:30 Morphine Sulfate (morphine) 2 mg Q4H PRN IV severe pain Last administered on 02:18; Admin Dose 2 MG; Start 08/07/16 at 21:30 Acetaminophen/ Hydrocodone Bitart ([place] (5/325)) 1 tab Q6H PRN PO moderate pain Last administered on 08/22/16 20:25; Admin Dose 1 TAB; Start 08/07/16 at 21:30 Diagnostic Test (Pha) (Accu-Chek) 1 ea 02 XX Last administered on 08/28/16 02: 00; Admin Dose 1 EA; Start 08/08/16 at 02:00 Cholecalciferol (Vitamin D) 5,000 unit DAILY PO Last administered on 08/29/16 08:20; Admin Dose 5,000 UNIT; Start 08/08/16 at 09:00 Gabapentin (Neurontin) 300 mg DAILY PO Last administered on 09/03/16 08:39; Admin Dose 300 MG; Start 08/08/16 at 09:00 Lorazepam (Ativan) 1 mg HS PRN PO ANXIETY Last administered on 08/22/16 20:25 ; Admin Dose 1 MG; Start 08/07/16 at 21:30 Linagliptin (Tradjenta) 5 mg DAILY PO Last administered on 09/03/16 08:39; Admin Dose 5 MG; Start 08/08/16 at 09:00 Miscellaneous Information 1 ea NOTE XX Last administered on 08/26/16 08:08; Admin Dose 1 EA; Start 08/13/16 at 15:30 Glucose (Glutose) 15 gm Q15M PRN PO DECREASED GLUCOSE; Start 08/13/16 at 15:30 Glucose (Glutose) 22.5 gm Q15M PRN PO DECREASED GLUCOSE; Start 08/13/16 at 15:30 Dextrose (D50w Syringe) 25 ml Q15M PRN IV DECREASED GLUCOSE; Start 08/13/16 at 15:30 Dextrose (D50w Syringe) 50 ml Q15M PRN IV DECREASED GLUCOSE; Start 08/13/16 at 15:30 Glucagon (Glucagen) 1 mg Q15M PRN IM DECREASED GLUCOSE; Start 08/13/16 at 15:30 Glucose (Glutose) 15 gm Q15M PRN BUCCAL DECREASED GLUCOSE; Start 08/13/16 at 15: 30 Diphenhydramine HCl (Benadryl) 25 mg Q6H PRN PO ITCHING Last administered on 21:35; Admin Dose 25 MG; Start 08/17/16 at 20:30 Clotrimazole (Lotrimin Cr) 1 applic BID TOP Last administered on 09/01/16 08: 36; Admin Dose 1 APPLIC; Start 08/19/16 at 21:00 Phenol 1 lozenge 1 lozenge Q4H PRN MT COUGH Last administered on 09/02/16 14: 23; Admin Dose 1 LOZENGE; Start 08/20/16 at 07:00 Cefepime HCl (Maxipime 1gm/50 ml (Pmx)) 50 ml @ 100 mls/hr Q12 IVPB Last administered on 09/03/16 08:40; Admin Dose 100 MLS/HR; Start 08/23/16 at 21:00 Losartan Potassium (Cozaar) 50 mg BID PO Last administered on 09/03/16 08:40; Admin Dose 50 MG; Start 08/23/16 at 21:00 Polyethylene Glycol (Miralax) 17 gm DAILY PRN GTB CONSTIPATION Last administered on 08/27/16 09:03; Admin Dose 17 GM; Start 08/24/16 at 09:30 Simethicone (Mylicon) 80 mg QID PRN GTB DISTENSION/GAS/BLOATING Last administered on 09/03/16 10:55; Admin Dose 80 MG; Start 08/24/16 at 13:00 Amlodipine Besylate (Norvasc) 5 mg DAILY PO Last administered on 09/03/16 08: 40; Admin Dose 5 MG; Start 08/25/16 at 09:00 Clonidine 0.1 mg 0.1 mg Q6H PRN PO ELEVATED BLOOD PRESSURE Last administered on 09/01/16 14:33; Admin Dose 0.1 MG; Start 08/25/16 at 06:00 Vancomycin HCl (Vancocin) 250 ml @ 125 mls/hr Q12H IVPB Last administered on 15:39; Admin Dose 125 MLS/HR; Start 08/26/16 at 15:00 Insulin Glargine (Lantus) 17 unit DAILY@20 SC Last administered on 09/01/16 21 :31; Admin Dose 17 UNIT; Start 08/26/16 at 20:00 Epoetin Baldomero (Epogen (Oncology)) 20,000 units MoWeFr@17 SC Last administered on 09/02/16 17:28; Admin Dose 20,000 UNITS; Start 08/28/16 at 17:00 Magnesium Hydroxide (Milk Of Mag) 30 ml Q6H PRN PO CONSTIPATION Last administered on 09/03/16 09:10; Admin Dose 30 ML; Start 08/27/16 at 22:20 Apixaban (Eliquis) 5 mg BID PO Last administered on 09/03/16 08:40; Admin Dose 5 MG; Start 08/28/16 at 21:00 Promethazine HCl/ Codeine (Phenergan/ Codeine) 10 ml Q4H PRN PO COUGH Last administered on 09/02/16 14:22; Admin Dose 10 ML; Start 08/29/16 at 22:00 Bisacodyl (Dulcolax) 5 mg DAILY PRN PO CONSTIPATION Last administered on 15:35; Admin Dose 5 MG; Start 09/03/16 at 15:30 Senna (Senokot) 2 tab BID PO ; Start 09/03/16 at 21:00 ANA VELASQUEZ MD Sep 03, 2016 19:57
--- NOTE | 2016-09-03 20:08 | PN ---
Date/Time of Note Date/Time of Note DATE: 09/03/16 TIME: 19:57 Assessment/Plan VTE Prophylaxis VTE Prophylaxis Intervention: other (apixaban) Lines/Catheters IV C[facility]ter Type (from [facility]): Sal[facility] Urinary Cath still in place: No Assessment/Plan Chief Complaint/Hosp Course Anemia and IVC thrombosis. Pt has developed CHF. Has hemoptysis. Marrow is consistent with myelofibrosis and pt is SABRINA-2 positive. Problems: (1) Hemoptysis (2) Pleural effusion (3) Lupus anticoagulant positive Status: Chronic (4) Myelofibrosis Status: Chronic (5) Microcytic anemia Status: Chronic Assessment/Plan Pt is now ambulating with walker. Continues to have hemoptysis. Has remote hx of pulmonary embolism but none documented on this admit. Hemoptysis started prior to start of anticoagulation. May be due to CHF but also concerned about a pulmonary malignancy. Subjective 24 Hr Interval Summary Free Text/Dictation Complaining of lower extremity edema. Still some hemoptysis. No cxhest pain and is not c/o SOB. Exam/Review of Systems Vital Signs Vitals Vital Signs Date Time Temp Pulse Resp B/P Pulse Ox O2 Delivery O2 Flow Rate FiO2 09/03/16 15:08 99.8 109 18 149/67 91 09/03/16 13:38 Nasal Cannula 2.0 09/01/16 07:44 21 Intake and Output 09/02/16 09/02/16 09/03/16 15:00 23:00 07:00 Intake Total 50 ml 1140 ml 970 ml Output Total 700 ml 1550 ml Balance 50 ml 440 ml -580 ml Exam Constitutional: alert, oriented, well developed Head: atraumatic, normocephalic Eyes: nl conjunctiva, nl sclera ENMT: other (pale mucosa. 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, nl mental status, nl speech, nl strength Skin: nl turgor, other (pale) Lymph: nl lymph nodes Results Result Diagram: 09/03/16 0520 09/03/16 0520 Results 24 hrs Laboratory Tests Test 09/02/16 20:36 09/03/16 05:20 09/03/16 07:47 09/03/16 12:08 Bedside Glucose 71 154 222 H White Blood Count 8.4 Red Blood Count 3.10 L Hemoglobin 7.8 L Hematocrit 23.8 L Mean Corpuscular Volume 76.8 L Mean Corpuscular Hemoglobin 25.2 L Mean Corpuscular Hemoglobin Concent 32.8 Red Cell Distribution Width 23.7 H Platelet Count 264 # Mean Platelet Volume Neutrophils % 59.1 Lymphocytes % 13.7 L Monocytes % 15.7 H Eosinophils % 0.1 Basophils % 0.6 Nucleated Red Blood Cells % 1.0 H Neutrophils # 5.0 Lymphocytes # 1.2 Monocytes # 1.3 H Eosinophils # 0.0 Basophils # 0.1 Nucleated Red Blood Cells # 0.1 H Sodium Level 138 Potassium Level 4.0 Chloride Level 103 Carbon Dioxide Level 23 Anion Gap 16 Blood Urea Nitrogen 13 Creatinine 0.61 Glucose Level 153 Calcium Level 8.2 L Test 09/03/16 17:32 Bedside Glucose 162 Medications Medications Current Medications Acetaminophen (Tylenol Tab) 650 mg Q6H PRN PO PAIN AND OR ELEVATED TEMP Last administered on 09/03/16 12:24; Admin Dose 650 MG; Start 08/07/16 at 21:30 Morphine Sulfate (morphine) 2 mg Q4H PRN IV severe pain Last administered on 02:18; Admin Dose 2 MG; Start 08/07/16 at 21:30 Acetaminophen/ Hydrocodone Bitart ([place] (5/325)) 1 tab Q6H PRN PO moderate pain Last administered on 08/22/16 20:25; Admin Dose 1 TAB; Start 08/07/16 at 21:30 Diagnostic Test (Pha) (Accu-Chek) 1 ea 02 XX Last administered on 08/28/16 02: 00; Admin Dose 1 EA; Start 08/08/16 at 02:00 Cholecalciferol (Vitamin D) 5,000 unit DAILY PO Last administered on 08/29/16 08:20; Admin Dose 5,000 UNIT; Start 08/08/16 at 09:00 Gabapentin (Neurontin) 300 mg DAILY PO Last administered on 09/03/16 08:39; Admin Dose 300 MG; Start 08/08/16 at 09:00 Lorazepam (Ativan) 1 mg HS PRN PO ANXIETY Last administered on 08/22/16 20:25 ; Admin Dose 1 MG; Start 08/07/16 at 21:30 Linagliptin (Tradjenta) 5 mg DAILY PO Last administered on 09/03/16 08:39; Admin Dose 5 MG; Start 08/08/16 at 09:00 Miscellaneous Information 1 ea NOTE XX Last administered on 08/26/16 08:08; Admin Dose 1 EA; Start 08/13/16 at 15:30 Glucose (Glutose) 15 gm Q15M PRN PO DECREASED GLUCOSE; Start 08/13/16 at 15:30 Glucose (Glutose) 22.5 gm Q15M PRN PO DECREASED GLUCOSE; Start 08/13/16 at 15:30 Dextrose (D50w Syringe) 25 ml Q15M PRN IV DECREASED GLUCOSE; Start 08/13/16 at 15:30 Dextrose (D50w Syringe) 50 ml Q15M PRN IV DECREASED GLUCOSE; Start 08/13/16 at 15:30 Glucagon (Glucagen) 1 mg Q15M PRN IM DECREASED GLUCOSE; Start 08/13/16 at 15:30 Glucose (Glutose) 15 gm Q15M PRN BUCCAL DECREASED GLUCOSE; Start 08/13/16 at 15: 30 Diphenhydramine HCl (Benadryl) 25 mg Q6H PRN PO ITCHING Last administered on 21:35; Admin Dose 25 MG; Start 08/17/16 at 20:30 Clotrimazole (Lotrimin Cr) 1 applic BID TOP Last administered on 09/01/16 08: 36; Admin Dose 1 APPLIC; Start 08/19/16 at 21:00 Phenol 1 lozenge 1 lozenge Q4H PRN MT COUGH Last administered on 09/02/16 14: 23; Admin Dose 1 LOZENGE; Start 08/20/16 at 07:00 Cefepime HCl (Maxipime 1gm/50 ml (Pmx)) 50 ml @ 100 mls/hr Q12 IVPB Last administered on 09/03/16 08:40; Admin Dose 100 MLS/HR; Start 08/23/16 at 21:00 Losartan Potassium (Cozaar) 50 mg BID PO Last administered on 09/03/16 08:40; Admin Dose 50 MG; Start 08/23/16 at 21:00 Polyethylene Glycol (Miralax) 17 gm DAILY PRN GTB CONSTIPATION Last administered on 08/27/16 09:03; Admin Dose 17 GM; Start 08/24/16 at 09:30 Simethicone (Mylicon) 80 mg QID PRN GTB DISTENSION/GAS/BLOATING Last administered on 09/03/16 10:55; Admin Dose 80 MG; Start 08/24/16 at 13:00 Amlodipine Besylate (Norvasc) 5 mg DAILY PO Last administered on 09/03/16 08: 40; Admin Dose 5 MG; Start 08/25/16 at 09:00 Clonidine 0.1 mg 0.1 mg Q6H PRN PO ELEVATED BLOOD PRESSURE Last administered on 09/01/16 14:33; Admin Dose 0.1 MG; Start 08/25/16 at 06:00 Vancomycin HCl (Vancocin) 250 ml @ 125 mls/hr Q12H IVPB Last administered on 15:39; Admin Dose 125 MLS/HR; Start 08/26/16 at 15:00 Insulin Glargine (Lantus) 17 unit DAILY@20 SC Last administered on 09/01/16 21 :31; Admin Dose 17 UNIT; Start 08/26/16 at 20:00 Epoetin Baldomero (Epogen (Oncology)) 20,000 units MoWeFr@17 SC Last administered on 09/02/16 17:28; Admin Dose 20,000 UNITS; Start 08/28/16 at 17:00 Magnesium Hydroxide (Milk Of Mag) 30 ml Q6H PRN PO CONSTIPATION Last administered on 09/03/16 09:10; Admin Dose 30 ML; Start 08/27/16 at 22:20 Apixaban (Eliquis) 5 mg BID PO Last administered on 09/03/16 08:40; Admin Dose 5 MG; Start 08/28/16 at 21:00 Promethazine HCl/ Codeine (Phenergan/ Codeine) 10 ml Q4H PRN PO COUGH Last administered on 09/02/16 14:22; Admin Dose 10 ML; Start 08/29/16 at 22:00 Bisacodyl (Dulcolax) 5 mg DAILY PRN PO CONSTIPATION Last administered on 15:35; Admin Dose 5 MG; Start 09/03/16 at 15:30 Senna (Senokot) 2 tab BID PO ; Start 09/03/16 at 21:00 Copies To: CC: ЕЛЕНА CLAROS MD, STANLEY H MD Sep 03, 2016 20:08
[2016-09-03 20:19] VITALS: BP 163/72; RESP 19
[2016-09-03] MEDS: SENNA TAB PO SCH (20:45)
[2016-09-03] MEDS: INSULIN GLARGINE [LANtus] 3 ML PEN SC SCH (20:50)
[2016-09-04] MEDS: ACCU-CHEK XX SCH (02:00)
[2016-09-04] MEDS: ALBUTEROL/IPRATROPIUM (NEB) 3 ML AMP HHN SCH ×3 (02:31→14:18)
[2016-09-04 02:33] VITALS: BP 156/74; RESP 18
[2016-09-04] MEDS: VANCOMYCIN 1 GM in NS 250 ML IVPB SCH ×2 (02:38→14:06)
[2016-09-04] MEDS: PROMETHAZINE/CODEINE 5ML CUP PO PRN (02:59)
[2016-09-04 06:16] LABS: ABNORMAL IP MESSAGE 1; HEMATOCRIT 23.5 % (42.0-52.0); HEMOGLOBIN 7.6 g/dl (14.0-18.0); MEAN CORPUSCULAR HEMOGLOBIN 24.8 pg (29.0-33.0); MEAN CORPUSCULAR HGB CONC 32.3 g/dl (32.0-37.0); MEAN CORPUSCULAR VOLUME 76.5 fl (82.0-101.0); NUCLEATED RED BLOOD CELLS% 0.9 /100WBC (0.0-0.0); PLATELET COUNT 231 10^3/UL (140-415); POSITIVE DIFF @See below; RED BLOOD COUNT 3.07 10^6/ul (4.70-6.10); RED CELL DISTRIBUTION WIDTH 24.5 % (11.5-14.5); WHITE BLOOD COUNT 9.7 10^3/ul (4.8-10.8)
[2016-09-04 06:49] LABS: CALCIUM 8.2 mg/dl (8.4-10.2); CREATININE 0.7 mg/dl (0.61-1.24); POTASSIUM 4.2 mmol/L (3.5-5.1)
[2016-09-04 07:44] LABS: ANISOCYTOSIS 2+ (0-0); BASOPHILS % (M) 1 % (0-2); ERYTHROBLAST% (NRBC) (M) 2 % (0-0); HYPOCHROMASIA 1+ (0-0); MICROCYTOSIS 2+ (0-0); MONOCYTES % (M) 11 % (0-11); PLATELET ESTIMATE NORMAL; POIKILOCYTOSIS 2+ (0-0); POLYCHROMASIA 3+ (0-0)
[2016-09-04 07:52] VITALS: BP 156/72; RESP 20
[2016-09-04] MEDS: INSULIN ASPART [NOVOLOG] 3 ML PEN SC SCH ×4 (08:34→12:04)
[2016-09-04] MEDS: CEFEPIME 1GM/50 ML (PMX) 50 ML IVPB SCH (08:45)
[2016-09-04] MEDS: LOSARTAN 50 MG TAB PO SCH (08:45)
[2016-09-04] MEDS: AMLODIPINE 5 MG TAB PO SCH (08:46)
[2016-09-04] MEDS: ACETAMINOPHEN 325 MG TAB PO PRN (08:46)
[2016-09-04] MEDS: GABAPENTIN 300 MG CAP PO SCH (08:46)
[2016-09-04] MEDS: APIXABAN 5 MG TABLET PO SCH (08:46)
[2016-09-04] MEDS: LINAGLIPTIN 5 MG TABLET PO SCH (08:46)
[2016-09-04] MEDS: CHOLECALCIFEROL 1,000 UNIT TAB PO SCH (08:50)
[2016-09-04] MEDS: SENNA TAB PO SCH (08:50)
[2016-09-04] MEDS: CLOTRIMAZOLE 1% 30 GM CR TOP SCH (08:51)
--- NOTE | 2016-09-04 14:57 | CONS ---
Date/Time of Note Date/Time of Note DATE: 09/04/16 TIME: 14:45 Consult Date/Type/Reason Admit Date/Time Aug 07, 2016 at 16:05 Initial Consult Date 09/02/16 Type of Consultation: Pulmonary Ordering Provider: TEDDY RUVALCABA MD Subjective Remains lethargic. Arousable to painful stimuli only. Objective Vital Signs Date Time Temp Pulse Resp B/P Pulse Ox O2 Delivery O2 Flow Rate FiO2 09/04/16 14:18 89 20 97 Nasal Cannula 2.0 09/04/16 08:21 21 09/04/16 07:52 99.8 156/72 Intake and Output 09/03/16 09/03/16 09/04/16 14:59 22:59 06:59 Intake Total 50 ml 2160 ml 250 ml Output Total 950 ml Balance 50 ml 1210 ml 250 ml Exam Elderly gentleman comfortable at rest HEENT moist mucous membranes pupils equal reactive to light obliquely. Neck is supple no JVD or adenopathy Cardiac exam S1-S2 no added sounds or murmurs Chest diminished air entry both lung bases Abdomen soft nontender no guarding or rebound Results/Medications Result Diagram: 09/04/16 0531 09/04/16 0531 Results 24 hrs Laboratory Tests Test 09/03/16 17:32 09/03/16 20:43 09/04/16 05:31 09/04/16 08:32 Bedside Glucose 162 126 192 White Blood Count 9.7 Red Blood Count 3.07 L Hemoglobin 7.6 L Hematocrit 23.5 L Mean Corpuscular Volume 76.5 L Mean Corpuscular Hemoglobin 24.8 L Mean Corpuscular Hemoglobin Concent 32.3 Red Cell Distribution Width 24.5 H Platelet Count 231 Mean Platelet Volume Neutrophils % Segmented Neutrophils % (Manual) 71 Band Neutrophils % (Manual) 5 H Lymphocytes % Lymphocytes % (Manual) 12 L Monocytes % Monocytes % (Manual) 11 Eosinophils % Basophils % Basophils % (Manual) 1 Nucleated Red Blood Cells % 2 H Neutrophils # Neutrophils # (Manual) 6.9 Band Neutrophils # 0.4 Absolute Lymphocytes (Manual) 1.1 Lymphocytes # Monocytes # Absolute Monocytes (Manual) 1.0 H Eosinophils # Basophils # Basophils # (Manual) 0.0 Nucleated Red Blood Cells # Smudge Cells % 5 H Platelet Estimate NORMAL Polychromasia 3+ Hypochromasia 1+ Poikilocytosis 2+ Anisocytosis 2+ Microcytosis 2+ Sodium Level 136 Potassium Level 4.2 Chloride Level 100 Carbon Dioxide Level 26 Anion Gap 14 Blood Urea Nitrogen 13 Creatinine 0.70 Glucose Level 141 Calcium Level 8.2 L Test 09/04/16 12:01 Bedside Glucose 170 Medications Current Medications Acetaminophen (Tylenol Tab) 650 mg Q6H PRN PO PAIN AND OR ELEVATED TEMP Last administered on 09/04/16 08:46; Admin Dose 650 MG; Start 08/07/16 at 21:30 Morphine Sulfate (morphine) 2 mg Q4H PRN IV severe pain Last administered on 02:18; Admin Dose 2 MG; Start 08/07/16 at 21:30 Acetaminophen/ Hydrocodone Bitart (Randolph (5/325)) 1 tab Q6H PRN PO moderate pain Last administered on 08/22/16 20:25; Admin Dose 1 TAB; Start 08/07/16 at 21:30 Diagnostic Test (Pha) (Accu-Chek) 1 ea 02 XX Last administered on 08/28/16 02: 00; Admin Dose 1 EA; Start 08/08/16 at 02:00 Cholecalciferol (Vitamin D) 5,000 unit DAILY PO Last administered on 08/29/16 08:20; Admin Dose 5,000 UNIT; Start 08/08/16 at 09:00 Gabapentin (Neurontin) 300 mg DAILY PO Last administered on 09/04/16 08:46; Admin Dose 300 MG; Start 08/08/16 at 09:00 Lorazepam (Ativan) 1 mg HS PRN PO ANXIETY Last administered on 08/22/16 20:25 ; Admin Dose 1 MG; Start 08/07/16 at 21:30 Linagliptin (Tradjenta) 5 mg DAILY PO Last administered on 09/04/16 08:46; Admin Dose 5 MG; Start 08/08/16 at 09:00 Miscellaneous Information 1 ea NOTE XX Last administered on 08/26/16 08:08; Admin Dose 1 EA; Start 08/13/16 at 15:30 Glucose (Glutose) 15 gm Q15M PRN PO DECREASED GLUCOSE; Start 08/13/16 at 15:30 Glucose (Glutose) 22.5 gm Q15M PRN PO DECREASED GLUCOSE; Start 08/13/16 at 15:30 Dextrose (D50w Syringe) 25 ml Q15M PRN IV DECREASED GLUCOSE; Start 08/13/16 at 15:30 Dextrose (D50w Syringe) 50 ml Q15M PRN IV DECREASED GLUCOSE; Start 08/13/16 at 15:30 Glucagon (Glucagen) 1 mg Q15M PRN IM DECREASED GLUCOSE; Start 08/13/16 at 15:30 Glucose (Glutose) 15 gm Q15M PRN BUCCAL DECREASED GLUCOSE; Start 08/13/16 at 15: 30 Diphenhydramine HCl (Benadryl) 25 mg Q6H PRN PO ITCHING Last administered on 21:35; Admin Dose 25 MG; Start 08/17/16 at 20:30 Clotrimazole (Lotrimin Cr) 1 applic BID TOP Last administered on 09/04/16 08: 51; Admin Dose 1 APPLIC; Start 08/19/16 at 21:00 Phenol (Cepastat Lozenge) 1 lozenge Q4H PRN MT COUGH Last administered on 14:23; Admin Dose 1 LOZENGE; Start 08/20/16 at 07:00 Losartan Potassium (Cozaar) 50 mg BID PO Last administered on 09/04/16 08:45; Admin Dose 50 MG; Start 08/23/16 at 21:00 Polyethylene Glycol (Miralax) 17 gm DAILY PRN GTB CONSTIPATION Last administered on 08/27/16 09:03; Admin Dose 17 GM; Start 08/24/16 at 09:30 Simethicone (Mylicon) 80 mg QID PRN GTB DISTENSION/GAS/BLOATING Last administered on 09/03/16 10:55; Admin Dose 80 MG; Start 08/24/16 at 13:00 Amlodipine Besylate (Norvasc) 5 mg DAILY PO Last administered on 09/04/16 08: 46; Admin Dose 5 MG; Start 08/25/16 at 09:00 Clonidine (Catapres) 0.1 mg Q6H PRN PO ELEVATED BLOOD PRESSURE Last administered on 09/03/16 23:35; Admin Dose 0.1 MG; Start 08/25/16 at 06:00 Insulin Glargine (Lantus) 17 unit DAILY@20 SC Last administered on 09/01/16 21 :31; Admin Dose 17 UNIT; Start 08/26/16 at 20:00 Epoetin Baldomero (Epogen (Oncology)) 20,000 units MoWeFr@17 SC Last administered on 09/02/16 17:28; Admin Dose 20,000 UNITS; Start 08/28/16 at 17:00 Magnesium Hydroxide (Milk Of Mag) 30 ml Q6H PRN PO CONSTIPATION Last administered on 09/03/16 09:10; Admin Dose 30 ML; Start 08/27/16 at 22:20 Apixaban (Eliquis) 5 mg BID PO Last administered on 09/04/16 08:46; Admin Dose 5 MG; Start 08/28/16 at 21:00 Promethazine HCl/ Codeine (Phenergan/ Codeine) 10 ml Q4H PRN PO COUGH Last administered on 09/04/16 02:59; Admin Dose 10 ML; Start 08/29/16 at 22:00 Bisacodyl (Dulcolax) 5 mg DAILY PRN PO CONSTIPATION Last administered on 15:35; Admin Dose 5 MG; Start 09/03/16 at 15:30 Senna (Senokot) 2 tab BID PO Last administered on 09/03/16 20:45; Admin Dose 2 TAB; Start 09/03/16 at 21:00 Assessment/Plan Chief Complaint/Hosp Course Assessment 1. Pulmonary embolus with intermittent hemoptysis chest x-ray shows pulmonary edema possible pneumonia. Patient not stable enough for bronchoscopy. 2. Anemia likely of chronic disease rule out GI bleed 3. Effusions with compressive atelectasis Plan 1. Continue O2 as needed 2. Anticoagulation, monitor hemoptysis. Bronchoscopy would require intubation mechanical ventilation. Given patient's significant neuromuscular weakness and mental status, this would result in patient being on prolonged mechanical ventilation and may not be able to be liberated from mechanical ventilation Overall prognosis poor. Consider addressing CODE STATUS. Problems: DIOMEDES ARTHUR MD, [facility] Sep 04, 2016 14:55
--- NOTE | 2016-09-04 15:09 | PN ---
Date/Time of Note Date/Time of Note DATE: 09/04/16 TIME: 15:00 Assessment/Plan VTE Prophylaxis VTE Prophylaxis Intervention: other (apixaban) Lines/Catheters [facility] Peripheral IV Urinary Cath still in place: No Assessment/Plan Chief Complaint/Hosp Course Anemia and IVC thrombosis. Pt has developed CHF. Has hemoptysis. Marrow is consistent with myelofibrosis and pt is SABRINA-2 positive. Problems: (1) Hemoptysis (2) Pleural effusion (3) Duodenal ulcer (4) Lupus anticoagulant positive Status: Chronic (5) Myelofibrosis Status: Chronic (6) Microcytic anemia Status: Chronic Assessment/Plan Pt is likely to be discharged today. Pt's peripheral blood findings are, at least partially the anemia related to the myelofibrosis--including, at least partially, the anemia. Jakafi will not correct the anemia and should be reserved for treatment of the symptoms of myelofibrosis including marked weakness and fatigue, uncomfortable splenomegaly, weight loss, pruritus or fevers and night sweats. Subjective 24 Hr Interval Summary Free Text/Dictation Pt is feeling better. Has been ambulating. States that he is not experiencing hemoptysis. Exam/Review of Systems Vital Signs Vitals Vital Signs Date Time Temp Pulse Resp B/P Pulse Ox O2 Delivery O2 Flow Rate FiO2 09/04/16 14:18 89 20 97 Nasal Cannula 2.0 09/04/16 08:21 21 09/04/16 07:52 99.8 156/72 Intake and Output 09/03/16 09/03/16 09/04/16 15:00 23:00 07:00 Intake Total 50 ml 2160 ml 250 ml Output Total 950 ml Balance 50 ml 1210 ml 250 ml Exam Constitutional: alert, oriented, well developed Psych: nl mood/affect, no complaints Head: atraumatic, normocephalic Eyes: EOMI, PERRL, nl conjunctiva, nl sclera ENMT: mucosa pink and moist, nl lips & teeth Neck: non-tender, supple Respiratory: diminished breath sounds (in both bases. No rubs.) Cardiovascular: nl pulses, regular rate and rhythm Gastrointestinal: nl liver, spleen, non-tender, soft Musculoskeletal: nl extremities to inspection, nl gait and stance Extremities: edema ( Lt forearm and trace edema and trace pretibial edema bilat.), normal pulses Neurological: POSTAL MAIL CARRIER II-XII intact, nl mental status, nl speech, nl strength Skin: ecchymosis (Lt bicipital area), nl turgor Lymph: nl lymph nodes Results Result Diagram: 09/04/16 0531 09/04/16 0531 Results 24 hrs Laboratory Tests Test 09/03/16 17:32 09/03/16 20:43 09/04/16 05:31 09/04/16 08:32 Bedside Glucose 162 126 192 White Blood Count 9.7 Red Blood Count 3.07 L Hemoglobin 7.6 L Hematocrit 23.5 L Mean Corpuscular Volume 76.5 L Mean Corpuscular Hemoglobin 24.8 L Mean Corpuscular Hemoglobin Concent 32.3 Red Cell Distribution Width 24.5 H Platelet Count 231 Mean Platelet Volume Neutrophils % Segmented Neutrophils % (Manual) 71 Band Neutrophils % (Manual) 5 H Lymphocytes % Lymphocytes % (Manual) 12 L Monocytes % Monocytes % (Manual) 11 Eosinophils % Basophils % Basophils % (Manual) 1 Nucleated Red Blood Cells % 2 H Neutrophils # Neutrophils # (Manual) 6.9 Band Neutrophils # 0.4 Absolute Lymphocytes (Manual) 1.1 Lymphocytes # Monocytes # Absolute Monocytes (Manual) 1.0 H Eosinophils # Basophils # Basophils # (Manual) 0.0 Nucleated Red Blood Cells # Smudge Cells % 5 H Platelet Estimate NORMAL Polychromasia 3+ Hypochromasia 1+ Poikilocytosis 2+ Anisocytosis 2+ Microcytosis 2+ Sodium Level 136 Potassium Level 4.2 Chloride Level 100 Carbon Dioxide Level 26 Anion Gap 14 Blood Urea Nitrogen 13 Creatinine 0.70 Glucose Level 141 Calcium Level 8.2 L Test 09/04/16 12:01 Bedside Glucose 170 Medications Medications Current Medications Acetaminophen (Tylenol Tab) 650 mg Q6H PRN PO PAIN AND OR ELEVATED TEMP Last administered on 09/04/16 08:46; Admin Dose 650 MG; Start 08/07/16 at 21:30 Morphine Sulfate (morphine) 2 mg Q4H PRN IV severe pain Last administered on 02:18; Admin Dose 2 MG; Start 08/07/16 at 21:30 Acetaminophen/ Hydrocodone Bitart (Campbell (5/325)) 1 tab Q6H PRN PO moderate pain Last administered on 08/22/16 20:25; Admin Dose 1 TAB; Start 08/07/16 at 21:30 Diagnostic Test (Pha) (Accu-Chek) 1 ea 02 XX Last administered on 08/28/16 02: 00; Admin Dose 1 EA; Start 08/08/16 at 02:00 Cholecalciferol (Vitamin D) 5,000 unit DAILY PO Last administered on 08/29/16 08:20; Admin Dose 5,000 UNIT; Start 08/08/16 at 09:00 Gabapentin (Neurontin) 300 mg DAILY PO Last administered on 09/04/16 08:46; Admin Dose 300 MG; Start 08/08/16 at 09:00 Lorazepam (Ativan) 1 mg HS PRN PO ANXIETY Last administered on 08/22/16 20:25 ; Admin Dose 1 MG; Start 08/07/16 at 21:30 Linagliptin (Tradjenta) 5 mg DAILY PO Last administered on 09/04/16 08:46; Admin Dose 5 MG; Start 08/08/16 at 09:00 Miscellaneous Information 1 ea NOTE XX Last administered on 08/26/16 08:08; Admin Dose 1 EA; Start 08/13/16 at 15:30 Glucose (Glutose) 15 gm Q15M PRN PO DECREASED GLUCOSE; Start 08/13/16 at 15:30 Glucose (Glutose) 22.5 gm Q15M PRN PO DECREASED GLUCOSE; Start 08/13/16 at 15:30 Dextrose (D50w Syringe) 25 ml Q15M PRN IV DECREASED GLUCOSE; Start 08/13/16 at 15:30 Dextrose (D50w Syringe) 50 ml Q15M PRN IV DECREASED GLUCOSE; Start 08/13/16 at 15:30 Glucagon (Glucagen) 1 mg Q15M PRN IM DECREASED GLUCOSE; Start 08/13/16 at 15:30 Glucose (Glutose) 15 gm Q15M PRN BUCCAL DECREASED GLUCOSE; Start 08/13/16 at 15: 30 Diphenhydramine HCl (Benadryl) 25 mg Q6H PRN PO ITCHING Last administered on 21:35; Admin Dose 25 MG; Start 08/17/16 at 20:30 Clotrimazole (Lotrimin Cr) 1 applic BID TOP Last administered on 09/04/16 08: 51; Admin Dose 1 APPLIC; Start 08/19/16 at 21:00 Phenol (Cepastat Lozenge) 1 lozenge Q4H PRN MT COUGH Last administered on 14:23; Admin Dose 1 LOZENGE; Start 08/20/16 at 07:00 Losartan Potassium (Cozaar) 50 mg BID PO Last administered on 09/04/16 08:45; Admin Dose 50 MG; Start 08/23/16 at 21:00 Polyethylene Glycol (Miralax) 17 gm DAILY PRN GTB CONSTIPATION Last administered on 08/27/16 09:03; Admin Dose 17 GM; Start 08/24/16 at 09:30 Simethicone (Mylicon) 80 mg QID PRN GTB DISTENSION/GAS/BLOATING Last administered on 09/03/16 10:55; Admin Dose 80 MG; Start 08/24/16 at 13:00 Amlodipine Besylate (Norvasc) 5 mg DAILY PO Last administered on 09/04/16 08: 46; Admin Dose 5 MG; Start 08/25/16 at 09:00 Clonidine (Catapres) 0.1 mg Q6H PRN PO ELEVATED BLOOD PRESSURE Last administered on 09/03/16 23:35; Admin Dose 0.1 MG; Start 08/25/16 at 06:00 Insulin Glargine (Lantus) 17 unit DAILY@20 SC Last administered on 09/01/16 21 :31; Admin Dose 17 UNIT; Start 08/26/16 at 20:00 Epoetin Baldomero (Epogen (Oncology)) 20,000 units MoWeFr@17 SC Last administered on 09/02/16 17:28; Admin Dose 20,000 UNITS; Start 08/28/16 at 17:00 Magnesium Hydroxide (Milk Of Mag) 30 ml Q6H PRN PO CONSTIPATION Last administered on 09/03/16 09:10; Admin Dose 30 ML; Start 08/27/16 at 22:20 Apixaban (Eliquis) 5 mg BID PO Last administered on 09/04/16 08:46; Admin Dose 5 MG; Start 08/28/16 at 21:00 Promethazine HCl/ Codeine (Phenergan/ Codeine) 10 ml Q4H PRN PO COUGH Last administered on 09/04/16 02:59; Admin Dose 10 ML; Start 08/29/16 at 22:00 Bisacodyl (Dulcolax) 5 mg DAILY PRN PO CONSTIPATION Last administered on 15:35; Admin Dose 5 MG; Start 09/03/16 at 15:30 Senna (Senokot) 2 tab BID PO Last administered on 09/03/16 20:45; Admin Dose 2 TAB; Start 09/03/16 at 21:00 Copies To: CC: ЕЛЕНА CLAROS MD, STANLEY H MD Sep 04, 2016 15:09
[2016-09-04 15:22] VITALS: BP 140/65; RESP 18
--- NOTE | 2016-09-04 16:48 | DS ---
Date/Time of Note Date/Time of Note DATE: 09/04/16 TIME: 16:47 Discharge Summary Admission/Discharge Info Admit Date/Time Aug 07, 2016 at 16:05 Discharge Date/Time Patient Condition: Stable Hx of Present Illness Patient is is a 76-year-old gentleman with history of hypertension diabetes history of DVT during postoperative. Following right hip surgery status post IVC filter placement. Patient had been following up with Dr. Sanchez as an outpatient. Patient was noted to have anemia and approximately 20 pound pounds weight loss in last 4 months. Patient was sent to Dr. Gavin for GI evaluation. However during workup of anemia he underwent CT of the abdomen and chest which revealed IVC study which revealed thrombosis proximal to IVC and extending into the lungs. Patient however did not have any chest pain, shortness of breath or hemoptysis. Patient was subsequently referred to Dr. Moody Philippe for further evaluation. Patient did not show up for appointment. Dr. Sanchez call me to proceed with further evaluation and management. I spoke with Dr. Philippe and decision has been made to start him on Eliquis 5 mg twice daily. Patient is being admitted for further evaluation and management Hospital Course - Healthcare acquired pneumonia, continued on vancomycin and cefepime, Dr. Springer is following pulmonology consultation. - Bilateral pleural effusions, continue incentive spirometer, 2 D Echo with stage I diastolic dysfunction and preserved ejection fraction. - Myelofibrosis. Dr. 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 - Bilateral large hydroceles, Dr. Keane is following in urology consultation - Status post EGD and colonoscopy, with notion of gastritis gastritis and superficial duodenal ulcer per EGD and multiple polyps per colonoscopy. 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 Hall is following in gastroenterology consultation. - History of pulmonary embolism, continue Eliquis - Diabetes mellitus, hemoglobin A1c is 8.2. continue, Tradjenta, Lantus and NovoLog. - Hypertension, continue Cozaar. - Hyperlipidemia - BPH, status post TURP - Pseudomonas UTI, status post treatment - Status post right hip replacement Home Meds Reported Medications Vitamin E* (Vitamin E*) 400 Unit Capsule, 400 UNIT PO BID, CAP 08/07/16 Sitagliptin* (Januvia*) 100 Mg Tablet, 100 MG PO DAILY, #30 TAB 08/07/16 Canagliflozin (Invokana) 300 Mg Tablet, 300 MG PO DAILY, TAB 08/07/16 Lorazepam* (Lorazepam*) 1 Mg Tablet, 1 MG PO HS Y for ANXIETY, #30 TAB 08/07/16 Cholecalciferol (Vitamin D3) 5,000 Unit Tablet, 5000 UNIT PO DAILY, TAB 08/07/16 Losartan Potassium* (Losartan Potassium*) 50 Mg Tablet, 50 MG PO DAILY, TAB 08/07/16 Metformin Hcl* (Metformin Hcl*) 500 Mg Tablet, 500 MG PO WITH BREAKFAST DINNE, # 60 TAB 08/07/16 Repaglinide* (Repaglinide*) 1 Mg Tablet, 1 MG PO AC MEALS, TAB 08/07/16 Gabapentin* (Gabapentin*) 300 Mg Capsule, 300 MG PO DAILY, #30 CAP 08/07/16 Acyclovir* (Acyclovir*) 400 Mg Tablet, 200 MG PO 5 TIMES DAILY, TAB 08/07/16 Omeprazole* (Omeprazole*) 20 Mg Capsule.dr, 20 MG PO DAILY, #30 CAP 08/07/16 Follow-up Plan With PMD in 1-2 weeks CBC in 1 week Primary Care Provider Farooq Sanchez MD Time spent on discharge: > 30 minutes Pending Labs Laboratory Tests Test 09/03/16 17:32 09/03/16 20:43 09/04/16 05:31 09/04/16 08:32 Bedside Glucose 162mg/dL (70-220) 126mg/dL (70-220) 192mg/dL (70-220) White Blood Count 9.710^3/ul (4.8-10.8) Red Blood Count 3.0710^6/ul (4.70-6.10) Hemoglobin 7.6g/dl (14.0-18.0) Hematocrit 23.5% (42.0-52.0) Mean Corpuscular Volume 76.5fl (82.0-101.0) Mean Corpuscular Hemoglobin 24.8pg (29.0-33.0) Mean Corpuscular Hemoglobin Concent 32.3g/dl (32.0-37.0) Red Cell Distribution Width 24.5% (11.5-14.5) Platelet Count 00343^3/UL (140-415) Mean Platelet Volume fl (7.4-10.4) Neutrophils % % (39.0-77.0) Segmented Neutrophils % (Manual) 71% (39-77) Band Neutrophils % (Manual) 5% (0-4) Lymphocytes % % (15.0-51.0) Lymphocytes % (Manual) 12% (15-51) Monocytes % % (0.0-11.0) Monocytes % (Manual) 11% (0-11) Eosinophils % % (0.0-7.0) Basophils % % (0.0-2.0) Basophils % (Manual) 1% (0-2) Nucleated Red Blood Cells % 2% (0-0) Neutrophils # 10^3/ul (1.6-7.5) Neutrophils # (Manual) 6.910^3/ul (1.7-7.5) Band Neutrophils # 0.410^3/ul (0.0-0.6) Absolute Lymphocytes (Manual) 1.110^3/ul (0.8-2.9) Lymphocytes # 10^3/ul (0.8-2.9) Monocytes # 10^3/ul (0.3-0.9) Absolute Monocytes (Manual) 1.010^3/ul (0.3-0.9) Eosinophils # 10^3/ul (0.0-0.5) Basophils # 10^3/ul (0.0-0.1) Basophils # (Manual) 0.010^3/ul (0.0-0.0) Nucleated Red Blood Cells # 10^3/ul (0.0-0.0) Smudge Cells % 5% (0-0) Platelet Estimate NORMAL Polychromasia 3+ (0-0) Hypochromasia 1+ (0-0) Poikilocytosis 2+ (0-0) Anisocytosis 2+ (0-0) Microcytosis 2+ (0-0) Sodium Level 136mmol/L (135-144) Potassium Level 4.2mmol/L (3.5-5.1) Chloride Level 100mmol/L (97-110) Carbon Dioxide Level 26mmol/L (21-31) Anion Gap 14 (8-16) Blood Urea Nitrogen 13mg/dl (7-20) Creatinine 0.70mg/dl (0.61-1.24) Glucose Level 141mg/dl (70-220) Calcium Level 8.2mg/dl (8.4-10.2) Test 09/04/16 12:01 Bedside Glucose 170mg/dL (70-220) IVONNE KEARNS Sep 04, 2016 16:48
[2016-09-04] MEDS: EPOETIN 10000 UNITS/ML VIAL (ONCOLOGY) SC SCH (17:07)
--- NOTE | 2016-09-04 18:11 | CONS ---
Date/Time of Note Date/Time of Note DATE: 09/04/16 TIME: 18:10 Assessment/Plan Assessment/Plan Chief Complaint/Hosp Course This is a 76-year-old male with a history of diabetes mellitus hypertension lipid abnormality admitted to the hospital for thrombosis of the inferior vena cava. Patient complains of right lower quadrant abdominal pain and also significant weight loss. He lost 26 pounds over the. A few months and is chronically constipated. Patient denies of any kind of GI bleeding no nausea no vomiting no heartburn. No chest pain or shortness of breath. He has lost his appetite. Patient has umbrella in the inferior vena cava and also has a history of pulmonary embolism. He has a history of surgery on his knee and also on his hands. Problems: Additional Assessment/Plan 1. Diabetes mellitus 2. Anemia 3. Myelofibrosis 4. Pneumonia, alveolar hemorrhage 5. IVC thrombosis 6. UTI 7. Abdominal pain resolved 8. Chronic constipation 9. Pleural effusion Plan Monitor H&H Transfuse as needed if hemoglobin less than 7.5 Pulmonary follow up Amibrianaza Dulcolax Magnesium citrate 1 bottle Consultation Date/Type/Reason Admit Date/Time Aug 07, 2016 at 16:05 Initial Consult Date 08/10/16 Type of Consultation: Pulmonary Referring Provider: TEDDY RUVALCABA MD 24 HR Interval Summary Free Text/Dictation Discussed with the staff and the patient finally he had extremely good bowel movement Exam/Review of Systems Vital Signs Vitals Vital Signs Date Time Temp Pulse Resp B/P Pulse Ox O2 Delivery O2 Flow Rate FiO2 09/04/16 15:22 98.4 91 18 140/65 96 09/04/16 14:18 Nasal Cannula 2.0 09/04/16 08:21 21 Intake and Output 09/03/16 09/03/16 09/04/16 15:00 23:00 07:00 Intake Total 50 ml 2160 ml 250 ml Output Total 950 ml Balance 50 ml 1210 ml 250 ml Exam Constitutional: alert, oriented, well developed Psych: nl mood/affect, no complaints Head: atraumatic, normocephalic Eyes: EOMI, PERRL, nl conjunctiva, nl lids, nl sclera ENMT: nl external ears & nose, nl lips & teeth, nl nasal mucosa & septum Neck: non-tender, supple Respiratory: clear to auscultation, normal air movement Cardiovascular: nl pulses, regular rate and rhythm Gastrointestinal: nl liver, spleen, non-tender, soft Musculoskeletal: nl extremities to inspection, nl gait and stance Extremities: normal pulses Neurological: NURSE WOUND II-XII intact, nl mental status, nl speech, nl strength Skin: nl turgor, No rash or lesions Lymph: nl lymph nodes Results Result Diagram: 09/04/16 0531 09/04/16 0531 Results 24 hrs Laboratory Tests Test 09/03/16 20:43 09/04/16 05:31 09/04/16 08:32 09/04/16 12:01 Bedside Glucose 126 192 170 White Blood Count 9.7 Red Blood Count 3.07 L Hemoglobin 7.6 L Hematocrit 23.5 L Mean Corpuscular Volume 76.5 L Mean Corpuscular Hemoglobin 24.8 L Mean Corpuscular Hemoglobin Concent 32.3 Red Cell Distribution Width 24.5 H Platelet Count 231 Mean Platelet Volume Neutrophils % Segmented Neutrophils % (Manual) 71 Band Neutrophils % (Manual) 5 H Lymphocytes % Lymphocytes % (Manual) 12 L Monocytes % Monocytes % (Manual) 11 Eosinophils % Basophils % Basophils % (Manual) 1 Nucleated Red Blood Cells % 2 H Neutrophils # Neutrophils # (Manual) 6.9 Band Neutrophils # 0.4 Absolute Lymphocytes (Manual) 1.1 Lymphocytes # Monocytes # Absolute Monocytes (Manual) 1.0 H Eosinophils # Basophils # Basophils # (Manual) 0.0 Nucleated Red Blood Cells # Smudge Cells % 5 H Platelet Estimate NORMAL Polychromasia 3+ Hypochromasia 1+ Poikilocytosis 2+ Anisocytosis 2+ Microcytosis 2+ Sodium Level 136 Potassium Level 4.2 Chloride Level 100 Carbon Dioxide Level 26 Anion Gap 14 Blood Urea Nitrogen 13 Creatinine 0.70 Glucose Level 141 Calcium Level 8.2 L ANA VELASQUEZ MD Sep 04, 2016 18:10
== END 2016-09-04 17:35 | DRG 840 ==
LOC: E/R 13:09 → MS2 16:05
PROVIDERS: ADMIT Internal Medicine; ATTEND Internal Medicine
PROC: 07DR3ZX Extraction of Iliac Bone Marrow, Percutaneous Approach, Diagnostic (ICD-10-PCS; principal; 2016-08-14)
PROC: 30233N1 Transfusion of Nonautologous Red Blood Cells into Peripheral Vein, Percutaneous Approach (ICD-10-PCS; 2016-08-17)
PROC: 0DB58ZX Excision of Esophagus, Via Natural or Artificial Opening Endoscopic, Diagnostic (ICD-10-PCS; 2016-08-19)
PROC: 0DB68ZX Excision of Stomach, Via Natural or Artificial Opening Endoscopic, Diagnostic (ICD-10-PCS; 2016-08-19)
PROC: 0DBH8ZX Excision of Cecum, Via Natural or Artificial Opening Endoscopic, Diagnostic (ICD-10-PCS; 2016-08-19)
DX: C94.6 Myelodysplastic disease, not elsewhere classified (principal); I82.220 Acute embolism and thrombosis of inferior vena cava; J18.9 Pneumonia, unspecified organism; J90 Pleural effusion, not elsewhere classified; E87.2 Acidosis; I82.621 Acute embolism and thrombosis of deep veins of right upper extremity; I27.82 Chronic pulmonary embolism; D68.62 Lupus anticoagulant syndrome; N39.0 Urinary tract infection, site not specified; R04.2 Hemoptysis; J98.11 Atelectasis; D75.81 Myelofibrosis; E11.65 Type 2 diabetes mellitus with hyperglycemia; B96.5 Pseudomonas (aeruginosa) (mallei) (pseudomallei) as the cause of diseases classified elsewhere; I70.218 Atherosclerosis of native arteries of extremities with intermittent claudication, other extremity; R63.4 Abnormal weight loss; Z68.21 Body mass index [BMI] 21.0-21.9, adult; Z79.01 Long term (current) use of anticoagulants; E86.0 Dehydration; N43.3 Hydrocele, unspecified; D50.9 Iron deficiency anemia, unspecified; R71.8 Other abnormality of red blood cells; N40.0 Benign prostatic hyperplasia without lower urinary tract symptoms; R10.31 Right lower quadrant pain; K59.00 Constipation, unspecified; R19.7 Diarrhea, unspecified; K29.70 Gastritis, unspecified, without bleeding; K29.80 Duodenitis without bleeding; K26.9 Duodenal ulcer, unspecified as acute or chronic, without hemorrhage or perforation; I50.9 Heart failure, unspecified; N50.89 Other specified disorders of the male genital organs
CPT/HCPCS: 36415; 36430; 71010; 71020; 71250; 75635; 76700; 76705; 76870; 77012; 80048; 80053; 80061; 80202; 81001; 81003; 81240; 81270; 82270; 82378; 82565; 82607; 82668; 82728; 82746; 82784; 82962; 83010; 83036; 83540; 83605; 83615; 83690; 83735; 83880; 83890; 84155; 84165; 84484; 84520; 84560; 85025; 85045; 85300; 85302; 85305; 85384; 85610; 85613; 85730; 86078; 86320; 86850; 86870; 86900; 86901; 86902; 86920; 87040; 87070; 87086; 88305; 88312; 88313; 88342; 93005; 93306; 93971; 94640; 94664; 96374; 96375; J0885; J1940; J0692; J0696; J1200; J1650; J1720; J1815; J2250; J2270; J2405; J2916; J3010; J3370; J7030; J7040; J7050; P9016; Q9967